=== PATIENT | male | born 1955 | race African-American/Black ===

== ENCOUNTER 2017-10-09 12:29 | Emergency (ER) | payer OTHER, MEDICAID ==
[2017-10-09 12:33] VITALS: BP 187/100; BMI 23.7
[2017-10-09] MEDS ORDERED: TORADOL 60 MG VIAL IM ONE (13:56)
--- NOTE | 2017-10-09 13:56 | DR.GENAD ---
HPI - PCP Primary Care Physician: none - Complaint/Symptoms Chief Complaint Doctors Comments: Patient presents with complaint of low back pain and left upper extremity pain. He has a history of osteoarthritis Chief Complaint:: "left shoulder pain and back pain, it just stated hurting this moring - Source History Provided: Patient - Mode of Arrival Mode of Arrival: Ambulatory - Timing Onset of Chief Complaint: 10/09/17 PMH - PMH Past Medical History: Yes Past Medical History: Arthritis, Hypertension Past Surgical History: No Surgical History: Ortho Surgery - Family History History of Family Medical Conditions: Yes Family Medical History: Hypertension - Social History Does patient currently use any type of tobacco product: Yes Have you used tobacco products in the last 12 months: Yes Type of Tobacco Use: Cigarettes How many years tobacco product used: 20 Does any household member use tobacco: No Alcohol Use: None Do you use any recreational Drugs:: No Lives With: Family Lives Where: Home - infectious screening In the last 2 months have you had wt loss of >10#?: NO Have you had fever, night sweats or hemotysis?: No Have you traveled outside the country in the last 6 months?: No Isolation: Standard ROS - Review of Systems Eyes: No Symptoms Reported ENTM: No Symptoms Reported Respiratoy: No Symptoms Reported Cardiovascular: No Symptoms Reported Gastrointestinal/Abdominal: No Symptoms Reported Genitourinary: No Symptoms Reported Neurological: No Symptoms Reported Musculoskeletal: Back Pain, Arm (left) Integumentary: No Symptoms Reported Hematologic/Lymphatic: No Symptoms Reported Endocrine: No Symptoms Reported Psychiatric: No Symptoms Reported All Other Systems: Reviewed and Negative PE - Vital Signs Vitals: Temperature 98 F Pulse Rate 56 Respiratory Rate 18 Blood Pressure 187/100 O2 Sat by Pulse Oximetry 100 - General Limitations: No Limitations General Appearance: Alert, In No Apparent Distress - Head Head Exam: Normal Inspection, Atraumatic - Eyes Eye exam: Normal Appearance, PERRL, EOMI - ENT ENT Exam: Normal Exam External Ear Exam: Normal External Inspection TM/Canal Exam: Bilateral Normal Nose Exam: Normal Nose Exam Mouth Exam: Normal Inspection Throat Exam: Normal Inspection - Neck Neck Exam: Normal Inspection - Chest Chest Inspection: Normal Inspection - Respiratory Respiratory Exam: Normal Lung Sounds Bilat Respiratory Exam: Bilateral Clear to Auscultation - Cardiovascular Cardiovascular Exam: Regular Rate, Normal Rhythm - Abdominal Exam Abdominal Exam: Normal Inspection Abdominal Tenderness: negative: RUQ, RLQ, LUQ, LLQ, Epigastrium, Suprapubic, Diffuse, Mild, Moderate, Severe, Other - Extremities Extremities Exam: Normal Inspection, Full ROM - Back Back Exam: Normal Inspection - Neurologic Neurological Exam: Alert, Oriented X3, CN II-XII Intact - Psychiatric Psychiatric Exam: Normal Affect, Normal Mood - Skin Skin Exam: Warm, Dry, Intact - Diagnosis Discharge Problem: hx of left elbow tendernitis Degenerative joint disease (DJD) of lumbar spine Qualifiers: Spinal osteoarthritis complication: unspecified spinal osteoarthritis Qualified Code(s): M47.816 - Spondylosis without myelopathy or radiculopathy, lumbar region - Discharge Plan Condition: Stable - Follow ups/Referrals Follow ups/Referrals: NFD,None [Primary Care Provider] - 3 days - Instructions
[2017-10-09] MEDS ORDERED: TORADOL 60 MG VIAL ONE (14:02)
== END 2017-10-09 14:07 | disposition home or self-care (01) ==
LOC: ER 12:50
DX: M47.816 Spondylosis without myelopathy or radiculopathy, lumbar region (principal); M77.8 Other enthesopathies, not elsewhere classified
CPT/HCPCS: 96372; 99282; J1885

== ENCOUNTER 2017-11-05 14:14 | Emergency (ER) | payer MEDICAID, OTHER ==
[2017-11-05 14:33] VITALS: BP 157/94; BMI 24.3
--- NOTE | 2017-11-05 15:53 | DR.GENAD ---
HPI - PCP Primary Care Physician: NFD - Complaint/Symptoms Chief Complaint Doctors Comments: Patient presents with complaint of cough and congestion for two daysl. Chief Complaint:: pt states he got a cold from his sister. He states it started 2 days ago with cough and shortness of breath. - Source History Provided: Patient - Mode of Arrival Mode of Arrival: Ambulatory - Timing Onset of Chief Complaint: 11/03/17 PMH - PMH Past Medical History: Yes Past Medical History: Arthritis, Hypertension Past Surgical History: Yes Surgical History: Ortho Surgery - Family History History of Family Medical Conditions: Yes Family Medical History: Hypertension - Social History Does patient currently use any type of tobacco product: Yes Have you used tobacco products in the last 12 months: Yes Type of Tobacco Use: Cigarettes Does any household member use tobacco: Yes Alcohol Use: None Do you use any recreational Drugs:: No Lives With: Family Lives Where: Home - infectious screening In the last 2 months have you had wt loss of >10#?: NO Have you had fever, night sweats or hemotysis?: No Have you traveled outside the country in the last 6 months?: No Isolation: Standard ROS - Review of Systems Eyes: No Symptoms Reported ENTM: No Symptoms Reported Respiratoy: No Symptoms Reported Cardiovascular: No Symptoms Reported Gastrointestinal/Abdominal: No Symptoms Reported Genitourinary: No Symptoms Reported Neurological: No Symptoms Reported Musculoskeletal: No Symptoms Reported Integumentary: No Symptoms Reported Hematologic/Lymphatic: No Symptoms Reported Endocrine: No Symptoms Reported Psychiatric: No Symptoms Reported All Other Systems: Reviewed and Negative PE - Vital Signs Vitals: Temperature 99.5 F Pulse Rate 103 Respiratory Rate 20 Blood Pressure 157/94 O2 Sat by Pulse Oximetry 97 - General Limitations: No Limitations General Appearance: Alert, In No Apparent Distress - Head Head Exam: Normal Inspection, Atraumatic - Eyes Eye exam: Normal Appearance, PERRL, EOMI - ENT ENT Exam: Normal Exam External Ear Exam: Normal External Inspection TM/Canal Exam: Bilateral Normal Nose Exam: Normal Nose Exam Mouth Exam: Normal Inspection Throat Exam: Normal Inspection - Neck Neck Exam: Normal Inspection, Full ROM - Chest Chest Inspection: Normal Inspection - Respiratory Respiratory Exam: Normal Lung Sounds Bilat Respiratory Exam: Bilateral Clear to Auscultation - Cardiovascular Cardiovascular Exam: Regular Rate, Normal Rhythm - Abdominal Exam Abdominal Exam: Normal Inspection, Normal Bowel Sounds Abdominal Tenderness: negative: RUQ, RLQ, LUQ, LLQ, Epigastrium, Suprapubic, Diffuse, Mild, Moderate, Severe, Other - Extremities Extremities Exam: Normal Inspection - Back Back Exam: Normal Inspection, Full ROM - Neurologic Neurological Exam: Alert, Oriented X3, CN II-XII Intact - Psychiatric Psychiatric Exam: Normal Affect, Normal Mood, Depressed, Agitated - Diagnosis Discharge Problem: URI (upper respiratory infection) Qualifiers: URI type: unspecified viral URI Qualified Code(s): J06.9 - Acute upper respiratory infection, unspecified - Discharge Plan Condition: Stable - Follow ups/Referrals Follow ups/Referrals: NFD,None [Primary Care Provider] - 3 days - Instructions
== END 2017-11-05 16:07 | disposition home or self-care (01) ==
LOC: ER 14:39
DX: J06.9 Acute upper respiratory infection, unspecified (principal)
CPT/HCPCS: 99281; 99282

== ENCOUNTER 2017-11-27 15:23 | Emergency (ER) | payer OTHER, MEDICAID ==
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
[2017-11-27 15:45] VITALS: BP 164/97; BMI 26.6
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
[2017-11-27] MEDS ORDERED: TORADOL 30 MG VIAL IVP ONE (16:48)
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
[2017-11-27] MEDS ORDERED: TORADOL 30 MG VIAL ONE (16:49)
== END 2017-11-27 17:57 | disposition home or self-care (01) ==
LOC: ER 15:36
DX: Z04.1 Encounter for examination and observation following transport accident (principal); M54.2 Cervicalgia; V49.40XA Driver injured in collision with unspecified motor vehicles in traffic accident, initial encounter
CPT/HCPCS: 72125; 73030; 96365; 96374; 99282; 99283; J1885

== ENCOUNTER 2020-09-09 17:04 | Inpatient (IN) ==
[2020-09-09 17:17] VITALS: BMI 27.3
[2020-09-09] MEDS ORDERED: NS 1000 ML 1,000 ML IV ONE (17:20)
[2020-09-09] MEDS ORDERED: NS 1000 ML 1,000 ML ONE ×2 (17:46→23:51)
[2020-09-09] MEDS ORDERED: NS 1000 ML 0 ML ONE (18:03)
--- NOTE | 2020-09-09 18:18 | CT ---
HISTORYPT TO ER C/O FALL, PT TO ER C/O PAIN TO HIS LEGS AND BACK, PT HAS MADE SEVERAL TRIPS TO ER OVER THE PAST FEW MONTHS, PT HAS VOMIT TO HIS CLOTHING AND BEARDSTUDYCT brain without IV contrastCOMPARISONCT 08/05/2020TECHNIQUEMultiple axial images of the brain were obtained without IV contrast. Dose reduction techniques including Automated Exposure Control (AEC) and adjustment of mA and kV were utilized.FINDINGSVisualized portions of the paranasal sinuses and mastoid air cells are clear. No calvarial fracture is seen. No acute intracranial hemorrhage or mass effect is seen. Prominent diffuse volume loss is seen in the brain with compensatory enlargement of the ventricular system.Confluent hypodensities are seen in the supratentorial white matter that are probably due to chronic small vessel ischemic changes. Consideration should be given to other causes of encephalopathy, also. 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 These are similar to prior study. Idiopathic calcifications are seen in the falx. No evidence of acute CVA.IMPRESSIONAppearance of the brain is unchanged. Findings are probably due to chronic small vessel ischemic changes, but other causes of encephalopathy causing the confluent periventricular white matter changes are not excluded.Electronically signed by: Robert Awan (Sep 09, 2020 18:17:16)
--- NOTE | 2020-09-09 18:25 | RAD ---
HISTORYPT TO ER C/O FALL, PT TO ER C/O PAIN TO HIS LEGS AND BACK, PT HAS MADE SEVERAL TRIPS TO ER OVER THE PAST FEW MONTHS, PT HAS VOMIT TO HIS CLOTHING AND BEARDSTUDYCHEST x-ray, 1 VIEWCOMPARISONX-ray 08/05/2020FINDINGSThe trachea is midline. The cardiac silhouette is unremarkable .Lungs appear clear. No pneumothorax or pleural effusion is seen.No acute bony abnormality is seen.IMPRESSIONNo acute cardiopulmonary abnormality is seen.Electronically signed by: Robert Awan (Sep 09, 2020 18:24:22)
--- NOTE | 2020-09-09 18:27 | RAD ---
HISTORYPT TO ER C/O FALL, PT TO ER C/O PAIN TO HIS LEGS AND BACK, PT HAS MADE SEVERAL TRIPS TO ER OVER THE PAST FEW MONTHS, PT HAS VOMIT TO HIS CLOTHING AND BEARDSTUDYX-ray pelvis and bilateral hips, AP view pelvis and frogleg lateral view hipsCOMPARISONCT 08/06/2020FINDINGSBenign bone island is seen in the left iliac wing. No widening of the symphysis pubis or SI joints. Mild arthritic changes are seen in the lower lumbar spine. No arthritic changes are seen in hips. No fracture or dislocation is seen.IMPRESSIONNo fracture is seen.Electronically signed by: Robert Awan (Sep 09, 2020 18:26:12)
[2020-09-09 18:47] LABS: CALCIUM 10.5 mg/dL (8.5-10.1); CARBON DIOXIDE 26.2 mmol/L (21-32); CREATININE 1.66 mg/dL (0.70-1.30)
--- NOTE | 2020-09-09 18:47 | DR.EXTPAIN ---
HPI Time seen Time Seen by Provider: 09/09/20 17:20 PCP Primary Care Physician: JASPREET HPI Comment HPI Comment: 65 yo aam w/ pmh htn, gout presents s/p multiple falls. Found down on floor, approx 10 hr down time. Denies jenkins, focal numbness/ weakness, hip pain, abd/ back/ chest pain. No loc. Complaint/Symptoms Chief Complaint:: PT TO ER C/O FALL , PT TO ER C/O PAIN TO HIS LEGS AND BACK ,, PT HAS MADE SEVERAL TRIPS TO ER OVER THE PAST FEW MONTHS , PT HAS VOMIT TO HIS CLOTHING AND KO , PT LOOKS VERY UN KEPT ..BR COVID-19 Coronavirus risk:travel/contact w/high risk person: No Has patient experienced Coronavirus symptoms: No Source History Provided: Patient Mode of arrival Mode of Arrival: Stretcher Timing Onset of Chief Complaint: 09/09/20 PMH PMH Past Medical History: Yes Past Medical History: Hypertension Past Surgical History: Yes Surgical History: Ortho Surgery Family History History of Family Medical Conditions: Yes Family Medical History: Diabetes Mellitus, Cancer and Hypertension Social History Does patient currently use any type of tobacco product: No Have you used tobacco products in the last 12 months: No Type of Tobacco Use: None Does any household member use tobacco: No Alcohol Use: None Do you use any recreational Drugs:: No Lives With: Family Lives Where: Home Travel Risk Coronavirus risk:travel/contact w/high risk person: No Has patient experienced Coronavirus symptoms: No Infectious screening In the last 2 months have you had wt loss of >10#?: NO Have you had fever, night sweats or hemotysis?: No Have you traveled outside the country in the last 6 months?: No Isolation: Standard ROS Review of Systems Unable to Obtain Due To: Altered mental status PE Vital Signs Vitals: Temperature 36.9 C Pulse Rate 127 Respiratory Rate 20 Blood Pressure [Right Arm] 144/92 Blood Pressure 178/117 O2 Sat by Pulse Oximetry 99 General Limitations: Altered Mental Status General Appearance: Alert (poor historian, a/o x 1. ) and In No Apparent Distress Head Head Exam: Normal Inspection Eyes Eye exam: Normal Appearance ENT ENT Exam: Normal Exam Neck Neck Exam: Normal Inspection Chest Chest Inspection: Normal Inspection Respiratory Respiratory Exam: Normal Lung Sounds Bilat Cardiovascular Cardiovascular Exam: Regular Rate and Normal Rhythm Abdominal Exam Abdominal Exam: Normal Inspection, Normal Bowel Sounds and Soft Extremities Extremities Exam: Normal Inspection Upper Extremities Arm Exam: Normal Inspection Elbow Exam: Normal Inspection Forearm Exam: Normal Inspection Hand Exam: Normal Inspection Neuromotor Exam: Normal Exam Lower Extremities Hip/Pelvis Exam: Normal Inspection Upper Leg Exam: Normal Inspection Knee Exam: Normal Inspection Lower Leg Exam: Normal Inspection Back Back Exam: Normal Inspection Neurological Neurological Exam: Alert and CN II-XII Intact; negative Oriented X3 (a/o x 1) Psychiatric Psychiatric Exam: Normal Affect and Normal Mood Skin Skin Exam: Warm, Dry, Intact and Normal Color MDM Differential Diagnosis Differential Diagnosis: Abrasion, Contusion, Fracture, Hematoma and Open Fracture COURSE Treatment Treatment: 65 yo m presents s/p multiple falls/ failure to thrive at home. NEuro exam non focal. CT head/ cxr unremarkable. CRe elevated, hx of ckd in past. CK elevated c/w rhabdomyolysis secondary to fall/ down time.d/w hospitalist whom a grees to admit. IVF's given. Likely needs snf placement. ROR Labs Reviewed Laboratory Results Reviewed?: Yes Result Diagrams: 09/09/20 18:50 09/09/20 18:50 Laboratory: WBC 16.3 X10^3/uL (3.6-10.0) H 09/09/20 18:50 RBC 5.08 X10^6/uL (4.7-6.0) 09/09/20 18:50 Hgb 13.5 g/dL (13.5-18.0) 09/09/20 18:50 Hct 42.0 % (42.0-54.0) 09/09/20 18:50 MCV 82.7 fL (80.0-100.0) 09/09/20 18:50 MCH 26.6 pg (27.0-34.0) L 09/09/20 18:50 MCHC 32.1 g/dL (33.0-35.0) L 09/09/20 18:50 RDW 17.6 % (11.6-16.5) H 09/09/20 18:50 Plt Count 208 X10^3/uL (150.0-450.0) 09/09/20 18:50 MPV 10.0 fL (7.4-11.0) 09/09/20 18:50 Neut % (Auto) 81.9 % (42.0-75.0) H 09/09/20 18:50 Lymph % (Auto) 9.8 % (21.0-51.0) L 09/09/20 18:50 [place] % (Auto) 7.6 % (0.0-13.0) 09/09/20 18:50 Eos % (Auto) 0.4 % (0.9-2.9) L 09/09/20 18:50 Baso % (Auto) 0.3 % (0.2-1.0) 09/09/20 18:50 Neut # (Auto) 13.4 x10^3/uL (2.2-4.8) H 09/09/20 18:50 Lymph # (Auto) 1.6 X10^3/uL (1.3-2.9) 09/09/20 18:50 [place] # (Auto) 1.2 x10^3/uL (0.3-0.8) H 09/09/20 18:50 Eos # (Auto) 0.1 x10^3/uL (0.0-0.2) 09/09/20 18:50 Baso # (Auto) 0.0 X10^3/uL (0.0-0.1) 09/09/20 18:50 Absolute Nucleated RBC 0.0 /100WBC 09/09/20 18:50 Sodium 139 mmol/L (136-145) 09/09/20 18:50 Corrected Sodium 140 mmol/L (136-145) 09/09/20 18:50 Potassium 4.2 mmol/L (3.5-5.1) 09/09/20 18:50 Chloride 104 mmol/L (98-107) 09/09/20 18:50 Carbon Dioxide 26.2 mmol/L (21-32) 09/09/20 18:50 BUN 36 mg/dL (7-18) H 09/09/20 18:50 Creatinine 1.66 mg/dL (0.70-1.30) H 09/09/20 18:50 Est GFR (MDRD) Af Amer 53 (>60) L 09/09/20 18:50 Est GFR (MDRD) Non-Af 44 (>60) L 09/09/20 18:50 Glucose 123 mg/dL (65-99) H 09/09/20 18:50 Calcium 10.5 mg/dL (8.5-10.1) H 09/09/20 18:50 Creatine Kinase > 1000 Units/L (39-308) H 09/09/20 18:50 XRAY XRAY Interpreted by: Radiologist X-ray Results: ct head: chronic ischemic changes, no acute changes cxr 1 view: no acute processes. EKG Rate: 115 Rhythm: ST Block: None ST: Nonsp Opioid Opioid Risk Tool Age (Gildardo box if 16-45): No History of Preadolescent Sexual Abuse: No Total: 0 Total Score Risk Category: Low Risk Copyright: Henry MILES predicting aberrant behaviors Diagnosis Discharge Problem: RENUKA (acute kidney injury) Fall Qualifiers: Encounter type: initial encounter Qualified Code(s): W19.XXXA - Unspecified fall, initial encounter Rhabdomyolysis Qualifiers: Rhabdomyolysis type: traumatic Encounter type: initial encounter Qualified Code(s): T79.6XXA - Traumatic ischemia of muscle, initial encounter Instructions Forms: Patient Portal Social Distancing
[2020-09-09 19:08] LABS: BASOPHILS % (AUTO) 0.3 % (0.2-1.0); EOSINOPHILS # (AUTO) 0.1 x10^3/uL (0.0-0.2); EOSINOPHILS % (AUTO) 0.4 % (0.9-2.9); HEMOGLOBIN 13.5 g/dL (13.5-18.0); LYMPHOCYTES # (AUTO) 1.6 X10^3/uL (1.3-2.9); LYMPHOCYTES % (AUTO) 9.8 % (21.0-51.0); MEAN CORPUSCULAR HEMOGLOBIN 26.6 pg (27.0-34.0); MEAN CORPUSCULAR HGB CONC 32.1 g/dL (33.0-35.0); MEAN CORPUSCULAR VOLUME 82.7 fL (80.0-100.0); MONOCYTES # (AUTO) 1.2 x10^3/uL (0.3-0.8); MONOCYTES % (AUTO) 7.6 % (0.0-13.0); NEUTROPHILS # (AUTO) 13.4 x10^3/uL (2.2-4.8); NEUTROPHILS % (AUTO) 81.9 % (42.0-75.0); PLATELET COUNT 208 X10^3/uL (150.0-450.0); RED BLOOD COUNT 5.08 X10^6/uL (4.7-6.0); RED CELL DISTRIBUTION WIDTH 17.6 % (11.6-16.5); WHITE BLOOD COUNT 16.3 X10^3/uL (3.6-10.0)
[2020-09-09] MEDS: NS 1000 ML 1,000 ML IV SCH ×2 (20:56→23:50)
[2020-09-10 00:40] LABS: BILIRUBIN,URINE NEGATIVE (NEGATIVE); BLOOD/HEMOGLOBIN,URINE 5+ (NEGATIVE); GLUCOSE, URINE NEGATIVE (NEGATIVE); KETONES,URINE 1+ (NEGATIVE); LEUKOCYTE ESTERASE ,URINE NEGATIVE (NEGATIVE); NITRITES,URINE NEGATIVE (NEGATIVE); PROTEIN,URINE 3+ (NEGATIVE); UROBILINOGEN,URINE NORMAL (NORMAL)
[2020-09-10 00:49] LABS: APPEARANCE,URINE CLEAR (CLEAR); BACTERIA,URINE NEGATIVE /HPF (NEGATIVE); COLOR,URINE YELLOW (YELLOW); HYALINE CASTS, URINE MANY /LPF (NEGATIVE); SQUAMOUS EPITHELIAL CELL,UR RARE /HPF (NEGATIVE)
[2020-09-10 00:50] LABS: MUCUS,URINE FEW /HPF (NEGATIVE)
[2020-09-10] MEDS: NS 1000 ML 1,000 ML IV SCH ×4 (03:43→20:25)
[2020-09-10] MEDS ORDERED: NS 1000 ML 1,000 ML ONE ×2 (05:56→12:59)
[2020-09-10 06:45] LABS: BASOPHILS # (AUTO) 0.1 X10^3/uL (0.0-0.1); BASOPHILS % (AUTO) 0.4 % (0.2-1.0); EOSINOPHILS # (AUTO) 0.1 x10^3/uL (0.0-0.2); EOSINOPHILS % (AUTO) 0.9 % (0.9-2.9); HEMATOCRIT 38.8 % (42.0-54.0); HEMOGLOBIN 12.2 g/dL (13.5-18.0); LYMPHOCYTES # (AUTO) 1.9 X10^3/uL (1.3-2.9); LYMPHOCYTES % (AUTO) 14.2 % (21.0-51.0); MEAN CORPUSCULAR HEMOGLOBIN 26.3 pg (27.0-34.0); MEAN CORPUSCULAR HGB CONC 31.6 g/dL (33.0-35.0); MEAN CORPUSCULAR VOLUME 83.2 fL (80.0-100.0); MEAN PLATELET VOLUME 10.4 fL (7.4-11.0); MONOCYTES # (AUTO) 1.3 x10^3/uL (0.3-0.8); MONOCYTES % (AUTO) 9.5 % (0.0-13.0); NEUTROPHILS # (AUTO) 10.2 x10^3/uL (2.2-4.8); PLATELET COUNT 203 X10^3/uL (150.0-450.0); RED BLOOD COUNT 4.66 X10^6/uL (4.7-6.0); RED CELL DISTRIBUTION WIDTH 17.4 % (11.6-16.5); WHITE BLOOD COUNT 13.6 X10^3/uL (3.6-10.0)
[2020-09-10 06:55] LABS: ALANINE AMINOTRANSFERASE 43 Units/L (12-78); ALKALINE PHOSPHATASE 103 Units/L (46-116); ASPARTATE AMINO TRANSFERASE 140 Units/L (15-37); BLOOD UREA NITROGEN 27 mg/dL (7-18); CALCIUM 9.4 mg/dL (8.5-10.1); CARBON DIOXIDE 25.2 mmol/L (21-32); CHLORIDE 107 mmol/L (98-107); COR CA(FOR HYPOALB) 10.2 mg/dL (8.5-10.1); CREATININE 1.44 mg/dL (0.70-1.30); SODIUM 143 mmol/L (136-145); TOTAL PROTEIN 7.2 g/dL (6.4-8.2); eGFR NON BLACK RACES 52 (>60)
[2020-09-10 06:57] LABS: CREATINE KINASE 4438 Units/L (39-308)
[2020-09-10] MEDS ORDERED: POTASSIUM CHL 40 MEQ/NS 0.45% 500 ML IV PRN (08:06)
[2020-09-10] MEDS ORDERED: POTASSIUM CHLORIDE LIQ 20 MEQ UDC PO PRN (08:06)
[2020-09-10] MEDS ORDERED: MICRO K EXTEN CAP 10 MEQ PO PRN (08:06)
[2020-09-10] MEDS ORDERED: POTASSIUM CHL 60 MEQ/NS 0.45% 500 ML IV PRN (08:06)
[2020-09-10] MEDS ORDERED: KLOR-CON PO PRN (08:06)
[2020-09-10] MEDS ORDERED: K-RIDER 10 MEQ/NS 100 ML 10 MEQ/100 ML BAG IV PRN (08:06)
[2020-09-10] MEDS ORDERED: NORVASC TAB 5 MG ONE (08:53)
[2020-09-10] MEDS ORDERED: K-DUR TAB 20 MEQ PO ONE (08:53)
[2020-09-10] MEDS ORDERED: CATAPRES TAB 0.2 MG ONE (08:53)
[2020-09-10] MEDS: CATAPRES TAB 0.2 MG PO SCH ×2 (08:55→20:27)
[2020-09-10] MEDS: NORVASC TAB 5 MG PO SCH (08:56)
[2020-09-10] MEDS: K-DUR TAB 20 MEQ PO PRN (08:56)
--- NOTE | 2020-09-10 09:50 | DR.H&P ---
H&P History & Physical for Day of: H&P Date: 09/10/20 Chief Complaint Chief Complaint: weakness, fall Allergies Allergies Allergy/AdvReac Type Severity Reaction Status Date / Time No Known Drug Allergies Allergy Verified 08/19/20 21:02 History of Present Illness History of Present Illness: Mr. Byers is a 65y/o male with a PMH of recurrent falls and HTN presented after having a fall yesterday and being down for over 10 hrs. Patient was found on the floor by his son and brought to the ER. Patient was found to be unkept at the time. He states he lives with his son. He uses a cane to walk. He is a poor historian. He does not see any provider. He has a hx of HTN. Denies fever or chills. Denies cough. ER work up - Labs: CK over 3000 WBC 13.6 Hgb 12.2 K: 3.3 Cr 1.44 (down from 1.66) Mg 2.0 - UA negative for UTI, did show RBCs - COVID (-) - CT-head : negative for any acute process , XR hip: negative for fracture CXR: no acute process Patient was started on IVF. Plan: continue hydration with NS, replace K as per protocol. Monitor AM labs and replace electrolytes as needed. PT/OT consulted. Monitor creatinine kinase. Resume home BP medications. In the ED, son had mentioned that patient likely needs placement as he is not able to take care of himself at home. Past Medical History Past Medical History: Hypertension Additional Medical History: Recurrent falls Past Surgical History Surgical History: Ortho Surgery and Other Family History Family Medical History: Diabetes Mellitus, Cancer and Hypertension Social History Does patient currently use any type of tobacco product: No Have you used tobacco products in the last 12 months: No Type of Tobacco Use: None Does any household member use tobacco: No Alcohol Use: None Drug Use: None Prescription drug monitoring program results: PDMP reviewed and no concerns identified Medications Home Medications: No Known Drug Allergies Allergy (Verified 08/19/20 21:02) CONTINUE taking the following medications meloxicam 7.5 mg PO DAILY 09/09/20 [History] Labs Result Diagrams: 09/10/20 05:28 09/10/20 05:28 Labs: Laboratory WBC 13.6 X10^3/uL (3.6-10.0) H 09/10/20 05:28 RBC 4.66 X10^6/uL (4.7-6.0) L 09/10/20 05:28 Hgb 12.2 g/dL (13.5-18.0) L 09/10/20 05:28 Hct 38.8 % (42.0-54.0) L 09/10/20 05:28 MCV 83.2 fL (80.0-100.0) 09/10/20 05:28 MCH 26.3 pg (27.0-34.0) L 09/10/20 05:28 MCHC 31.6 g/dL (33.0-35.0) L 09/10/20 05:28 RDW 17.4 % (11.6-16.5) H 09/10/20 05:28 Plt Count 203 X10^3/uL (150.0-450.0) 09/10/20 05:28 MPV 10.4 fL (7.4-11.0) 09/10/20 05:28 Neut % (Auto) 75.0 % (42.0-75.0) 09/10/20 05:28 Lymph % (Auto) 14.2 % (21.0-51.0) L 09/10/20 05:28 [place] % (Auto) 9.5 % (0.0-13.0) 09/10/20 05:28 Eos % (Auto) 0.9 % (0.9-2.9) 09/10/20 05:28 Baso % (Auto) 0.4 % (0.2-1.0) 09/10/20 05:28 Neut # (Auto) 10.2 x10^3/uL (2.2-4.8) H 09/10/20 05:28 Lymph # (Auto) 1.9 X10^3/uL (1.3-2.9) 09/10/20 05:28 [place] # (Auto) 1.3 x10^3/uL (0.3-0.8) H 09/10/20 05:28 Eos # (Auto) 0.1 x10^3/uL (0.0-0.2) 09/10/20 05:28 Baso # (Auto) 0.1 X10^3/uL (0.0-0.1) 09/10/20 05:28 Absolute Nucleated RBC 0.0 /100WBC 09/10/20 05:28 Sodium 143 mmol/L (136-145) 09/10/20 05:28 Corrected Sodium TNP 09/10/20 05:28 Potassium 3.3 mmol/L (3.5-5.1) L 09/10/20 05:28 Chloride 107 mmol/L (98-107) 09/10/20 05:28 Carbon Dioxide 25.2 mmol/L (21-32) 09/10/20 05:28 BUN 27 mg/dL (7-18) H 09/10/20 05:28 Creatinine 1.44 mg/dL (0.70-1.30) H 09/10/20 05:28 Est GFR (MDRD) Af Amer > 60 (>60) 09/10/20 05:28 Est GFR (MDRD) Non-Af 52 (>60) L 09/10/20 05:28 Glucose 106 mg/dL (65-99) H 09/10/20 05:28 Calcium 9.4 mg/dL (8.5-10.1) 09/10/20 05:28 Corrected Calcium 10.2 mg/dL (8.5-10.1) H 09/10/20 05:28 Magnesium 2.0 mg/dL (1.7-2.9) 09/10/20 05:28 Total Bilirubin 0.50 mg/dL (0.2-1.0) 09/10/20 05:28 AST 140 Units/L (15-37) H 09/10/20 05:28 ALT 43 Units/L (12-78) 09/10/20 05:28 Alkaline Phosphatase 103 Units/L (46-116) 09/10/20 05:28 Creatine Kinase 4438 Units/L (39-308) H 09/10/20 05:28 Total Protein 7.2 g/dL (6.4-8.2) 09/10/20 05:28 Albumin 3.0 g/dL (3.4-5.0) L 09/10/20 05:28 Globulin 4.2 g/dL (2.5-4.5) 09/10/20 05:28 Albumin/Globulin Ratio 0.7 Ratio (1.1-2.1) L 09/10/20 05:28 Specimen Type Catherized urine 09/10/20 00:07 Urine Color Yellow (YELLOW) 09/10/20 00:07 Urine Appearance Clear (CLEAR) 09/10/20 00:07 Urine pH 5.0 (5.0 - 8.0) 09/10/20 00:07 Ur Specific [place] 1.025 (1.000-1.030) 09/10/20 00:07 Urine Protein 3+ (NEGATIVE) 09/10/20 00:07 Urine Glucose (UA) Negative (NEGATIVE) 09/10/20 00:07 Urine Ketones 1+ (NEGATIVE) 09/10/20 00:07 Urine Occult Blood 5+ (NEGATIVE) 09/10/20 00:07 Urine Nitrite Negative (NEGATIVE) 09/10/20 00:07 Urine Bilirubin Negative (NEGATIVE) 09/10/20 00:07 Urine Urobilinogen Normal (NORMAL) 09/10/20 00:07 Ur Leukocyte Esterase Negative (NEGATIVE) 09/10/20 00:07 Urine RBC 5-10 /HPF (0-3) A 09/10/20 00:07 Urine WBC 0-2 /HPF (0-5) 09/10/20 00:07 Ur Squamous Epith Cells Rare /HPF (NEGATIVE) 09/10/20 00:07 Urine Bacteria Negative /HPF (NEGATIVE) 09/10/20 00:07 Hyaline Casts Many /LPF (NEGATIVE) 09/10/20 00:07 Urine Mucus Few /HPF (NEGATIVE) 09/10/20 00:07 Ur Culture Indicated? No/not indicated 09/10/20 00:07 SARS CoV-2 RNA Rapid [place] Negative (NEGATIVE) 09/09/20 19:24 Review of Systems Constitutional: Weakness Eyes: No Symptoms Reported ENT: No Symptoms Reported Respiratory: No Symptoms Reported Cardiovascular: No Symptoms Reported Gastrointestinal: No Symptoms Reported Genitourinary: No Symptoms Reported Musculoskeletal: Back Pain and Leg Pain Skin: No Symptoms Reported Neurological: No Symptoms Reported Physical Exam Vital Signs: Temperature 97.5 F Pulse Rate [Bilateral] 84 Pulse Rate 127 Respiratory Rate 22 Blood Pressure [Right Arm] 182/105 Blood Pressure 178/117 O2 Sat by Pulse Oximetry 99 Oriented: Normal Eyes: Normal Ear: Normal Throat: Dry Respiratory: Diminished Throughout Cardiovascular: Normal Auscultation: Bowel Sounds: Normal Palpation: Normal Tenderness: Normal Skin: Decreased Turgur Musculoskeletal: Leg, Back:Thoracic, Back:Paraspinous and Tender Psychiatric: Normal Mood Description: Calm Affect: Normal Speech Pattern: Clear and Appropriate Assessment/Plan (1) Rhabdomyolysis: Qualifiers: Rhabdomyolysis type: traumatic Encounter type: initial encounter Qualified Code(s): T79.6XXA - Traumatic ischemia of muscle, initial encounter Status: Acute (2) Recurrent falls: Status: Acute (3) Dehydration: Status: Acute (4) Degenerative joint disease (DJD) of lumbar spine: Qualifiers: Spinal osteoarthritis complication: with radiculopathy Qualified Code(s): M47.26 - Other spondylosis with radiculopathy, lumbar region Status: Acute (5) Hypertension: Qualifiers: Hypertension type: essential hypertension Qualified Code(s): I10 - Essential (primary) hypertension Status: Acute (6) Arthritis: Status: Acute (7) Hypokalemia: Status: Acute (8) Generalized weakness: Status: Acute Review H&P Reviewed: Yes Patient was examined?: Yes
[2020-09-10] MEDS ORDERED: LOVENOX INJ 40 MG SYR SC ONE (13:35)
[2020-09-10] MEDS: LOVENOX INJ 40 MG SYR SC SCH (13:38)
[2020-09-11] MEDS ORDERED: TYLENOL 325 MG TAB PO PRN (04:50)
[2020-09-11] MEDS: NS 1000 ML 1,000 ML IV SCH ×3 (05:41→20:00)
[2020-09-11] MEDS: ULTRAM PO PRN ×3 (05:50→20:35)
[2020-09-11 06:54] LABS: BASOPHILS % (AUTO) 0.3 % (0.2-1.0); EOSINOPHILS # (AUTO) 0.4 x10^3/uL (0.0-0.2); EOSINOPHILS % (AUTO) 3.7 % (0.9-2.9); HEMATOCRIT 30.2 % (42.0-54.0); LYMPHOCYTES # (AUTO) 2.2 X10^3/uL (1.3-2.9); MEAN CORPUSCULAR HGB CONC 32.9 g/dL (33.0-35.0); MEAN PLATELET VOLUME 10.4 fL (7.4-11.0); MONOCYTES # (AUTO) 0.9 x10^3/uL (0.3-0.8); MONOCYTES % (AUTO) 8.3 % (0.0-13.0); NEUTROPHILS # (AUTO) 7.1 x10^3/uL (2.2-4.8); NEUTROPHILS % (AUTO) 66.7 % (42.0-75.0); PLATELET COUNT 169 X10^3/uL (150.0-450.0); RED BLOOD COUNT 3.69 X10^6/uL (4.7-6.0); RED CELL DISTRIBUTION WIDTH 17.3 % (11.6-16.5); WHITE BLOOD COUNT 10.6 X10^3/uL (3.6-10.0)
[2020-09-11 07:26] LABS: BLOOD UREA NITROGEN 19 mg/dL (7-18); CALCIUM 8.2 mg/dL (8.5-10.1); CARBON DIOXIDE 22.5 mmol/L (21-32); CHLORIDE 109 mmol/L (98-107); COR NA(FOR HYPERGLY) 143 mmol/L (136-145); CREATININE 1.29 mg/dL (0.70-1.30); MAGNESIUM 1.7 mg/dL (1.7-2.9); SODIUM 142 mmol/L (136-145); eGFR NON BLACK RACES 59 (>60)
[2020-09-11 07:30] LABS: CREATINE KINASE 1981 Units/L (39-308)
[2020-09-11] MEDS: LOVENOX INJ 40 MG SYR SC SCH (08:31)
[2020-09-11] MEDS: K-DUR TAB 20 MEQ PO PRN ×2 (08:32→16:37)
[2020-09-11] MEDS: NORVASC TAB 5 MG PO SCH (08:32)
[2020-09-11] MEDS: CATAPRES TAB 0.2 MG PO SCH ×2 (08:33→20:34)
--- NOTE | 2020-09-11 10:35 | PCM.PROG ---
Progress Note - Progress Note for Day of Date of Exam: 09/11/20 - Subjective Subjective: IS A 65 YEAR OLD PATIENT OF . HE WAS ADMITTED ON 09/09/20 FOR TREATMENT OF RHABDOMYOLYSIS, DEHYDRATION, GENERALIZED WEAKNESS, HYPOKALEMIA, AND RECURRENT FALLS. HE HAS A HISTORY OF HTN, DJD, AND ARTHRITIS. TODAY, HE IS LYING IN BED WITH EYES CLOSED ON MORNING ROUNDS. HE OPENS EYES TO VERBAL STIMULI. HE CONTINUES WITH COMPLAINTS OF WEAKNESS AND LOWER EXTREMITY TENDERNESS THIS MORNING. ON EXAMINATION, HEART IS REGULAR IN RATE AND RHYTHM. BILATERAL LUNGS ARE NOTED WITH DIMINISHED LUNG SOUNDS THROUGHOUT. ABDOMENT IS ROUND, SOFT, AND NON-TENDER WITH NORMAL BOWEL SOUNDS NOTED IN ALL QUADRANTS. LOWER EXTREMITIES NOTED TO BE TENDER TO TOUCH. HIS VITALS THIS MORNING ARE: 98 .6-71-18-100%-131/83. LABS WERE OBTAINED. ABNORMAL LAB VALUES INCLUDE THE FOLLOWING: WBC 10.6, RBC 3.69, HGB 10.0, HCT 30.2, POTASSIUM 3.3, CHLORIDE 109, BUN 19, GLUCOSE 138, CALCIUM 8.2, CREATINE KINASE 1981. HE IS CURRENTLY RECEIVING NORMAL SALINE AT 150 ML/HR, THE POTASSIUM AND MAGNESIUM PROTOCOLS, LOVENOX 40MG SC DAILY, ULTRAM 50MG PO Q4H PRN, AND HIS HOME MEDICATIONS OF NORVASC AND CATAPRES WERE RESUMED. WE WILL CONTINUE WITH CURRENT PLAN OF CARE TODAY. OTHERWISE, WE WILL FOLLOW UP WITH AM LABS AND CONTINUE TO MONITOR. - Past Medical Family Social History Past Med/Fam/Surg Hx: No changes since H&P Allergies: Allergies No Known Drug Allergies Allergy (Verified 08/19/20 21:02) - Review of Systems ROS: No change since H&P - Vital Signs and I&O's Vital Signs: Temperature 98.6 F Pulse Rate [Bilateral] 71 Pulse Rate 127 Respiratory Rate 16 Blood Pressure [Right Arm] 131/83 Blood Pressure 178/117 O2 Sat by Pulse Oximetry 100 Intake and Output: Intake & Output 09/08/20 09/09/20 09/10/20 09/11/20 11:59 11:59 11:59 11:59 Intake Total 1678 / 1678 1330 / 1330 Output Total 620 / 620 1200 / 1200 Balance 1058 / 1058 130 / 130 - Physical Exam Oriented: Normal Eyes: Normal Ear: Normal Nose: Normal Throat: Dry Respiratory: Generalized, Diminished Cardiovascular: Normal : Normal Auscultation: Bowel Sounds: Normal Palpation: Normal Tenderness: Normal Skin: Decreased Turgur Musculoskeletal: Leg, Back:Thoracic, Back:Paraspinous, Tender Psychiatric: Normal Mood Description: Calm Affect: Normal Speech Pattern: Clear, Appropriate - Laboratory and Diagnostics Result Diagrams: 09/11/20 06:14 09/11/20 06:14 Labs: Laboratory WBC 10.6 X10^3/uL (3.6-10.0) H 09/11/20 06:14 RBC 3.69 X10^6/uL (4.7-6.0) L 09/11/20 06:14 Hgb 10.0 g/dL (13.5-18.0) L D 09/11/20 06:14 Hct 30.2 % (42.0-54.0) L 09/11/20 06:14 MCV 82.0 fL (80.0-100.0) 09/11/20 06:14 MCH 27.0 pg (27.0-34.0) 09/11/20 06:14 MCHC 32.9 g/dL (33.0-35.0) L 09/11/20 06:14 RDW 17.3 % (11.6-16.5) H 09/11/20 06:14 Plt Count 169 X10^3/uL (150.0-450.0) 09/11/20 06:14 MPV 10.4 fL (7.4-11.0) 09/11/20 06:14 Neut % (Auto) 66.7 % (42.0-75.0) 09/11/20 06:14 Lymph % (Auto) 21.0 % (21.0-51.0) 09/11/20 06:14 [place] % (Auto) 8.3 % (0.0-13.0) 09/11/20 06:14 Eos % (Auto) 3.7 % (0.9-2.9) H 09/11/20 06:14 Baso % (Auto) 0.3 % (0.2-1.0) 09/11/20 06:14 Neut # (Auto) 7.1 x10^3/uL (2.2-4.8) H 09/11/20 06:14 Lymph # (Auto) 2.2 X10^3/uL (1.3-2.9) 09/11/20 06:14 [place] # (Auto) 0.9 x10^3/uL (0.3-0.8) H 09/11/20 06:14 Eos # (Auto) 0.4 x10^3/uL (0.0-0.2) H 09/11/20 06:14 Baso # (Auto) 0.0 X10^3/uL (0.0-0.1) 09/11/20 06:14 Absolute Nucleated RBC 0.0 /100WBC 09/11/20 06:14 Sodium 142 mmol/L (136-145) 09/11/20 06:14 Corrected Sodium 143 mmol/L (136-145) 09/11/20 06:14 Potassium 3.3 mmol/L (3.5-5.1) L 09/11/20 06:14 Chloride 109 mmol/L (98-107) H 09/11/20 06:14 Carbon Dioxide 22.5 mmol/L (21-32) 09/11/20 06:14 BUN 19 mg/dL (7-18) H 09/11/20 06:14 Creatinine 1.29 mg/dL (0.70-1.30) 09/11/20 06:14 Est GFR (MDRD) Af Amer > 60 (>60) 09/11/20 06:14 Est GFR (MDRD) Non-Af 59 (>60) 09/11/20 06:14 Glucose 138 mg/dL (65-99) H 09/11/20 06:14 POC Glucose (mg/dL) 111 mg/dL (65-99) H 09/10/20 11:40 Calcium 8.2 mg/dL (8.5-10.1) L 09/11/20 06:14 Corrected Calcium 10.2 mg/dL (8.5-10.1) H 09/10/20 05:28 Magnesium 1.7 mg/dL (1.7-2.9) 09/11/20 06:14 Total Bilirubin 0.50 mg/dL (0.2-1.0) 09/10/20 05:28 AST 140 Units/L (15-37) H 09/10/20 05:28 ALT 43 Units/L (12-78) 09/10/20 05:28 Alkaline Phosphatase 103 Units/L (46-116) 09/10/20 05:28 Creatine Kinase 1981 Units/L (39-308) H 09/11/20 06:14 Total Protein 7.2 g/dL (6.4-8.2) 09/10/20 05:28 Albumin 3.0 g/dL (3.4-5.0) L 09/10/20 05:28 Globulin 4.2 g/dL (2.5-4.5) 09/10/20 05:28 Albumin/Globulin Ratio 0.7 Ratio (1.1-2.1) L 09/10/20 05:28 Specimen Type Catherized urine 09/10/20 00:07 Urine Color Yellow (YELLOW) 09/10/20 00:07 Urine Appearance Clear (CLEAR) 09/10/20 00:07 Urine pH 5.0 (5.0 - 8.0) 09/10/20 00:07 Ur Specific [place] 1.025 (1.000-1.030) 09/10/20 00:07 Urine Protein 3+ (NEGATIVE) 09/10/20 00:07 Urine Glucose (UA) Negative (NEGATIVE) 09/10/20 00:07 Urine Ketones 1+ (NEGATIVE) 09/10/20 00:07 Urine Occult Blood 5+ (NEGATIVE) 09/10/20 00:07 Urine Nitrite Negative (NEGATIVE) 09/10/20 00:07 Urine Bilirubin Negative (NEGATIVE) 09/10/20 00:07 Urine Urobilinogen Normal (NORMAL) 09/10/20 00:07 Ur Leukocyte Esterase Negative (NEGATIVE) 09/10/20 00:07 Urine RBC 5-10 /HPF (0-3) A 09/10/20 00:07 Urine WBC 0-2 /HPF (0-5) 09/10/20 00:07 Ur Squamous Epith Cells Rare /HPF (NEGATIVE) 09/10/20 00:07 Urine Bacteria Negative /HPF (NEGATIVE) 09/10/20 00:07 Hyaline Casts Many /LPF (NEGATIVE) 09/10/20 00:07 Urine Mucus Few /HPF (NEGATIVE) 09/10/20 00:07 Ur Culture Indicated? No/not indicated 09/10/20 00:07 SARS CoV-2 RNA Rapid [place] Negative (NEGATIVE) 09/09/20 19:24 - Plan (1) Rhabdomyolysis Status: Acute Qualifiers: Rhabdomyolysis type: traumatic Encounter type: initial encounter Qualified Code(s): T79.6XXA - Traumatic ischemia of muscle, initial encounter (2) Dehydration Status: Acute (3) Generalized weakness Status: Acute (4) Hypokalemia Status: Acute (5) Recurrent falls Status: Acute (6) Arthritis Status: Chronic (7) Degenerative joint disease (DJD) of lumbar spine Status: Chronic Qualifiers: Spinal osteoarthritis complication: unspecified spinal osteoarthritis Qualified Code(s): M47.816 - Spondylosis without myelopathy or radiculopathy, lumbar region (8) Hypertension Status: Chronic Qualifiers: Hypertension type: essential hypertension
[2020-09-11] MEDS: MAGNESIUM SULFATE 1 GRAM/100 mL PREMIX 1 GM/100 ML BAG IV PRN ×2 (22:03→23:05)
[2020-09-12 06:01] LABS: BASOPHILS % (AUTO) 0.3 % (0.2-1.0); EOSINOPHILS # (AUTO) 0.4 x10^3/uL (0.0-0.2); EOSINOPHILS % (AUTO) 5.2 % (0.9-2.9); HEMATOCRIT 30.9 % (42.0-54.0); LYMPHOCYTES # (AUTO) 2.6 X10^3/uL (1.3-2.9); LYMPHOCYTES % (AUTO) 30.3 % (21.0-51.0); MEAN CORPUSCULAR HEMOGLOBIN 26.7 pg (27.0-34.0); MEAN CORPUSCULAR HGB CONC 32.4 g/dL (33.0-35.0); MEAN CORPUSCULAR VOLUME 82.5 fL (80.0-100.0); MEAN PLATELET VOLUME 10.3 fL (7.4-11.0); MONOCYTES # (AUTO) 0.6 x10^3/uL (0.3-0.8); MONOCYTES % (AUTO) 7.5 % (0.0-13.0); NEUTROPHILS # (AUTO) 4.9 x10^3/uL (2.2-4.8); NEUTROPHILS % (AUTO) 56.7 % (42.0-75.0); PLATELET COUNT 177 X10^3/uL (150.0-450.0); RED BLOOD COUNT 3.75 X10^6/uL (4.7-6.0); RED CELL DISTRIBUTION WIDTH 17.2 % (11.6-16.5); WHITE BLOOD COUNT 8.7 X10^3/uL (3.6-10.0)
[2020-09-12 06:11] LABS: BLOOD UREA NITROGEN 15 mg/dL (7-18); CALCIUM 8.2 mg/dL (8.5-10.1); CARBON DIOXIDE 23.9 mmol/L (21-32); CHLORIDE 111 mmol/L (98-107); CREATINE KINASE 977 Units/L (39-308); SODIUM 142 mmol/L (136-145); eGFR NON BLACK RACES > 60 (>60)
[2020-09-12] MEDS: NS 1000 ML 1,000 ML IV SCH ×3 (08:08→20:15)
[2020-09-12] MEDS: LOVENOX INJ 40 MG SYR SC SCH (08:46)
[2020-09-12] MEDS: CATAPRES TAB 0.2 MG PO SCH ×2 (08:46→20:15)
[2020-09-12] MEDS: NORVASC TAB 5 MG PO SCH (08:46)
--- NOTE | 2020-09-12 13:27 | PCM.PROG ---
Progress Note - Progress Note for Day of Date of Exam: 09/12/20 - Subjective Subjective: IS A 65 YEAR OLD PATIENT OF . HE WAS ADMITTED ON 09/09/20 FOR TREATMENT OF RHABDOMYOLYSIS, DEHYDRATION, GENERALIZED WEAKNESS, HYPOKALEMIA, AND RECURRENT FALLS. HE HAS A HISTORY OF HTN, DJD, AND ARTHRITIS. TODAY, HE IS SITTING UP IN BED EATING BREAKFAST. HE OPENS EYES TO VERBAL STIMULI. HE CONTINUES WITH COMPLAINTS OF WEAKNESS AND LOWER EXTREMITY TENDERNESS THIS MORNING. ON EXAMINATION, HEART IS REGULAR IN RATE AND RHYTHM. BILATERAL LUNGS ARE NOTED WITH DIMINISHED LUNG SOUNDS THROUGHOUT. ABDOMENT IS ROUND, SOFT, AND NON-TENDER WITH NORMAL BOWEL SOUNDS NOTED IN ALL QUADRANTS. LOWER EXTREMITIES NOTED TO BE TENDER TO TOUCH. HIS VITALS THIS MORNING ARE: 98.6-74-18-98%-172/98. LABS WERE OBTAINED. ABNORMAL LAB VALUES INCLUDE THE FOLLOWING: RBC 3.75, HGB 10.0, HCT 30.9, CHLORIDE 111, GLUCOSE 108, CALCIUM 8.2, CREATINE KINASE 977. HE IS CURRENTLY RECEIVING NORMAL SALINE AT 150 ML/HR, THE POTASSIUM AND MAGNESIUM PROTOCOLS, LOVENOX 40MG SC DAILY, ULTRAM 50MG PO Q4H PRN , AND HIS HOME MEDICATIONS OF NORVASC AND CATAPRES WERE RESUMED. WE WILL CONTINUE WITH CURRENT PLAN OF CARE TODAY. OTHERWISE, WE WILL FOLLOW UP WITH AM LABS AND CONTINUE TO MONITOR. TIME SPENT ON CLINICAL ASSESSMENT, REVIEWING LABS AND IMAGING, DECISION MAKING, AND DOCUMENTATION GREATER THAN 75 MINUTES. - Past Medical Family Social History Past Med/Fam/Surg Hx: No changes since H&P Allergies: Allergies No Known Drug Allergies Allergy (Verified 08/19/20 21:02) - Review of Systems ROS: No change since H&P - Vital Signs and I&O's Vital Signs: Temperature 98.5 F Pulse Rate [Bilateral] 62 Pulse Rate 127 Respiratory Rate 18 Blood Pressure [Right Arm] 163/91 Blood Pressure 178/117 O2 Sat by Pulse Oximetry 99 Intake and Output: Intake & Output 09/10/20 09/11/20 09/12/20 09/13/20 11:59 11:59 11:59 11:59 Intake Total 1678 / 1678 1330 / 1330 3469 / 3469 Output Total 620 / 620 1200 / 1200 700 / 700 Balance 1058 / 1058 130 / 130 2769 / 2769 - Physical Exam Oriented: Normal Eyes: Normal Ear: Normal Nose: Normal Throat: Dry Respiratory: Generalized, Diminished Cardiovascular: Normal : Normal Auscultation: Bowel Sounds: Normal Tenderness: Normal Skin: Decreased Turgur Musculoskeletal: Leg, Back:Thoracic, Back:Paraspinous, Tender Psychiatric: Normal Mood Description: Calm Affect: Normal Speech Pattern: Clear, Appropriate - Laboratory and Diagnostics Result Diagrams: 09/12/20 04:35 09/12/20 04:35 Labs: Laboratory WBC 8.7 X10^3/uL (3.6-10.0) 09/12/20 04:35 RBC 3.75 X10^6/uL (4.7-6.0) L 09/12/20 04:35 Hgb 10.0 g/dL (13.5-18.0) L 09/12/20 04:35 Hct 30.9 % (42.0-54.0) L 09/12/20 04:35 MCV 82.5 fL (80.0-100.0) 09/12/20 04:35 MCH 26.7 pg (27.0-34.0) L 09/12/20 04:35 MCHC 32.4 g/dL (33.0-35.0) L 09/12/20 04:35 RDW 17.2 % (11.6-16.5) H 09/12/20 04:35 Plt Count 177 X10^3/uL (150.0-450.0) 09/12/20 04:35 MPV 10.3 fL (7.4-11.0) 09/12/20 04:35 Neut % (Auto) 56.7 % (42.0-75.0) 09/12/20 04:35 Lymph % (Auto) 30.3 % (21.0-51.0) 09/12/20 04:35 [place] % (Auto) 7.5 % (0.0-13.0) 09/12/20 04:35 Eos % (Auto) 5.2 % (0.9-2.9) H 09/12/20 04:35 Baso % (Auto) 0.3 % (0.2-1.0) 09/12/20 04:35 Neut # (Auto) 4.9 x10^3/uL (2.2-4.8) H 09/12/20 04:35 Lymph # (Auto) 2.6 X10^3/uL (1.3-2.9) 09/12/20 04:35 [place] # (Auto) 0.6 x10^3/uL (0.3-0.8) 09/12/20 04:35 Eos # (Auto) 0.4 x10^3/uL (0.0-0.2) H 09/12/20 04:35 Baso # (Auto) 0.0 X10^3/uL (0.0-0.1) 09/12/20 04:35 Absolute Nucleated RBC 0.0 /100WBC 09/12/20 04:35 Sodium 142 mmol/L (136-145) 09/12/20 04:35 Corrected Sodium TNP 09/12/20 04:35 Potassium 3.8 mmol/L (3.5-5.1) 09/12/20 04:35 Chloride 111 mmol/L (98-107) H 09/12/20 04:35 Carbon Dioxide 23.9 mmol/L (21-32) 09/12/20 04:35 BUN 15 mg/dL (7-18) 09/12/20 04:35 Creatinine 1.20 mg/dL (0.70-1.30) 09/12/20 04:35 Est GFR (MDRD) Af Amer > 60 (>60) 09/12/20 04:35 Est GFR (MDRD) Non-Af > 60 (>60) 09/12/20 04:35 Glucose 108 mg/dL (65-99) H 09/12/20 04:35 POC Glucose (mg/dL) 111 mg/dL (65-99) H 09/10/20 11:40 Calcium 8.2 mg/dL (8.5-10.1) L 09/12/20 04:35 Corrected Calcium 10.2 mg/dL (8.5-10.1) H 09/10/20 05:28 Magnesium 2.1 mg/dL (1.7-2.9) 09/12/20 04:35 Total Bilirubin 0.50 mg/dL (0.2-1.0) 09/10/20 05:28 AST 140 Units/L (15-37) H 09/10/20 05:28 ALT 43 Units/L (12-78) 09/10/20 05:28 Alkaline Phosphatase 103 Units/L (46-116) 09/10/20 05:28 Creatine Kinase 977 Units/L (39-308) H 09/12/20 04:35 Total Protein 7.2 g/dL (6.4-8.2) 09/10/20 05:28 Albumin 3.0 g/dL (3.4-5.0) L 09/10/20 05:28 Globulin 4.2 g/dL (2.5-4.5) 09/10/20 05:28 Albumin/Globulin Ratio 0.7 Ratio (1.1-2.1) L 09/10/20 05:28 Specimen Type Catherized urine 09/10/20 00:07 Urine Color Yellow (YELLOW) 09/10/20 00:07 Urine Appearance Clear (CLEAR) 09/10/20 00:07 Urine pH 5.0 (5.0 - 8.0) 09/10/20 00:07 Ur Specific [place] 1.025 (1.000-1.030) 09/10/20 00:07 Urine Protein 3+ (NEGATIVE) 09/10/20 00:07 Urine Glucose (UA) Negative (NEGATIVE) 09/10/20 00:07 Urine Ketones 1+ (NEGATIVE) 09/10/20 00:07 Urine Occult Blood 5+ (NEGATIVE) 09/10/20 00:07 Urine Nitrite Negative (NEGATIVE) 09/10/20 00:07 Urine Bilirubin Negative (NEGATIVE) 09/10/20 00:07 Urine Urobilinogen Normal (NORMAL) 09/10/20 00:07 Ur Leukocyte Esterase Negative (NEGATIVE) 09/10/20 00:07 Urine RBC 5-10 /HPF (0-3) A 09/10/20 00:07 Urine WBC 0-2 /HPF (0-5) 09/10/20 00:07 Ur Squamous Epith Cells Rare /HPF (NEGATIVE) 09/10/20 00:07 Urine Bacteria Negative /HPF (NEGATIVE) 09/10/20 00:07 Hyaline Casts Many /LPF (NEGATIVE) 09/10/20 00:07 Urine Mucus Few /HPF (NEGATIVE) 09/10/20 00:07 Ur Culture Indicated? No/not indicated 09/10/20 00:07 SARS CoV-2 RNA Rapid [place] Negative (NEGATIVE) 09/09/20 19:24 - Plan (1) Rhabdomyolysis Status: Acute Qualifiers: Rhabdomyolysis type: traumatic Encounter type: initial encounter Qualified Code(s): T79.6XXA - Traumatic ischemia of muscle, initial encounter (2) Dehydration Status: Acute (3) Generalized weakness Status: Acute (4) Hypokalemia Status: Acute (5) Recurrent falls Status: Acute (6) Arthritis Status: Chronic (7) Degenerative joint disease (DJD) of lumbar spine Status: Chronic Qualifiers: Spinal osteoarthritis complication: unspecified spinal osteoarthritis Qualified Code(s): M47.816 - Spondylosis without myelopathy or radiculopathy, lumbar region (8) Hypertension Status: Chronic Qualifiers: Hypertension type: essential hypertension
[2020-09-12] MEDS: ULTRAM PO PRN (22:17)
[2020-09-12] MEDS ORDERED: RESTORIL CAP 15 MG PO PRN (23:58)
[2020-09-13] MEDS: NS 1000 ML 1,000 ML IV SCH ×4 (02:30→20:05)
[2020-09-13] MEDS ORDERED: APRESOLINE INJ 20 MG VIAL IVP ONE (04:31)
[2020-09-13 06:25] LABS: BASOPHILS % (AUTO) 0.4 % (0.2-1.0); EOSINOPHILS # (AUTO) 0.4 x10^3/uL (0.0-0.2); EOSINOPHILS % (AUTO) 4.6 % (0.9-2.9); HEMOGLOBIN 10.3 g/dL (13.5-18.0); LYMPHOCYTES # (AUTO) 2.7 X10^3/uL (1.3-2.9); LYMPHOCYTES % (AUTO) 30.2 % (21.0-51.0); MEAN CORPUSCULAR HEMOGLOBIN 26.4 pg (27.0-34.0); MEAN CORPUSCULAR HGB CONC 32.3 g/dL (33.0-35.0); MEAN CORPUSCULAR VOLUME 81.7 fL (80.0-100.0); MEAN PLATELET VOLUME 10.2 fL (7.4-11.0); MONOCYTES # (AUTO) 0.7 x10^3/uL (0.3-0.8); MONOCYTES % (AUTO) 7.9 % (0.0-13.0); NEUTROPHILS # (AUTO) 5.2 x10^3/uL (2.2-4.8); NEUTROPHILS % (AUTO) 56.9 % (42.0-75.0); PLATELET COUNT 196 X10^3/uL (150.0-450.0); RED BLOOD COUNT 3.91 X10^6/uL (4.7-6.0); RED CELL DISTRIBUTION WIDTH 17.1 % (11.6-16.5); WHITE BLOOD COUNT 9.1 X10^3/uL (3.6-10.0)
[2020-09-13 06:37] LABS: BLOOD UREA NITROGEN 9 mg/dL (7-18); CALCIUM 8.4 mg/dL (8.5-10.1); CARBON DIOXIDE 26.9 mmol/L (21-32); CHLORIDE 106 mmol/L (98-107); CREATININE 1.16 mg/dL (0.70-1.30); SODIUM 141 mmol/L (136-145); eGFR NON BLACK RACES > 60 (>60)
[2020-09-13] MEDS ORDERED: LOPRESSOR TAB 50 MG PO SCH (09:00)
[2020-09-13] MEDS: NORVASC TAB 5 MG PO SCH (10:00)
[2020-09-13] MEDS: CATAPRES TAB 0.2 MG PO SCH ×2 (10:00→20:05)
[2020-09-13] MEDS: LOVENOX INJ 40 MG SYR SC SCH (10:00)
--- NOTE | 2020-09-13 12:53 | PCM.PROG ---
Progress Note Progress Note for Day of Date of Exam: 09/13/20 Subjective Subjective: Patient seen at bedside, no overnight events. Patient's BP was elevated this AM, received IV hydralazine. Patient states he feels better. His strength has improved. He states he did not work with PT/OT. He has been eating well. Denies N/V/D or abdominal pain. Labs: WBC 9.1 Hgb 10.3 K: 3.4 BUN/Cr: 9/1.16 Total CK yesterday 977 Plan: will decrease IVF to 100cc/hr. PT/OT consult. Will increase norvasc to 10 mg and resume patient's home metoprolol tartrate 25 mg daily. Remove wang. CM to discuss discharge planning with patient's family. Monitor AM labs. Past Medical Family Social History Past Med/Fam/Surg Hx: No changes since H&P Allergies: Allergies No Known Drug Allergies Allergy (Verified 08/19/20 21:02) Review of Systems ROS: No change since H&P Vital Signs and I&O's Vital Signs: Temperature 98.5 F Pulse Rate [Bilateral] 91 Pulse Rate 127 Respiratory Rate 20 Blood Pressure [Right Arm] 174/99 Blood Pressure 178/117 O2 Sat by Pulse Oximetry 96 Intake and Output: Intake & Output 09/10/20 09/11/20 09/12/20 09/13/20 23:59 23:59 23:59 23:59 Intake Total 1974 / 1974 2942 / 2942 2834 / 2834 1850 / 1850 Output Total 1400 / 1400 900 / 900 2100 / 2100 5000 / 5000 Balance 575 / 575 2042 / 2042 734 / 734 -3150 / -3150 Physical Exam Oriented: Normal Eyes: Normal Ear: Normal Nose: Normal Throat: Normal Respiratory: Generalized and Diminished Cardiovascular: Normal Auscultation: Bowel Sounds: Normal Tenderness: Normal Skin: Decreased Turgur Musculoskeletal: Leg, Back:Thoracic and Back:Paraspinous Psychiatric: Normal Mood Description: Calm Affect: Normal Speech Pattern: Clear and Appropriate Laboratory and Diagnostics Result Diagrams: 09/13/20 04:48 09/13/20 04:48 Labs: Laboratory WBC 9.1 X10^3/uL (3.6-10.0) 09/13/20 04:48 RBC 3.91 X10^6/uL (4.7-6.0) L 09/13/20 04:48 Hgb 10.3 g/dL (13.5-18.0) L 09/13/20 04:48 Hct 32.0 % (42.0-54.0) L 09/13/20 04:48 MCV 81.7 fL (80.0-100.0) 09/13/20 04:48 MCH 26.4 pg (27.0-34.0) L 09/13/20 04:48 MCHC 32.3 g/dL (33.0-35.0) L 09/13/20 04:48 RDW 17.1 % (11.6-16.5) H 09/13/20 04:48 Plt Count 196 X10^3/uL (150.0-450.0) 09/13/20 04:48 MPV 10.2 fL (7.4-11.0) 09/13/20 04:48 Neut % (Auto) 56.9 % (42.0-75.0) 09/13/20 04:48 Lymph % (Auto) 30.2 % (21.0-51.0) 09/13/20 04:48 Terry % (Auto) 7.9 % (0.0-13.0) 09/13/20 04:48 Eos % (Auto) 4.6 % (0.9-2.9) H 09/13/20 04:48 Baso % (Auto) 0.4 % (0.2-1.0) 09/13/20 04:48 Neut # (Auto) 5.2 x10^3/uL (2.2-4.8) H 09/13/20 04:48 Lymph # (Auto) 2.7 X10^3/uL (1.3-2.9) 09/13/20 04:48 Terry # (Auto) 0.7 x10^3/uL (0.3-0.8) 09/13/20 04:48 Eos # (Auto) 0.4 x10^3/uL (0.0-0.2) H 09/13/20 04:48 Baso # (Auto) 0.0 X10^3/uL (0.0-0.1) 09/13/20 04:48 Absolute Nucleated RBC 0.0 /100WBC 09/13/20 04:48 Sodium 141 mmol/L (136-145) 09/13/20 04:48 Corrected Sodium TNP 09/13/20 04:48 Potassium 3.4 mmol/L (3.5-5.1) L 09/13/20 04:48 Chloride 106 mmol/L (98-107) 09/13/20 04:48 Carbon Dioxide 26.9 mmol/L (21-32) 09/13/20 04:48 BUN 9 mg/dL (7-18) 09/13/20 04:48 Creatinine 1.16 mg/dL (0.70-1.30) 09/13/20 04:48 Est GFR (MDRD) Af Amer > 60 (>60) 09/13/20 04:48 Est GFR (MDRD) Non-Af > 60 (>60) 09/13/20 04:48 Glucose 95 mg/dL (65-99) 09/13/20 04:48 POC Glucose (mg/dL) 111 mg/dL (65-99) H 09/10/20 11:40 Calcium 8.4 mg/dL (8.5-10.1) L 09/13/20 04:48 Corrected Calcium 10.2 mg/dL (8.5-10.1) H 09/10/20 05:28 Magnesium 1.7 mg/dL (1.7-2.9) 09/13/20 04:48 Total Bilirubin 0.50 mg/dL (0.2-1.0) 09/10/20 05:28 AST 140 Units/L (15-37) H 09/10/20 05:28 ALT 43 Units/L (12-78) 09/10/20 05:28 Alkaline Phosphatase 103 Units/L (46-116) 09/10/20 05:28 Creatine Kinase 977 Units/L (39-308) H 09/12/20 04:35 Total Protein 7.2 g/dL (6.4-8.2) 09/10/20 05:28 Albumin 3.0 g/dL (3.4-5.0) L 09/10/20 05:28 Globulin 4.2 g/dL (2.5-4.5) 09/10/20 05:28 Albumin/Globulin Ratio 0.7 Ratio (1.1-2.1) L 09/10/20 05:28 Specimen Type Catherized urine 09/10/20 00:07 Urine Color Yellow (YELLOW) 09/10/20 00:07 Urine Appearance Clear (CLEAR) 09/10/20 00:07 Urine pH 5.0 (5.0 - 8.0) 09/10/20 00:07 Ur Specific [place] 1.025 (1.000-1.030) 09/10/20 00:07 Urine Protein 3+ (NEGATIVE) 09/10/20 00:07 Urine Glucose (UA) Negative (NEGATIVE) 09/10/20 00:07 Urine Ketones 1+ (NEGATIVE) 09/10/20 00:07 Urine Occult Blood 5+ (NEGATIVE) 09/10/20 00:07 Urine Nitrite Negative (NEGATIVE) 09/10/20 00:07 Urine Bilirubin Negative (NEGATIVE) 09/10/20 00:07 Urine Urobilinogen Normal (NORMAL) 09/10/20 00:07 Ur Leukocyte Esterase Negative (NEGATIVE) 09/10/20 00:07 Urine RBC 5-10 /HPF (0-3) A 09/10/20 00:07 Urine WBC 0-2 /HPF (0-5) 09/10/20 00:07 Ur Squamous Epith Cells Rare /HPF (NEGATIVE) 09/10/20 00:07 Urine Bacteria Negative /HPF (NEGATIVE) 09/10/20 00:07 Hyaline Casts Many /LPF (NEGATIVE) 09/10/20 00:07 Urine Mucus Few /HPF (NEGATIVE) 09/10/20 00:07 Ur Culture Indicated? No/not indicated 09/10/20 00:07 SARS CoV-2 RNA Rapid CLEMENTINA Negative (NEGATIVE) 09/09/20 19:24 Plan (1) Rhabdomyolysis: Status: Acute Qualifiers: Encounter type: initial encounter Rhabdomyolysis type: traumatic Qualified Code(s): T79.6XXA - Traumatic ischemia of muscle, initial encounter (2) Dehydration: Status: Acute (3) Generalized weakness: Status: Acute (4) Hypokalemia: Status: Acute (5) Recurrent falls: Status: Acute (6) Arthritis: Status: Chronic (7) Degenerative joint disease (DJD) of lumbar spine: Status: Chronic Qualifiers: Spinal osteoarthritis complication: unspecified spinal osteoarthritis Qualified Code(s): M47.816 - Spondylosis without myelopathy or radiculopathy, lumbar region (8) Hypertension: Status: Chronic Qualifiers: Hypertension type: essential hypertension
[2020-09-13] MEDS: K-DUR TAB 20 MEQ PO PRN (14:04)
[2020-09-13] MEDS: MAGNESIUM SULFATE 1 GRAM/100 mL PREMIX 1 GM/100 ML BAG IV PRN ×2 (20:23→21:59)
[2020-09-14] MEDS: NS 1000 ML 1,000 ML IV SCH ×4 (03:42→19:24)
[2020-09-14 05:41] LABS: BASOPHILS % (AUTO) 0.3 % (0.2-1.0); EOSINOPHILS # (AUTO) 0.4 x10^3/uL (0.0-0.2); EOSINOPHILS % (AUTO) 4.4 % (0.9-2.9); HEMATOCRIT 35.4 % (42.0-54.0); HEMOGLOBIN 11.3 g/dL (13.5-18.0); LYMPHOCYTES # (AUTO) 2.7 X10^3/uL (1.3-2.9); LYMPHOCYTES % (AUTO) 26.3 % (21.0-51.0); MEAN CORPUSCULAR HEMOGLOBIN 26.2 pg (27.0-34.0); MEAN CORPUSCULAR HGB CONC 31.9 g/dL (33.0-35.0); MEAN CORPUSCULAR VOLUME 82.2 fL (80.0-100.0); MEAN PLATELET VOLUME 9.7 fL (7.4-11.0); MONOCYTES # (AUTO) 0.8 x10^3/uL (0.3-0.8); MONOCYTES % (AUTO) 8.1 % (0.0-13.0); NEUTROPHILS # (AUTO) 6.1 x10^3/uL (2.2-4.8); NEUTROPHILS % (AUTO) 60.9 % (42.0-75.0); PLATELET COUNT 239 X10^3/uL (150.0-450.0); RED CELL DISTRIBUTION WIDTH 17.1 % (11.6-16.5); WHITE BLOOD COUNT 10.1 X10^3/uL (3.6-10.0)
[2020-09-14 05:57] LABS: ALANINE AMINOTRANSFERASE 48 Units/L (12-78); ALBUMIN 2.4 g/dL (3.4-5.0); ALKALINE PHOSPHATASE 97 Units/L (46-116); ASPARTATE AMINO TRANSFERASE 37 Units/L (15-37); BLOOD UREA NITROGEN 11 mg/dL (7-18); CALCIUM 8.8 mg/dL (8.5-10.1); CARBON DIOXIDE 25.7 mmol/L (21-32); CHLORIDE 104 mmol/L (98-107); COR CA(FOR HYPOALB) 10.1 mg/dL (8.5-10.1); CREATININE 1.18 mg/dL (0.70-1.30); MAGNESIUM 2.2 mg/dL (1.7-2.9); SODIUM 139 mmol/L (136-145); TOTAL PROTEIN 6.6 g/dL (6.4-8.2); eGFR NON BLACK RACES > 60 (>60)
[2020-09-14] MEDS: NEURONTIN CAP 300 MG PO SCH ×4 (09:13→20:40)
[2020-09-14] MEDS: NAMENDA TAB 10 MG PO SCH (09:13)
[2020-09-14] MEDS: CATAPRES TAB 0.2 MG PO SCH ×2 (09:13→20:39)
[2020-09-14] MEDS: LOPRESSOR TAB 25 MG PO SCH ×2 (09:14→20:40)
[2020-09-14] MEDS: FOLIC ACID TAB 1 MG PO SCH (09:14)
[2020-09-14] MEDS: NORVASC TAB 5 MG PO SCH (09:14)
[2020-09-14] MEDS: HEMOCYTE-PLUS PO SCH (09:15)
[2020-09-14] MEDS: LOVENOX INJ 40 MG SYR SC SCH (09:15)
--- NOTE | 2020-09-14 16:22 | PCM.PROG ---
Progress Note Progress Note for Day of Date of Exam: 09/14/20 Subjective Subjective: Patient seen at bedside, no overnight events. He worked with PT/OT yesterday and requires 2 person assist for most activities. PT recommended SNF. CM working on placement. Patient's BP has been better controlled. His wang was removed yesterday. Denies N/V/D. He states he feels better. Labs: WBC 10.1 Hgb 11.3 K: 3.5 BUN/Cr: Plan: continue current treatment, gentle hydration. Continue BP medications. CM working on placement to SNF. Continue PT/OT as tolerated. Monitor AM labs. Continue home medications. Past Medical Family Social History Past Med/Fam/Surg Hx: No changes since H&P Allergies: Allergies No Known Drug Allergies Allergy (Verified 08/19/20 21:02) Review of Systems ROS: No change since H&P Vital Signs and I&O's Vital Signs: Temperature 99.1 F Pulse Rate [Bilateral] 64 Pulse Rate 127 Respiratory Rate 20 Blood Pressure [Right Arm] 145/89 Blood Pressure 178/117 O2 Sat by Pulse Oximetry 100 Intake and Output: Intake & Output 09/11/20 09/12/20 09/13/20 09/14/20 23:59 23:59 23:59 23:59 Intake Total 2942 / 2942 2834 / 2834 3248 / 3248 240 / 240 Output Total 900 / 900 2100 / 2100 5000 / 5000 Balance 204 / 2042 734 / 734 -1752 / -1752 240 / 240 Physical Exam Oriented: Normal Eyes: Normal Ear: Normal Nose: Normal Throat: Normal Respiratory: Generalized and Diminished Cardiovascular: Normal Auscultation: Bowel Sounds: Normal Tenderness: Normal Skin: Decreased Turgur Musculoskeletal: Leg, Back:Thoracic and Back:Paraspinous Psychiatric: Normal Mood Description: Calm Affect: Normal Speech Pattern: Clear and Appropriate Laboratory and Diagnostics Result Diagrams: 09/14/20 04:18 09/14/20 04:18 Labs: Laboratory WBC 10.1 X10^3/uL (3.6-10.0) H 09/14/20 04:18 RBC 4.30 X10^6/uL (4.7-6.0) L 09/14/20 04:18 Hgb 11.3 g/dL (13.5-18.0) L 09/14/20 04:18 Hct 35.4 % (42.0-54.0) L 09/14/20 04:18 MCV 82.2 fL (80.0-100.0) 09/14/20 04:18 MCH 26.2 pg (27.0-34.0) L 09/14/20 04:18 MCHC 31.9 g/dL (33.0-35.0) L 09/14/20 04:18 RDW 17.1 % (11.6-16.5) H 09/14/20 04:18 Plt Count 239 X10^3/uL (150.0-450.0) 09/14/20 04:18 MPV 9.7 fL (7.4-11.0) 09/14/20 04:18 Neut % (Auto) 60.9 % (42.0-75.0) 09/14/20 04:18 Lymph % (Auto) 26.3 % (21.0-51.0) 09/14/20 04:18 [place] % (Auto) 8.1 % (0.0-13.0) 09/14/20 04:18 Eos % (Auto) 4.4 % (0.9-2.9) H 09/14/20 04:18 Baso % (Auto) 0.3 % (0.2-1.0) 09/14/20 04:18 Neut # (Auto) 6.1 x10^3/uL (2.2-4.8) H 09/14/20 04:18 Lymph # (Auto) 2.7 X10^3/uL (1.3-2.9) 09/14/20 04:18 Holmes # (Auto) 0.8 x10^3/uL (0.3-0.8) 09/14/20 04:18 Eos # (Auto) 0.4 x10^3/uL (0.0-0.2) H 09/14/20 04:18 Baso # (Auto) 0.0 X10^3/uL (0.0-0.1) 09/14/20 04:18 Absolute Nucleated RBC 0.0 /100WBC 09/14/20 04:18 Sodium 139 mmol/L (136-145) 09/14/20 04:18 Corrected Sodium TNP 09/14/20 04:18 Potassium 3.5 mmol/L (3.5-5.1) 09/14/20 04:18 Chloride 104 mmol/L (98-107) 09/14/20 04:18 Carbon Dioxide 25.7 mmol/L (21-32) 09/14/20 04:18 BUN 11 mg/dL (7-18) 09/14/20 04:18 Creatinine 1.18 mg/dL (0.70-1.30) 09/14/20 04:18 Est GFR (MDRD) Af Amer > 60 (>60) 09/14/20 04:18 Est GFR (MDRD) Non-Af > 60 (>60) 09/14/20 04:18 Glucose 100 mg/dL (65-99) H 09/14/20 04:18 POC Glucose (mg/dL) 111 mg/dL (65-99) H 09/10/20 11:40 Calcium 8.8 mg/dL (8.5-10.1) 09/14/20 04:18 Corrected Calcium 10.1 mg/dL (8.5-10.1) 09/14/20 04:18 Magnesium 2.2 mg/dL (1.7-2.9) 09/14/20 04:18 Total Bilirubin 0.30 mg/dL (0.2-1.0) 09/14/20 04:18 AST 37 Units/L (15-37) 09/14/20 04:18 ALT 48 Units/L (12-78) 09/14/20 04:18 Alkaline Phosphatase 97 Units/L (46-116) 09/14/20 04:18 Creatine Kinase 977 Units/L (39-308) H 09/12/20 04:35 Total Protein 6.6 g/dL (6.4-8.2) 09/14/20 04:18 Albumin 2.4 g/dL (3.4-5.0) L 09/14/20 04:18 Globulin 4.2 g/dL (2.5-4.5) 09/14/20 04:18 Albumin/Globulin Ratio 0.6 Ratio (1.1-2.1) L 09/14/20 04:18 Specimen Type Catherized urine 09/10/20 00:07 Urine Color Yellow (YELLOW) 09/10/20 00:07 Urine Appearance Clear (CLEAR) 09/10/20 00:07 Urine pH 5.0 (5.0 - 8.0) 09/10/20 00:07 Ur Specific [place] 1.025 (1.000-1.030) 09/10/20 00:07 Urine Protein 3+ (NEGATIVE) 09/10/20 00:07 Urine Glucose (UA) Negative (NEGATIVE) 09/10/20 00:07 Urine Ketones 1+ (NEGATIVE) 09/10/20 00:07 Urine Occult Blood 5+ (NEGATIVE) 09/10/20 00:07 Urine Nitrite Negative (NEGATIVE) 09/10/20 00:07 Urine Bilirubin Negative (NEGATIVE) 09/10/20 00:07 Urine Urobilinogen Normal (NORMAL) 09/10/20 00:07 Ur Leukocyte Esterase Negative (NEGATIVE) 09/10/20 00:07 Urine RBC 5-10 /HPF (0-3) A 09/10/20 00:07 Urine WBC 0-2 /HPF (0-5) 09/10/20 00:07 Ur Squamous Epith Cells Rare /HPF (NEGATIVE) 09/10/20 00:07 Urine Bacteria Negative /HPF (NEGATIVE) 09/10/20 00:07 Hyaline Casts Many /LPF (NEGATIVE) 09/10/20 00:07 Urine Mucus Few /HPF (NEGATIVE) 09/10/20 00:07 Ur Culture Indicated? No/not indicated 09/10/20 00:07 SARS CoV-2 RNA Rapid CLEMENTINA Negative (NEGATIVE) 09/09/20 19:24 Plan (1) Rhabdomyolysis: Status: Acute Qualifiers: Encounter type: initial encounter Rhabdomyolysis type: traumatic Qualified Code(s): T79.6XXA - Traumatic ischemia of muscle, initial encounter (2) Dehydration: Status: Acute (3) Generalized weakness: Status: Acute (4) Hypokalemia: Status: Acute (5) Recurrent falls: Status: Acute (6) Arthritis: Status: Chronic (7) Degenerative joint disease (DJD) of lumbar spine: Status: Chronic Qualifiers: Spinal osteoarthritis complication: unspecified spinal osteoarthritis Qualified Code(s): M47.816 - Spondylosis without myelopathy or radiculopathy, lumbar region (8) Hypertension: Status: Chronic Qualifiers: Hypertension type: essential hypertension
[2020-09-14] MEDS ORDERED: ARICEPT TAB 5 MG PO SCH (21:00)
[2020-09-14] MEDS ORDERED: CYMBALTA PO SCH (21:00)
[2020-09-15] MEDS: NS 1000 ML 1,000 ML IV SCH ×2 (05:15→05:16)
[2020-09-15 06:19] LABS: BASOPHILS % (AUTO) 0.5 % (0.2-1.0); EOSINOPHILS # (AUTO) 0.4 x10^3/uL (0.0-0.2); EOSINOPHILS % (AUTO) 3.8 % (0.9-2.9); HEMOGLOBIN 10.7 g/dL (13.5-18.0); LYMPHOCYTES # (AUTO) 2.5 X10^3/uL (1.3-2.9); LYMPHOCYTES % (AUTO) 22.7 % (21.0-51.0); MEAN CORPUSCULAR HEMOGLOBIN 26.5 pg (27.0-34.0); MEAN CORPUSCULAR HGB CONC 32.5 g/dL (33.0-35.0); MEAN CORPUSCULAR VOLUME 81.5 fL (80.0-100.0); MEAN PLATELET VOLUME 9.3 fL (7.4-11.0); MONOCYTES % (AUTO) 9.2 % (0.0-13.0); NEUTROPHILS # (AUTO) 6.9 x10^3/uL (2.2-4.8); NEUTROPHILS % (AUTO) 63.8 % (42.0-75.0); PLATELET COUNT 262 X10^3/uL (150.0-450.0); RED BLOOD COUNT 4.05 X10^6/uL (4.7-6.0); RED CELL DISTRIBUTION WIDTH 17.1 % (11.6-16.5); WHITE BLOOD COUNT 10.8 X10^3/uL (3.6-10.0)
[2020-09-15 06:47] LABS: ALANINE AMINOTRANSFERASE 50 Units/L (12-78); ALBUMIN 2.4 g/dL (3.4-5.0); ALKALINE PHOSPHATASE 93 Units/L (46-116); ASPARTATE AMINO TRANSFERASE 39 Units/L (15-37); BLOOD UREA NITROGEN 15 mg/dL (7-18); CARBON DIOXIDE 26.3 mmol/L (21-32); CHLORIDE 104 mmol/L (98-107); COR CA(FOR HYPOALB) 10.3 mg/dL (8.5-10.1); CREATININE 1.24 mg/dL (0.70-1.30); SODIUM 138 mmol/L (136-145); TOTAL PROTEIN 6.5 g/dL (6.4-8.2); eGFR NON BLACK RACES > 60 (>60)
[2020-09-15] MEDS: CATAPRES TAB 0.2 MG PO SCH (08:53)
[2020-09-15] MEDS: NAMENDA TAB 10 MG PO SCH (08:54)
[2020-09-15] MEDS: LOVENOX INJ 40 MG SYR SC SCH (08:54)
[2020-09-15] MEDS: LOPRESSOR TAB 25 MG PO SCH (08:54)
[2020-09-15] MEDS: FOLIC ACID TAB 1 MG PO SCH (08:54)
[2020-09-15] MEDS: HEMOCYTE-PLUS PO SCH (08:54)
[2020-09-15] MEDS: NEURONTIN CAP 300 MG PO SCH (08:54)
[2020-09-15] MEDS: NORVASC TAB 5 MG PO SCH (08:55)
[2020-09-15 09:27] VITALS: BP 142/87
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
== END 2020-09-15 10:55 | DRG 558 ==
LOC: ER 17:04 → OBS 19:02 → MED/SURG 09-10 13:52
PROVIDERS: ADMIT Internal Medicine; ATTEND Internal Medicine

== ENCOUNTER 2021-07-19 12:19 | Observation (INO) ==
--- NOTE | 2021-07-19 12:32 | DR.AMS ---
HPI Time Seen Time Seen by Provider: 07/19/21 12:30 PCP Primary Care Physician: Kareem HPI Comment HPI Comment: PATIENT WITH A HISTORY OF CHRONIC RENAL FAILURE, ANEMIA, DEPRESSION, FREQUENT FALLS, WHILE SITTING IN WHEELCHAIR AT NURSING BECAME UNRESPONSIVE. STAFF DENIES FALL OR INJURY. Complaint Chief Complaint:: [facility] staff states patient was in his wheelchair going to the dining room and became unresponsive. Pt did not fall from chair. Pt reponds by looking to the right when the nurse speaks. He did not look to left when spoken to on that side. COVID-19 Coronavirus risk:travel/contact w/high risk person: No Has patient experienced Coronavirus symptoms: No Mode of Arrival Mode of Arrival: Stretcher Timing Onset of Chief Complaint: 07/19/21 Duration Duration: Constant Quality Quality: Decreased Alertness Severity Severity: Moderate PMH PMH Past Medical History: Yes Past Medical History: Anemia, Arthritis, Dementia, GERD and Hypertension Past Surgical History: Yes Surgical History: Ortho Surgery and Other Family History History of Family Medical Conditions: Yes Family Medical History: Diabetes Mellitus, Cancer and Hypertension Social History Do you use any recreational Drugs:: No Travel Risk Coronavirus risk:travel/contact w/high risk person: No Has patient experienced Coronavirus symptoms: No Infectious screening In the last 2 months have you had wt loss of >10#?: NO Have you had fever, night sweats or hemotysis?: No Have you traveled outside the country in the last 6 months?: No Isolation: Standard ROS Review of Systems Constitutional: See HPI and Weakness Unable to Obtain Due To: Altered mental status (UNABLE TO EVALUATE PATIENT DUE TO MENTAL STATUS) and Dementia PE Vitals Vital Signs: Pulse Resp BP BP Pulse Ox 07/19/21 14:30 58 L 12 99/68 98 07/19/21 14:00 62 12 109/75 99 07/19/21 13:30 61 11 L 111/78 100 07/19/21 13:00 61 14 125/77 99 07/19/21 12:30 63 13 114/81 99 07/19/21 12:21 61 14 142/85 98 09/16/20 21:53 155/84 General Limitations: Physical Limitation General Appearance: Other (OPENS EYES TO VERBAL COMMAND) Head Head Exam: Normal Inspection and Atraumatic Eyes Eye exam: Normal Appearance and PERRL ENT ENT Exam: Normal Exam and Normal Oropharynx External Ear Exam: Normal External Inspection Nose Exam: Normal Nose Exam Mouth Exam: Normal Inspection Neck Neck Exam: Normal Inspection Chest Chest Inspection: Normal Inspection and Symmetric Chest Wall Rise Respiratory Respiratory Exam: Bilateral: Clear to Auscultation Cardiovascular Cardiovascular Exam: Regular Rate and Normal Rhythm Abdominal Exam Abdominal Exam: Normal Inspection and Normal Bowel Sounds Extremities Extremities Exam: Normal Inspection and Full ROM Back Back Exam: Normal Inspection and Full ROM Neurological Neurological Exam: Other (LETHARGIC) Skin Skin Exam: Warm and Dry MDM Differential Diagnosis Metabolic: Hypoglycemia Structural: CVA COURSE Treatment Treatment: IV NORMAL SALINE 100ML/HR, AFTER 2 SETS OF BLOOD CULTURES ROCEPHIN FOR UTI. INITIALLY LETHARGIC WITH EYE OPENING TO VERBAL COMMAND 1300 PATIENT IS NOW CONVERSATIONAL Consultation Call Returned: 13:37 Consultation Comments: FINDINGS DISCUSSED WITH DR JUSTICE FOR OBSERVATION ROR Labs Reviewed Laboratory Results Reviewed?: Yes Result Diagrams: 07/19/21 12:20 07/19/21 12:20 Laboratory: WBC 12.2 X10^3/uL (3.6-10.0) H 07/19/21 12:20 RBC 4.64 X10^6/uL (4.7-6.0) L 07/19/21 12:20 Hgb 12.8 g/dL (13.5-18.0) L 07/19/21 12:20 Hct 39.6 % (42.0-54.0) L 07/19/21 12:20 MCV 85.3 fL (80.0-100.0) 07/19/21 12:20 MCH 27.5 pg (27.0-34.0) 07/19/21 12:20 MCHC 32.2 g/dL (33.0-35.0) L 07/19/21 12:20 RDW 16.1 % (11.6-16.5) 07/19/21 12:20 Plt Count 283 X10^3/uL (150.0-450.0) 07/19/21 12:20 MPV 9.3 fL (7.4-11.0) 07/19/21 12:20 Neut % (Auto) 56.0 % (42.0-75.0) 07/19/21 12:20 Lymph % (Auto) 34.7 % (21.0-51.0) 07/19/21 12:20 [place] % (Auto) 6.3 % (0.0-13.0) 07/19/21 12:20 Eos % (Auto) 2.6 % (0.9-2.9) 07/19/21 12:20 Baso % (Auto) 0.4 % (0.2-1.0) 07/19/21 12:20 Neut # (Auto) 6.9 x10^3/uL (2.2-4.8) H 07/19/21 12:20 Lymph # (Auto) 4.2 X10^3/uL (1.3-2.9) H 07/19/21 12:20 [place] # (Auto) 0.8 x10^3/uL (0.3-0.8) 07/19/21 12:20 Eos # (Auto) 0.3 x10^3/uL (0.0-0.2) H 07/19/21 12:20 Baso # (Auto) 0.0 X10^3/uL (0.0-0.1) 07/19/21 12:20 Absolute Nucleated RBC 0.1 /100WBC 07/19/21 12:20 PT 13.7 SECONDS (11.8-14.3) 07/19/21 12:20 INR Target Range - 07/19/21 12:20 INR 1.10 (0.8-1.3) 07/19/21 12:20 Sample Site Rr 07/19/21 12:29 ABG pH 7.380 (7.35-7.45) 07/19/21 12:29 ABG pCO2 43.0 mmHg (35.0-45.0) 07/19/21 12:29 ABG pO2 106.0 mmHg (80.0-100.0) H 07/19/21 12:29 ABG HCO3 25.4 mmol/L (22-26) 07/19/21 12:29 ABG O2 Saturation 98.0 % (90-100) 07/19/21 12:29 ABG Base Excess 0.1 mmol/L (-2.0-2.0) 07/19/21 12:29 Pablo Test Pos 07/19/21 12:29 A-a Gradient 40.0 mmHg 07/19/21 12:29 FiO2 28 07/19/21 12:29 Blood Gas Comments Katherine well cb 07/19/21 12:29 Sodium 135 mmol/L (136-145) L 07/19/21 12:20 Corrected Sodium 136 mmol/L (136-145) 07/19/21 12:20 Potassium 3.9 mmol/L (3.5-5.1) 07/19/21 12:20 Chloride 102 mmol/L (98-107) 07/19/21 12:20 Carbon Dioxide 24.6 mmol/L (21-32) 07/19/21 12:20 BUN 20 mg/dL (7-18) H 07/19/21 12:20 Creatinine 2.00 mg/dL (0.70-1.30) H 07/19/21 12:20 Est GFR (MDRD) Af Amer 43 (>60) L 07/19/21 12:20 Est GFR (MDRD) Non-Af 36 (>60) L 07/19/21 12:20 Glucose 158 mg/dL (65-99) H 07/19/21 12:20 Calcium 9.2 mg/dL (8.5-10.1) 07/19/21 12:20 Corrected Calcium 9.8 mg/dL (8.5-10.1) 07/19/21 12:20 Magnesium 2.0 mg/dL (1.7-2.9) 07/19/21 12:20 Total Bilirubin 0.30 mg/dL (0.2-1.0) 07/19/21 12:20 AST 24 Units/L (15-37) 07/19/21 12:20 ALT 32 Units/L (12-78) 07/19/21 12:20 Alkaline Phosphatase 143 Units/L (46-116) H 07/19/21 12:20 Troponin I < 0.02 ng/mL (0-1.5) 07/19/21 12:20 Total Protein 8.0 g/dL (6.4-8.2) 07/19/21 12:20 Albumin 3.3 g/dL (3.4-5.0) L 07/19/21 12:20 Globulin 4.7 g/dL (2.5-4.5) H 07/19/21 12:20 Albumin/Globulin Ratio 0.7 Ratio (1.1-2.1) L 07/19/21 12:20 Specimen Type Catherized urine 07/19/21 12:46 Urine Color Yellow (YELLOW) 07/19/21 12:46 Urine Appearance Clear (CLEAR) 07/19/21 12:46 Urine pH 7.0 (5.0 - 8.0) 07/19/21 12:46 Ur Specific [place] 1.020 (1.000-1.030) 07/19/21 12:46 Urine Protein Negative (NEGATIVE) 07/19/21 12:46 Urine Glucose (UA) Negative (NEGATIVE) 07/19/21 12:46 Urine Ketones Negative (NEGATIVE) 07/19/21 12:46 Urine Occult Blood Negative (NEGATIVE) 07/19/21 12:46 Urine Nitrite Positive (NEGATIVE) 07/19/21 12:46 Urine Bilirubin Negative (NEGATIVE) 07/19/21 12:46 Urine Urobilinogen Normal (NORMAL) 07/19/21 12:46 Ur Leukocyte Esterase 1+ (NEGATIVE) 07/19/21 12:46 Urine RBC None seen /HPF (0-3) 07/19/21 12:46 Urine WBC 5-10 /HPF (0-5) A 07/19/21 12:46 Ur Squamous Epith Cells Rare /HPF (NEGATIVE) 07/19/21 12:46 Urine Bacteria 4+ /HPF (NEGATIVE) 07/19/21 12:46 Ur Culture Indicated? Yes/culture set up 07/19/21 12:46 SARS CoV-2 RNA Rapid [place] Negative (NEGATIVE) 07/19/21 13:45 XRAY XRAY Interpreted by: Radiologist (HEAD CT SCAN WITHOUT CONTRAST- NO ACUTE INTRACRANIAL ABNORMALITY) X-ray Results: PORT CHEST XRAY- NO ACUTE PROCESS EKG Rate: 61 [place]: Normal ST: Nonsp (ANTEROSEPTAL LATERAL T- WAVE INVERSION) Opioid Opioid Risk Tool Age (Gildardo box if 16-45): No History of Preadolescent Sexual Abuse: No Total: 0 Total Score Risk Category: Low Risk Copyright: Henry MILES predicting aberrant behaviors Diagnosis Discharge Problem: Acute alteration in mental status, Urinary tract infection
[2021-07-19 12:45] LABS: BASOPHILS % (AUTO) 0.4 % (0.2-1.0); EOSINOPHILS # (AUTO) 0.3 x10^3/uL (0.0-0.2); EOSINOPHILS % (AUTO) 2.6 % (0.9-2.9); HEMATOCRIT 39.6 % (42.0-54.0); HEMOGLOBIN 12.8 g/dL (13.5-18.0); LYMPHOCYTES # (AUTO) 4.2 X10^3/uL (1.3-2.9); LYMPHOCYTES % (AUTO) 34.7 % (21.0-51.0); MEAN CORPUSCULAR HEMOGLOBIN 27.5 pg (27.0-34.0); MEAN CORPUSCULAR HGB CONC 32.2 g/dL (33.0-35.0); MEAN CORPUSCULAR VOLUME 85.3 fL (80.0-100.0); MEAN PLATELET VOLUME 9.3 fL (7.4-11.0); MONOCYTES # (AUTO) 0.8 x10^3/uL (0.3-0.8); MONOCYTES % (AUTO) 6.3 % (0.0-13.0); NEUTROPHILS # (AUTO) 6.9 x10^3/uL (2.2-4.8); PLATELET COUNT 283 X10^3/uL (150.0-450.0); RED BLOOD COUNT 4.64 X10^6/uL (4.7-6.0); RED CELL DISTRIBUTION WIDTH 16.1 % (11.6-16.5); WHITE BLOOD COUNT 12.2 X10^3/uL (3.6-10.0)
[2021-07-19 12:46] LABS: ABG ALLEN TEST POS; ABG BASE EXCESS 0.1 mmol/L (-2.0-2.0); ABG HCO3 25.4 mmol/L (22-26)
[2021-07-19 12:53] LABS: BILIRUBIN,URINE NEGATIVE (NEGATIVE); BLOOD/HEMOGLOBIN,URINE NEGATIVE (NEGATIVE); GLUCOSE, URINE NEGATIVE (NEGATIVE); KETONES,URINE NEGATIVE (NEGATIVE); LEUKOCYTE ESTERASE ,URINE 1+ (NEGATIVE); NITRITES,URINE POSITIVE (NEGATIVE); PROTEIN,URINE NEGATIVE (NEGATIVE); UROBILINOGEN,URINE NORMAL (NORMAL)
[2021-07-19 12:57] LABS: APPEARANCE,URINE CLEAR (CLEAR); BACTERIA,URINE 4+ /HPF (NEGATIVE); COLOR,URINE YELLOW (YELLOW); RBC,URINE NONE SEEN /HPF (0-3); SQUAMOUS EPITHELIAL CELL,UR RARE /HPF (NEGATIVE)
[2021-07-19] MEDS ORDERED: ROCEPHIN 1 GRAM IV PREMIX 1 G/50 ML IV.SOLN. IV ONE ×2 (13:02→13:09)
[2021-07-19 13:16] LABS: ALANINE AMINOTRANSFERASE 32 Units/L (12-78); ALBUMIN 3.3 g/dL (3.4-5.0); ALKALINE PHOSPHATASE 143 Units/L (46-116); ASPARTATE AMINO TRANSFERASE 24 Units/L (15-37); BLOOD UREA NITROGEN 20 mg/dL (7-18); CALCIUM 9.2 mg/dL (8.5-10.1); CARBON DIOXIDE 24.6 mmol/L (21-32); CHLORIDE 102 mmol/L (98-107); COR CA(FOR HYPOALB) 9.8 mg/dL (8.5-10.1); COR NA(FOR HYPERGLY) 136 mmol/L (136-145); SODIUM 135 mmol/L (136-145); eGFR NON BLACK RACES 36 (>60)
--- NOTE | 2021-07-19 13:16 | RAD ---
CHEST, 1 VIEWHISTORY: UnresponsiveStudy: Single view of the chest.Comparison:September 16, 2020Findings:The cardiomediastinal silhouette is normal.Stable patchy atelectasis of the left lung base. No dense consolidations. Osseous structures demonstrate no acute abnormality.IMPRESSION:1. No acute cardiopulmonary process.Electronically signed by: SARINA SOSA (Jul 19, 2021 13:15:07)
--- NOTE | 2021-07-19 13:24 | CT ---
HISTORYNursing home staff states patient was in his wheelchair going to the dining room and became unresponsive. Pt did not fall from chair. Pt reponds by looking to the right when the nurse speaks.STUDYBRAIN W/O CONCOMPARISONNone.TECHNIQUEMultiple axial images of the head were performed from the skullbase to the vertex using standard departmental protocol. Sagittal and coronal reformatted images were performed. Dose reduction techniques including Automated Exposure Control (AEC) and adjustment of mA and kV were utilized.FINDINGSPatient is tilted within the scanner. The lateral ventricles and basilar cisterns are patent.No parenchymal mass or hematoma. Roa-white differentiation appears acutely preserved. Severe low attenuation change in the subcortical and deep supratentorial white matter. Small chronic lacunar infarcts at the genu of the right internal capsule and in the left thalamus.No extra-axial collection.The globes are intact.No air fluid levels in the paranasal sinuses. No paranasal sinus wall thickening or sclerosis. Mild mucosal thickening in the ethmoid air cells. Mastoid air cells are clear.The calvarium is intact.IMPRESSIONNo acute intracranial abnormality. Severe chronic small vessel disease. Chronic lacunar infarcts appears similar. Consider MRI for further evaluation as clinically warranted.Electronically signed by: Kevin Salas (Jul 19, 2021 13:22:48)
[2021-07-19] MEDS ORDERED: TYLENOL 325 MG TAB PO PRN (14:43)
[2021-07-19] MEDS ORDERED: ROCEPHIN VIAL 1 GRAM 1 G, ROCEPHIN VIAL 500 MG 500 MG in NS 50 ML IV 50 ML IV SCH (14:43)
[2021-07-19] MEDS ORDERED: VITAMIN B-12 INJ IM SCH (15:00)
[2021-07-19] MEDS ORDERED: ROCEPHIN IV SCH (15:30)
[2021-07-19] MEDS ORDERED: NS IV SCH (15:30)
[2021-07-19] MEDS: NS 1,000 ML IV 1,000 ML IV SCH (17:38)
[2021-07-19] MEDS: CATAPRES TAB 0.2 MG PO SCH (21:20)
[2021-07-19] MEDS: CYMBALTA PO SCH (21:20)
[2021-07-19] MEDS: LOPRESSOR TAB 25 MG PO SCH (21:20)
[2021-07-19] MEDS: ARICEPT TAB 5 MG PO SCH (21:20)
[2021-07-20 05:30] LABS: BASOPHILS % (AUTO) 0.2 % (0.2-1.0); EOSINOPHILS # (AUTO) 0.3 x10^3/uL (0.0-0.2); EOSINOPHILS % (AUTO) 3.2 % (0.9-2.9); HEMOGLOBIN 11.4 g/dL (13.5-18.0); LYMPHOCYTES # (AUTO) 3.3 X10^3/uL (1.3-2.9); LYMPHOCYTES % (AUTO) 30.1 % (21.0-51.0); MEAN CORPUSCULAR HEMOGLOBIN 27.5 pg (27.0-34.0); MEAN CORPUSCULAR HGB CONC 32.6 g/dL (33.0-35.0); MEAN CORPUSCULAR VOLUME 84.2 fL (80.0-100.0); MEAN PLATELET VOLUME 9.7 fL (7.4-11.0); MONOCYTES % (AUTO) 8.7 % (0.0-13.0); NEUTROPHILS # (AUTO) 6.3 x10^3/uL (2.2-4.8); NEUTROPHILS % (AUTO) 57.8 % (42.0-75.0); PLATELET COUNT 231 X10^3/uL (150.0-450.0); RED BLOOD COUNT 4.16 X10^6/uL (4.7-6.0); RED CELL DISTRIBUTION WIDTH 16.7 % (11.6-16.5); WHITE BLOOD COUNT 10.9 X10^3/uL (3.6-10.0)
[2021-07-20 05:38] LABS: ALANINE AMINOTRANSFERASE 29 Units/L (12-78); ALKALINE PHOSPHATASE 125 Units/L (46-116); ASPARTATE AMINO TRANSFERASE 21 Units/L (15-37); BLOOD UREA NITROGEN 23 mg/dL (7-18); CALCIUM 9.1 mg/dL (8.5-10.1); CARBON DIOXIDE 26.2 mmol/L (21-32); CHLORIDE 105 mmol/L (98-107); COR CA(FOR HYPOALB) 9.9 mg/dL (8.5-10.1); CREATININE 1.62 mg/dL (0.70-1.30); SODIUM 140 mmol/L (136-145); TOTAL PROTEIN 7.3 g/dL (6.4-8.2); eGFR NON BLACK RACES 45 (>60)
[2021-07-20] MEDS: LOPRESSOR TAB 25 MG PO SCH ×2 (09:55→20:39)
[2021-07-20] MEDS: FERROUS GLUCONATE PO SCH (09:56)
[2021-07-20] MEDS: FOLIC ACID TAB 1 MG PO SCH (09:56)
[2021-07-20] MEDS: CATAPRES TAB 0.2 MG PO SCH ×2 (09:56→20:39)
--- NOTE | 2021-07-20 10:26 | MRI ---
HISTORYAMSSTUDYBRAIN W/O [id number] CT brain.TECHNIQUEMultiplanar multi-sequence MRI of the brain was obtained utilizing standard departmental protocol. Sagittal and axial T1 weighted images were obtained. Axial T2 and flair weighted images were performed as well. Axial diffusion weighted and ADC trace mapping was performed.FINDINGSSevere motion artifact limits evaluation.Diffusion imaging: [Questionable focal restricted diffusion in the right centrum semiovale with a bright focus measuring 4 mm on the DWI sequence. Motion artifact limits evaluation for correlation on the ADC map.]Susceptibility weighted imaging: [Nondiagnostic.]Brain volume: [Limited.]Ventricles and basal cisterns: [No definite hydrocephalus.]Extra-axial spaces: [No extra-axial collection.]Cerebral parynchema: [No discernible mass, hematoma, or mass effect.] There appears to be at least moderate chronic small vessel disease.Pituitary and other sagittal midline structures: [Nondiagnostic.]Visualized orbits: [No discernible pathology.]Paranasal sinuses and mastoid air cells: [No discernible pathology.]Bones: [Nondiagnostic.]Other: [None.]IMPRESSION[Questionable 3 mm focus of restricted diffusion in the right centrum semiovale. This could represent acute infarct or could represent T2 shine through. Consider repeat exam if patient is able to hold still.]Electronically signed by: Kevin Salas (Jul 20, 2021 10:25:04)
--- NOTE | 2021-07-20 10:44 | DR.H&P ---
H&P History & Physical for Day of: H&P Date: 07/20/21 Chief Complaint Chief Complaint: AMS, weakness Allergies Allergies Allergy/AdvReac Type Severity Reaction Status Date / Time No Known Drug Allergies Allergy Verified 08/19/20 21:02 History of Present Illness History of Present Illness: Mr Byers is a 65y/o male who is a [place] of [place] was brought to the ER due to AMS and being unresponsive. Patient was getting ready for lunch and was noted to be unresponsive while sitting on the chair. He did not fall. He was not communicating so was sent to the ER. In the ER, CT-head did not show anything acute process. Patient was more awake and able to follow commands and communicate. UA showed signs of UTI and his Creatinine was elevated. Patient was admitted for AMS, UTI and dehydration. His COVID test was negative. He was started on IV fluids and IV Rocephin. This morning he is awake and alert, able to answer questions and follow simple commands. He is tolerating PO intake. He does have a hx of dementia and chronic lacunar infarcts. Labs/Imaging reviewed Plan: MRI-brain ordered, continue hydration with NS. Continue Rocephin, change to 1g daily. Follow urine Cx. Monitor renal function. Continue neurochecks. Resume home medications. Monitor AM labs and imaging. Past Medical History Past Medical History: Anemia, Arthritis, CVA, Dementia, GERD and Hypertension Additional Medical History: Recurrent falls Past Surgical History Surgical History: Ortho Surgery Family History Family Medical History: Cancer, [place] and Hypertension Social History Alcohol Use: None Prescription drug monitoring program results: PDMP was not reviewed Medications Home Medications: No Known Drug Allergies Allergy (Verified 08/19/20 21:02) CONTINUE taking the following medications B [id number] [Ferrocite Plus] 1 tab PO DAILY 07/19/21 [History] amlodipine [Norvasc] 10 mg PO DAILY 07/19/21 [History] aripiprazole [Abilify] 2 mg PO QHS 07/19/21 [History] docusate sodium [Colace] 100 mg PO DAILY 07/19/21 [History] doxepin 20 mg PO QHS 07/19/21 [History] metoprolol tartrate 25 mg PO BID 07/19/21 [History] pantoprazole [Protonix] 40 mg PO BID 07/19/21 [History] Labs Result Diagrams: 07/20/21 04:54 07/20/21 04:54 Labs: 07/19/21 12:46 Urine,Catheterized Urine Culture - Preliminary Laboratory WBC 10.9 X10^3/uL (3.6-10.0) H 07/20/21 04:54 RBC 4.16 X10^6/uL (4.7-6.0) L 07/20/21 04:54 Hgb 11.4 g/dL (13.5-18.0) L 07/20/21 04:54 Hct 35.0 % (42.0-54.0) L 07/20/21 04:54 MCV 84.2 fL (80.0-100.0) 07/20/21 04:54 MCH 27.5 pg (27.0-34.0) 07/20/21 04:54 MCHC 32.6 g/dL (33.0-35.0) L 07/20/21 04:54 RDW 16.7 % (11.6-16.5) H 07/20/21 04:54 Plt Count 231 X10^3/uL (150.0-450.0) 07/20/21 04:54 MPV 9.7 fL (7.4-11.0) 07/20/21 04:54 Neut % (Auto) 57.8 % (42.0-75.0) 07/20/21 04:54 Lymph % (Auto) 30.1 % (21.0-51.0) 07/20/21 04:54 [place] % (Auto) 8.7 % (0.0-13.0) 07/20/21 04:54 Eos % (Auto) 3.2 % (0.9-2.9) H 07/20/21 04:54 Baso % (Auto) 0.2 % (0.2-1.0) 07/20/21 04:54 Neut # (Auto) 6.3 x10^3/uL (2.2-4.8) H 07/20/21 04:54 Lymph # (Auto) 3.3 X10^3/uL (1.3-2.9) H 07/20/21 04:54 [place] # (Auto) 1.0 x10^3/uL (0.3-0.8) H 07/20/21 04:54 Eos # (Auto) 0.3 x10^3/uL (0.0-0.2) H 07/20/21 04:54 Baso # (Auto) 0.0 X10^3/uL (0.0-0.1) 07/20/21 04:54 Absolute Nucleated RBC 0.2 /100WBC 07/20/21 04:54 PT 13.7 SECONDS (11.8-14.3) 07/19/21 12:20 INR Target Range - 07/19/21 12:20 INR 1.10 (0.8-1.3) 07/19/21 12:20 Sample Site Rr 07/19/21 12:29 ABG pH 7.380 (7.35-7.45) 07/19/21 12:29 ABG pCO2 43.0 mmHg (35.0-45.0) 07/19/21 12:29 ABG pO2 106.0 mmHg (80.0-100.0) H 07/19/21 12:29 ABG HCO3 25.4 mmol/L (22-26) 07/19/21 12:29 ABG O2 Saturation 98.0 % (90-100) 07/19/21 12:29 ABG Base Excess 0.1 mmol/L (-2.0-2.0) 07/19/21 12:29 Pablo Test Pos 07/19/21 12:29 A-a Gradient 40.0 mmHg 07/19/21 12:29 FiO2 28 07/19/21 12:29 Blood Gas Comments Katherine well cb 07/19/21 12:29 Sodium 140 mmol/L (136-145) 07/20/21 04:54 Corrected Sodium TNP 07/20/21 04:54 Potassium 3.6 mmol/L (3.5-5.1) 07/20/21 04:54 Chloride 105 mmol/L (98-107) 07/20/21 04:54 Carbon Dioxide 26.2 mmol/L (21-32) 07/20/21 04:54 BUN 23 mg/dL (7-18) H 07/20/21 04:54 Creatinine 1.62 mg/dL (0.70-1.30) H 07/20/21 04:54 Est GFR (MDRD) Af Amer 55 (>60) L 07/20/21 04:54 Est GFR (MDRD) Non-Af 45 (>60) L 07/20/21 04:54 Glucose 102 mg/dL (65-99) H 07/20/21 04:54 Calcium 9.1 mg/dL (8.5-10.1) 07/20/21 04:54 Corrected Calcium 9.9 mg/dL (8.5-10.1) 07/20/21 04:54 Magnesium 2.0 mg/dL (1.7-2.9) 07/19/21 12:20 Total Bilirubin 0.30 mg/dL (0.2-1.0) 07/20/21 04:54 AST 21 Units/L (15-37) 07/20/21 04:54 ALT 29 Units/L (12-78) 07/20/21 04:54 Alkaline Phosphatase 125 Units/L (46-116) H 07/20/21 04:54 Troponin I < 0.02 ng/mL (0-1.5) 07/19/21 12:20 Total Protein 7.3 g/dL (6.4-8.2) 07/20/21 04:54 Albumin 3.0 g/dL (3.4-5.0) L 07/20/21 04:54 Globulin 4.3 g/dL (2.5-4.5) 07/20/21 04:54 Albumin/Globulin Ratio 0.7 Ratio (1.1-2.1) L 07/20/21 04:54 Specimen Type Catherized urine 07/19/21 12:46 Urine Color Yellow (YELLOW) 07/19/21 12:46 Urine Appearance Clear (CLEAR) 07/19/21 12:46 Urine pH 7.0 (5.0 - 8.0) 07/19/21 12:46 Ur Specific [place] 1.020 (1.000-1.030) 07/19/21 12:46 Urine Protein Negative (NEGATIVE) 07/19/21 12:46 Urine Glucose (UA) Negative (NEGATIVE) 07/19/21 12:46 Urine Ketones Negative (NEGATIVE) 07/19/21 12:46 Urine Occult Blood Negative (NEGATIVE) 07/19/21 12:46 Urine Nitrite Positive (NEGATIVE) 07/19/21 12:46 Urine Bilirubin Negative (NEGATIVE) 07/19/21 12:46 Urine Urobilinogen Normal (NORMAL) 07/19/21 12:46 Ur Leukocyte Esterase 1+ (NEGATIVE) 07/19/21 12:46 Urine RBC None seen /HPF (0-3) 07/19/21 12:46 Urine WBC 5-10 /HPF (0-5) A 07/19/21 12:46 Ur Squamous Epith Cells Rare /HPF (NEGATIVE) 07/19/21 12:46 Urine Bacteria 4+ /HPF (NEGATIVE) 07/19/21 12:46 Ur Culture Indicated? Yes/culture set up 07/19/21 12:46 SARS CoV-2 RNA Rapid CLEMENT[place] Negative (NEGATIVE) 07/19/21 13:45 Review of Systems Constitutional: Weakness Eyes: No Symptoms Reported ENT: No Symptoms Reported Respiratory: No Symptoms Reported Cardiovascular: No Symptoms Reported Gastrointestinal: No Symptoms Reported Genitourinary: No Symptoms Reported Musculoskeletal: No Symptoms Reported Skin: No Symptoms Reported Neurological: Weakness and Confusion Physical Exam Vital Signs: Temperature 97.9 F Pulse Rate [Right Brachial] 69 Pulse Rate 69 Respiratory Rate 14 Blood Pressure [Right Arm] 128/81 Blood Pressure 142/75 O2 Sat by Pulse Oximetry 100 Oriented: Person and Place Eyes: Normal Ear: Normal Nose: Normal Respiratory: Diminished Throughout Cardiovascular: Normal Auscultation: Bowel Sounds: Normal Palpation: Normal Tenderness: Normal Skin: Decreased [place]urg[place] Musculoskeletal: Normal, Arm (no obvious motor deficit noted, strength and sensation intact ) and Leg (no obvious motor deficit noted, strength and sensation intact ) Psychiatric: Normal Mood Description: Calm Affect: Normal Speech Pattern: Appropriate and Delayed (patient has delayed/slurred speech as his baseline. ) Assessment/Plan (1) Acute alteration in mental status: Status: Acute (2) Urinary tract infection: Qualifiers: Hematuria presence: without hematuria Urinary tract infection type: acute cystitis Qualified Code(s): N30.00 - Acute cystitis without hematuria Status: Acute (3) Acute dehydration: Status: Acute (4) TIA (transient ischemic attack): Status: Acute (5) RENUKA (acute kidney injury): Status: Acute Review H&P Reviewed: Yes Patient was examined?: Yes
[2021-07-20] MEDS: ROCEPHIN 1 GRAM IV PREMIX 1 G/50 ML IV.SOLN. IV SCH (11:22)
[2021-07-20] MEDS: LOVENOX INJ 40 MG SYR SC SCH (11:22)
[2021-07-20] MEDS: NS 1,000 ML IV 1,000 ML IV SCH ×2 (18:00→20:51)
[2021-07-20] MEDS: CYMBALTA PO SCH (20:39)
[2021-07-20] MEDS: ARICEPT TAB 5 MG PO SCH (20:39)
[2021-07-21 06:26] LABS: BASOPHILS % (AUTO) 0.4 % (0.2-1.0); EOSINOPHILS # (AUTO) 0.4 x10^3/uL (0.0-0.2); EOSINOPHILS % (AUTO) 3.6 % (0.9-2.9); HEMOGLOBIN 11.9 g/dL (13.5-18.0); LYMPHOCYTES # (AUTO) 3.5 X10^3/uL (1.3-2.9); LYMPHOCYTES % (AUTO) 29.5 % (21.0-51.0); MEAN CORPUSCULAR HEMOGLOBIN 27.2 pg (27.0-34.0); MEAN CORPUSCULAR HGB CONC 32.2 g/dL (33.0-35.0); MEAN CORPUSCULAR VOLUME 84.5 fL (80.0-100.0); MEAN PLATELET VOLUME 9.7 fL (7.4-11.0); MONOCYTES % (AUTO) 8.7 % (0.0-13.0); NEUTROPHILS # (AUTO) 6.8 x10^3/uL (2.2-4.8); NEUTROPHILS % (AUTO) 57.8 % (42.0-75.0); PLATELET COUNT 211 X10^3/uL (150.0-450.0); RED BLOOD COUNT 4.38 X10^6/uL (4.7-6.0); RED CELL DISTRIBUTION WIDTH 16.2 % (11.6-16.5); WHITE BLOOD COUNT 11.7 X10^3/uL (3.6-10.0)
[2021-07-21 06:36] LABS: ALANINE AMINOTRANSFERASE 31 Units/L (12-78); ALBUMIN 3.3 g/dL (3.4-5.0); ALKALINE PHOSPHATASE 134 Units/L (46-116); ASPARTATE AMINO TRANSFERASE 32 Units/L (15-37); BLOOD UREA NITROGEN 16 mg/dL (7-18); CALCIUM 9.2 mg/dL (8.5-10.1); CARBON DIOXIDE 25.2 mmol/L (21-32); CHLORIDE 106 mmol/L (98-107); COR CA(FOR HYPOALB) 9.8 mg/dL (8.5-10.1); CREATININE 1.37 mg/dL (0.70-1.30); SODIUM 138 mmol/L (136-145); TOTAL PROTEIN 7.8 g/dL (6.4-8.2); eGFR NON BLACK RACES 55 (>60)
[2021-07-21] MEDS: FOLIC ACID TAB 1 MG PO SCH (08:56)
[2021-07-21] MEDS: FERROUS GLUCONATE PO SCH (08:56)
[2021-07-21] MEDS: CATAPRES TAB 0.2 MG PO SCH (08:56)
[2021-07-21] MEDS: LOPRESSOR TAB 25 MG PO SCH (08:57)
[2021-07-21] MEDS: ROCEPHIN 1 GRAM IV PREMIX 1 G/50 ML IV.SOLN. IV SCH (08:57)
[2021-07-21] MEDS: LOVENOX INJ 40 MG SYR SC SCH (08:57)
[2021-07-21] MEDS: NS 1,000 ML IV 1,000 ML IV SCH (11:07)
[2021-07-21 13:38] VITALS: BP 127/75
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
== END 2021-07-21 16:05 | disposition home or self-care (01) ==
LOC: ER 12:19 → ICU 12:19 → MED/SURG 07-20 16:53
PROVIDERS: ADMIT Internal Medicine; ATTEND Internal Medicine
DX: Z20.822 Contact with and (suspected) exposure to COVID-19; K21.9 Gastro-esophageal reflux disease without esophagitis; N17.8 Other acute kidney failure; I10 Essential (primary) hypertension; G45.8 Other transient cerebral ischemic attacks and related syndromes; E86.0 Dehydration; E11.65 Type 2 diabetes mellitus with hyperglycemia; N30.00 Acute cystitis without hematuria; B95.7 Other staphylococcus as the cause of diseases classified elsewhere; E87.1 Hypo-osmolality and hyponatremia; R41.82 Altered mental status, unspecified

== ENCOUNTER 2024-09-20 12:20 | Inpatient (IN) ==
[2024-09-20] MEDS: NS 1,000 ML IV 1,000 ML IV SCH ×2 (15:34→23:45)
[2024-09-20] MEDS: MAXIPIME VIAL 1 GRAM 1 G in NS 50 ML IV 50 ML IV SCH (16:18)
[2024-09-20 16:34] LABS: BASOPHILS # (AUTO) 0.1 X10^3/uL (0.0-0.1); BASOPHILS % (AUTO) 0.5 % (0.2-1.0); EOSINOPHILS % (AUTO) 0.1 % (0.9-2.9); HEMATOCRIT 37.1 % (42.0-54.0); LYMPHOCYTES # (AUTO) 1.4 X10^3/uL (1.3-2.9); LYMPHOCYTES % (AUTO) 7.9 % (21.0-51.0); MEAN CORPUSCULAR HEMOGLOBIN 26.6 pg (27.0-34.0); MEAN CORPUSCULAR HGB CONC 32.3 g/dL (33.0-35.0); MEAN CORPUSCULAR VOLUME 82.4 fL (80.0-100.0); MONOCYTES # (AUTO) 1.1 x10^3/uL (0.3-0.8); NEUTROPHILS # (AUTO) 15.2 x10^3/uL (2.2-4.8); NEUTROPHILS % (AUTO) 85.5 % (42.0-75.0); PLATELET COUNT 241 X10^3/uL (150.0-450.0); RED CELL DISTRIBUTION WIDTH 17.4 % (11.6-16.5); WHITE BLOOD COUNT 17.8 X10^3/uL (3.6-10.0)
[2024-09-20 16:46] LABS: ALBUMIN 2.3 g/dL (3.4-5.0); CALCIUM 9.9 mg/dL (8.5-10.1); CARBON DIOXIDE 25.5 mmol/L (21-32); COR CA(FOR HYPOALB) 11.3 mg/dL (8.5-10.1); CREATININE 1.86 mg/dL (0.70-1.30); MAGNESIUM 2.5 mg/dL (2.0-2.9); POTASSIUM 3.6 mmol/L (3.5-5.1); TOTAL PROTEIN 8.9 g/dL (6.4-8.2)
[2024-09-20] MEDS ORDERED: PHARMACY CONSULT - VANCOMYCIN XX SCH (18:00)
[2024-09-20] MEDS: TYLENOL SUPP 650 MG PR PRN (20:30)
[2024-09-20] MEDS: NEURONTIN CAP 300 MG PO SCH (21:42)
[2024-09-20] MEDS: NORVASC TAB 10 MG PO SCH (21:43)
[2024-09-20] MEDS: LOPRESSOR TAB 25 MG PO SCH (21:43)
--- NOTE | 2024-09-20 21:48 | CT ---
EXAM:ABDOMEN/PELVIS W/O CONHISTORY:Abdominal pain and distentionCOMPARISON:CTA aorta with runoff from September 19, 2024TECHNIQUE:Non-contrasted axial CT images of the abdomen and pelvis were obtained and reformatted into coronal and sagittal planes for further evaluation.Radiation dose: 699.53 mGy-cm total DLPFINDINGS:Airspace disease in the right lower lobe which has progressed since the prior exam.Stomach appears normal.Solid visceral organs of the upper abdomen are unremarkable.Vicarious excretion of contrast gallbladder from the prior day exam. 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 Worsening airspace disease in the right lower lobe could represent atelectasis, infiltrate or sequela of aspiration.2. Vicarious excretion of contrast gallbladder from the prior day exam. No evidence of acute cholecystitis.3. Mild persistent contrast density persists within the kidneys; consistent with the sequela of renal insufficiency.THIS IS AN ELECTRONICALLY VERIFIED FINAL REPORT09/20/2024 9:45 PM - Electronically signed by Gibson Salazar MD
[2024-09-20] MEDS: PROTONIX TAB 40 MG PO SCH (21:51)
--- NOTE | 2024-09-20 21:52 | CT ---
EXAM: CT CHEST WITHOUT CONTRAST HISTORY: Resp. Distress; COMPARISON: None. TECHNIQUE: Axial CT images were obtained through the chest without contrast. Coronal reformatted images were inc luded. All CT scans at this facility use dose modulation, iterative reconstruction, and/or weight based dosi ng when appropriate to reduce radiation dose to as low as reasonably achievable. FINDINGS: Thoracic aorta: Aneurysmal ascending segment thoracic aorta with AP dimension 4.1 cm. HEART, VESSELS, AND MEDIASTINUM: Scattered coronary artery calcification. LYMPH NODES: No pathologically enlarged nodes. LUNGS AND PLEURA: Large focal dense airspace consolidation/pneumonia in the posterior right lower lob e containing multiple air bronchograms with surrounding ground-glass opacities. Findings may represe nt aspiration phenomenon. AIRWAYS: Within normal limits. UPPER ABDOMEN: Within normal limits. BONES: Within normal limits. IMPRESSION: 1. Large focal dense airspace consolidation/pneumonia in the posterior right lower lobe containing mu ltiple air bronchograms with surrounding ground-glass opacities. Findings may represent aspiration p henomenon. 2. Mild thoracic aortic aneurysm. Scattered coronary artery calcification. THIS IS AN ELECTRONICALLY VERIFIED FINAL REPORT 09/20/2024 9:49 PM - Electronically signed by Flaca Guzman MD
[2024-09-20] MEDS: VANCOMYCIN IV *PREMIX 1.25 G/250 ML BAG 1.25 G/250 ML PIGGYBACK IV ONE (22:37)
[2024-09-20] MEDS: VANCOMYCIN HCL VIAL 1.25 G 1.25 G in D5W 250 ML IV 250 ML IV SCH (23:05)
[2024-09-20] MEDS: DEMEROL INJ IVP PRN (23:45)
[2024-09-20] MEDS: ZOSYN VIAL 3.375 GRAMS 3.375 G in NS 100 ML IV 100 ML IV SCH (23:45)
[2024-09-20] MEDS: NS 250 ML IV 25 ML IV PRN (23:45)
[2024-09-21 06:57] LABS: BASOPHILS # (AUTO) 0.2 X10^3/uL (0.0-0.1); EOSINOPHILS # (AUTO) 0.2 x10^3/uL (0.0-0.2); EOSINOPHILS % (AUTO) 0.9 % (0.9-2.9); HEMATOCRIT 32.3 % (42.0-54.0); HEMOGLOBIN 10.3 g/dL (13.5-18.0); LYMPHOCYTES # (AUTO) 1.6 X10^3/uL (1.3-2.9); LYMPHOCYTES % (AUTO) 8.7 % (21.0-51.0); MEAN CORPUSCULAR HEMOGLOBIN 26.4 pg (27.0-34.0); MEAN CORPUSCULAR VOLUME 82.4 fL (80.0-100.0); MEAN PLATELET VOLUME 11.3 fL (7.4-11.0); MONOCYTES % (AUTO) 5.1 % (0.0-13.0); NEUTROPHILS # (AUTO) 15.8 x10^3/uL (2.2-4.8); NEUTROPHILS % (AUTO) 84.3 % (42.0-75.0); PLATELET COUNT 230 X10^3/uL (150.0-450.0); RED BLOOD COUNT 3.93 X10^6/uL (4.7-6.0); RED CELL DISTRIBUTION WIDTH 17.4 % (11.6-16.5); WHITE BLOOD COUNT 18.8 X10^3/uL (3.6-10.0)
[2024-09-21 07:05] LABS: CALCIUM 9.5 mg/dL (8.5-10.1); CARBON DIOXIDE 26.1 mmol/L (21-32); COR CA(FOR HYPOALB) 11.1 mg/dL (8.5-10.1); CREATININE 1.76 mg/dL (0.70-1.30); POTASSIUM 3.2 mmol/L (3.5-5.1); TOTAL PROTEIN 7.8 g/dL (6.4-8.2)
[2024-09-21 07:34] LABS: BAND NEUTROPHILS % 2 % (0-10)
[2024-09-21 07:37] LABS: ANISOCYTOSIS SLIGHT; HYPOCHROMASIA SLIGHT; PLATELET MORPHOLOGY COMMENT NORMAL (NORMAL)
[2024-09-21 07:38] LABS: TARGET CELLS PRESENT
[2024-09-21] MEDS ORDERED: CONSULT PHARMACY - POTASSIUM & MAGNESIUM XX SCH (08:00)
[2024-09-21] MEDS: NS + KCL 20 MEQ/L 1,000 ML IV SCH (09:15)
[2024-09-21] MEDS: ZOFRAN INJ 4 MG VIAL IVP PRN (09:15)
[2024-09-21] MEDS: BACTROBAN TOPICAL OINT TOP SCH (09:15)
[2024-09-21] MEDS: VANCOMYCIN IV *PREMIX 1 G/200 ML BAG 1 G/200 ML PIGGYBACK IV SCH (09:15)
[2024-09-21] MEDS ORDERED: NovoLIN R (or HumuLIN R) SUBCUT PRN (09:39)
[2024-09-21] MEDS: NAMENDA TAB 10 MG PO SCH (10:44)
[2024-09-21] MEDS: K-DUR TAB 20 MEQ PO SCH (10:49)
[2024-09-21] MEDS ORDERED: D5W 1,000 ML IV 1,000 ML IV SCH (12:00)
--- NOTE | 2024-09-21 12:45 | DR.H&P ---
H&P History & Physical for Day of: H&P Date: 09/20/24 Chief Complaint Chief Complaint: failed outpatient treatment for UTI, positive blood Cx History of Present Illness History of Present Illness: Mr Byers is a 69y/o male with a PMH of HTN, GERD, Dementia, PVD, CKD and anemia who is a resident of [facility]. He was being treated o utpatient for UTI with Rocephin IM. He was noted to have worsening renal function so was sent to the ER on 09/19/24 for fluids. All the other work up was normal so he was sent back to the skilled nursing. Patient was noted to have positive blood cultures yesterday so he was directly admitted for further management. He has also been having diarrhea and decreased oral intake. Patient is mostly non-verbal but does answer direct questions. Labs/imaging reviewed: -Blood Cx 09/19/24 gram + cocci -Urine Cx: proteus Plan: admit to med-surg, order routine labs CMP, CBC, BNP. Start gentle hydration. Start empiric antibiotics. Resume home medications. Replace electrolytes as per protocol. Add lovenox. Follow pending cultures. Monitor AM labs/imaging. Time spent for clinical assessment, reviewing labs/imaging, physical exam, decision making and documentation greater than 45 mins. Past Medical History Past Medical History: Anemia, Arthritis, CVA, Dementia, GERD and Hypertension Additional Medical History: Recurrent falls Past Surgical History Surgical History: Ortho Surgery Family History Family Medical History: Cancer, NE and Hypertension Medications Home Medications: Home Medications Medication Instructions Recorded Confirmed Type meloxicam 7.5 mg tablet 7.5 mg PO DAILY 09/09/20 05/27/24 History cyanocobalamin (vitamin B-12) 1,000 mcg IM MONTHLY 09/13/20 09/19/24 History 1,000 mcg/mL injection solution folic acid 1 mg tablet 1 mg PO DAILY 09/13/20 09/19/24 History gabapentin 300 mg capsule 300 mg PO QID 09/13/20 09/19/24 History memantine 10 mg tablet 10 mg PO DAILY 09/13/20 09/19/24 History amlodipine 10 mg tablet (Norvasc) 10 mg PO DAILY 07/19/21 09/19/24 History docusate sodium 100 mg capsule 100 mg PO DAILY 07/19/21 09/19/24 History (Colace) metoprolol tartrate 25 mg tablet 25 mg PO BID 07/19/21 09/19/24 History pantoprazole 40 mg tablet,delayed 40 mg PO BID 07/19/21 09/19/24 History release (Protonix) calcium 150 mg tablet 150 mg PO DAILY 01/01/24 09/19/24 History ergocalciferol (vitamin D2) 1,250 1,250 mcg PO WEEKLY 01/01/24 09/19/24 History mcg (50,000 unit) capsule (Drisdol) ondansetron HCl 4 mg tablet 4 mg PO Q6H PRN 01/01/24 09/19/24 History furosemide 40 mg tablet (Lasix) 40 mg PO DAILY 04/07/24 09/19/24 History mineral oil-hydrophil petrolat 1 applic topical DAILY 04/07/24 09/19/24 History topical ointment polyethylene glycol 3350 17 17 g PO DAILY 09/19/24 09/19/24 History gram/dose oral powder Allergies Allergies Allergy/AdvReac Type Severity Reaction Status Date / Time No Known Drug Allergies Allergy Unknown Verified 09/19/24 13:56 Labs 09/21/24 05:12 09/21/24 05:12 Review of Systems Constitutional: Weakness and Malaise Eyes: No Symptoms Reported ENT: No Symptoms Reported Respiratory: No Symptoms Reported Cardiovascular: No Symptoms Reported Gastrointestinal: Diarrhea Genitourinary: No Symptoms Reported Musculoskeletal: No Symptoms Reported Skin: No Symptoms Reported Neurological: No Symptoms Reported Oriented: Unable to test Eyes: Normal Throat: Normal Respiratory: Diminished Throughout Cardiovascular: Normal and Edema Auscultation: Bowel Sounds: Normal Palpation: Normal Tenderness: Normal Skin: Normal Musculoskeletal: Normal Psychiatric: Normal Mood Description: Calm Affect: Normal Speech Pattern: Delayed Assessment/Plan (1) UTI (urinary tract infection): Status: Acute (2) Bacteremia: Status: Acute (3) Acute on chronic renal failure: Status: Acute (4) Dehydration: Status: Acute (5) Hypertension: Qualifiers: Hypertension type: essential hypertension Status: Chronic Review H&P Reviewed: Yes Patient was examined?: Yes
--- NOTE | 2024-09-21 12:51 | PCM.PROG ---
Progress Note Progress Note for Day of Date of Exam: 09/21/24 Subjective Subjective: Patient seen at bedside, overnight he did have a temp of 102.1. Chest CT showed aspiration pneumonia, CTAP did not show any acute changes in the abdomen. He is currently on 3L NC. He remains on IV antibiotics. Labs/imaging reviewed: -WBC 18.8 Hgb 10.3 K 3.2 Na 148 Cr 1.76 -Blood Cx 09/19/24 gram + cocci -Sputum pending -CT-chest and CTAP reviewed Plan: NPO status, speech consult. Continue IV antibiotics, follow final cultures. Change to D5 with KCl. Stool studies ordered. Continue pain control. Replace electrolytes as needed. Lovenox daily. Wean O2 as tolerated. Tylenol prn . Monitor AM labs/imaging. Past Medical Family Social History Allergies: Allergies No Known Drug Allergies Allergy (Unknown, Verified 09/19/24 13:56) Onset Date: 12/19/2017 Vital Signs and I&O's Intake and Output: Intake & Output 09/18/24 09/19/24 09/20/24 09/22/24 23:59 23:59 23:59 00:59 Intake Total 625 / 625 500 / 500 Balance 625 / 625 500 / 500 Physical Exam Oriented: Unable to test Eyes: Normal Throat: Normal Respiratory: Generalized, Diminished and Rhonchi Cardiovascular: Normal and Edema Auscultation: Bowel Sounds: Normal Palpation: Normal Tenderness: Normal Skin: Normal Musculoskeletal: Normal Psychiatric: Normal Mood Description: Calm Affect: Normal Speech Pattern: Delayed Laboratory and Diagnostics 09/21/24 05:12 09/21/24 05:12 Labs: 09/20/24 23:37 Sputum - Endotracheal Wash - Final Laboratory WBC 18.8 X10^3/uL (3.6-10.0) H 09/21/24 05:12 RBC 3.93 X10^6/uL (4.7-6.0) L 09/21/24 05:12 Hgb 10.3 g/dL (13.5-18.0) L 09/21/24 05:12 Hct 32.3 % (42.0-54.0) L 09/21/24 05:12 MCV 82.4 fL (80.0-100.0) 09/21/24 05:12 MCH 26.4 pg (27.0-34.0) L 09/21/24 05:12 MCHC 32.0 g/dL (33.0-35.0) L 09/21/24 05:12 RDW 17.4 % (11.6-16.5) H 09/21/24 05:12 Plt Count 230 X10^3/uL (150.0-450.0) 09/21/24 05:12 Plt Count Comment Adequate (ADEQUATE) 09/21/24 05:12 MPV 11.3 fL (7.4-11.0) H 09/21/24 05:12 Neut % (Auto) 84.3 % (42.0-75.0) H 09/21/24 05:12 Lymph % (Auto) 8.7 % (21.0-51.0) L 09/21/24 05:12 [place] % (Auto) 5.1 % (0.0-13.0) 09/21/24 05:12 Eos % (Auto) 0.9 % (0.9-2.9) 09/21/24 05:12 Baso % (Auto) 1.0 % (0.2-1.0) 09/21/24 05:12 Neut # (Auto) 15.8 x10^3/uL (2.2-4.8) H 09/21/24 05:12 Lymph # (Auto) 1.6 X10^3/uL (1.3-2.9) 09/21/24 05:12 [place] # (Auto) 1.0 x10^3/uL (0.3-0.8) H 09/21/24 05:12 Eos # (Auto) 0.2 x10^3/uL (0.0-0.2) 09/21/24 05:12 Baso # (Auto) 0.2 X10^3/uL (0.0-0.1) H 09/21/24 05:12 Absolute Nucleated RBC 0.1 /100WBC 09/21/24 05:12 Total Counted 100 09/21/24 05:12 Neutrophils % (Manual) 84 % (39-76) H 09/21/24 05:12 Band Neutrophils % 2 % (0-10) 09/21/24 05:12 Lymphocytes % (Manual) 8 % (13-43) L 09/21/24 05:12 Monocytes % (Manual) 5 % (4-9) 09/21/24 05:12 Eosinophils % (Manual) 1 % (0-6) 09/21/24 05:12 Plt Morphology Comment Normal (NORMAL) 09/21/24 05:12 RBC Morphology Abnormal (NORMAL) 09/21/24 05:12 Hypochromasia Slight A 09/21/24 05:12 Anisocytosis Slight A 09/21/24 05:12 Target Cells Present 09/21/24 05:12 Sodium 148 mmol/L (136-145) H 09/21/24 05:12 Corrected Sodium 150 mmol/L (136-145) H 09/21/24 05:12 Potassium 3.2 mmol/L (3.5-5.1) L 09/21/24 05:12 Chloride 111 mmol/L (98-107) H 09/21/24 05:12 Carbon Dioxide 26.1 mmol/L (21-32) 09/21/24 05:12 BUN 35 mg/dL (7-18) H 09/21/24 05:12 Creatinine 1.76 mg/dL (0.70-1.30) H 09/21/24 05:12 Est GFR (MDRD) Af Amer 49 (>60) L 09/21/24 05:12 Est GFR (MDRD) Non-Af 41 (>60) L 09/21/24 05:12 Glucose 166 mg/dL (65-99) H 09/21/24 05:12 POC Glucose (mg/dL) 138 mg/dL (65-99) H 09/21/24 12:28 Lactic Acid 1.4 mmol/L (0.4-2.0) 09/20/24 21:17 Calcium 9.5 mg/dL (8.5-10.1) 09/21/24 05:12 Corrected Calcium 11.1 mg/dL (8.5-10.1) H 09/21/24 05:12 Magnesium 2.6 mg/dL (2.0-2.9) 09/21/24 05:12 Total Bilirubin 0.50 mg/dL (0.2-1.0) 09/21/24 05:12 AST 33 Units/L (15-37) 09/21/24 05:12 ALT 30 Units/L (12-78) 09/21/24 05:12 Alkaline Phosphatase 103 Units/L (46-116) 09/21/24 05:12 B-Natriuretic Peptide 35.0 pg/mL (0-79) 09/20/24 16:25 Total Protein 7.8 g/dL (6.4-8.2) 09/21/24 05:12 Albumin 2.0 g/dL (3.4-5.0) L 09/21/24 05:12 Globulin 5.8 g/dL (2.5-4.5) H 09/21/24 05:12 Albumin/Globulin Ratio 0.3 Ratio (1.1-2.1) L 09/21/24 05:12 Plan (1) Aspiration pneumonia: Status: Acute Qualifiers: Aspiration pneumonia type: unspecified Laterality: unspecified laterality Lung location: lower lobe of lung Qualified Code(s): J69.0 - Pneumonitis due to inhalation of food and vomit (2) UTI (urinary tract infection): Status: Acute Qualifiers: Urinary tract infection type: acute cystitis Hematuria presence: without hematuria Qualified Code(s): N30.00 - Acute cystitis without hematuria (3) Bacteremia: Status: Acute (4) Hypernatremia: Status: Acute (5) Acute on chronic renal failure: Status: Acute Qualifiers: Acute renal failure type: unspecified Chronic kidney disease stage: u nspecified stage Qualified Code(s): N17.9 - Acute kidney failure, unspecified; N18.9 - Chronic kidney disease, unspecified (6) Dehydration: Status: Acute (7) Hypertension: Status: Chronic Qualifiers: Hypertension type: primary hypertension Qualified Code(s): I10 - Essential (primary) hypertension
[2024-09-21] MEDS ORDERED: LOPRESSOR INJ 5 MG AMP IVP SCH (13:00)
[2024-09-21] MEDS: LOVENOX INJ 40 MG SYR SC SCH (13:08)
[2024-09-21] MEDS: PROTONIX INJ 40 MG VIAL IVP SCH (13:08)
[2024-09-21] MEDS: LOPRESSOR INJ 5 MG AMP IVP SCH (13:15)
[2024-09-21] MEDS ORDERED: D5W 1,000 ML IV 1,000 ML IV ONE (14:03)
[2024-09-21] MEDS: DUONEB 0.5 MG/3 MG (3 mL) NEB SCH (14:12)
[2024-09-21] MEDS: PULMICORT NEB TX 0.5 MG NEB SCH (14:28)
[2024-09-21] MEDS: D5W + KCL 20 MEQ/L 1,000 ML IV SCH (14:43)
[2024-09-21 17:54] VITALS: BMI 29.7
[2024-09-21] MEDS: SNACK - Diabetic Appropriate PO SCH (21:30)
[2024-09-21] MEDS: D5W 1,000 ML IV 1,000 ML IV SCH (21:54)
[2024-09-22 05:54] LABS: BASOPHILS # (AUTO) 0.1 X10^3/uL (0.0-0.1); BASOPHILS % (AUTO) 0.5 % (0.2-1.0); EOSINOPHILS # (AUTO) 0.5 x10^3/uL (0.0-0.2); HEMATOCRIT 30.9 % (42.0-54.0); HEMOGLOBIN 9.7 g/dL (13.5-18.0); LYMPHOCYTES # (AUTO) 2.5 X10^3/uL (1.3-2.9); LYMPHOCYTES % (AUTO) 14.6 % (21.0-51.0); MEAN CORPUSCULAR HEMOGLOBIN 25.9 pg (27.0-34.0); MEAN CORPUSCULAR HGB CONC 31.4 g/dL (33.0-35.0); MEAN CORPUSCULAR VOLUME 82.5 fL (80.0-100.0); MEAN PLATELET VOLUME 10.7 fL (7.4-11.0); MONOCYTES # (AUTO) 1.1 x10^3/uL (0.3-0.8); MONOCYTES % (AUTO) 6.5 % (0.0-13.0); NEUTROPHILS # (AUTO) 12.7 x10^3/uL (2.2-4.8); NEUTROPHILS % (AUTO) 75.4 % (42.0-75.0); PLATELET COUNT 265 X10^3/uL (150.0-450.0); RED BLOOD COUNT 3.74 X10^6/uL (4.7-6.0); RED CELL DISTRIBUTION WIDTH 17.5 % (11.6-16.5); WHITE BLOOD COUNT 16.9 X10^3/uL (3.6-10.0)
[2024-09-22 06:28] LABS: CALCIUM 9.5 mg/dL (8.5-10.1); CARBON DIOXIDE 24.1 mmol/L (21-32); COR CA(FOR HYPOALB) 11.1 mg/dL (8.5-10.1); CREATININE 1.51 mg/dL (0.70-1.30); MAGNESIUM 2.4 mg/dL (2.0-2.9); POTASSIUM 3.3 mmol/L (3.5-5.1); TOTAL PROTEIN 7.4 g/dL (6.4-8.2)
[2024-09-22 10:21] LABS: CREATININE 1.42 mg/dL (0.70-1.30); VANCOMYCIN,TROUGH 15.8 ug/mL (15-20)
--- NOTE | 2024-09-22 10:29 | PCM.PROG ---
Progress Note Progress Note for Day of Date of Exam: 09/22/24 Subjective Subjective: Patient seen at bedside, no acute events overnight. He has been afebrile. He has not had any more diarrhea. Chest CT showed aspiration pneumonia, CTAP did not show any acute changes in the abdomen. He is currently on 3L NC. He remains on IV antibiotics. Labs/imaging reviewed: -WBC 16.9 Hgb 9.7 K 3.3 Na 149 Cr 1.51 -Blood Cx 09/19/24 gram + cocci -Sputum pending -CT-chest and CTAP reviewed Plan: NPO status, speech consult pending. Continue IV antibiotics, follow final cultures. Continue hydration. Stool studies ordered but patient has not had diarrhea. Continue pain control. Replace electrolytes as needed. Lovenox daily. Wean O2 as tolerated. Tylenol prn. Monitor AM labs/imaging. Time spent for clinical assessment, reviewing labs/imaging, physical exam, decision making and documentation greater than 45 mins. Past Medical Family Social History Allergies: Allergies No Known Drug Allergies Allergy (Unknown, Verified 09/19/24 13:56) Onset Date: 12/19/2017 Vital Signs and I&O's Vital Signs: Vital Signs Temperature 97.5 F Pulse Rate [Right Radial] 107 Respiratory Rate 18 Blood Pressure [Left Arm] 111/62 O2 Sat by Pulse Oximetry 93 O2 Sat by Pulse Oximetry 96 Intake and Output: Intake & Output 09/19/24 09/20/24 09/21/24 09/22/24 22:59 22:59 23:59 23:59 Intake Total 440 / 440 Balance 440 / 440 Physical Exam Oriented: Unable to test Eyes: Normal Throat: Normal Respiratory: Generalized, Diminished and Rhonchi Cardiovascular: Normal and Edema Auscultation: Bowel Sounds: Normal Palpation: Normal Tenderness: Normal Skin: Normal Musculoskeletal: Normal Psychiatric: Normal Mood Description: Calm Affect: Normal Speech Pattern: Clear and Delayed Laboratory and Diagnostics 09/22/24 05:37 09/22/24 09:50 Labs: 09/20/24 23:37 Sputum - Endotracheal Wash - Final Laboratory WBC 16.9 X10^3/uL (3.6-10.0) H 09/22/24 05:37 RBC 3.74 X10^6/uL (4.7-6.0) L 09/22/24 05:37 Hgb 9.7 g/dL (13.5-18.0) L 09/22/24 05:37 Hct 30.9 % (42.0-54.0) L 09/22/24 05:37 MCV 82.5 fL (80.0-100.0) 09/22/24 05:37 MCH 25.9 pg (27.0-34.0) L 09/22/24 05:37 MCHC 31.4 g/dL (33.0-35.0) L 09/22/24 05:37 RDW 17.5 % (11.6-16.5) H 09/22/24 05:37 Plt Count 265 X10^3/uL (150.0-450.0) 09/22/24 05:37 Plt Count Comment Adequate (ADEQUATE) 09/21/24 05:12 MPV 10.7 fL (7.4-11.0) 09/22/24 05:37 Neut % (Auto) 75.4 % (42.0-75.0) H 09/22/24 05:37 Lymph % (Auto) 14.6 % (21.0-51.0) L 09/22/24 05:37 [place] % (Auto) 6.5 % (0.0-13.0) 09/22/24 05:37 Eos % (Auto) 3.0 % (0.9-2.9) H 09/22/24 05:37 Baso % (Auto) 0.5 % (0.2-1.0) 09/22/24 05:37 Neut # (Auto) 12.7 x10^3/uL (2.2-4.8) H 09/22/24 05:37 Lymph # (Auto) 2.5 X10^3/uL (1.3-2.9) 09/22/24 05:37 [place] # (Auto) 1.1 x10^3/uL (0.3-0.8) H 09/22/24 05:37 Eos # (Auto) 0.5 x10^3/uL (0.0-0.2) H 09/22/24 05:37 Baso # (Auto) 0.1 X10^3/uL (0.0-0.1) 09/22/24 05:37 Absolute Nucleated RBC 0.0 /100WBC 09/22/24 05:37 Total Counted 100 09/21/24 05:12 Neutrophils % (Manual) 84 % (39-76) H 09/21/24 05:12 Band Neutrophils % 2 % (0-10) 09/21/24 05:12 Lymphocytes % (Manual) 8 % (13-43) L 09/21/24 05:12 Monocytes % (Manual) 5 % (4-9) 09/21/24 05:12 Eosinophils % (Manual) 1 % (0-6) 09/21/24 05:12 Plt Morphology Comment Normal (NORMAL) 09/21/24 05:12 RBC Morphology Abnormal (NORMAL) 09/21/24 05:12 Hypochromasia Slight A 09/21/24 05:12 Anisocytosis Slight A 09/21/24 05:12 Target Cells Present 09/21/24 05:12 Sodium 149 mmol/L (136-145) H 09/22/24 05:37 Corrected Sodium 151 mmol/L (136-145) H 09/22/24 05:37 Potassium 3.3 mmol/L (3.5-5.1) L 09/22/24 05:37 Chloride 114 mmol/L (98-107) H 09/22/24 05:37 Carbon Dioxide 24.1 mmol/L (21-32) 09/22/24 05:37 BUN 25 mg/dL (7-18) H 09/22/24 05:37 Creatinine 1.42 mg/dL (0.70-1.30) H 09/22/24 09:50 Est GFR (MDRD) Af Amer 59 (>60) 09/22/24 05:37 Est GFR (MDRD) Non-Af 49 (>60) L 09/22/24 05:37 Glucose 163 mg/dL (65-99) H 09/22/24 05:37 POC Glucose (mg/dL) 157 mg/dL (65-99) H 09/22/24 05:28 Lactic Acid 1.4 mmol/L (0.4-2.0) 09/20/24 21:17 Calcium 9.5 mg/dL (8.5-10.1) 09/22/24 05:37 Corrected Calcium 11.1 mg/dL (8.5-10.1) H 09/22/24 05:37 Magnesium 2.4 mg/dL (2.0-2.9) 09/22/24 05:37 Total Bilirubin 0.40 mg/dL (0.2-1.0) 09/22/24 05:37 AST 31 Units/L (15-37) 09/22/24 05:37 ALT 27 Units/L (12-78) 09/22/24 05:37 Alkaline Phosphatase 94 Units/L (46-116) 09/22/24 05:37 B-Natriuretic Peptide 35.0 pg/mL (0-79) 09/20/24 16:25 Total Protein 7.4 g/dL (6.4-8.2) 09/22/24 05:37 Albumin 2.0 g/dL (3.4-5.0) L 09/22/24 05:37 Globulin 5.4 g/dL (2.5-4.5) H 09/22/24 05:37 Albumin/Globulin Ratio 0.4 Ratio (1.1-2.1) L 09/22/24 05:37 Vancomycin Trough 15.8 ug/mL (15-20) 09/22/24 09:50 Plan (1) Aspiration pneumonia: Status: Acute Qualifiers: Aspiration pneumonia type: unspecified Laterality: unspecified laterality Lung location: lower lobe of lung Qualified Code(s): J69.0 - Pneumonitis due to inhalation of food and vomit (2) UTI (urinary tract infection): Status: Acute Qualifiers: Hematuria presence: without hematuria Urinary tract infection type: acute cystitis Qualified Code(s): N30.00 - Acute cystitis without hematuria (3) Bacteremia: Status: Acute (4) Hypernatremia: Status: Acute (5) Acute on chronic renal failure: Status: Acute Qualifiers: Acute renal failure type: unspecified Chronic kidney disease stage: unspecified stage Qualified Code(s): N17.9 - Acute kidney failure, unspecified; N18.9 - Chronic kidney disease, unspecified (6) Dehydration: Status: Acute (7) Hypertension: Status: Chronic Qualifiers: Hypertension type: primary hypertension Qualified Code(s): I10 - Essential (primary) hypertension
[2024-09-22] MEDS ORDERED: VASOTEC INJ 2.5 MG VIAL IVP PRN (10:30)
[2024-09-22] MEDS: D5W + KCL 20 MEQ/L 1,000 ML IV SCH (10:58)
[2024-09-22] MEDS: PHARMACY COMMENT IV ONE (11:02)
[2024-09-22] MEDS: DIFLUCAN 100 MG IV (MIX by PHARMACY)* 100 MG/50 ML BAG IV SCH (16:42)
[2024-09-23] MEDS ORDERED: PHARMACY COMMENT IV SCH (01:30)
[2024-09-23 05:40] LABS: BASOPHILS # (AUTO) 0.1 X10^3/uL (0.0-0.1); BASOPHILS % (AUTO) 0.7 % (0.2-1.0); EOSINOPHILS # (AUTO) 0.5 x10^3/uL (0.0-0.2); EOSINOPHILS % (AUTO) 3.5 % (0.9-2.9); HEMATOCRIT 30.2 % (42.0-54.0); HEMOGLOBIN 9.6 g/dL (13.5-18.0); LYMPHOCYTES % (AUTO) 15.1 % (21.0-51.0); MEAN CORPUSCULAR HEMOGLOBIN 26.2 pg (27.0-34.0); MEAN CORPUSCULAR HGB CONC 31.7 g/dL (33.0-35.0); MEAN CORPUSCULAR VOLUME 82.4 fL (80.0-100.0); MEAN PLATELET VOLUME 10.5 fL (7.4-11.0); MONOCYTES # (AUTO) 0.9 x10^3/uL (0.3-0.8); MONOCYTES % (AUTO) 6.7 % (0.0-13.0); NEUTROPHILS # (AUTO) 9.8 x10^3/uL (2.2-4.8); PLATELET COUNT 277 X10^3/uL (150.0-450.0); RED BLOOD COUNT 3.66 X10^6/uL (4.7-6.0); RED CELL DISTRIBUTION WIDTH 17.4 % (11.6-16.5); WHITE BLOOD COUNT 13.2 X10^3/uL (3.6-10.0)
[2024-09-23 06:07] LABS: ALANINE AMINOTRANSFERASE 22 Units/L (12-78); ALBUMIN 1.9 g/dL (3.4-5.0); ALKALINE PHOSPHATASE 86 Units/L (46-116); ASPARTATE AMINO TRANSFERASE 23 Units/L (15-37); BLOOD UREA NITROGEN 15 mg/dL (7-18); CALCIUM 9.5 mg/dL (8.5-10.1); CARBON DIOXIDE 24.2 mmol/L (21-32); CHLORIDE 114 mmol/L (98-107); COR CA(FOR HYPOALB) 11.2 mg/dL (8.5-10.1); COR NA(FOR HYPERGLY) 149 mmol/L (136-145); CREATININE 1.23 mg/dL (0.70-1.30); GLUCOSE 154 mg/dL (65-99); SODIUM 148 mmol/L (136-145); TOTAL PROTEIN 7.3 g/dL (6.4-8.2); eGFR NON BLACK RACES > 60 (>60)
--- NOTE | 2024-09-23 09:55 | PCM.PROG ---
Progress Note Progress Note for Day of Date of Exam: 09/23/24 Subjective Subjective: Patient seen at bedside, no acute events overnight. He is currently admitted for aspiration pneumonia, [place], UTI and bacteremia. Initial blood Cx are growing staph epi. Repeat blood Cx are negative. Sputum is growing yeast. He is on IV antibiotics, speech consult pending. Labs/imaging reviewed: -WBC 13.2 Hgb 9.6 K 3.0 Na 148 Cr 1.23 -Blood Cx 09/19/24 staph epi -Sputum: yeast -CT-chest and CTAP reviewed Plan: NPO status, speech consult pending. Continue IV antibiotics, follow final cultures. Order echo. Continue hydration. Continue pain control. Replace electrolytes as needed. Lovenox daily. Wean O2 as tolerated. Continue nebs, pulmicort and IS. CXR pending. Tylenol prn. Monitor AM labs/imaging. Time spent for clinical assessment, reviewing labs/imaging, physical exam, decision making and documentation greater than 45 mins. Past Medical Family Social History Allergies: Allergies No Known Drug Allergies Allergy (Unknown, Verified 09/19/24 13:56) Onset Date: 12/19/2017 Vital Signs and I&O's Vital Signs: Vital Signs Temperature 98.9 F Pulse Rate [Right Radial] 105 Pulse Rate 80 Respiratory Rate 19 Blood Pressure [Left Arm] 123/82 Blood Pressure 138/77 O2 Sat by Pulse Oximetry 96 O2 Sat by Pulse Oximetry 96 Intake and Output: Intake & Output 09/20/24 09/21/24 09/22/24 09/23/24 22:59 23:59 23:59 23:59 Intake Total 1205 / 1205 328 / 328 Balance 1205 / 1205 328 / 328 Physical Exam Oriented: Unable to test Eyes: Normal Throat: Normal Respiratory: Generalized, Diminished and Rhonchi Cardiovascular: Normal and Edema Auscultation: Bowel Sounds: Normal Palpation: Normal Tenderness: Normal Skin: Normal Musculoskeletal: Normal Psychiatric: Normal Mood Description: Calm Affect: Normal Speech Pattern: Delayed Laboratory and Diagnostics 09/23/24 05:26 09/23/24 05:26 Labs: 09/20/24 23:37 Sputum - Endotracheal Wash Sputum Culture - Preliminary 09/20/24 23:37 Sputum - Endotracheal Wash - Final 09/20/24 21:17 Blood Blood Culture - Preliminary 09/20/24 17:45 Blood Blood Culture - Preliminary Laboratory WBC 13.2 X10^3/uL (3.6-10.0) H 09/23/24 05:26 RBC 3.66 X10^6/uL (4.7-6.0) L 09/23/24 05:26 Hgb 9.6 g/dL (13.5-18.0) L 09/23/24 05:26 Hct 30.2 % (42.0-54.0) L 09/23/24 05:26 MCV 82.4 fL (80.0-100.0) 09/23/24 05:26 MCH 26.2 pg (27.0-34.0) L 09/23/24 05:26 MCHC 31.7 g/dL (33.0-35.0) L 09/23/24 05:26 RDW 17.4 % (11.6-16.5) H 09/23/24 05:26 Plt Count 277 X10^3/uL (150.0-450.0) 09/23/24 05:26 Plt Count Comment Adequate (ADEQUATE) 09/21/24 05:12 MPV 10.5 fL (7.4-11.0) 09/23/24 05:26 Neut % (Auto) 74.0 % (42.0-75.0) 09/23/24 05:26 Lymph % (Auto) 15.1 % (21.0-51.0) L 09/23/24 05:26 [place] % (Auto) 6.7 % (0.0-13.0) 09/23/24 05:26 Eos % (Auto) 3.5 % (0.9-2.9) H 09/23/24 05:26 Baso % (Auto) 0.7 % (0.2-1.0) 09/23/24 05:26 Neut # (Auto) 9.8 x10^3/uL (2.2-4.8) H 09/23/24 05:26 Lymph # (Auto) 2.0 X10^3/uL (1.3-2.9) 09/23/24 05:26 [place] # (Auto) 0.9 x10^3/uL (0.3-0.8) H 09/23/24 05:26 Eos # (Auto) 0.5 x10^3/uL (0.0-0.2) H 09/23/24 05:26 Baso # (Auto) 0.1 X10^3/uL (0.0-0.1) 09/23/24 05:26 Absolute Nucleated RBC 0.1 /100WBC 09/23/24 05:26 Total Counted 100 09/21/24 05:12 Neutrophils % (Manual) 84 % (39-76) H 09/21/24 05:12 Band Neutrophils % 2 % (0-10) 09/21/24 05:12 Lymphocytes % (Manual) 8 % (13-43) L 09/21/24 05:12 Monocytes % (Manual) 5 % (4-9) 09/21/24 05:12 Eosinophils % (Manual) 1 % (0-6) 09/21/24 05:12 Plt Morphology Comment Normal (NORMAL) 09/21/24 05:12 RBC Morphology Abnormal (NORMAL) 09/21/24 05:12 Hypochromasia Slight A 09/21/24 05:12 Anisocytosis Slight A 09/21/24 05:12 Target Cells Present 09/21/24 05:12 Sodium 148 mmol/L (136-145) H 09/23/24 05:26 Corrected Sodium 149 mmol/L (136-145) H 09/23/24 05:26 Potassium 3.0 mmol/L (3.5-5.1) L 09/23/24 05:26 Chloride 114 mmol/L (98-107) H 09/23/24 05:26 Carbon Dioxide 24.2 mmol/L (21-32) 09/23/24 05:26 BUN 15 mg/dL (7-18) 09/23/24 05:26 Creatinine 1.23 mg/dL (0.70-1.30) 09/23/24 05:26 Est GFR (MDRD) Af Amer > 60 (>60) 09/23/24 05:26 Est GFR (MDRD) Non-Af > 60 (>60) 09/23/24 05:26 Glucose 154 mg/dL (65-99) H 09/23/24 05:26 POC Glucose (mg/dL) 150 mg/dL (65-99) H 09/23/24 05:31 Lactic Acid 1.4 mmol/L (0.4-2.0) 09/20/24 21:17 Calcium 9.5 mg/dL (8.5-10.1) 09/23/24 05:26 Corrected Calcium 11.2 mg/dL (8.5-10.1) H 09/23/24 05:26 Magnesium 2.4 mg/dL (2.0-2.9) 09/22/24 05:37 Ferritin 1814 ng/mL (26-388) H 09/22/24 05:37 Total Bilirubin 0.40 mg/dL (0.2-1.0) 09/23/24 05:26 AST 23 Units/L (15-37) 09/23/24 05:26 ALT 22 Units/L (12-78) 09/23/24 05:26 Alkaline Phosphatase 86 Units/L (46-116) 09/23/24 05:26 B-Natriuretic Peptide 35.0 pg/mL (0-79) 09/20/24 16:25 Total Protein 7.3 g/dL (6.4-8.2) 09/23/24 05:26 Albumin 1.9 g/dL (3.4-5.0) L 09/23/24 05:26 Globulin 5.4 g/dL (2.5-4.5) H 09/23/24 05:26 Albumin/Globulin Ratio 0.4 Ratio (1.1-2.1) L 09/23/24 05:26 Vancomycin Trough 15.8 ug/mL (15-20) 09/22/24 09:50 Resp Viral Panel (PCR) See scanned report 09/20/24 23:37 Plan (1) Aspiration pneumonia: Status: Acute Qualifiers: Aspiration pneumonia type: unspecified Laterality: unspecified laterality Lung location: lower lobe of lung Qualified Code(s): J69.0 - Pneumonitis due to inhalation of food and vomit (2) UTI (urinary tract infection): Status: Acute Qualifiers: Hematuria presence: without hematuria Urinary tract infection type: acute cystitis Qualified Code(s): N30.00 - Acute cystitis without hematuria (3) Bacteremia: Status: Acute (4) Hypernatremia: Status: Acute (5) Acute on chronic renal failure: Status: Acute Qualifiers: Acute renal failure type: unspecified Chronic kidney disease stage: unspecified stage Qualified Code(s): N17.9 - Acute kidney failure, unspecified; N18.9 - Chronic kidney disease, unspecified (6) Dehydration: Status: Acute (7) Hypertension: Status: Chronic Qualifiers: Hypertension type: primary hypertension Qualified Code(s): I10 - Essential (primary) hypertension
[2024-09-23] MEDS: POTASSIUM CHLORIDE IV SCH (10:30)
[2024-09-23] MEDS: D5W IV SCH (10:30)
--- NOTE | 2024-09-24 00:11 | EKG ---
Test Reason : Tachycardia Blood Pressure : */* mmHG Vent. Rate : 132 BPM Atrial Rate : * BPM P-R Int : * ms QRS Dur : 80 ms QT Int : 308 ms P-R-T Axes : * -2 143 degrees QTc Int : 456 ms Atrial fibrillation with rapid ventricular response Low voltage QRS Nonspecific ST and T wave abnormality Abnormal ECG When compared with ECG of 19-SEP-2024 13:51, Atrial fibrillation has replaced Sinus rhythm Criteria for Septal infarct are no longer present Confirmed by Colin Moreno MD ([id number]) on 09/24/2024 7:30:17 AM Referred By: Confirmed By: Colin Moreno MD
[2024-09-24] MEDS: DIPRIVAN VIAL 0 ML ONE (00:32)
[2024-09-24] MEDS: DECADRON INJ ONE (00:32)
[2024-09-24] MEDS: HEPARIN SODIUM INJ 5000 UNITS ONE (00:32)
[2024-09-24] MEDS: FENTANYL VIAL INJ 100 mcg ONE (00:32)
[2024-09-24] MEDS: PEPCID 20 MG VIAL ONE (00:33)
[2024-09-24] MEDS: VERSED ONE (00:33)
[2024-09-24] MEDS: ZOFRAN INJ 4 MG VIAL ONE (00:33)
[2024-09-24] MEDS: REGLAN INJ 10 MG VIAL ONE (00:33)
[2024-09-24] MEDS ORDERED: LOPRESSOR INJ 5 MG AMP ONE (00:46)
[2024-09-24] MEDS: LANOXIN INJ IVP SCH (01:00)
[2024-09-24] MEDS: LOPRESSOR INJ 5 MG AMP IVP ONE ×2 (01:07→03:54)
[2024-09-24] MEDS ORDERED: HEPARIN SODIUM INJ 5000 UNITS ONE (01:17)
[2024-09-24 01:18] LABS: INR 1.44 (0.8-1.3)
[2024-09-24] MEDS: HEPARIN SODIUM IN D5W 25,000 UNITS/500 ML BAG IV PRN (01:47)
[2024-09-24] MEDS: HEPARIN SODIUM INJ 5000 UNITS IVP ONE (01:47)
[2024-09-24] MEDS ORDERED: CARDIZEM INJ 50 MG VIAL ONE ×2 (02:22→04:35)
[2024-09-24] MEDS ORDERED: CARDIZEM INJ 125 MG VIAL ONE (02:25)
[2024-09-24] MEDS ORDERED: NS 100 ML IV 100 ML ONE (02:30)
[2024-09-24] MEDS: CARDIZEM INJ 125 MG VIAL 125 MG in NS 100 ML IV 100 ML IV PRN (02:57)
[2024-09-24] MEDS: CARDIZEM INJ 50 MG VIAL IVP ONE ×2 (02:57→04:40)
--- NOTE | 2024-09-24 05:17 | RAD ---
EXAM:CHEST, 1 VIEWHISTORY:PNA, SOB;COMPARISON:09/19/2024FINDINGS:The cardiomediastinal silhouette is stable.Chronic appearing interstitial changes in the lungs. No acute airspace disease. No pneumothorax or effusion.No acute osseous abnormality.IMPRESSION:No acute cardiopulmonary disease.THIS IS AN ELECTRONICALLY VERIFIED FINAL REPORT09/24/2024 5:14 AM - Electronically signed by James Peace MD
[2024-09-24 08:25] LABS: BASOPHILS # (AUTO) 0.1 X10^3/uL (0.0-0.1); BASOPHILS % (AUTO) 0.4 % (0.2-1.0); EOSINOPHILS # (AUTO) 0.4 x10^3/uL (0.0-0.2); EOSINOPHILS % (AUTO) 2.8 % (0.9-2.9); HEMATOCRIT 33.4 % (42.0-54.0); HEMOGLOBIN 10.5 g/dL (13.5-18.0); LYMPHOCYTES # (AUTO) 2.4 X10^3/uL (1.3-2.9); LYMPHOCYTES % (AUTO) 19.5 % (21.0-51.0); MEAN CORPUSCULAR HEMOGLOBIN 26.2 pg (27.0-34.0); MEAN CORPUSCULAR HGB CONC 31.4 g/dL (33.0-35.0); MEAN CORPUSCULAR VOLUME 83.7 fL (80.0-100.0); MEAN PLATELET VOLUME 10.7 fL (7.4-11.0); MONOCYTES # (AUTO) 0.7 x10^3/uL (0.3-0.8); MONOCYTES % (AUTO) 5.9 % (0.0-13.0); NEUTROPHILS # (AUTO) 8.9 x10^3/uL (2.2-4.8); NEUTROPHILS % (AUTO) 71.4 % (42.0-75.0); PLATELET COUNT 321 X10^3/uL (150.0-450.0); RED BLOOD COUNT 3.99 X10^6/uL (4.7-6.0); RED CELL DISTRIBUTION WIDTH 17.3 % (11.6-16.5); WHITE BLOOD COUNT 12.5 X10^3/uL (3.6-10.0)
[2024-09-24] MEDS: XOPENEX 1.25 MG/3 ML NEBULE NEB SCH (08:28)
[2024-09-24 08:35] LABS: ALANINE AMINOTRANSFERASE 26 Units/L (12-78); ALKALINE PHOSPHATASE 93 Units/L (46-116); ASPARTATE AMINO TRANSFERASE 35 Units/L (15-37); BLOOD UREA NITROGEN 15 mg/dL (7-18); CALCIUM 9.2 mg/dL (8.5-10.1); CARBON DIOXIDE 25.9 mmol/L (21-32); CHLORIDE 112 mmol/L (98-107); COR CA(FOR HYPOALB) 10.8 mg/dL (8.5-10.1); COR NA(FOR HYPERGLY) 148 mmol/L (136-145); CREATININE 1.45 mg/dL (0.70-1.30); GLUCOSE 160 mg/dL (65-99); POTASSIUM 3.1 mmol/L (3.5-5.1); SODIUM 147 mmol/L (136-145); TOTAL PROTEIN 7.4 g/dL (6.4-8.2); eGFR NON BLACK RACES 51 (>60)
--- NOTE | 2024-09-24 09:23 | EKG ---
Test Reason : elevated HR Blood Pressure : */* mmHG Vent. Rate : 80 BPM Atrial Rate : 80 BPM P-R Int : 160 ms QRS Dur : 72 ms QT Int : 372 ms P-R-T Axes : 14 -13 -39 degrees QTc Int : 429 ms Normal sinus rhythm T wave abnormality, consider anterior ischemia Abnormal ECG When compared with ECG of 23-SEP-2024 23:53, Sinus rhythm has replaced Atrial fibrillation Vent. rate has decreased BY 52 BPM Confirmed by Colin Moreno MD ([id number]) on 09/24/2024 10:36:32 AM Referred By: Confirmed By: Colin Moreno MD
[2024-09-24] MEDS: LOPRESSOR TAB 25 MG PO SCH (09:45)
[2024-09-24] MEDS: ELIQUIS PO SCH (10:20)
--- NOTE | 2024-09-24 15:05 | PCM.PROG ---
Progress Note Progress Note for Day of Date of Exam: 09/24/24 Subjective Subjective: Patient seen at bedside, overnight he had to be moved to the ICU for closer monitoring. He was noted to be in afib RVR with HR in the 10s. He received one dose of digoxin and IV metoprolol, but HR remained elevated. He was started on Diltiazem drip. He is currently on 5mg/hr. HR has been in the 80s NSR. He is also on heparin drip. He had an episode of diarrhea this morning. He has been tolerating pureed meals. He does not have a hx of atrial fibrillation. Labs/imaging reviewed: -WBC 12.5 Hgb 10.5 K 3.1 BUN/Cr 15/1.45 -Blood Cx 09/19/24 stap epi Repeat Blood Cx negative -Sputum: yeast -CXR 09/23/24: no acute changes -ECHO 09/23/24: EF 50-55% No vegetations Plan: continue ICU care and closer monitoring. Wean cardizem drip as per protocol. Stop heparin drip, start eliquis 10 mg BID. Resume home medications since patient has been evaluated by speech therapy. Restart metoprolol tartrate 25 mg BID. Repeat EKG. Continue IV antibiotics. Send stool studies. Replace electrolytes and continue hydration. Continue current diet. Continue nebs, pulmicort and IS. Wean O2 as tolerated. Monitor AM labs/imaging. Time spent for clinical assessment, reviewing labs/imaging, physical exam, decision making and documentation greater than 45 mins. Past Medical Family Social History Allergies: Allergies No Known Drug Allergies Allergy (Unknown, Verified 09/19/24 13:56) Onset Date: 12/19/2017 Vital Signs and I&O's Vital Signs: Vital Signs Temperature 98.4 F Pulse Rate 77 Pulse Rate 77 Pulse Rate 76 Pulse Rate 75 Pulse Rate 74 Pulse Rate 72 Pulse Rate 75 Pulse Rate 74 Pulse Rate 80 Pulse Rate 85 Pulse Rate 87 Pulse Rate 82 Pulse Rate 77 Pulse Rate 89 Pulse Rate 90 Pulse Rate 89 Pulse Rate 112 Pulse Rate 149 Pulse Rate 149 Pulse Rate 149 Pulse Rate 151 Pulse Rate 149 Pulse Rate 150 Pulse Rate 150 Pulse Rate 143 Pulse Rate 138 Pulse Rate 128 Pulse Rate 152 Pulse Rate 152 Pulse Rate 153 Pulse Rate 143 Pulse Rate 159 Pulse Rate 140 Pulse Rate 165 Pulse Rate 164 Pulse Rate 164 Pulse Rate 167 Pulse Rate 160 Pulse Rate 162 Respiratory Rate 17 Respiratory Rate 17 Respiratory Rate 19 Respiratory Rate 18 Respiratory Rate 17 Respiratory Rate 18 Respiratory Rate 22 Respiratory Rate 20 Respiratory Rate 20 Respiratory Rate 18 Respiratory Rate 17 Respiratory Rate 19 Respiratory Rate 22 Respiratory Rate 19 Respiratory Rate 18 Respiratory Rate 23 Respiratory Rate 20 Respiratory Rate 23 Respiratory Rate 19 Respiratory Rate 22 Respiratory Rate 24 Respiratory Rate 18 Respiratory Rate 18 Respiratory Rate 20 Respiratory Rate 21 Respiratory Rate 20 Respiratory Rate 21 Respiratory Rate 20 Respiratory Rate 20 Respiratory Rate 24 Respiratory Rate 21 Respiratory Rate 23 Respiratory Rate 22 Respiratory Rate 20 Respiratory Rate 25 Respiratory Rate 20 Blood Pressure 123/78 Blood Pressure 120/76 Blood Pressure 116/72 Blood Pressure 113/74 Blood Pressure 114/74 Blood Pressure 119/75 Blood Pressure 117/73 Blood Pressure 112/81 Blood Pressure 123/86 Blood Pressure 124/83 Blood Pressure 124/74 Blood Pressure 142/75 Blood Pressure 142/75 Blood Pressure 122/74 Blood Pressure 97/71 Blood Pressure 97/71 Blood Pressure 118/68 Blood Pressure 108/69 Blood Pressure 113/74 Blood Pressure 105/76 Blood Pressure 94/74 Blood Pressure 114/77 Blood Pressure 117/77 Blood Pressure 102/74 Blood Pressure 102/70 Blood Pressure 112/71 Blood Pressure 100/79 Blood Pressure 100/79 Blood Pressure 101/78 Blood Pressure 100/73 Blood Pressure 106/73 Blood Pressure 154/80 Blood Pressure 134/82 Blood Pressure 125/86 O2 Sat by Pulse Oximetry 99 O2 Sat by Pulse Oximetry 98 O2 Sat by Pulse Oximetry 99 O2 Sat by Pulse Oximetry 99 O2 Sat by Pulse Oximetry 99 O2 Sat by Pulse Oximetry 100 O2 Sat by Pulse Oximetry 100 O2 Sat by Pulse Oximetry 98 O2 Sat by Pulse Oximetry 95 O2 Sat by Pulse Oximetry 95 O2 Sat by Pulse Oximetry 97 O2 Sat by Pulse Oximetry 96 O2 Sat by Pulse Oximetry 98 O2 Sat by Pulse Oximetry 96 O2 Sat by Pulse Oximetry 97 O2 Sat by Pulse Oximetry 96 O2 Sat by Pulse Oximetry 94 O2 Sat by Pulse Oximetry 95 O2 Sat by Pulse Oximetry 95 O2 Sat by Pulse Oximetry 96 O2 Sat by Pulse Oximetry 95 O2 Sat by Pulse Oximetry 95 O2 Sat by Pulse Oximetry 97 O2 Sat by Pulse Oximetry 95 O2 Sat by Pulse Oximetry 96 O2 Sat by Pulse Oximetry 95 O2 Sat by Pulse Oximetry 95 O2 Sat by Pulse Oximetry 96 O2 Sat by Pulse Oximetry 96 O2 Sat by Pulse Oximetry 94 O2 Sat by Pulse Oximetry 93 O2 Sat by Pulse Oximetry 94 O2 Sat by Pulse Oximetry 97 O2 Sat by Pulse Oximetry 96 O2 Sat by Pulse Oximetry 95 O2 Sat by Pulse Oximetry 97 O2 Sat by Pulse Oximetry 95 O2 Sat by Pulse Oximetry 96 Intake and Output: Intake & Output 09/21/24 09/22/24 09/23/24 09/24/24 23:59 23:59 23:59 23:59 Intake Total 1205 / 1205 951 / 951 690.0 / 690.0 Balance 1205 / 1205 951 / 951 690.0 / 690.0 Physical Exam Oriented: Unable to test Eyes: Normal Nose: Normal Throat: Normal Respiratory: Generalized and Diminished Cardiovascular: Normal and Edema Auscultation: Bowel Sounds: Normal Palpation: Normal Tenderness: Normal Skin: Normal Musculoskeletal: Normal Psychiatric: Normal Mood Description: Calm Affect: Normal Speech Pattern: Clear and Delayed Laboratory and Diagnostics 09/24/24 07:54 09/24/24 07:54 Labs: 09/20/24 23:37 Sputum - Endotracheal Wash Sputum Culture - Preliminary Staphylococcus Haemolyticus 09/20/24 23:37 Sputum - Endotracheal Wash - Final 09/20/24 21:17 Blood Blood Culture - Preliminary 09/20/24 17:45 Blood Blood Culture - Preliminary Laboratory WBC 12.5 X10^3/uL (3.6-10.0) H 09/24/24 07:54 RBC 3.99 X10^6/uL (4.7-6.0) L 09/24/24 07:54 Hgb 10.5 g/dL (13.5-18.0) L 09/24/24 07:54 Hct 33.4 % (42.0-54.0) L 09/24/24 07:54 MCV 83.7 fL (80.0-100.0) 09/24/24 07:54 MCH 26.2 pg (27.0-34.0) L 09/24/24 07:54 MCHC 31.4 g/dL (33.0-35.0) L 09/24/24 07:54 RDW 17.3 % (11.6-16.5) H 09/24/24 07:54 Plt Count 321 X10^3/uL (150.0-450.0) 09/24/24 07:54 Plt Count Comment Adequate (ADEQUATE) 09/21/24 05:12 MPV 10.7 fL (7.4-11.0) 09/24/24 07:54 Neut % (Auto) 71.4 % (42.0-75.0) 09/24/24 07:54 Lymph % (Auto) 19.5 % (21.0-51.0) L 09/24/24 07:54 [place] % (Auto) 5.9 % (0.0-13.0) 09/24/24 07:54 Eos % (Auto) 2.8 % (0.9-2.9) 09/24/24 07:54 Baso % (Auto) 0.4 % (0.2-1.0) 09/24/24 07:54 Neut # (Auto) 8.9 x10^3/uL (2.2-4.8) H 09/24/24 07:54 Lymph # (Auto) 2.4 X10^3/uL (1.3-2.9) 09/24/24 07:54 [place] # (Auto) 0.7 x10^3/uL (0.3-0.8) 09/24/24 07:54 Eos # (Auto) 0.4 x10^3/uL (0.0-0.2) H 09/24/24 07:54 Baso # (Auto) 0.1 X10^3/uL (0.0-0.1) 09/24/24 07:54 Absolute Nucleated RBC 0.1 /100WBC 09/24/24 07:54 Total Counted 100 09/21/24 05:12 Neutrophils % (Manual) 84 % (39-76) H 09/21/24 05:12 Band Neutrophils % 2 % (0-10) 09/21/24 05:12 Lymphocytes % (Manual) 8 % (13-43) L 09/21/24 05:12 Monocytes % (Manual) 5 % (4-9) 09/21/24 05:12 Eosinophils % (Manual) 1 % (0-6) 09/21/24 05:12 Plt Morphology Comment Normal (NORMAL) 09/21/24 05:12 RBC Morphology Abnormal (NORMAL) 09/21/24 05:12 Hypochromasia Slight A 09/21/24 05:12 Anisocytosis Slight A 09/21/24 05:12 Target Cells Present 09/21/24 05:12 PT 17.1 SECONDS (11.8-14.3) 09/24/24 01:00 INR Target Range - 09/24/24 01:00 INR 1.44 (0.8-1.3) H 09/24/24 01:00 APTT 80.6 SECONDS (22.9-36.5) H 09/24/24 07:54 PTT Comment - 09/24/24 07:54 Sodium 147 mmol/L (136-145) H 09/24/24 07:54 Corrected Sodium 148 mmol/L (136-145) H 09/24/24 07:54 Potassium 3.1 mmol/L (3.5-5.1) L 09/24/24 07:54 Chloride 112 mmol/L (98-107) H 09/24/24 07:54 Carbon Dioxide 25.9 mmol/L (21-32) 09/24/24 07:54 BUN 15 mg/dL (7-18) 09/24/24 07:54 Creatinine 1.45 mg/dL (0.70-1.30) H 09/24/24 07:54 Est GFR (MDRD) Af Amer > 60 (>60) 09/24/24 07:54 Est GFR (MDRD) Non-Af 51 (>60) L 09/24/24 07:54 Glucose 160 mg/dL (65-99) H 09/24/24 07:54 POC Glucose (mg/dL) 164 mg/dL (65-99) H 09/24/24 05:40 Lactic Acid 1.4 mmol/L (0.4-2.0) 09/20/24 21:17 Calcium 9.2 mg/dL (8.5-10.1) 09/24/24 07:54 Corrected Calcium 10.8 mg/dL (8.5-10.1) H 09/24/24 07:54 Magnesium 2.0 mg/dL (2.0-2.9) 09/24/24 07:54 Ferritin 1814 ng/mL (26-388) H 09/22/24 05:37 Total Bilirubin 0.40 mg/dL (0.2-1.0) 09/24/24 07:54 AST 35 Units/L (15-37) 09/24/24 07:54 ALT 26 Units/L (12-78) 09/24/24 07:54 Alkaline Phosphatase 93 Units/L (46-116) 09/24/24 07:54 B-Natriuretic Peptide 35.0 pg/mL (0-79) 09/20/24 16:25 Total Protein 7.4 g/dL (6.4-8.2) 09/24/24 07:54 Albumin 2.0 g/dL (3.4-5.0) L 09/24/24 07:54 Globulin 5.4 g/dL (2.5-4.5) H 09/24/24 07:54 Albumin/Globulin Ratio 0.4 Ratio (1.1-2.1) L 09/24/24 07:54 Vancomycin Trough 15.8 ug/mL (15-20) 09/22/24 09:50 Digoxin > 5.00 ng/mL (0.9-2) H* 09/24/24 01:00 Resp Viral Panel (PCR) See scanned report 09/20/24 23:37 Plan (1) Atrial fibrillation with rapid ventricular response: Status: Acute (2) Aspiration pneumonia: Status: Acute Qualifiers: Aspiration pneumonia type: unspecified Laterality: unspecified laterality Lung location: lower lobe of lung Qualified Code(s): J69.0 - Pneumonitis due to inhalation of food and vomit (3) UTI (urinary tract infection): Status: Acute Qualifiers: Hematuria presence: without hematuria Urinary tract infection type: acute cystitis Qualified Code(s): N30.00 - Acute cystitis without hematuria (4) Bacteremia: Status: Acute (5) Hypernatremia: Status: Acute (6) Acute on chronic renal failure: Status: Acute Qualifiers: Acute renal failure type: unspecified Chronic kidney disease stage: unspecified stage Qualified Code(s): N17.9 - Acute kidney failure, unspecified; N18.9 - Chronic kidney disease, unspecified (7) Dehydration: Status: Acute (8) Hypertension: Status: Chronic Qualifiers: Hypertension type: primary hypertension Qualified Code(s): I10 - Essential (primary) hypertension
[2024-09-24 21:51] LABS: CREATININE 1.2 mg/dL (0.70-1.30); VANCOMYCIN,TROUGH 17.8 ug/mL (15-20)
[2024-09-25 05:39] LABS: BASOPHILS # (AUTO) 0.1 X10^3/uL (0.0-0.1); BASOPHILS % (AUTO) 0.6 % (0.2-1.0); EOSINOPHILS # (AUTO) 0.3 x10^3/uL (0.0-0.2); HEMATOCRIT 33.1 % (42.0-54.0); HEMOGLOBIN 10.5 g/dL (13.5-18.0); LYMPHOCYTES # (AUTO) 2.5 X10^3/uL (1.3-2.9); LYMPHOCYTES % (AUTO) 16.3 % (21.0-51.0); MEAN CORPUSCULAR HEMOGLOBIN 26.3 pg (27.0-34.0); MEAN CORPUSCULAR HGB CONC 31.6 g/dL (33.0-35.0); MEAN CORPUSCULAR VOLUME 83.1 fL (80.0-100.0); MEAN PLATELET VOLUME 10.3 fL (7.4-11.0); MONOCYTES # (AUTO) 1.1 x10^3/uL (0.3-0.8); MONOCYTES % (AUTO) 7.1 % (0.0-13.0); NEUTROPHILS # (AUTO) 11.4 x10^3/uL (2.2-4.8); PLATELET COUNT 346 X10^3/uL (150.0-450.0); RED BLOOD COUNT 3.98 X10^6/uL (4.7-6.0); RED CELL DISTRIBUTION WIDTH 17.6 % (11.6-16.5); WHITE BLOOD COUNT 15.3 X10^3/uL (3.6-10.0)
[2024-09-25 06:26] LABS: ALANINE AMINOTRANSFERASE 37 Units/L (12-78); ALKALINE PHOSPHATASE 93 Units/L (46-116); ASPARTATE AMINO TRANSFERASE 48 Units/L (15-37); BLOOD UREA NITROGEN 13 mg/dL (7-18); CALCIUM 9.3 mg/dL (8.5-10.1); CARBON DIOXIDE 22.2 mmol/L (21-32); CHLORIDE 111 mmol/L (98-107); COR CA(FOR HYPOALB) 10.9 mg/dL (8.5-10.1); COR NA(FOR HYPERGLY) 144 mmol/L (136-145); CREATININE 1.41 mg/dL (0.70-1.30); GLUCOSE 144 mg/dL (65-99); MAGNESIUM 1.9 mg/dL (2.0-2.9); POTASSIUM 3.5 mmol/L (3.5-5.1); SODIUM 143 mmol/L (136-145); TOTAL PROTEIN 7.5 g/dL (6.4-8.2); eGFR NON BLACK RACES 53 (>60)
[2024-09-25] MEDS ORDERED: CONSULT PHARMACY - POTASSIUM & MAGNESIUM XX SCH (07:00)
[2024-09-25] MEDS: NS 250 ML IV 250 ML IV ONE (07:18)
[2024-09-25] MEDS: POTASSIUM CHLORIDE IV SCH (07:54)
[2024-09-25] MEDS: [UNRECOGNIZED DRUG - OTHER] IV SCH (07:54)
[2024-09-25] MEDS: D5W IV SCH (07:54)
[2024-09-25] MEDS ORDERED: MAG-OX TAB PO SCH (08:00)
[2024-09-25] MEDS ORDERED: KLOR-CON PO SCH (08:00)
[2024-09-25] MEDS: TYLENOL 325 MG TAB PO PRN (09:44)
[2024-09-25 12:01] VITALS: TEMP 98.7
[2024-09-25 13:25] VITALS: BP 119/87; PULSE 111; RESP 24; O2SAT 97
== END 2024-09-25 13:51 | DRG 689 ==
LOC: MED/SURG → OBSVTOIN 12:22 → INTOOBSV 12:22 → ICU 09-24 01:23
PROVIDERS: ADMIT Internal Medicine; ATTEND Internal Medicine

== ENCOUNTER 2024-09-29 11:12 | Inpatient (IN) ==
[2024-09-29 11:44] LABS: BASOPHILS # (AUTO) 0.4 X10^3/uL (0.0-0.1); BASOPHILS % (AUTO) 1.9 % (0.2-1.0); EOSINOPHILS # (AUTO) 0.2 x10^3/uL (0.0-0.2); EOSINOPHILS % (AUTO) 1.1 % (0.9-2.9); HEMATOCRIT 28.4 % (42.0-54.0); LYMPHOCYTES # (AUTO) 3.6 X10^3/uL (1.3-2.9); LYMPHOCYTES % (AUTO) 16.2 % (21.0-51.0); MEAN CORPUSCULAR HEMOGLOBIN 25.8 pg (27.0-34.0); MEAN CORPUSCULAR HGB CONC 31.6 g/dL (33.0-35.0); MEAN CORPUSCULAR VOLUME 81.7 fL (80.0-100.0); MEAN PLATELET VOLUME 10.9 fL (7.4-11.0); MONOCYTES # (AUTO) 1.3 x10^3/uL (0.3-0.8); MONOCYTES % (AUTO) 5.8 % (0.0-13.0); NEUTROPHILS # (AUTO) 16.8 x10^3/uL (2.2-4.8); PLATELET COUNT 303 X10^3/uL (150.0-450.0); RED BLOOD COUNT 3.48 X10^6/uL (4.7-6.0); RED CELL DISTRIBUTION WIDTH 17.1 % (11.6-16.5); WHITE BLOOD COUNT 22.4 X10^3/uL (3.6-10.0)
--- NOTE | 2024-09-29 11:50 | DR.GENAD ---
HPI Time Seen Time Seen by Provider: 09/29/24 11:49 PCP Primary Care Physician: Kareem Complaint/Symptoms Chief Complaint:: Patient recently discharged from [facility] and receiving OP treatment for UTI. The Staff state he is more lethargic and seems more con gested. He had critical labs this am for Vancomycin and creatinine. They called Dr Serna and she wanted him evaluated in the ED COVID-19 Coronavirus risk:travel/contact w/high risk person: No Has patient experienced Coronavirus symptoms: Yes Coronavirus symptoms experienced: Fever Source History Provided: [facility] Mode of Arrival Mode of Arrival: Stretcher Timing Onset of Chief Complaint: 09/29/24 PMH PMH Past Medical History: Yes Past Medical History: Anemia, Arthritis, CVA, Dementia, GERD and Hypertension Past Surgical History: Yes Surgical History: Ortho Surgery Family History History of Family Medical Conditions: Yes Family Medical History: Cancer, MA and Hypertension Social History Does patient currently use any type of tobacco product: No Have you used tobacco products in the last 12 months: No Type of Tobacco Use: None Does any household member use tobacco: No Alcohol Use: None Do you use any recreational Drugs:: No Lives With: Other Lives Where: [facility] Travel Risk Coronavirus risk:travel/contact w/high risk person: No Has patient experienced Coronavirus symptoms: Yes Coronavirus symptoms experienced: Fever Infectious screening In the last 2 months have you had wt loss of >10#?: NO Have you had fever, night sweats or hemotysis?: No Have you traveled outside the country in the last 6 months?: No Isolation: Standard PE Vital Signs Vitals: Vital Signs Temperature 98.4 F Temperature 101.6 F Temperature 100.4 F Pulse Rate 106 Pulse Rate 101 Pulse Rate 120 Pulse Rate 113 Pulse Rate 109 Pulse Rate 106 Pulse Rate 110 Pulse Rate 94 Pulse Rate 92 Pulse Rate 79 Respiratory Rate 17 Respiratory Rate 19 Respiratory Rate 17 Respiratory Rate 19 Respiratory Rate 21 Respiratory Rate 19 Respiratory Rate 22 Respiratory Rate 18 Respiratory Rate 21 Respiratory Rate 25 Respiratory Rate 26 Respiratory Rate 24 Respiratory Rate 16 Blood Pressure 88/56 Blood Pressure 78/61 Blood Pressure 103/53 Blood Pressure 97/59 Blood Pressure 96/57 Blood Pressure 116/60 Blood Pressure 117/69 Blood Pressure 127/70 Blood Pressure 135/77 O2 Sat by Pulse Oximetry 95 O2 Sat by Pulse Oximetry 97 O2 Sat by Pulse Oximetry 98 O2 Sat by Pulse Oximetry 96 O2 Sat by Pulse Oximetry 97 O2 Sat by Pulse Oximetry 97 O2 Sat by Pulse Oximetry 96 O2 Sat by Pulse Oximetry 95 O2 Sat by Pulse Oximetry 97 O2 Sat by Pulse Oximetry 94 O2 Sat by Pulse Oximetry 96 O2 Sat by Pulse Oximetry 100 O2 Sat by Pulse Oximetry 98 O2 Sat by Pulse Oximetry 99 O2 Sat by Pulse Oximetry 93 ROR Labs Reviewed 09/29/24 11:31 09/29/24 11:31 Laboratory: WBC 22.4 X10^3/uL (3.6-10.0) H 09/29/24 11:31 RBC 3.48 X10^6/uL (4.7-6.0) L 09/29/24 11:31 Hgb 9.0 g/dL (13.5-18.0) L 09/29/24 11:31 Hct 28.4 % (42.0-54.0) L 09/29/24 11:31 MCV 81.7 fL (80.0-100.0) 09/29/24 11:31 MCH 25.8 pg (27.0-34.0) L 09/29/24 11:31 MCHC 31.6 g/dL (33.0-35.0) L 09/29/24 11:31 RDW 17.1 % (11.6-16.5) H 09/29/24 11:31 Plt Count 303 X10^3/uL (150.0-450.0) 09/29/24 11:31 Plt Count Comment Adequate (ADEQUATE) 09/29/24 11:31 MPV 10.9 fL (7.4-11.0) 09/29/24 11:31 Neut % (Auto) 75.0 % (42.0-75.0) 09/29/24 11:31 Lymph % (Auto) 16.2 % (21.0-51.0) L 09/29/24 11:31 [place] % (Auto) 5.8 % (0.0-13.0) 09/29/24 11:31 Eos % (Auto) 1.1 % (0.9-2.9) 09/29/24 11:31 Baso % (Auto) 1.9 % (0.2-1.0) H 09/29/24 11:31 Neut # (Auto) 16.8 x10^3/uL (2.2-4.8) H 09/29/24 11:31 Lymph # (Auto) 3.6 X10^3/uL (1.3-2.9) H 09/29/24 11:31 [place] # (Auto) 1.3 x10^3/uL (0.3-0.8) H 09/29/24 11:31 Eos # (Auto) 0.2 x10^3/uL (0.0-0.2) 09/29/24 11:31 Baso # (Auto) 0.4 X10^3/uL (0.0-0.1) H 09/29/24 11:31 Absolute Nucleated RBC 0.0 /100WBC 09/29/24 11:31 Total Counted 100 09/29/24 11:31 Neutrophils % (Manual) 79 % (39-76) H 09/29/24 11:31 Lymphocytes % (Manual) 18 % (13-43) 09/29/24 11:31 Monocytes % (Manual) 3 % (4-9) L 09/29/24 11:31 Toxic Granulation 1+ noted 09/29/24 11:31 Plt Morphology Comment Normal (NORMAL) 09/29/24 11:31 RBC Morphology Normal (NORMAL) 09/29/24 11:31 Sodium 143 mmol/L (136-145) 09/29/24 11:31 Corrected Sodium 144 mmol/L (136-145) 09/29/24 11:31 Potassium 3.1 mmol/L (3.5-5.1) L 09/29/24 11:31 Chloride 107 mmol/L (98-107) 09/29/24 11:31 Carbon Dioxide 22.0 mmol/L (21-32) 09/29/24 11:31 BUN 33 mg/dL (7-18) H 09/29/24 11:31 Creatinine 4.24 mg/dL (0.70-1.30) H 09/29/24 11:31 Est GFR (MDRD) Af Amer 18 (>60) L 09/29/24 11:31 Est GFR (MDRD) Non-Af 15 (>60) L 09/29/24 11:31 Glucose 124 mg/dL (65-99) H 09/29/24 11:31 Lactic Acid 1.2 mmol/L (0.4-2.0) 09/29/24 12:46 Calcium 9.1 mg/dL (8.5-10.1) 09/29/24 11:31 Corrected Calcium 10.9 mg/dL (8.5-10.1) H 09/29/24 11:31 Total Bilirubin 0.40 mg/dL (0.2-1.0) 09/29/24 11:31 AST 78 Units/L (15-37) H 09/29/24 11:31 ALT 40 Units/L (12-78) 09/29/24 11:31 Alkaline Phosphatase 76 Units/L (46-116) 09/29/24 11:31 Creatine Kinase 2184 Units/L (39-308) H 09/29/24 11:31 Troponin I High Sens 22.9 ng/L (4.0-60.0) 09/29/24 11:31 B-Natriuretic Peptide 85.3 pg/mL (0-79) H 09/29/24 11:31 Total Protein 7.4 g/dL (6.4-8.2) 09/29/24 11:31 Albumin 1.7 g/dL (3.4-5.0) L 09/29/24 11:31 Globulin 5.7 g/dL (2.5-4.5) H 09/29/24 11:31 Albumin/Globulin Ratio 0.3 Ratio (1.1-2.1) L 09/29/24 11:31 Opioid Opioid Risk Tool Age (G[place]ardo box if 16-45): No History of Preadolescent Sexual Abuse: No Total: 0 Total Score Risk Category: Low Risk Copyright: Henry MILES predicting aberrant behaviors Discharge Plan Diagnosis Discharge Problem: Acute dehydration, Acute renal insufficiency AMS (altered mental status) Qualifiers: Altered mental status type: transient alteration of awareness Qualified Code(s): R40.4 - Transient alteration of awareness Rhabdomyolysis Qualifiers: Rhabdomyolysis type: non-traumatic Qualified Code(s): M62.82 - Rhabdomyolysis UTI (urinary tract infection) Qualifiers: Urinary tract infection type: site unspecified Hematuria presence: with hematuria Qualified Code(s): N39.0 - Urinary tract infection, site not specified Discharge Plan Patient Disposition: 01 HOME, SELF-CARE Condition: Stable Prescriptions: No Action clonidine HCl 0.2 mg tablet 0.2 mg PO BID Qty: 60 0RF folic acid 1 mg Tablet 1 mg PO DAILY cyanocobalamin (vitamin B-12) 1,000 mcg/mL Solution 1,000 mcg IM MONTHLY Rx Instructions: on the of the memantine 10 mg Tablet 10 mg PO DAILY gabapentin 300 mg Capsule 300 mg PO QID amlodipine [Norvasc] 10 mg Tablet 10 mg PO DAILY pantoprazole [Protonix] 40 mg Tablet,Delayed Release (Dr/Ec) 40 mg PO BID docusate sodium [Colace] 100 mg Capsule 100 mg PO DAILY metoprolol tartrate 25 mg Tablet 25 mg PO BID ondansetron HCl 4 mg Tablet 4 mg PO Q6H PRN ergocalciferol (vitamin D2) [Drisdol] 1,250 mcg (50,000 unit) Capsule 1,250 mcg PO WEEKLY Rx Instructions: on Sunday calcium 150 mg Tablet 150 mg PO DAILY furosemide [Lasix] 40 mg Tablet 40 mg PO DAILY mineral oil-hydrophil petrolat Ointment 1 applic TOPICAL DAILY Rx Instructions: 1 application to feet and lower legs daily dicyclomine 10 mg capsule 10 mg PO BID PRN (Reason: abdominal pain) Qty: 10 0RF polyethylene glycol 3350 17 gram/dose powder 17 g PO DAILY mupirocin 2 % ointment 1 applic topical DAILY Rx Instructions: Apply to Ulcer on the rt. foot topically every day shift. vancomycin in 0.9 % sodium chl 1 gram/250 mL Solution 1 g IV Q12H Qty: 10 0RF cefdinir 300 mg Capsule 300 mg PO BID Qty: 20 0RF Eliquis 5 mg Tablet 10 mg PO BID 5 Days Qty: 20 0RF Health Concerns: Post Hospitalization: new medications and changes needed to prevent readmission or further decline. Pt educated and given instructions on all concerns. Plan of Treatment: Continue with present treatment and follow up plan. Pt is to keep follow up appointment as instructed and take medications as ordered. Orders to Discharge Patient Discharge Orders: Transfer (Routine); Ordered 09/29/24 Ordered By: ROBERTH FLOWERS Follow ups/Referrals Follow ups/Referrals: ANN MONCADA [Primary Care Provider] - 3 days Instructions Stand Alone Forms: Find Help Web Site, Post Hospital Follow Up Care
[2024-09-29 11:52] LABS: ALBUMIN 1.7 g/dL (3.4-5.0); CALCIUM 9.1 mg/dL (8.5-10.1); COR CA(FOR HYPOALB) 10.9 mg/dL (8.5-10.1); CREATININE 4.24 mg/dL (0.70-1.30); POTASSIUM 3.1 mmol/L (3.5-5.1); TOTAL PROTEIN 7.4 g/dL (6.4-8.2)
[2024-09-29 11:58] LABS: PLATELET MORPHOLOGY COMMENT NORMAL (NORMAL)
--- NOTE | 2024-09-29 12:19 | EKG ---
Test Reason : HYPERTENSION Blood Pressure : */* mmHG Vent. Rate : 142 BPM Atrial Rate : * BPM P-R Int : * ms QRS Dur : 68 ms QT Int : 244 ms P-R-T Axes : * 53 39 degrees QTc Int : 375 ms Atrial fibrillation with rapid ventricular response Septal infarct , age undetermined Abnormal ECG When compared with ECG of 24-SEP-2024 09:01, Atrial fibrillation has replaced Sinus rhythm Vent. rate has increased BY 62 BPM Septal infarct is now present Nonspecific T wave abnormality has replaced inverted T waves in Anterior leads Confirmed by Colin Moreno MD ([id number]) on 09/29/2024 4:52:23 PM Referred By: Confirmed By: Colin Moreno MD
[2024-09-29] MEDS ORDERED: OFIRMEV IV 1000 MG VIAL 1,000 MG/100 ML VIAL IV ONE (12:39)
[2024-09-29] MEDS: OFIRMEV IV 1000 MG VIAL 1,000 MG/100 ML VIAL IV ONE ×2 (12:44→23:33)
--- NOTE | 2024-09-29 13:08 | RAD ---
EXAM:CHEST, 1 VIEWHISTORY:SOB;COMPARISON:Prior study or studies were utilized for comparison during interpretation with the most relevant dated 09/23/2024TECHNIQUE:CHEST, 1 VIEWFINDINGS:Chest:Lines and tubes: NoneMediastinum: Cardiac and mediastinal shadow is within normal limits for size and contour.Pulmonary vessels: Pulmonary vasculature is prominent.Lung sullivan: No suspicious airspace opacity.Pleura: No effusion. No pneumothorax.Bones and soft tissues: No acute osseous or soft tissue abnormality.IMPRESSION:1. No acute cardiopulmonary abnormalityTHIS IS AN ELECTRONICALLY VERIFIED FINAL REPORT09/29/2024 1:05 PM - Electronically signed by Stevenson Latham MD
[2024-09-29] MEDS ORDERED: NS 1,000 ML IV 1,000 ML ONE (14:36)
[2024-09-29 15:44] LABS: ABG ALLEN TEST POS; ABG HCO3 18.2 mmol/L (22-26)
--- NOTE | 2024-09-29 16:56 | CT ---
EXAM: HEAD CT WITHOUT INTRAVENOUS CONTRASTHISTORY: Altered mental status. Lethargy.TECHNIQUE: Spiral axial CT images are obtained through the brain without the administration of intravenous contrast. Sagittal and coronal images are reformatted.COMPARISON: Head CT dated July 19, 2021.FINDINGS:There are patchy parenchymal lucencies seen throughout the white matter tracts of the centrum semiovale, consistent with chronic sequela of atherosclerotic microvascular ischemic disease. Please note that small or subtle acute infarction can be obscured in this radiologic setting. Consider followup MRI with diffusion weighted imaging if clinically warranted. There is no gross acute territorial infarction seen. Severe atherosclerosis of the intracranial ICAs and vertebral arteries is seen. Consider follow-up MRA as clinically warranted.There is severe diffuse cerebral cortical atrophy, in keeping with the patient's advanced age. There is no intra-axial or extra-axial hemorrhage seen. No intra-axial or extra-axial mass lesions are noted. There is no hydrocephalus. There is no midline shift or other mass effect seen. The calvarium is intact. The partially imaged paranasal sinuses, middle ear cavities and mastoid air cells are clear.IMPRESSION:1. Extensive chronic microvascular ischemic disease throughout the centrum semiovale (rule out Binswanger's dementia); no discernible acute infarction seen; note, small or subtle acute infarctions can be obscured in this radiologic setting. Consider followup MRI with DWI/ADC imaging as clinically warranted.2. Severe atherosclerosis of the intracranial ICAs and vertebral arteries is seen. Consider follow-up MRA as clinically warranted.3. Severe diffuse cerebral cortical atrophy.4. Overall, no significant interval change seen.THIS IS AN ELECTRONICALLY VERIFIED FINAL REPORT09/29/2024 4:53 PM - Electronically signed by Taiwo Galvez MD
[2024-09-29] MEDS ORDERED: PHARMACY CONSULT LTC MEDICATIONS XX SCH (17:00)
[2024-09-29] MEDS: ZYVOX 600MG IV 600 MG/300 ML BAG IV SCH (17:19)
[2024-09-29] MEDS: HEPARIN SODIUM INJ 5000 UNITS SC SCH (17:19)
[2024-09-29] MEDS: NS + KCL 20 MEQ/L 1,000 ML IV SCH (17:19)
[2024-09-29] MEDS: PROTONIX INJ 40 MG VIAL IVP SCH (17:19)
[2024-09-29 19:17] LABS: BILIRUBIN,URINE NEGATIVE (NEGATIVE); BLOOD/HEMOGLOBIN,URINE 4+ (NEGATIVE); GLUCOSE, URINE NEGATIVE (NEGATIVE); KETONES,URINE NEGATIVE (NEGATIVE); LEUKOCYTE ESTERASE ,URINE NEGATIVE (NEGATIVE); NITRITES,URINE NEGATIVE (NEGATIVE); PROTEIN,URINE 2+ (NEGATIVE); UROBILINOGEN,URINE NORMAL (NORMAL)
[2024-09-29 19:42] LABS: APPEARANCE,URINE CLOUDY (CLEAR); COLOR,URINE YELLOW (YELLOW)
[2024-09-29 19:43] LABS: BACTERIA,URINE TRACE /HPF (NEGATIVE); RBC,URINE 0-2 /HPF (0-3); SQUAMOUS EPITHELIAL CELL,UR RARE /HPF (NEGATIVE)
[2024-09-29 19:44] LABS: GRANULAR CASTS,URINE MANY /LPF (NEGATIVE)
[2024-09-30] MEDS: ZYVOX 600MG IV 600 MG/300 ML BAG IV SCH (05:28)
[2024-09-30 06:58] LABS: BASOPHILS % (AUTO) 0.2 % (0.2-1.0); EOSINOPHILS # (AUTO) 0.1 x10^3/uL (0.0-0.2); EOSINOPHILS % (AUTO) 0.7 % (0.9-2.9); HEMATOCRIT 26.4 % (42.0-54.0); HEMOGLOBIN 8.4 g/dL (13.5-18.0); LYMPHOCYTES # (AUTO) 2.1 X10^3/uL (1.3-2.9); MEAN CORPUSCULAR HEMOGLOBIN 25.7 pg (27.0-34.0); MEAN CORPUSCULAR HGB CONC 31.9 g/dL (33.0-35.0); MEAN CORPUSCULAR VOLUME 80.8 fL (80.0-100.0); MEAN PLATELET VOLUME 10.8 fL (7.4-11.0); MONOCYTES # (AUTO) 1.2 x10^3/uL (0.3-0.8); MONOCYTES % (AUTO) 5.9 % (0.0-13.0); NEUTROPHILS # (AUTO) 17.4 x10^3/uL (2.2-4.8); NEUTROPHILS % (AUTO) 83.2 % (42.0-75.0); PLATELET COUNT 266 X10^3/uL (150.0-450.0); RED BLOOD COUNT 3.27 X10^6/uL (4.7-6.0); RED CELL DISTRIBUTION WIDTH 17.4 % (11.6-16.5); WHITE BLOOD COUNT 20.9 X10^3/uL (3.6-10.0)
[2024-09-30 07:35] LABS: ALBUMIN 1.5 g/dL (3.4-5.0); CALCIUM 8.8 mg/dL (8.5-10.1); CARBON DIOXIDE 20.1 mmol/L (21-32); COR CA(FOR HYPOALB) 10.8 mg/dL (8.5-10.1); CREATININE 4.39 mg/dL (0.70-1.30); MAGNESIUM 2.7 mg/dL (2.0-2.9); POTASSIUM 3.2 mmol/L (3.5-5.1); TOTAL PROTEIN 6.8 g/dL (6.4-8.2)
[2024-09-30] MEDS ORDERED: CONSULT PHARMACY - POTASSIUM & MAGNESIUM XX SCH (08:00)
--- NOTE | 2024-09-30 09:37 | DR.H&P ---
H&P History & Physical for Day of: H&P Date: 09/30/24 Chief Complaint Chief Complaint: AMS, lethargy, poor oral intake History of Present Illness History of Present Illness: Mr Byers is a 69y/o male with a PMH of Atrial fibrillation, HTN, anemia, CKD, GERD who is a resident of [facility] presented with AMS and lethargy. He was recently discharged from the hospital after being treated for UTI and bacteremia. He is currently on IV vancomycin. He had routine labs done this morning which showed elevated creatinine and Vanco trou gh. Patient has had poor oral intake for the past few days. He was sent to the ER for evaluation. ER workup showed low potassium, elevated creatinine/BUN and total CK. His white count was elevated to 22. Chest x-ray did not show any acute changes. He was started on IV fluids and admitted for further evaluation. He was initially placed on Ventimask due to sats dropping in the low 80s. Labs/imaging reviewed: -WBC 20.9 hemoglobin 8.4 potassium 3.2 BUN/creatinine 39/4.39 -Total CK2 196 troponin negative lactic acid negative -Chest x-ray: No acute changes -CT brain: Chronic ischemic disease and atherosclerosis. No acute changes. Plan: Continue ICU care for closer monitoring. Continue telemetry. Continue Zyvox. Follow-up repeat cultures. Resume home medications as tolerated. Patient is currently on pured/liquid diet as per speech recommendations. Wean O2 as tolerated, continue nebs as needed. Continue hydration. Monitor urine output. Monitor renal function. Replace electrolytes as per protocol. Time spent for clinical assessment, reviewing labs/imaging, physical exam, decision making and documentation greater than 45 mins. Past Medical History Past Medical History: Anemia, Arthritis, CVA, Dementia, GERD and Hypertension Additional Medical History: Recurrent falls Past Surgical History Surgical History: Ortho Surgery Family History Family Medical History: Cancer, CT and Hypertension Social History Does patient currently use any type of tobacco product: No Have you used tobacco products in the last 12 months: No Type of Tobacco Use: None Does any household member use tobacco: No Alcohol Use: None Drug Use: None Medications Home Medications: Home Medications Medication Instructions Recorded Confirmed Type cyanocobalamin (vitamin B-12) 1,000 mcg IM MONTHLY 09/13/20 09/29/24 History 1,000 mcg/mL injection solution folic acid 1 mg tablet 1 mg PO DAILY 09/13/20 09/29/24 History gabapentin 300 mg capsule 300 mg PO QID 09/13/20 09/29/24 History memantine 10 mg tablet 10 mg PO DAILY 09/13/20 09/29/24 History amlodipine 10 mg tablet (Norvasc) 10 mg PO DAILY 07/19/21 09/29/24 History docusate sodium 100 mg capsule 100 mg PO DAILY 07/19/21 09/29/24 History (Colace) metoprolol tartrate 25 mg tablet 25 mg PO BID 07/19/21 09/29/24 History pantoprazole 40 mg tablet,delayed 40 mg PO BID 07/19/21 09/29/24 History release (Protonix) calcium 150 mg tablet 150 mg PO DAILY 01/01/24 09/29/24 History ergocalciferol (vitamin D2) 1,250 1,250 mcg PO WEEKLY 01/01/24 09/29/24 History mcg (50,000 unit) capsule (Drisdol) ondansetron HCl 4 mg tablet 4 mg PO Q6H PRN 01/01/24 09/29/24 History furosemide 40 mg tablet (Lasix) 40 mg PO DAILY 04/07/24 09/29/24 History mineral oil-hydrophil petrolat 1 applic topical DAILY 04/07/24 09/29/24 History topical ointment polyethylene glycol 3350 17 17 g PO DAILY 09/19/24 09/29/24 History gram/dose oral powder mupirocin 2 % topical ointment 1 applic topical DAILY 09/21/24 09/29/24 History Allergies Allergies Allergy/AdvReac Type Severity Reaction Status Date / Time No Known Drug Allergies Allergy Unknown Verified 09/19/24 13:56 Labs 09/30/24 06:50 09/30/24 06:50 Labs: Laboratory WBC 20.9 X10^3/uL (3.6-10.0) H 09/30/24 06:50 RBC 3.27 X10^6/uL (4.7-6.0) L 09/30/24 06:50 Hgb 8.4 g/dL (13.5-18.0) L 09/30/24 06:50 Hct 26.4 % (42.0-54.0) L 09/30/24 06:50 MCV 80.8 fL (80.0-100.0) 09/30/24 06:50 MCH 25.7 pg (27.0-34.0) L 09/30/24 06:50 MCHC 31.9 g/dL (33.0-35.0) L 09/30/24 06:50 RDW 17.4 % (11.6-16.5) H 09/30/24 06:50 Plt Count 266 X10^3/uL (150.0-450.0) 09/30/24 06:50 Plt Count Comment Adequate (ADEQUATE) 09/29/24 11:31 MPV 10.8 fL (7.4-11.0) 09/30/24 06:50 Neut % (Auto) 83.2 % (42.0-75.0) H 09/30/24 06:50 Lymph % (Auto) 10.0 % (21.0-51.0) L 09/30/24 06:50 Isabella % (Auto) 5.9 % (0.0-13.0) 09/30/24 06:50 Eos % (Auto) 0.7 % (0.9-2.9) L 09/30/24 06:50 Baso % (Auto) 0.2 % (0.2-1.0) 09/30/24 06:50 Neut # (Auto) 17.4 x10^3/uL (2.2-4.8) H 09/30/24 06:50 Lymph # (Auto) 2.1 X10^3/uL (1.3-2.9) 09/30/24 06:50 Isabella # (Auto) 1.2 x10^3/uL (0.3-0.8) H 09/30/24 06:50 Eos # (Auto) 0.1 x10^3/uL (0.0-0.2) 09/30/24 06:50 Baso # (Auto) 0.0 X10^3/uL (0.0-0.1) 09/30/24 06:50 Absolute Nucleated RBC 0.0 /100WBC 09/30/24 06:50 Total Counted 100 09/29/24 11:31 Neutrophils % (Manual) 79 % (39-76) H 09/29/24 11:31 Lymphocytes % (Manual) 18 % (13-43) 09/29/24 11:31 Monocytes % (Manual) 3 % (4-9) L 09/29/24 11:31 Toxic Granulation 1+ noted 09/29/24 11:31 Plt Morphology Comment Normal (NORMAL) 09/29/24 11:31 RBC Morphology Normal (NORMAL) 09/29/24 11:31 Sample Site Lrad 09/29/24 15:29 ABG pH 7.420 (7.35-7.45) 09/29/24 15: ABG pCO2 28.0 mmHg (35.0-45.0) L 09/29/24 15: ABG pO2 92.0 mmHg (80.0-100.0) 09/29/24 15: ABG HCO3 18.2 mmol/L (22-26) L 09/29/24 15: ABG O2 Saturation 97.0 % (90-100) 09/29/24 15: ABG Base Excess -5.0 mmol/L (-2.0-2.0) L 09/29/24 15:29 Pablo Test Pos 09/29/24 15:29 A-a Gradient 230.0 mmHg 09/29/24 15:29 FiO2 50.0 09/29/24 15:29 Blood Gas Comments Katherine well ms 09/29/24 15:29 Sodium 142 mmol/L (136-145) 09/30/24 06:50 Corrected Sodium 144 mmol/L (136-145) 09/30/24 06:50 Potassium 3.2 mmol/L (3.5-5.1) L 09/30/24 06:50 Chloride 110 mmol/L (98-107) H 09/30/24 06:50 Carbon Dioxide 20.1 mmol/L (21-32) L 09/30/24 06:50 BUN 39 mg/dL (7-18) H 09/30/24 06:50 Creatinine 4.39 mg/dL (0.70-1.30) H 09/30/24 06:50 Est GFR (MDRD) Af Amer 17 (>60) L 09/30/24 06:50 Est GFR (MDRD) Non-Af 14 (>60) L 09/30/24 06:50 Glucose 164 mg/dL (65-99) H 09/30/24 06:50 Lactic Acid 1.2 mmol/L (0.4-2.0) 09/29/24 12:46 Calcium 8.8 mg/dL (8.5-10.1) 09/30/24 06:50 Corrected Calcium 10.8 mg/dL (8.5-10.1) H 09/30/24 06:50 Magnesium 2.7 mg/dL (2.0-2.9) 09/30/24 06:50 Total Bilirubin 0.40 mg/dL (0.2-1.0) 09/30/24 06:50 AST 65 Units/L (15-37) H 09/30/24 06:50 ALT 36 Units/L (12-78) 09/30/24 06:50 Alkaline Phosphatase 76 Units/L (46-116) 09/30/24 06:50 Creatine Kinase 2196 Units/L (39-308) H 09/30/24 06:50 Troponin I High Sens 22.9 ng/L (4.0-60.0) 09/29/24 11:31 B-Natriuretic Peptide 85.3 pg/mL (0-79) H 09/29/24 11:31 Total Protein 6.8 g/dL (6.4-8.2) 09/30/24 06:50 Albumin 1.5 g/dL (3.4-5.0) L 09/30/24 06:50 Globulin 5.3 g/dL (2.5-4.5) H 09/30/24 06:50 Albumin/Globulin Ratio 0.3 Ratio (1.1-2.1) L 09/30/24 06:50 Specimen Type Catherized urine 09/29/24 18:48 Urine Color Yellow (YELLOW) 09/29/24 18:48 Urine Appearance Cloudy (CLEAR) 09/29/24 18:48 Urine pH 6.0 (5.0 - 8.0) 09/29/24 18:48 Ur Specific [place] 1.025 (1.000-1.030) 09/29/24 18:48 Urine Protein 2+ (NEGATIVE) 09/29/24 18:48 Urine Glucose (UA) Negative (NEGATIVE) 09/29/24 18:48 Urine Ketones Negative (NEGATIVE) 09/29/24 18:48 Urine Blood 4+ (NEGATIVE) 09/29/24 18:48 Urine Nitrite Negative (NEGATIVE) 09/29/24 18:48 Urine Bilirubin Negative (NEGATIVE) 09/29/24 18:48 Urine Urobilinogen Normal (NORMAL) 09/29/24 18:48 Ur Leukocyte Esterase Negative (NEGATIVE) 09/29/24 18:48 Urine RBC 0-2 /HPF (0-3) 09/29/24 18:48 Urine WBC 0-2 /HPF (0-5) 09/29/24 18:48 Ur Squamous Epith Cells Rare /HPF (NEGATIVE) 09/29/24 18:48 Amorphous Sediment 4+ /HPF (NEGATIVE) 09/29/24 18:48 Urine Bacteria Trace /HPF (NEGATIVE) 09/29/24 18:48 Granular Casts Many /LPF (NEGATIVE) 09/29/24 18:48 Ur Culture Indicated? No/not indicated 09/29/24 18:48 Review of Systems Constitutional: Fever, Weakness and Malaise Eyes: No Symptoms Reported ENT: No Symptoms Reported Respiratory: Shortness of Breath Cardiovascular: No Symptoms Reported Gastrointestinal: No Symptoms Reported Genitourinary: No Symptoms Reported Musculoskeletal: No Symptoms Reported Skin: No Symptoms Reported Neurological: Confusion Physical Exam Vital Signs: Vital Signs Temperature 99.0 F Temperature 99.3 F Pulse Rate [Left Radial] 97 Pulse Rate 103 Pulse Rate 96 Pulse Rate 96 Pulse Rate 96 Pulse Rate 97 Pulse Rate 101 Pulse Rate 100 Pulse Rate 98 Respiratory Rate 14 Respiratory Rate 16 Respiratory Rate 15 Respiratory Rate 22 Respiratory Rate 15 Respiratory Rate 16 Respiratory Rate 15 Respiratory Rate 15 Respiratory Rate 16 Blood Pressure [Left Arm] 102/60 Blood Pressure 125/70 Blood Pressure 109/56 Blood Pressure 117/66 Blood Pressure 102/60 Blood Pressure 87/61 Blood Pressure 81/54 Blood Pressure 88/58 Blood Pressure 81/57 O2 Sat by Pulse Oximetry 100 O2 Sat by Pulse Oximetry 100 O2 Sat by Pulse Oximetry 100 O2 Sat by Pulse Oximetry 100 O2 Sat by Pulse Oximetry 100 O2 Sat by Pulse Oximetry 100 O2 Sat by Pulse Oximetry 100 O2 Sat by Pulse Oximetry 100 O2 Sat by Pulse Oximetry 100 Oriented: Unable to test Eyes: Normal Nose: Normal Throat: Normal Respiratory: Diminished Throughout Cardiovascular: Normal and Tachycardia Auscultation: Bowel Sounds: Normal Palpation: Normal Tenderness: Normal Skin: Decreased Turgur Musculoskeletal: Normal Psychiatric: Normal Mood Description: Calm Affect: Normal Speech Pattern: Inappropriate and Delayed Assessment/Plan (1) AMS (altered mental status): Qualifiers: Altered mental status type: transient alteration of awareness Qualified Code(s): R40.4 - Transient alteration of awareness Status: Acute (2) Acute dehydration: Status: Acute (3) Rhabdomyolysis: Qualifiers: Rhabdomyolysis type: non-traumatic Qualified Code(s): M62.82 - Rhabdomyolysis Status: Acute (4) UTI (urinary tract infection): Qualifiers: Hematuria presence: with hematuria Urinary tract infection type: site unspecified Qualified Code(s): N39.0 - Urinary tract infection, site not specified; R31.9 - Hematuria, unspecified Status: Acute (5) Hypokalemia: Status: Acute (6) Acute on chronic renal failure: Qualifiers: Acute renal failure type: unspecified Chronic kidney disease stage: unspecified stage Qualified Code(s): N17.9 - Acute kidney failure, unspecified; N18.9 - Chronic kidney disease, unspecified Status: Acute (7) Bacteremia: Status: Chronic Review H&P Reviewed: Yes Patient was examined?: Yes
[2024-09-30] MEDS: COLACE CAP 100 MG PO SCH (09:50)
[2024-09-30] MEDS: LOPRESSOR TAB 25 MG PO SCH (09:56)
[2024-09-30] MEDS: ALBUMIN HUMAN 25%- 100 ML 100 ML IV SCH (12:00)
--- NOTE | 2024-09-30 15:29 | MRI ---
EXAM:BRAIN W/O CONHISTORY:f/U CT-brain, AMS;COMPARISON:CT yesterdayTECHNIQUE:Multiplanar multi-sequence MRI of the brain was obtained utilizing standard departmental protocol. Sagittal and axial T1 weighted images were obtained. Axial T2 and flair weighted images were performed as well. Axial diffusion weighted and ADC trace mapping was performed.FINDINGS:Motion artifact reduces accuracy of the exam. The midline structures appear unremarkable. The evaluation of the brain parenchyma demonstrates no abnormal signal characteristics to suggest intraparenchymal mass or hemorrhage. No extra-axial fluid collections are observed. The ventricular system appears symmetric and nondilated. The CP angle is normal in its appearance without brainstem mass or evidence for acoustic neuroma. The flow voids on both T1 and T2 weighted imaging appear unremarkable. Evaluation of the diffusion weighted imaging does not demonstrate abnormal signal characteristics to suggest acute ischemic change. There is a tiny focus of increased DWI signal with no dropout on the right cerebral hemisphere compatible with T2 shine through artifact. Extensive small-vessel ischemic changes and old lacunar infarcts are noted in the basal ganglia and left cerebral hemisphere. Advanced cortical atrophy is also noted for the patient's age. The extracranial structures are unremarkable.IMPRESSION:Chronic changes as above with no evidence for any acute/subacute stroke.THIS IS AN ELECTRONICALLY VERIFIED FINAL REPORT09/30/2024 3:26 PM - Electronically signed by Nitish Posadas MD
[2024-09-30 16:50] LABS: HEMATOCRIT 29.3 % (42.0-54.0); HEMOGLOBIN 9.2 g/dL (13.5-18.0)
[2024-09-30] MEDS: DEMEROL INJ IVP PRN (18:15)
[2024-09-30] MEDS ORDERED: OFIRMEV IV 1000 MG VIAL 1,000 MG/100 ML VIAL IV ONE (19:12)
[2024-09-30] MEDS: OFIRMEV IV 1000 MG VIAL 1,000 MG/100 ML VIAL IV ONE (19:25)
[2024-10-01 05:53] LABS: BASOPHILS # (AUTO) 0.1 X10^3/uL (0.0-0.1); BASOPHILS % (AUTO) 0.3 % (0.2-1.0); EOSINOPHILS # (AUTO) 0.1 x10^3/uL (0.0-0.2); EOSINOPHILS % (AUTO) 0.4 % (0.9-2.9); HEMATOCRIT 29.4 % (42.0-54.0); HEMOGLOBIN 9.2 g/dL (13.5-18.0); LYMPHOCYTES # (AUTO) 2.7 X10^3/uL (1.3-2.9); LYMPHOCYTES % (AUTO) 11.6 % (21.0-51.0); MEAN CORPUSCULAR HEMOGLOBIN 25.8 pg (27.0-34.0); MEAN CORPUSCULAR HGB CONC 31.2 g/dL (33.0-35.0); MEAN CORPUSCULAR VOLUME 82.7 fL (80.0-100.0); MEAN PLATELET VOLUME 11.1 fL (7.4-11.0); MONOCYTES # (AUTO) 1.5 x10^3/uL (0.3-0.8); MONOCYTES % (AUTO) 6.3 % (0.0-13.0); NEUTROPHILS # (AUTO) 19.3 x10^3/uL (2.2-4.8); NEUTROPHILS % (AUTO) 81.4 % (42.0-75.0); PLATELET COUNT 277 X10^3/uL (150.0-450.0); RED BLOOD COUNT 3.56 X10^6/uL (4.7-6.0); RED CELL DISTRIBUTION WIDTH 17.2 % (11.6-16.5); WHITE BLOOD COUNT 23.7 X10^3/uL (3.6-10.0)
[2024-10-01 06:12] LABS: ALBUMIN 1.8 g/dL (3.4-5.0); CALCIUM 8.9 mg/dL (8.5-10.1); CARBON DIOXIDE 20.4 mmol/L (21-32); COR CA(FOR HYPOALB) 10.7 mg/dL (8.5-10.1); CREATININE 4.43 mg/dL (0.70-1.30); MAGNESIUM 2.4 mg/dL (2.0-2.9); POTASSIUM 3.6 mmol/L (3.5-5.1); TOTAL PROTEIN 7.2 g/dL (6.4-8.2)
[2024-10-01 06:38] LABS: BAND NEUTROPHILS % 1 % (0-10)
[2024-10-01 06:39] LABS: ANISOCYTOSIS SLIGHT; HYPOCHROMASIA SLIGHT; PLATELET MORPHOLOGY COMMENT NORMAL (NORMAL)
[2024-10-01] MEDS ORDERED: CONSULT PHARMACY - POTASSIUM & MAGNESIUM XX SCH (09:00)
[2024-10-01] MEDS ORDERED: COLACE CAP 100 MG PO PRN (09:22)
--- NOTE | 2024-10-01 09:42 | PCM.PROG ---
Progress Note Progress Note for Day of Date of Exam: 10/01/24 Subjective Subjective: Patient seen at bedside, no acute events overnight. He is feeling better, appears more awake and alert. Granddaughter present in the room. Patient did have a fever of 102.5 yesterday evening. MRI-brain did not show any acute changes. His renal function is relatively the same has yesterday, WBC is elevated. CK is trending down. His UOP has been adequate. He did have several BMs yesterday after getting the colace. Labs/imaging reviewed: -WBC 23.7 Hgb 9.2 K 3.6 BUN/Cr 40/4.43 CK 1140 -Sputum: Harper species, staph haemolyticus. -Blood Cx pending Plan: Continue ICU care for closer monitoring. Switch to 1/2NS with KCL. Replace electrolytes as per protocol. Continue Zyvox, will add anti-fungal to cover harper in the sputum. Wean O2 as tolerated, continue nebs prn. Repeat CXR. Continue home medications as tolerated. Resume lasix 20 mg daily. Tylenol and pain control prn. Continue albumin. Discussed treatment plan with family member at bedside. Monitor AM labs/imaging. Time spent for clinical assessment, reviewing labs/imaging, physical exam, decision making and documentation greater than 45 mins. Past Medical Family Social History Allergies: Allergies No Known Drug Allergies Allergy (Unknown, Verified 09/19/24 13:56) Onset Date: 12/19/2017 Vital Signs and I&O's Vital Signs: Vital Signs Temperature 99.8 F Temperature 100.0 F Temperature 99.7 F Pulse Rate [Left Radial] 110 Pulse Rate [Left Radial] 109 Pulse Rate [Left Radial] 102 Respiratory Rate 22 Respiratory Rate 21 Respiratory Rate 22 Blood Pressure [Left Arm] 106/57 Blood Pressure [Left Arm] 111/63 Blood Pressure [Left Arm] 97/65 O2 Sat by Pulse Oximetry 100 O2 Sat by Pulse Oximetry 100 O2 Sat by Pulse Oximetry 100 Intake and Output: Intake & Output 09/28/24 09/29/24 09/30/24 10/01/24 23:59 23:59 23:59 23:59 Intake Total 639 / 639 4638 / 4638 1078 / 1078 Output Total 1100 / 1100 1350 / 1350 225 / 225 Balance -461 / -461 3288 / 3288 853 / 853 Physical Exam Oriented: Unable to test Eyes: Normal Nose: Normal Throat: Normal Respiratory: Generalized and Rhonchi Cardiovascular: Normal, Tachycardia and Edema Auscultation: Bowel Sounds: Normal Palpation: Normal Tenderness: Normal Skin: Decreased Turgur Musculoskeletal: Normal Psychiatric: Normal Mood Description: Calm Affect: Normal Speech Pattern: Unclear Laboratory and Diagnostics 10/01/24 05:34 10/01/24 05:34 Labs: Laboratory WBC 23.7 X10^3/uL (3.6-10.0) H 10/01/24 05:34 RBC 3.56 X10^6/uL (4.7-6.0) L 10/01/24 05:34 Hgb 9.2 g/dL (13.5-18.0) L 10/01/24 05:34 Hct 29.4 % (42.0-54.0) L 10/01/24 05:34 MCV 82.7 fL (80.0-100.0) 10/01/24 05:34 MCH 25.8 pg (27.0-34.0) L 10/01/24 05:34 MCHC 31.2 g/dL (33.0-35.0) L 10/01/24 05:34 RDW 17.2 % (11.6-16.5) H 10/01/24 05:34 Plt Count 277 X10^3/uL (150.0-450.0) 10/01/24 05:34 Plt Count Comment Adequate (ADEQUATE) 10/01/24 05:34 MPV 11.1 fL (7.4-11.0) H 10/01/24 05:34 Neut % (Auto) 81.4 % (42.0-75.0) H 10/01/24 05:34 Lymph % (Auto) 11.6 % (21.0-51.0) L 10/01/24 05:34 [place] % (Auto) 6.3 % (0.0-13.0) 10/01/24 05:34 Eos % (Auto) 0.4 % (0.9-2.9) L 10/01/24 05:34 Baso % (Auto) 0.3 % (0.2-1.0) 10/01/24 05:34 Neut # (Auto) 19.3 x10^3/uL (2.2-4.8) H 10/01/24 05:34 Lymph # (Auto) 2.7 X10^3/uL (1.3-2.9) 10/01/24 05:34 [place] # (Auto) 1.5 x10^3/uL (0.3-0.8) H 10/01/24 05:34 Eos # (Auto) 0.1 x10^3/uL (0.0-0.2) 10/01/24 05:34 Baso # (Auto) 0.1 X10^3/uL (0.0-0.1) 10/01/24 05:34 Absolute Nucleated RBC 0.0 /100WBC 10/01/24 05:34 Total Counted 100 10/01/24 05:34 Neutrophils % (Manual) 83 % (39-76) H 10/01/24 05:34 Band Neutrophils % 1 % (0-10) 10/01/24 05:34 Lymphocytes % (Manual) 11 % (13-43) L 10/01/24 05:34 Monocytes % (Manual) 4 % (4-9) 10/01/24 05:34 Eosinophils % (Manual) 1 % (0-6) 10/01/24 05:34 Toxic Granulation 1+ noted 09/29/24 11:31 Plt Morphology Comment Normal (NORMAL) 10/01/24 05:34 RBC Morphology Abnormal (NORMAL) 10/01/24 05:34 Hypochromasia Slight A 10/01/24 05:34 Anisocytosis Slight A 10/01/24 05:34 Sample Site Lrad 09/29/24 15:29 ABG pH 7.420 (7.35-7.45) 09/29/24 15:29 ABG pCO2 28.0 mmHg (35.0-45.0) L 09/29/24 15:29 ABG pO2 92.0 mmHg (80.0-100.0) 09/29/24 15:29 ABG HCO3 18.2 mmol/L (22-26) L 09/29/24 15:29 ABG O2 Saturation 97.0 % (90-100) 09/29/24 15:29 ABG Base Excess -5.0 mmol/L (-2.0-2.0) L 09/29/24 15:29 Pablo Test Pos 09/29/24 15:29 A-a Gradient 230.0 mmHg 09/29/24 15:29 FiO2 50.0 09/29/24 15:29 Blood Gas Comments Katherine well ms 09/29/24 15:29 Sodium 146 mmol/L (136-145) H 10/01/24 05:34 Corrected Sodium 147 mmol/L (136-145) H 10/01/24 05:34 Potassium 3.6 mmol/L (3.5-5.1) 10/01/24 05:34 Chloride 111 mmol/L (98-107) H 10/01/24 05:34 Carbon Dioxide 20.4 mmol/L (21-32) L 10/01/24 05:34 BUN 40 mg/dL (7-18) H 10/01/24 05:34 Creatinine 4.43 mg/dL (0.70-1.30) H 10/01/24 05:34 Est GFR (MDRD) Af Amer 17 (>60) L 10/01/24 05:34 Est GFR (MDRD) Non-Af 14 (>60) L 10/01/24 05:34 Glucose 156 mg/dL (65-99) H 10/01/24 05:34 Lactic Acid 1.2 mmol/L (0.4-2.0) 09/29/24 12:46 Calcium 8.9 mg/dL (8.5-10.1) 10/01/24 05:34 Corrected Calcium 10.7 mg/dL (8.5-10.1) H 10/01/24 05:34 Magnesium 2.4 mg/dL (2.0-2.9) 10/01/24 05:34 Total Bilirubin 0.50 mg/dL (0.2-1.0) 10/01/24 05:34 AST 54 Units/L (15-37) H 10/01/24 05:34 ALT 36 Units/L (12-78) 10/01/24 05:34 Alkaline Phosphatase 94 Units/L (46-116) 10/01/24 05:34 Creatine Kinase 1140 Units/L (39-308) H 10/01/24 05:34 Troponin I High Sens 22.9 ng/L (4.0-60.0) 09/29/24 11:31 B-Natriuretic Peptide 149 pg/mL (0-79) H 09/30/24 06:50 Total Protein 7.2 g/dL (6.4-8.2) 10/01/24 05:34 Albumin 1.8 g/dL (3.4-5.0) L 10/01/24 05:34 Globulin 5.4 g/dL (2.5-4.5) H 10/01/24 05:34 Albumin/Globulin Ratio 0.3 Ratio (1.1-2.1) L 10/01/24 05:34 Specimen Type Catherized urine 09/29/24 18:48 Urine Color Yellow (YELLOW) 09/29/24 18:48 Urine Appearance Cloudy (CLEAR) 09/29/24 18:48 Urine pH 6.0 (5.0 - 8.0) 09/29/24 18:48 Ur Specific [place] 1.025 (1.000-1.030) 09/29/24 18:48 Urine Protein 2+ (NEGATIVE) 09/29/24 18:48 Urine Glucose (UA) Negative (NEGATIVE) 09/29/24 18:48 Urine Ketones Negative (NEGATIVE) 09/29/24 18:48 Urine Blood 4+ (NEGATIVE) 09/29/24 18:48 Urine Nitrite Negative (NEGATIVE) 09/29/24 18:48 Urine Bilirubin Negative (NEGATIVE) 09/29/24 18:48 Urine Urobilinogen Normal (NORMAL) 09/29/24 18:48 Ur Leukocyte Esterase Negative (NEGATIVE) 09/29/24 18:48 Urine RBC 0-2 /HPF (0-3) 09/29/24 18:48 Urine WBC 0-2 /HPF (0-5) 09/29/24 18:48 Ur Squamous Epith Cells Rare /HPF (NEGATIVE) 09/29/24 18:48 Amorphous Sediment 4+ /HPF (NEGATIVE) 09/29/24 18:48 Urine Bacteria Trace /HPF (NEGATIVE) 09/29/24 18:48 Granular Casts Many /LPF (NEGATIVE) 09/29/24 18:48 Ur Culture Indicated? No/not indicated 09/29/24 18:48 Resp Viral Panel (PCR) See scanned report 09/29/24 20:30 Plan (1) AMS (altered mental status): Status: Acute Qualifiers: Altered mental status type: transient alteration of awareness Qualified Code(s): R40.4 - Transient alteration of awareness (2) Pneumonia: Status: Acute (3) Acute dehydration: Status: Acute (4) Rhabdomyolysis: Status: Acute Qualifiers: Rhabdomyolysis type: non-traumatic Qualified Code(s): M62.82 - Rhabdomyolysis (5) UTI (urinary tract infection): Status: Acute Qualifiers: Hematuria presence: with hematuria Urinary tract infection type: site unspecified Qualified Code(s): N39.0 - Urinary tract infection, site not specified; R31.9 - Hematuria, unspecified (6) Hypokalemia: Status: Acute (7) Acute on chronic renal failure: Status: Acute Qualifiers: Acute renal failure type: unspecified Chronic kidney disease stage: unspecified stage Qualified Code(s): N17.9 - Acute kidney failure, unspecified; N18.9 - Chronic kidney disease, unspecified (8) Bacteremia: Status: Chronic
[2024-10-01] MEDS: NS 1/2 + KCL 20 MEQ/L 1,000 ML IV SCH (10:53)
[2024-10-01] MEDS: DIFLUCAN 100 MG IV (MIX by PHARMACY)* 100 MG/50 ML BAG IV SCH (10:54)
[2024-10-01] MEDS: LASIX PO SCH (10:54)
[2024-10-01] MEDS: PULMICORT NEB TX 0.5 MG NEB SCH (13:31)
[2024-10-01] MEDS: DUONEB 0.5 MG/3 MG (3 mL) NEB SCH (13:31)
--- NOTE | 2024-10-01 14:27 | RAD ---
EXAM:CHEST, 1 VIEWHISTORY:F/U PNA DEHYDRATION ;COMPARISON:No relevant prior studies were available for comparison at the time of interpretation.TECHNIQUE:CHEST, 1 VIEWFINDINGS:Chest:Lines and tubes: Cardiac leads overlie the chest.Mediastinum: Cardiomegaly.Pulmonary vessels: There is pulmonary vascular congestion.Lung sullivan: Patchy opacities are seenPleura: No effusion. No pneumothorax.Bones and soft tissues: No acute osseous or soft tissue abnormality.IMPRESSION:1. Findings suggest heart failureTHIS IS AN ELECTRONICALLY VERIFIED FINAL REPORT10/01/2024 2:18 PM - Electronically signed by Stevenson Latham MD
[2024-10-01] MEDS: OFIRMEV IV 1000 MG VIAL 500 MG/50 ML VIAL IV PRN (19:31)
[2024-10-02 04:56] LABS: BASOPHILS # (AUTO) 0.2 X10^3/uL (0.0-0.1); BASOPHILS % (AUTO) 0.8 % (0.2-1.0); EOSINOPHILS # (AUTO) 0.3 x10^3/uL (0.0-0.2); EOSINOPHILS % (AUTO) 1.3 % (0.9-2.9); HEMATOCRIT 26.4 % (42.0-54.0); HEMOGLOBIN 8.3 g/dL (13.5-18.0); LYMPHOCYTES # (AUTO) 3.6 X10^3/uL (1.3-2.9); LYMPHOCYTES % (AUTO) 17.6 % (21.0-51.0); MEAN CORPUSCULAR HEMOGLOBIN 25.5 pg (27.0-34.0); MEAN CORPUSCULAR HGB CONC 31.5 g/dL (33.0-35.0); MEAN CORPUSCULAR VOLUME 80.9 fL (80.0-100.0); MEAN PLATELET VOLUME 11.4 fL (7.4-11.0); MONOCYTES # (AUTO) 0.9 x10^3/uL (0.3-0.8); MONOCYTES % (AUTO) 4.5 % (0.0-13.0); NEUTROPHILS # (AUTO) 15.5 x10^3/uL (2.2-4.8); NEUTROPHILS % (AUTO) 75.8 % (42.0-75.0); PLATELET COUNT 272 X10^3/uL (150.0-450.0); RED BLOOD COUNT 3.26 X10^6/uL (4.7-6.0); RED CELL DISTRIBUTION WIDTH 17.6 % (11.6-16.5); WHITE BLOOD COUNT 20.5 X10^3/uL (3.6-10.0)
[2024-10-02 05:14] LABS: CARBON DIOXIDE 20.7 mmol/L (21-32); COR CA(FOR HYPOALB) 10.6 mg/dL (8.5-10.1); CREATININE 3.95 mg/dL (0.70-1.30); POTASSIUM 3.2 mmol/L (3.5-5.1)
[2024-10-02] MEDS ORDERED: CONSULT PHARMACY - POTASSIUM & MAGNESIUM XX SCH (06:00)
[2024-10-02] MEDS: LASIX IVP SCH (09:17)
[2024-10-02] MEDS: K-DUR TAB 20 MEQ PO SCH (09:18)
[2024-10-03 05:10] LABS: BASOPHILS # (AUTO) 0.1 X10^3/uL (0.0-0.1); BASOPHILS % (AUTO) 0.3 % (0.2-1.0); EOSINOPHILS # (AUTO) 0.4 x10^3/uL (0.0-0.2); EOSINOPHILS % (AUTO) 2.7 % (0.9-2.9); HEMATOCRIT 26.2 % (42.0-54.0); HEMOGLOBIN 8.2 g/dL (13.5-18.0); LYMPHOCYTES # (AUTO) 2.8 X10^3/uL (1.3-2.9); LYMPHOCYTES % (AUTO) 17.6 % (21.0-51.0); MEAN CORPUSCULAR HEMOGLOBIN 25.5 pg (27.0-34.0); MEAN CORPUSCULAR HGB CONC 31.3 g/dL (33.0-35.0); MEAN CORPUSCULAR VOLUME 81.4 fL (80.0-100.0); MEAN PLATELET VOLUME 11.2 fL (7.4-11.0); MONOCYTES # (AUTO) 0.7 x10^3/uL (0.3-0.8); MONOCYTES % (AUTO) 4.1 % (0.0-13.0); NEUTROPHILS # (AUTO) 11.9 x10^3/uL (2.2-4.8); NEUTROPHILS % (AUTO) 75.3 % (42.0-75.0); PLATELET COUNT 268 X10^3/uL (150.0-450.0); RED BLOOD COUNT 3.21 X10^6/uL (4.7-6.0); RED CELL DISTRIBUTION WIDTH 17.2 % (11.6-16.5); WHITE BLOOD COUNT 15.8 X10^3/uL (3.6-10.0)
[2024-10-03 05:14] LABS: ALBUMIN 2.1 g/dL (3.4-5.0); CALCIUM 8.8 mg/dL (8.5-10.1); CARBON DIOXIDE 22.3 mmol/L (21-32); COR CA(FOR HYPOALB) 10.3 mg/dL (8.5-10.1); CREATININE 3.8 mg/dL (0.70-1.30); POTASSIUM 3.1 mmol/L (3.5-5.1); TOTAL PROTEIN 6.8 g/dL (6.4-8.2)
[2024-10-03] MEDS ORDERED: CONSULT PHARMACY - POTASSIUM & MAGNESIUM XX SCH (07:00)
[2024-10-03] MEDS: LOPRESSOR TAB 25 MG PO NR (10:39)
[2024-10-03] MEDS: LASIX PO SCH (10:39)
[2024-10-03] MEDS: KLOR-CON PO SCH (10:39)
--- NOTE | 2024-10-03 18:57 | PCM.PROG ---
Progress Note Progress Note for Day of Date of Exam: 10/02/24 Subjective Subjective: Patient seen at bedside, no acute events overnight. He is feeling better today. Renal function is improving slowly. Labs/imaging reviewed: -WBC 20, hemoglobin 8.3, platelets 272, sodium 145, potassium 3.2, creatinine 3.95, glucose 145 -Sputum: Harper species, staph haemolyticus. -Blood Cx neg Plan: Continue ICU care for closer monitoring. Continue with 1/2NS with KCL. Replace electrolytes as per protocol. Continue Zyvox and Diflucan. Wean O2 as tolerated, continue nebs prn. Continue home medications as tolerated. Switch to IV lasix 20 mg daily. Tylenol and pain control prn. Continue albumin. Monitor AM labs/imaging. Time spent for clinical assessment, reviewing labs/imaging, physical exam, decision making and documentation greater than 45 mins. Past Medical Family Social History Allergies: Allergies No Known Drug Allergies Allergy (Unknown, Verified 09/19/24 13:56) Onset Date: 12/19/2017 Vital Signs and I&O's Vital Signs: Vital Signs Temperature 98.4 F Temperature 99.1 F Pulse Rate 98 Pulse Rate 97 Pulse Rate 97 Pulse Rate 101 Pulse Rate 98 Pulse Rate 103 Pulse Rate 100 Pulse Rate 100 Pulse Rate 100 Pulse Rate 103 Pulse Rate 114 Pulse Rate 100 Pulse Rate 99 Pulse Rate 101 Pulse Rate 100 Pulse Rate 104 Pulse Rate 104 Pulse Rate 101 Pulse Rate 104 Pulse Rate 102 Pulse Rate 100 Pulse Rate 100 Pulse Rate 100 Pulse Rate 115 Pulse Rate 100 Pulse Rate 104 Pulse Rate 99 Pulse Rate 100 Pulse Rate 102 Respiratory Rate 19 Respiratory Rate 18 Respiratory Rate 18 Respiratory Rate 20 Respiratory Rate 18 Respiratory Rate 23 Respiratory Rate 21 Respiratory Rate 26 Respiratory Rate 18 Respiratory Rate 23 Respiratory Rate 22 Respiratory Rate 18 Respiratory Rate 19 Respiratory Rate 23 Respiratory Rate 22 Respiratory Rate 17 Respiratory Rate 18 Respiratory Rate 18 Respiratory Rate 17 Respiratory Rate 17 Respiratory Rate 17 Respiratory Rate 18 Respiratory Rate 25 Respiratory Rate 17 Respiratory Rate 18 Respiratory Rate 17 Respiratory Rate 17 Respiratory Rate 19 Respiratory Rate 21 Respiratory Rate 22 Respiratory Rate 26 Blood Pressure 134/87 Blood Pressure 125/87 Blood Pressure 125/81 Blood Pressure 135/77 Blood Pressure 135/77 Blood Pressure 139/80 Blood Pressure 133/84 Blood Pressure 133/84 Blood Pressure 133/84 Blood Pressure 136/79 O2 Sat by Pulse Oximetry 100 O2 Sat by Pulse Oximetry 100 O2 Sat by Pulse Oximetry 100 O2 Sat by Pulse Oximetry 100 O2 Sat by Pulse Oximetry 100 O2 Sat by Pulse Oximetry 97 O2 Sat by Pulse Oximetry 100 O2 Sat by Pulse Oximetry 100 O2 Sat by Pulse Oximetry 100 O2 Sat by Pulse Oximetry 97 O2 Sat by Pulse Oximetry 99 O2 Sat by Pulse Oximetry 97 O2 Sat by Pulse Oximetry 100 O2 Sat by Pulse Oximetry 100 O2 Sat by Pulse Oximetry 100 O2 Sat by Pulse Oximetry 100 O2 Sat by Pulse Oximetry 100 O2 Sat by Pulse Oximetry 100 O2 Sat by Pulse Oximetry 99 O2 Sat by Pulse Oximetry 100 O2 Sat by Pulse Oximetry 100 O2 Sat by Pulse Oximetry 100 O2 Sat by Pulse Oximetry 100 O2 Sat by Pulse Oximetry 100 O2 Sat by Pulse Oximetry 100 O2 Sat by Pulse Oximetry 100 O2 Sat by Pulse Oximetry 100 O2 Sat by Pulse Oximetry 100 O2 Sat by Pulse Oximetry 99 Intake and Output: Intake & Output 09/30/24 10/01/24 10/02/24 10/03/24 23:59 23:59 23:59 23:59 Intake Total 4638 / 4638 2976 / 2976 2022 522 / 522 Output Total 1350 / 1350 1225 / 1225 2200 / 2200 1400 / 1400 Balance 3288 / 3288 1751 / 1751 -177 / -177 -878 / -878 Physical Exam Oriented: Unable to test Eyes: Normal Nose: Normal Throat: Normal Respiratory: Generalized and Rhonchi Cardiovascular: Normal, Tachycardia and Edema Auscultation: Bowel Sounds: Normal Tenderness: Normal Skin: Decreased [place]urgur Musculoskeletal: Normal Psychiatric: Normal Mood Description: Calm Affect: Normal Speech Pattern: Unclear Laboratory and Diagnostics 10/03/24 04:25 10/03/24 04:25 Labs: 09/30/24 19:48 Blood Blood Culture - Preliminary 09/30/24 19:28 Blood Blood Culture - Preliminary 09/29/24 13:05 Blood Blood Culture - Preliminary 09/29/24 12:46 Blood Blood Culture - Preliminary Laboratory WBC 15.8 X10^3/uL (3.6-10.0) H 10/03/24 04:25 RBC 3.21 X10^6/uL (4.7-6.0) L 10/03/24 04:25 Hgb 8.2 g/dL (13.5-18.0) L 10/03/24 04:25 Hct 26.2 % (42.0-54.0) L 10/03/24 04:25 MCV 81.4 fL (80.0-100.0) 10/03/24 04:25 MCH 25.5 pg (27.0-34.0) L 10/03/24 04:25 MCHC 31.3 g/dL (33.0-35.0) L 10/03/24 04:25 RDW 17.2 % (11.6-16.5) H 10/03/24 04:25 Plt Count 268 X10^3/uL (150.0-450.0) 10/03/24 04:25 Plt Count Comment Adequate (ADEQUATE) 10/01/24 05:34 MPV 11.2 fL (7.4-11.0) H 10/03/24 04:25 Neut % (Auto) 75.3 % (42.0-75.0) H 10/03/24 04:25 Lymph % (Auto) 17.6 % (21.0-51.0) L 10/03/24 04:25 [place] % (Auto) 4.1 % (0.0-13.0) 10/03/24 04:25 Eos % (Auto) 2.7 % (0.9-2.9) 10/03/24 04:25 Baso % (Auto) 0.3 % (0.2-1.0) 10/03/24 04:25 Neut # (Auto) 11.9 x10^3/uL (2.2-4.8) H 10/03/24 04:25 Lymph # (Auto) 2.8 X10^3/uL (1.3-2.9) 10/03/24 04:25 [place] # (Auto) 0.7 x10^3/uL (0.3-0.8) 10/03/24 04:25 Eos # (Auto) 0.4 x10^3/uL (0.0-0.2) H 10/03/24 04:25 Baso # (Auto) 0.1 X10^3/uL (0.0-0.1) 10/03/24 04:25 Absolute Nucleated RBC 0.1 /100WBC 10/03/24 04:25 Total Counted 100 10/01/24 05:34 Neutrophils % (Manual) 83 % (39-76) H 10/01/24 05:34 Band Neutrophils % 1 % (0-10) 10/01/24 05:34 Lymphocytes % (Manual) 11 % (13-43) L 10/01/24 05:34 Monocytes % (Manual) 4 % (4-9) 10/01/24 05:34 Eosinophils % (Manual) 1 % (0-6) 10/01/24 05:34 Toxic Granulation 1+ noted 09/29/24 11:31 Plt Morphology Comment Normal (NORMAL) 10/01/24 05:34 RBC Morphology Abnormal (NORMAL) 10/01/24 05:34 Hypochromasia Slight A 10/01/24 05:34 Anisocytosis Slight A 10/01/24 05:34 Sample Site Lrad 09/29/24 15:29 ABG pH 7.420 (7.35-7.45) 09/29/24 15:29 ABG pCO2 28.0 mmHg (35.0-45.0) L 09/29/24 15:29 ABG pO2 92.0 mmHg (80.0-100.0) 09/29/24 15:29 ABG HCO3 18.2 mmol/L (22-26) L 09/29/24 15:29 ABG O2 Saturation 97.0 % (90-100) 09/29/24 15:29 ABG Base Excess -5.0 mmol/L (-2.0-2.0) L 09/29/24 15:29 Pablo Test Pos 09/29/24 15:29 A-a Gradient 230.0 mmHg 09/29/24 15:29 FiO2 50.0 09/29/24 15:29 Blood Gas Comments Katherine well ms 09/29/24 15:29 Sodium 144 mmol/L (136-145) 10/03/24 04:25 Corrected Sodium 145 mmol/L (136-145) 10/03/24 04:25 Potassium 3.1 mmol/L (3.5-5.1) L 10/03/24 04:25 Chloride 109 mmol/L (98-107) H 10/03/24 04:25 Carbon Dioxide 22.3 mmol/L (21-32) 10/03/24 04:25 BUN 39 mg/dL (7-18) H 10/03/24 04:25 Creatinine 3.80 mg/dL (0.70-1.30) H 10/03/24 04:25 Est GFR (MDRD) Af Amer 20 (>60) L 10/03/24 04:25 Est GFR (MDRD) Non-Af 17 (>60) L 10/03/24 04:25 Glucose 126 mg/dL (65-99) H 10/03/24 04:25 Lactic Acid 1.2 mmol/L (0.4-2.0) 09/29/24 12:46 Calcium 8.8 mg/dL (8.5-10.1) 10/03/24 04:25 Corrected Calcium 10.3 mg/dL (8.5-10.1) H 10/03/24 04:25 Magnesium 2.1 mg/dL (2.0-2.9) 10/03/24 04:25 Total Bilirubin 0.40 mg/dL (0.2-1.0) 10/03/24 04:25 AST 43 Units/L (15-37) H 10/03/24 04:25 ALT 28 Units/L (12-78) 10/03/24 04:25 Alkaline Phosphatase 105 Units/L (46-116) 10/03/24 04:25 Creatine Kinase 1140 Units/L (39-308) H 10/01/24 05:34 Troponin I High Sens 22.9 ng/L (4.0-60.0) 09/29/24 11:31 B-Natriuretic Peptide 149 pg/mL (0-79) H 09/30/24 06:50 Total Protein 6.8 g/dL (6.4-8.2) 10/03/24 04:25 Albumin 2.1 g/dL (3.4-5.0) L 10/03/24 04:25 Globulin 4.7 g/dL (2.5-4.5) H 10/03/24 04:25 Albumin/Globulin Ratio 0.4 Ratio (1.1-2.1) L 10/03/24 04:25 Specimen Type Catherized urine 09/29/24 18:48 Urine Color Yellow (YELLOW) 09/29/24 18:48 Urine Appearance Cloudy (CLEAR) 09/29/24 18:48 Urine pH 6.0 (5.0 - 8.0) 09/29/24 18:48 Ur Specific [place] 1.025 (1.000-1.030) 09/29/24 18:48 Urine Protein 2+ (NEGATIVE) 09/29/24 18:48 Urine Glucose (UA) Negative (NEGATIVE) 09/29/24 18:48 Urine Ketones Negative (NEGATIVE) 09/29/24 18:48 Urine Blood 4+ (NEGATIVE) 09/29/24 18:48 Urine Nitrite Negative (NEGATIVE) 09/29/24 18:48 Urine Bilirubin Negative (NEGATIVE) 09/29/24 18:48 Urine Urobilinogen Normal (NORMAL) 09/29/24 18:48 Ur Leukocyte Esterase Negative (NEGATIVE) 09/29/24 18:48 Urine RBC 0-2 /HPF (0-3) 09/29/24 18:48 Urine WBC 0-2 /HPF (0-5) 09/29/24 18:48 Ur Squamous Epith Cells Rare /HPF (NEGATIVE) 09/29/24 18:48 Amorphous Sediment 4+ /HPF (NEGATIVE) 09/29/24 18:48 Urine Bacteria Trace /HPF (NEGATIVE) 09/29/24 18:48 Granular Casts Many /LPF (NEGATIVE) 09/29/24 18:48 Ur Culture Indicated? No/not indicated 09/29/24 18:48 Resp Viral Panel (PCR) See scanned report 09/29/24 20:30 Plan (1) AMS (altered mental status): Status: Acute Qualifiers: Altered mental status type: transient alteration of awareness Qualified Code(s): R40.4 - Transient alteration of awareness (2) Pneumonia: Status: Acute (3) Acute dehydration: Status: Acute (4) Rhabdomyolysis: Status: Acute Qualifiers: Rhabdomyolysis type: non-traumatic Qualified Code(s): M62.82 - Rhabdomyolysis (5) UTI (urinary tract infection): Status: Acute Qualifiers: Hematuria presence: with hematuria Urinary tract infection type: site unspecified Qualified Code(s): N39.0 - Urinary tract infection, site not specified; R31.9 - Hematuria, unspecified (6) Hypokalemia: Status: Acute (7) Acute on chronic renal failure: Status: Acute Qualifiers: Acute renal failure type: unspecified Chronic kidney disease stage: unspecified stage Qualified Code(s): N17.9 - Acute kidney failure, unspecified; N18.9 - Chronic kidney disease, unspecified (8) Bacteremia: Status: Chronic
--- NOTE | 2024-10-03 19:01 | PCM.PROG ---
Progress Note Progress Note for Day of Date of Exam: 10/03/24 Subjective Subjective: Patient seen at bedside, no acute events overnight. His renal function continues to improve. His HR has been elevated in the low 100s. Labs/imaging reviewed: -WBC 15.8, hemoglobin 8.2, platelets 268, sodium 144, potassium 3.1, creatinine 3.80, glucose 126 -Sputum: Harper species, staph haemolyticus. -Blood Cx neg Plan: Continue ICU care for closer monitoring. Increase metoprolol tartrate to 50 mg BID. Continue with 1/2NS with KCL. Replace electrolytes as per protocol. Continue Zyvox and Diflucan. Wean O2 as tolerated, continue nebs prn. Continue home medications as tolerated. Continue IV lasix 20 mg daily. Tylenol and pain control prn. Continue albumin. Monitor AM labs/imaging. Time spent for clinical assessment, reviewing labs/imaging, physical exam, decision making and documentation greater than 45 mins. Past Medical Family Social History Allergies: Allergies No Known Drug Allergies Allergy (Unknown, Verified 09/19/24 13:56) Onset Date: 12/19/2017 Vital Signs and I&O's Vital Signs: Vital Signs Temperature 98.0 F Temperature 98.4 F Pulse Rate 100 Pulse Rate 102 Pulse Rate 97 Pulse Rate 97 Pulse Rate 99 Pulse Rate 98 Pulse Rate 98 Pulse Rate 97 Pulse Rate 98 Pulse Rate 99 Pulse Rate 100 Pulse Rate 99 Pulse Rate 100 Pulse Rate 97 Pulse Rate 101 Pulse Rate 97 Pulse Rate 100 Pulse Rate 97 Pulse Rate 98 Pulse Rate 97 Pulse Rate 97 Pulse Rate 101 Pulse Rate 98 Pulse Rate 103 Pulse Rate 100 Pulse Rate 100 Pulse Rate 100 Pulse Rate 103 Respiratory Rate 20 Respiratory Rate 41 Respiratory Rate 27 Respiratory Rate 27 Respiratory Rate 34 Respiratory Rate 36 Respiratory Rate 21 Respiratory Rate 32 Respiratory Rate 39 Respiratory Rate 21 Respiratory Rate 41 Respiratory Rate 25 Respiratory Rate 40 Respiratory Rate 21 Respiratory Rate 32 Respiratory Rate 26 Respiratory Rate 27 Respiratory Rate 21 Respiratory Rate 24 Respiratory Rate 28 Respiratory Rate 20 Respiratory Rate 19 Respiratory Rate 18 Respiratory Rate 18 Respiratory Rate 20 Respiratory Rate 18 Respiratory Rate 23 Respiratory Rate 21 Respiratory Rate 26 Respiratory Rate 18 Respiratory Rate 23 Respiratory Rate 22 Blood Pressure 135/82 Blood Pressure 132/79 Blood Pressure 132/80 Blood Pressure 139/86 Blood Pressure 134/87 Blood Pressure 125/87 Blood Pressure 125/81 O2 Sat by Pulse Oximetry 100 O2 Sat by Pulse Oximetry 100 O2 Sat by Pulse Oximetry 100 O2 Sat by Pulse Oximetry 100 O2 Sat by Pulse Oximetry 100 O2 Sat by Pulse Oximetry 100 O2 Sat by Pulse Oximetry 100 O2 Sat by Pulse Oximetry 100 O2 Sat by Pulse Oximetry 100 O2 Sat by Pulse Oximetry 99 O2 Sat by Pulse Oximetry 100 O2 Sat by Pulse Oximetry 100 O2 Sat by Pulse Oximetry 100 O2 Sat by Pulse Oximetry 100 O2 Sat by Pulse Oximetry 100 O2 Sat by Pulse Oximetry 100 O2 Sat by Pulse Oximetry 100 O2 Sat by Pulse Oximetry 100 O2 Sat by Pulse Oximetry 100 O2 Sat by Pulse Oximetry 100 O2 Sat by Pulse Oximetry 100 O2 Sat by Pulse Oximetry 100 O2 Sat by Pulse Oximetry 100 O2 Sat by Pulse Oximetry 97 O2 Sat by Pulse Oximetry 100 O2 Sat by Pulse Oximetry 100 O2 Sat by Pulse Oximetry 100 O2 Sat by Pulse Oximetry 97 Intake and Output: Intake & Output 09/30/24 10/01/24 10/02/24 10/03/24 23:59 23:59 23:59 23:59 Intake Total 4638 / 4638 2976 / 2976 2022 269 / 269 Output Total 1350 / 1350 1225 / 1225 2200 / 2200 2300 / 2300 Balance 3288 / 3288 1751 / 1751 -177 / -177 392 / 392 Physical Exam Oriented: Unable to test Eyes: Normal Nose: Normal Throat: Normal Respiratory: Generalized and Rhonchi Cardiovascular: Normal, Tachycardia and Edema Auscultation: Bowel Sounds: Normal Tenderness: Normal Skin: Decreased [place]urgur Musculoskeletal: Normal Psychiatric: Normal Mood Description: Calm Affect: Normal Speech Pattern: Unclear Laboratory and Diagnostics 10/03/24 04:25 10/03/24 04:25 Labs: 09/30/24 19:48 Blood Blood Culture - Preliminary 09/30/24 19:28 Blood Blood Culture - Preliminary 09/29/24 13:05 Blood Blood Culture - Preliminary 09/29/24 12:46 Blood Blood Culture - Preliminary Laboratory WBC 15.8 X10^3/uL (3.6-10.0) H 10/03/24 04:25 RBC 3.21 X10^6/uL (4.7-6.0) L 10/03/24 04:25 Hgb 8.2 g/dL (13.5-18.0) L 10/03/24 04:25 Hct 26.2 % (42.0-54.0) L 10/03/24 04:25 MCV 81.4 fL (80.0-100.0) 10/03/24 04:25 MCH 25.5 pg (27.0-34.0) L 10/03/24 04:25 MCHC 31.3 g/dL (33.0-35.0) L 10/03/24 04:25 RDW 17.2 % (11.6-16.5) H 10/03/24 04:25 Plt Count 268 X10^3/uL (150.0-450.0) 10/03/24 04:25 Plt Count Comment Adequate (ADEQUATE) 10/01/24 05:34 MPV 11.2 fL (7.4-11.0) H 10/03/24 04:25 Neut % (Auto) 75.3 % (42.0-75.0) H 10/03/24 04:25 Lymph % (Auto) 17.6 % (21.0-51.0) L 10/03/24 04:25 [place] % (Auto) 4.1 % (0.0-13.0) 10/03/24 04:25 Eos % (Auto) 2.7 % (0.9-2.9) 10/03/24 04:25 Baso % (Auto) 0.3 % (0.2-1.0) 10/03/24 04:25 Neut # (Auto) 11.9 x10^3/uL (2.2-4.8) H 10/03/24 04:25 Lymph # (Auto) 2.8 X10^3/uL (1.3-2.9) 10/03/24 04:25 [place] # (Auto) 0.7 x10^3/uL (0.3-0.8) 10/03/24 04:25 Eos # (Auto) 0.4 x10^3/uL (0.0-0.2) H 10/03/24 04:25 Baso # (Auto) 0.1 X10^3/uL (0.0-0.1) 10/03/24 04:25 Absolute Nucleated RBC 0.1 /100WBC 10/03/24 04:25 Total Counted 100 10/01/24 05:34 Neutrophils % (Manual) 83 % (39-76) H 10/01/24 05:34 Band Neutrophils % 1 % (0-10) 10/01/24 05:34 Lymphocytes % (Manual) 11 % (13-43) L 10/01/24 05:34 Monocytes % (Manual) 4 % (4-9) 10/01/24 05:34 Eosinophils % (Manual) 1 % (0-6) 10/01/24 05:34 Toxic Granulation 1+ noted 09/29/24 11:31 Plt Morphology Comment Normal (NORMAL) 10/01/24 05:34 RBC Morphology Abnormal (NORMAL) 10/01/24 05:34 Hypochromasia Slight A 10/01/24 05:34 Anisocytosis Slight A 10/01/24 05:34 Sample Site Lrad 09/29/24 15:29 ABG pH 7.420 (7.35-7.45) 09/29/24 15:29 ABG pCO2 28.0 mmHg (35.0-45.0) L 09/29/24 15:29 ABG pO2 92.0 mmHg (80.0-100.0) 09/29/24 15:29 ABG HCO3 18.2 mmol/L (22-26) L 09/29/24 15:29 ABG O2 Saturation 97.0 % (90-100) 09/29/24 15:29 ABG Base Excess -5.0 mmol/L (-2.0-2.0) L 09/29/24 15:29 Pablo Test Pos 09/29/24 15:29 A-a Gradient 230.0 mmHg 09/29/24 15:29 FiO2 50.0 09/29/24 15:29 Blood Gas Comments Katherine well ms 09/29/24 15:29 Sodium 144 mmol/L (136-145) 10/03/24 04:25 Corrected Sodium 145 mmol/L (136-145) 10/03/24 04:25 Potassium 3.1 mmol/L (3.5-5.1) L 10/03/24 04:25 Chloride 109 mmol/L (98-107) H 10/03/24 04:25 Carbon Dioxide 22.3 mmol/L (21-32) 10/03/24 04:25 BUN 39 mg/dL (7-18) H 10/03/24 04:25 Creatinine 3.80 mg/dL (0.70-1.30) H 10/03/24 04:25 Est GFR (MDRD) Af Amer 20 (>60) L 10/03/24 04:25 Est GFR (MDRD) Non-Af 17 (>60) L 10/03/24 04:25 Glucose 126 mg/dL (65-99) H 10/03/24 04:25 Lactic Acid 1.2 mmol/L (0.4-2.0) 09/29/24 12:46 Calcium 8.8 mg/dL (8.5-10.1) 10/03/24 04:25 Corrected Calcium 10.3 mg/dL (8.5-10.1) H 10/03/24 04:25 Magnesium 2.1 mg/dL (2.0-2.9) 10/03/24 04:25 Total Bilirubin 0.40 mg/dL (0.2-1.0) 10/03/24 04:25 AST 43 Units/L (15-37) H 10/03/24 04:25 ALT 28 Units/L (12-78) 10/03/24 04:25 Alkaline Phosphatase 105 Units/L (46-116) 10/03/24 04:25 Creatine Kinase 1140 Units/L (39-308) H 10/01/24 05:34 Troponin I High Sens 22.9 ng/L (4.0-60.0) 09/29/24 11:31 B-Natriuretic Peptide 149 pg/mL (0-79) H 09/30/24 06:50 Total Protein 6.8 g/dL (6.4-8.2) 10/03/24 04:25 Albumin 2.1 g/dL (3.4-5.0) L 10/03/24 04:25 Globulin 4.7 g/dL (2.5-4.5) H 10/03/24 04:25 Albumin/Globulin Ratio 0.4 Ratio (1.1-2.1) L 10/03/24 04:25 Specimen Type Catherized urine 09/29/24 18:48 Urine Color Yellow (YELLOW) 09/29/24 18:48 Urine Appearance Cloudy (CLEAR) 09/29/24 18:48 Urine pH 6.0 (5.0 - 8.0) 09/29/24 18:48 Ur Specific [place] 1.025 (1.000-1.030) 09/29/24 18:48 Urine Protein 2+ (NEGATIVE) 09/29/24 18:48 Urine Glucose (UA) Negative (NEGATIVE) 09/29/24 18:48 Urine Ketones Negative (NEGATIVE) 09/29/24 18:48 Urine Blood 4+ (NEGATIVE) 09/29/24 18:48 Urine Nitrite Negative (NEGATIVE) 09/29/24 18:48 Urine Bilirubin Negative (NEGATIVE) 09/29/24 18:48 Urine Urobilinogen Normal (NORMAL) 09/29/24 18:48 Ur Leukocyte Esterase Negative (NEGATIVE) 09/29/24 18:48 Urine RBC 0-2 /HPF (0-3) 09/29/24 18:48 Urine WBC 0-2 /HPF (0-5) 09/29/24 18:48 Ur Squamous Epith Cells Rare /HPF (NEGATIVE) 09/29/24 18:48 Amorphous Sediment 4+ /HPF (NEGATIVE) 09/29/24 18:48 Urine Bacteria Trace /HPF (NEGATIVE) 09/29/24 18:48 Granular Casts Many /LPF (NEGATIVE) 09/29/24 18:48 Ur Culture Indicated? No/not indicated 09/29/24 18:48 Resp Viral Panel (PCR) See scanned report 09/29/24 20:30 Plan (1) AMS (altered mental status): Status: Acute Qualifiers: Altered mental status type: transient alteration of awareness Qualified Code(s): R40.4 - Transient alteration of awareness (2) Pneumonia: Status: Acute (3) Acute dehydration: Status: Acute (4) Rhabdomyolysis: Status: Acute Qualifiers: Rhabdomyolysis type: non-traumatic Qualified Code(s): M62.82 - Rhabdomyolysis (5) UTI (urinary tract infection): Status: Acute Qualifiers: Hematuria presence: with hematuria Urinary tract infection type: site unspecified Qualified Code(s): N39.0 - Urinary tract infection, site not specified; R31.9 - Hematuria, unspecified (6) Hypokalemia: Status: Acute (7) Acute on chronic renal failure: Status: Acute Qualifiers: Acute renal failure type: unspecified Chronic kidney disease stage: unspecified stage Qualified Code(s): N17.9 - Acute kidney failure, unspecified; N18.9 - Chronic kidney disease, unspecified (8) Bacteremia: Status: Chronic
[2024-10-03] MEDS: LOPRESSOR TAB 50 MG PO SCH (21:46)
[2024-10-04 05:05] LABS: BASOPHILS % (AUTO) 0.3 % (0.2-1.0); EOSINOPHILS # (AUTO) 0.3 x10^3/uL (0.0-0.2); EOSINOPHILS % (AUTO) 2.4 % (0.9-2.9); HEMATOCRIT 25.3 % (42.0-54.0); HEMOGLOBIN 8.2 g/dL (13.5-18.0); LYMPHOCYTES # (AUTO) 1.9 X10^3/uL (1.3-2.9); LYMPHOCYTES % (AUTO) 14.6 % (21.0-51.0); MEAN CORPUSCULAR HEMOGLOBIN 26.1 pg (27.0-34.0); MEAN CORPUSCULAR HGB CONC 32.6 g/dL (33.0-35.0); MEAN PLATELET VOLUME 10.7 fL (7.4-11.0); MONOCYTES # (AUTO) 0.5 x10^3/uL (0.3-0.8); NEUTROPHILS # (AUTO) 10.5 x10^3/uL (2.2-4.8); NEUTROPHILS % (AUTO) 78.7 % (42.0-75.0); PLATELET COUNT 275 X10^3/uL (150.0-450.0); RED BLOOD COUNT 3.16 X10^6/uL (4.7-6.0); RED CELL DISTRIBUTION WIDTH 17.2 % (11.6-16.5); WHITE BLOOD COUNT 13.3 X10^3/uL (3.6-10.0)
[2024-10-04 05:10] LABS: ALBUMIN 2.2 g/dL (3.4-5.0); CALCIUM 8.8 mg/dL (8.5-10.1); CARBON DIOXIDE 20.9 mmol/L (21-32); COR CA(FOR HYPOALB) 10.2 mg/dL (8.5-10.1); CREATININE 3.39 mg/dL (0.70-1.30); MAGNESIUM 1.9 mg/dL (2.0-2.9); POTASSIUM 3.2 mmol/L (3.5-5.1)
[2024-10-04] MEDS ORDERED: CONSULT PHARMACY - POTASSIUM & MAGNESIUM XX SCH (09:00)
[2024-10-04] MEDS: LOPRESSOR TAB 50 MG PO ONE (10:36)
[2024-10-04] MEDS: K-DUR TAB 20 MEQ PO SCH (10:36)
[2024-10-04] MEDS: KLOR-CON PO SCH (10:36)
[2024-10-05 06:01] LABS: BASOPHILS % (AUTO) 0.3 % (0.2-1.0); EOSINOPHILS # (AUTO) 0.4 x10^3/uL (0.0-0.2); EOSINOPHILS % (AUTO) 3.8 % (0.9-2.9); HEMATOCRIT 25.7 % (42.0-54.0); HEMOGLOBIN 8.3 g/dL (13.5-18.0); LYMPHOCYTES # (AUTO) 2.1 X10^3/uL (1.3-2.9); LYMPHOCYTES % (AUTO) 19.8 % (21.0-51.0); MEAN CORPUSCULAR HEMOGLOBIN 26.1 pg (27.0-34.0); MEAN CORPUSCULAR HGB CONC 32.2 g/dL (33.0-35.0); MEAN CORPUSCULAR VOLUME 81.1 fL (80.0-100.0); MONOCYTES # (AUTO) 0.6 x10^3/uL (0.3-0.8); MONOCYTES % (AUTO) 5.2 % (0.0-13.0); NEUTROPHILS # (AUTO) 7.5 x10^3/uL (2.2-4.8); NEUTROPHILS % (AUTO) 70.9 % (42.0-75.0); PLATELET COUNT 250 X10^3/uL (150.0-450.0); RED BLOOD COUNT 3.17 X10^6/uL (4.7-6.0); WHITE BLOOD COUNT 10.6 X10^3/uL (3.6-10.0)
[2024-10-05 06:13] LABS: ALBUMIN 2.4 g/dL (3.4-5.0); CALCIUM 8.8 mg/dL (8.5-10.1); CARBON DIOXIDE 20.6 mmol/L (21-32); COR CA(FOR HYPOALB) 10.1 mg/dL (8.5-10.1); CREATININE 2.98 mg/dL (0.70-1.30); MAGNESIUM 1.6 mg/dL (2.0-2.9); POTASSIUM 3.7 mmol/L (3.5-5.1); TOTAL PROTEIN 6.9 g/dL (6.4-8.2)
[2024-10-05] MEDS ORDERED: CONSULT PHARMACY - POTASSIUM & MAGNESIUM XX SCH (08:00)
[2024-10-05] MEDS: ZOFRAN INJ 4 MG VIAL IVP PRN (08:49)
--- NOTE | 2024-10-05 10:13 | EKG ---
Test Reason : POSSIBLE AFIB Blood Pressure : */* mmHG Vent. Rate : 105 BPM Atrial Rate : 105 BPM P-R Int : 132 ms QRS Dur : 68 ms QT Int : 350 ms P-R-T Axes : 45 9 79 degrees QTc Int : 462 ms Sinus tachycardia Low voltage QRS Nonspecific T wave abnormality Abnormal ECG When compared with ECG of 29-SEP-2024 12:15, Sinus rhythm has replaced Atrial fibrillation Criteria for Septal infarct are no longer present Nonspecific T wave abnormality, improved in Inferior leads Confirmed by Colin Moreno MD ([id number]) on 10/05/2024 5:20:33 PM Referred By: Confirmed By: Colin Moreno MD
[2024-10-05] MEDS: MAG-OX TAB PO SCH (10:37)
[2024-10-05] MEDS: ELIQUIS PO SCH (10:37)
[2024-10-05] MEDS: NS 1,000 ML IV 1,000 ML IV ONE (10:38)
[2024-10-05] MEDS: K-DUR TAB 20 MEQ PO SCH (10:38)
[2024-10-05] MEDS: TOPROL XL PO SCH (10:38)
[2024-10-05] MEDS: TOPROL XL PO ONE (10:39)
--- NOTE | 2024-10-05 19:12 | RAD ---
EXAM: CHEST HISTORY: SOB ; COMPARISON: October 01, 2024. TECHNIQUE: Frontal view of the chest was submitted for interpretation. FINDINGS: The cardiomediastinal silhouette is within normal limits. Lungs show left pleural effusion with left basilar atelectasis. IMPRESSION: Left pleural effusion with left basilar atelectasis THIS IS AN ELECTRONICALLY VERIFIED FINAL REPORT 10/05/2024 7:10 PM - Electronically signed by Saqib Groves MD
[2024-10-06 05:30] LABS: BASOPHILS # (AUTO) 0.1 X10^3/uL (0.0-0.1); BASOPHILS % (AUTO) 0.7 % (0.2-1.0); EOSINOPHILS # (AUTO) 0.5 x10^3/uL (0.0-0.2); EOSINOPHILS % (AUTO) 4.2 % (0.9-2.9); HEMATOCRIT 22.6 % (42.0-54.0); HEMOGLOBIN 7.2 g/dL (13.5-18.0); LYMPHOCYTES # (AUTO) 2.2 X10^3/uL (1.3-2.9); LYMPHOCYTES % (AUTO) 18.2 % (21.0-51.0); MEAN CORPUSCULAR HEMOGLOBIN 25.9 pg (27.0-34.0); MEAN CORPUSCULAR HGB CONC 32.1 g/dL (33.0-35.0); MEAN CORPUSCULAR VOLUME 80.6 fL (80.0-100.0); MEAN PLATELET VOLUME 9.9 fL (7.4-11.0); MONOCYTES # (AUTO) 0.6 x10^3/uL (0.3-0.8); MONOCYTES % (AUTO) 5.3 % (0.0-13.0); NEUTROPHILS # (AUTO) 8.5 x10^3/uL (2.2-4.8); NEUTROPHILS % (AUTO) 71.6 % (42.0-75.0); PLATELET COUNT 250 X10^3/uL (150.0-450.0); RED CELL DISTRIBUTION WIDTH 17.2 % (11.6-16.5); WHITE BLOOD COUNT 11.9 X10^3/uL (3.6-10.0)
[2024-10-06 05:41] LABS: POTASSIUM 4.2 mmol/L (3.5-5.1)
[2024-10-06 05:56] LABS: ALBUMIN 2.5 g/dL (3.4-5.0); CALCIUM 8.7 mg/dL (8.5-10.1); CARBON DIOXIDE 21.3 mmol/L (21-32); COR CA(FOR HYPOALB) 9.9 mg/dL (8.5-10.1); CREATININE 2.96 mg/dL (0.70-1.30); MAGNESIUM 1.6 mg/dL (2.0-2.9); TOTAL PROTEIN 6.8 g/dL (6.4-8.2)
[2024-10-06] MEDS ORDERED: TOPROL XL PO ONE (06:58)
[2024-10-06] MEDS ORDERED: CONSULT PHARMACY - POTASSIUM & MAGNESIUM XX SCH (07:00)
--- NOTE | 2024-10-06 07:35 | RAD ---
EXAMINATION:CHEST, 1 VIEWHISTORY:SHORTNESS OF BREATH ; HTN, DEMENTIA, CVA, GERD SX: ORTHO .COMPARISON STUDY:Chest x-ray 10/05/2024TECHNIQUE:Single portable AP view chestFINDINGS:Lungs are expanded. Patchy interstitial alveolar infiltrates mid and lower lung sullivan. [id number] cardiac silhouette enlargement. Slight pulmonary vascular congestion. Bones are intact.IMPRESSION:Bilateral pulmonary infiltrates. Cardiac silhouette enlargement.THIS IS AN ELECTRONICALLY VERIFIED FINAL REPORT10/06/2024 7:30 AM - Electronically signed by Tomeka Toscano MD
[2024-10-06] MEDS ORDERED: K-DUR TAB 20 MEQ PO SCH ×2 (09:00→10:00)
[2024-10-06] MEDS: POTASSIUM CHLORIDE LIQ PO SCH (09:25)
--- NOTE | 2024-10-06 09:57 | PCM.PROG ---
Progress Note Progress Note for Day of Date of Exam: 10/06/24 Subjective Subjective: Patient seen at bedside, no acute events overnight. His Hgb is 7.2 this morning. CXR showed pulmonary infiltrates and congestion. He has been getting IVF due to RENUKA on CKD. His renal function is slowly improving. Labs/imaging reviewed: -WBC 11.9, hemoglobin 7.2, platelets 250, sodium 140, potassium 4.2, creatinine 2.96, glucose 114 -Sputum: Harper species, staph haemolyticus. -Blood Cx neg Plan: DC fluids, give one dose IV lasix. Check BNP. Monitor BP and HR, continue metoprolol succinate 100 mg daily. Repeat H&H this afternoon. Wean O2 as tolerated. Replace Mag. Continue wound care as per nursing. PT/OT as tolerated. Continue IV antibiotics. Continue nebs prn. Monitor AM labs/imaging. Past Medical Family Social History Allergies: Allergies No Known Drug Allergies Allergy (Unknown, Verified 09/19/24 13:56) Onset Date: 12/19/2017 Vital Signs and I&O's Vital Signs: Vital Signs Temperature 97.6 F Temperature 97.3 F Pulse Rate 88 Pulse Rate 78 Pulse Rate 87 Respiratory Rate 22 Respiratory Rate 18 Blood Pressure 122/79 Blood Pressure 133/77 O2 Sat by Pulse Oximetry 95 O2 Sat by Pulse Oximetry 95 O2 Sat by Pulse Oximetry 99 O2 Sat by Pulse Oximetry 96 Intake and Output: Intake & Output 10/03/24 10/04/24 10/05/24 10/06/24 23:59 23:59 23:59 23:59 Intake Total 3313 / 3313 3048 / 3048 3465 / 3465 360 / 360 Output Total 2300 / 2300 300 / 300 1150 / 1150 Balance 1013 / 1013 2748 / 2748 3465 / 3465 -790 / -790 Physical Exam Oriented: Unable to test Eyes: Normal Nose: Normal Throat: Normal Respiratory: Generalized, Rales and Rhonchi Cardiovascular: Normal and Edema Auscultation: Bowel Sounds: Normal Palpation: Normal Tenderness: Normal Skin: Decreased Turgur Musculoskeletal: Normal Psychiatric: Normal Mood Description: Calm Affect: Normal Speech Pattern: Unclear and Aphasic Laboratory and Diagnostics 10/06/24 05:15 10/06/24 05:15 Labs: 09/29/24 13:05 Blood Blood Culture - Final 09/29/24 12:46 Blood Blood Culture - Final 10/04/24 23:32 Stool - Final 09/30/24 19:48 Blood Blood Culture - Preliminary 09/30/24 19:28 Blood Blood Culture - Preliminary Laboratory WBC 11.9 X10^3/uL (3.6-10.0) H 10/06/24 05:15 RBC 2.80 X10^6/uL (4.7-6.0) L 10/06/24 05:15 Hgb 7.2 g/dL (13.5-18.0) L 10/06/24 05:15 Hct 22.6 % (42.0-54.0) L 10/06/24 05:15 MCV 80.6 fL (80.0-100.0) 10/06/24 05:15 MCH 25.9 pg (27.0-34.0) L 10/06/24 05:15 MCHC 32.1 g/dL (33.0-35.0) L 10/06/24 05:15 RDW 17.2 % (11.6-16.5) H 10/06/24 05:15 Plt Count 250 X10^3/uL (150.0-450.0) 10/06/24 05:15 Plt Count Comment Adequate (ADEQUATE) 10/01/24 05:34 MPV 9.9 fL (7.4-11.0) 10/06/24 05:15 Neut % (Auto) 71.6 % (42.0-75.0) 10/06/24 05:15 Lymph % (Auto) 18.2 % (21.0-51.0) L 10/06/24 05:15 [place] % (Auto) 5.3 % (0.0-13.0) 10/06/24 05:15 Eos % (Auto) 4.2 % (0.9-2.9) H 10/06/24 05:15 Baso % (Auto) 0.7 % (0.2-1.0) 10/06/24 05:15 Neut # (Auto) 8.5 x10^3/uL (2.2-4.8) H 10/06/24 05:15 Lymph # (Auto) 2.2 X10^3/uL (1.3-2.9) 10/06/24 05:15 [place] # (Auto) 0.6 x10^3/uL (0.3-0.8) 10/06/24 05:15 Eos # (Auto) 0.5 x10^3/uL (0.0-0.2) H 10/06/24 05:15 Baso # (Auto) 0.1 X10^3/uL (0.0-0.1) 10/06/24 05:15 Absolute Nucleated RBC 0.0 /100WBC 10/06/24 05:15 Total Counted 100 10/01/24 05:34 Neutrophils % (Manual) 83 % (39-76) H 10/01/24 05:34 Band Neutrophils % 1 % (0-10) 10/01/24 05:34 Lymphocytes % (Manual) 11 % (13-43) L 10/01/24 05:34 Monocytes % (Manual) 4 % (4-9) 10/01/24 05:34 Eosinophils % (Manual) 1 % (0-6) 10/01/24 05:34 Toxic Granulation 1+ noted 09/29/24 11:31 Plt Morphology Comment Normal (NORMAL) 10/01/24 05:34 RBC Morphology Abnormal (NORMAL) 10/01/24 05:34 Hypochromasia Slight A 10/01/24 05:34 Anisocytosis Slight A 10/01/24 05:34 Sample Site Lrad 09/29/24 15:29 ABG pH 7.420 (7.35-7.45) 09/29/24 15:29 ABG pCO2 28.0 mmHg (35.0-45.0) L 09/29/24 15:29 ABG pO2 92.0 mmHg (80.0-100.0) 09/29/24 15:29 ABG HCO3 18.2 mmol/L (22-26) L 09/29/24 15:29 ABG O2 Saturation 97.0 % (90-100) 09/29/24 15:29 ABG Base Excess -5.0 mmol/L (-2.0-2.0) L 09/29/24 15:29 Pablo Test Pos 09/29/24 15:29 A-a Gradient 230.0 mmHg 09/29/24 15:29 FiO2 50.0 09/29/24 15:29 Blood Gas Comments Katherine well ms 09/29/24 15:29 Sodium 140 mmol/L (136-145) 10/06/24 05:15 Corrected Sodium 140 mmol/L (136-145) 10/06/24 05:15 Potassium 4.2 mmol/L (3.5-5.1) 10/06/24 05:15 Chloride 106 mmol/L (98-107) 10/06/24 05:15 Carbon Dioxide 21.3 mmol/L (21-32) 10/06/24 05:15 BUN 30 mg/dL (7-18) H 10/06/24 05:15 Creatinine 2.96 mg/dL (0.70-1.30) H 10/06/24 05:15 Est GFR (MDRD) Af Amer 27 (>60) L 10/06/24 05:15 Est GFR (MDRD) Non-Af 22 (>60) L 10/06/24 05:15 Glucose 114 mg/dL (65-99) H 10/06/24 05:15 Lactic Acid 1.2 mmol/L (0.4-2.0) 09/29/24 12:46 Calcium 8.7 mg/dL (8.5-10.1) 10/06/24 05:15 Corrected Calcium 9.9 mg/dL (8.5-10.1) 10/06/24 05:15 Magnesium 1.6 mg/dL (2.0-2.9) L 10/06/24 05:15 Total Bilirubin 0.40 mg/dL (0.2-1.0) 10/06/24 05:15 AST 68 Units/L (15-37) H 10/06/24 05:15 ALT 54 Units/L (12-78) 10/06/24 05:15 Alkaline Phosphatase 107 Units/L (46-116) 10/06/24 05:15 Creatine Kinase 1140 Units/L (39-308) H 10/01/24 05:34 Troponin I High Sens 22.9 ng/L (4.0-60.0) 09/29/24 11:31 B-Natriuretic Peptide 465 pg/mL (0-79) H 10/06/24 05:15 Total Protein 6.8 g/dL (6.4-8.2) 10/06/24 05:15 Albumin 2.5 g/dL (3.4-5.0) L 10/06/24 05:15 Globulin 4.3 g/dL (2.5-4.5) 10/06/24 05:15 Albumin/Globulin Ratio 0.6 Ratio (1.1-2.1) L 10/06/24 05:15 Specimen Type Catherized urine 09/29/24 18:48 Urine Color Yellow (YELLOW) 09/29/24 18:48 Urine Appearance Cloudy (CLEAR) 09/29/24 18:48 Urine pH 6.0 (5.0 - 8.0) 09/29/24 18:48 Ur Specific [place] 1.025 (1.000-1.030) 09/29/24 18:48 Urine Protein 2+ (NEGATIVE) 09/29/24 18:48 Urine Glucose (UA) Negative (NEGATIVE) 09/29/24 18:48 Urine Ketones Negative (NEGATIVE) 09/29/24 18:48 Urine Blood 4+ (NEGATIVE) 09/29/24 18:48 Urine Nitrite Negative (NEGATIVE) 09/29/24 18:48 Urine Bilirubin Negative (NEGATIVE) 09/29/24 18:48 Urine Urobilinogen Normal (NORMAL) 09/29/24 18:48 Ur Leukocyte Esterase Negative (NEGATIVE) 09/29/24 18:48 Urine RBC 0-2 /HPF (0-3) 09/29/24 18:48 Urine WBC 0-2 /HPF (0-5) 09/29/24 18:48 Ur Squamous Epith Cells Rare /HPF (NEGATIVE) 09/29/24 18:48 Amorphous Sediment 4+ /HPF (NEGATIVE) 09/29/24 18:48 Urine Bacteria Trace /HPF (NEGATIVE) 09/29/24 18:48 Granular Casts Many /LPF (NEGATIVE) 09/29/24 18:48 Ur Culture Indicated? No/not indicated 09/29/24 18:48 Stl C. diff Tox B Gene Negative (NEGATIVE) 10/04/24 23:12 Stl C. diff [id number] Presumptive negative (NEGATIVE) 10/04/24 23:12 Resp Viral Panel (PCR) See scanned report 09/29/24 20:30 Plan (1) CHF exacerbation: Status: Acute Qualifiers: Heart failure type: unspecified Qualified Code(s): I50.9 - Heart failure, unspecified (2) Pneumonia: Status: Acute Qualifiers: Laterality: bilateral Lung location: unspecified part of lung Pneumonia type: due to unspecified organism Qualified Code(s): J18.9 - Pneu monia, unspecified organism (3) Acute dehydration: Status: Acute (4) Rhabdomyolysis: Status: Acute Qualifiers: Rhabdomyolysis type: non-traumatic Qualified Code(s): M62.82 - Rhabdomyolysis (5) UTI (urinary tract infection): Status: Acute Qualifiers: Hematuria presence: with hematuria Urinary tract infection type: site unspecified Qualified Code(s): N39.0 - Urinary tract infection, site not specified; R31.9 - Hematuria, unspecified (6) Hypokalemia: Status: Acute (7) Acute on chronic renal failure: Status: Acute Qualifiers: Acute renal failure type: unspecified Chronic kidney disease stage: unspecified stage Qualified Code(s): N17.9 - Acute kidney failure, unspecified; N18.9 - Chronic kidney disease, unspecified (8) Atrial fibrillation: Status: Chronic Qualifiers: Atrial fibrillation type: unspecified Qualified Code(s): I48.91 - Unspecified atrial fibrillation
[2024-10-06] MEDS ORDERED: MAG-OX TAB PO SCH (10:00)
[2024-10-06] MEDS: MAGNESIUM SULFATE 1 GRAM/100 mL PREMIX 1 G/100 ML BAG IV SCH (10:14)
[2024-10-06] MEDS: LASIX IVP NR (10:14)
[2024-10-06 14:27] LABS: HEMATOCRIT 24.1 % (42.0-54.0); HEMOGLOBIN 7.8 g/dL (13.5-18.0)
[2024-10-07 06:08] LABS: BASOPHILS # (AUTO) 0.1 X10^3/uL (0.0-0.1); BASOPHILS % (AUTO) 0.6 % (0.2-1.0); EOSINOPHILS # (AUTO) 0.5 x10^3/uL (0.0-0.2); EOSINOPHILS % (AUTO) 4.2 % (0.9-2.9); HEMOGLOBIN 7.8 g/dL (13.5-18.0); LYMPHOCYTES # (AUTO) 2.4 X10^3/uL (1.3-2.9); LYMPHOCYTES % (AUTO) 21.8 % (21.0-51.0); MEAN CORPUSCULAR HEMOGLOBIN 25.9 pg (27.0-34.0); MEAN CORPUSCULAR HGB CONC 32.3 g/dL (33.0-35.0); MEAN CORPUSCULAR VOLUME 80.1 fL (80.0-100.0); MEAN PLATELET VOLUME 9.6 fL (7.4-11.0); MONOCYTES # (AUTO) 0.6 x10^3/uL (0.3-0.8); MONOCYTES % (AUTO) 5.2 % (0.0-13.0); NEUTROPHILS # (AUTO) 7.6 x10^3/uL (2.2-4.8); NEUTROPHILS % (AUTO) 68.2 % (42.0-75.0); PLATELET COUNT 266 X10^3/uL (150.0-450.0); RED BLOOD COUNT 2.99 X10^6/uL (4.7-6.0); WHITE BLOOD COUNT 11.1 X10^3/uL (3.6-10.0)
[2024-10-07 06:37] LABS: ALBUMIN 2.8 g/dL (3.4-5.0); CALCIUM 9.1 mg/dL (8.5-10.1); CARBON DIOXIDE 25.6 mmol/L (21-32); COR CA(FOR HYPOALB) 10.1 mg/dL (8.5-10.1); CREATININE 2.87 mg/dL (0.70-1.30); TOTAL PROTEIN 7.2 g/dL (6.4-8.2)
[2024-10-07] MEDS: TOPROL XL PO ONE (09:43)
--- NOTE | 2024-10-07 10:46 | PCM.PROG ---
Progress Note Progress Note for Day of Date of Exam: 10/07/24 Subjective Subjective: Patient seen at bedside, no acute events overnight. His Hgb is 7.8 this morning. His renal function is improving slowly. He did get IV lasix yesterday. Labs/imaging reviewed: -WBC 11.1, hemoglobin 7.8, platelets 266, sodium 140, potassium 4.0, creatinine 2.87, glucose 126 -Sputum: Harper species, staph haemolyticus. -Blood Cx neg Plan: Transfuse 2 units PRBCs, monitor H&H. Continue IV lasix 20mg, monitor I&Os, UOP. Repeat CXR. Monitor BP and HR, continue metoprolol succinate 100 mg daily. Wean O2 as tolerated. Replace Mag. Continue wound care as per nursing. PT/OT as tolerated. Continue IV antibiotics. Continue nebs prn. Monitor AM labs/imaging. Past Medical Family Social History Allergies: Allergies No Known Drug Allergies Allergy (Unknown, Verified 09/19/24 13:56) Onset Date: 12/19/2017 Vital Signs and I&O's Vital Signs: Vital Signs Temperature 98.3 F Temperature 98.3 F Pulse Rate 88 Pulse Rate 79 Pulse Rate 79 Respiratory Rate 19 Respiratory Rate 19 Blood Pressure 126/77 Blood Pressure 138/76 O2 Sat by Pulse Oximetry 95 O2 Sat by Pulse Oximetry 94 O2 Sat by Pulse Oximetry 96 O2 Sat by Pulse Oximetry 96 Intake and Output: Intake & Output 10/04/24 10/05/24 10/06/24 10/07/24 23:59 23:59 23:59 23:59 Intake Total 3048 / 3048 3465 / 3465 2697 / 2697 50 / 50 Output Total 300 / 300 2800 / 2800 Balance 2748 / 2748 3465 / 3465 -103 / -103 50 / 50 Physical Exam Oriented: Unable to test Eyes: Normal Nose: Normal Throat: Normal Respiratory: Generalized, Rales and Rhonchi Cardiovascular: Normal and Edema Auscultation: Bowel Sounds: Normal Palpation: Normal Tenderness: Normal Skin: Decreased Turgur Musculoskeletal: Normal Psychiatric: Normal Mood Description: Calm Affect: Normal Speech Pattern: Unclear Laboratory and Diagnostics 10/07/24 05:41 10/07/24 05:41 Labs: 10/04/24 23:32 Stool Stool Culture - Final 10/04/24 23:32 Stool - Final 09/30/24 19:48 Blood Blood Culture - Final 09/30/24 19:28 Blood Blood Culture - Final 09/29/24 13:05 Blood Blood Culture - Final 09/29/24 12:46 Blood Blood Culture - Final Laboratory WBC 11.1 X10^3/uL (3.6-10.0) H 10/07/24 05:41 RBC 2.99 X10^6/uL (4.7-6.0) L 10/07/24 05:41 Hgb 7.8 g/dL (13.5-18.0) L 10/07/24 05:41 Hct 24.0 % (42.0-54.0) L 10/07/24 05:41 MCV 80.1 fL (80.0-100.0) 10/07/24 05:41 MCH 25.9 pg (27.0-34.0) L 10/07/24 05:41 MCHC 32.3 g/dL (33.0-35.0) L 10/07/24 05:41 RDW 17.0 % (11.6-16.5) H 10/07/24 05:41 Plt Count 266 X10^3/uL (150.0-450.0) 10/07/24 05:41 Plt Count Comment Adequate (ADEQUATE) 10/01/24 05:34 MPV 9.6 fL (7.4-11.0) 10/07/24 05:41 Neut % (Auto) 68.2 % (42.0-75.0) 10/07/24 05:41 Lymph % (Auto) 21.8 % (21.0-51.0) 10/07/24 05:41 [place] % (Auto) 5.2 % (0.0-13.0) 10/07/24 05:41 Eos % (Auto) 4.2 % (0.9-2.9) H 10/07/24 05:41 Baso % (Auto) 0.6 % (0.2-1.0) 10/07/24 05:41 Neut # (Auto) 7.6 x10^3/uL (2.2-4.8) H 10/07/24 05:41 Lymph # (Auto) 2.4 X10^3/uL (1.3-2.9) 10/07/24 05:41 [place] # (Auto) 0.6 x10^3/uL (0.3-0.8) 10/07/24 05:41 Eos # (Auto) 0.5 x10^3/uL (0.0-0.2) H 10/07/24 05:41 Baso # (Auto) 0.1 X10^3/uL (0.0-0.1) 10/07/24 05:41 Absolute Nucleated RBC 0.1 /100WBC 10/07/24 05:41 Total Counted 100 10/01/24 05:34 Neutrophils % (Manual) 83 % (39-76) H 10/01/24 05:34 Band Neutrophils % 1 % (0-10) 10/01/24 05:34 Lymphocytes % (Manual) 11 % (13-43) L 10/01/24 05:34 Monocytes % (Manual) 4 % (4-9) 10/01/24 05:34 Eosinophils % (Manual) 1 % (0-6) 10/01/24 05:34 Toxic Granulation 1+ noted 09/29/24 11:31 Plt Morphology Comment Normal (NORMAL) 10/01/24 05:34 RBC Morphology Abnormal (NORMAL) 10/01/24 05:34 Hypochromasia Slight A 10/01/24 05:34 Anisocytosis Slight A 10/01/24 05:34 Sample Site Lrad 09/29/24 15:29 ABG pH 7.420 (7.35-7.45) 09/29/24 15:29 ABG pCO2 28.0 mmHg (35.0-45.0) L 09/29/24 15:29 ABG pO2 92.0 mmHg (80.0-100.0) 09/29/24 15:29 ABG HCO3 18.2 mmol/L (22-26) L 09/29/24 15:29 ABG O2 Saturation 97.0 % (90-100) 09/29/24 15:29 ABG Base Excess -5.0 mmol/L (-2.0-2.0) L 09/29/24 15:29 Pablo Test Pos 09/29/24 15:29 A-a Gradient 230.0 mmHg 09/29/24 15:29 FiO2 50.0 09/29/24 15:29 Blood Gas Comments Katherine well ms 09/29/24 15:29 Sodium 140 mmol/L (136-145) 10/07/24 05:41 Corrected Sodium 141 mmol/L (136-145) 10/07/24 05:41 Potassium 4.0 mmol/L (3.5-5.1) 10/07/24 05:41 Chloride 103 mmol/L (98-107) 10/07/24 05:41 Carbon Dioxide 25.6 mmol/L (21-32) 10/07/24 05:41 BUN 30 mg/dL (7-18) H 10/07/24 05:41 Creatinine 2.87 mg/dL (0.70-1.30) H 10/07/24 05:41 Est GFR (MDRD) Af Amer 28 (>60) L 10/07/24 05:41 Est GFR (MDRD) Non-Af 23 (>60) L 10/07/24 05:41 Glucose 126 mg/dL (65-99) H 10/07/24 05:41 Lactic Acid 1.2 mmol/L (0.4-2.0) 09/29/24 12:46 Calcium 9.1 mg/dL (8.5-10.1) 10/07/24 05:41 Corrected Calcium 10.1 mg/dL (8.5-10.1) 10/07/24 05:41 Magnesium 2.0 mg/dL (2.0-2.9) 10/07/24 05:41 Total Bilirubin 0.40 mg/dL (0.2-1.0) 10/07/24 05:41 AST 66 Units/L (15-37) H 10/07/24 05:41 ALT 54 Units/L (12-78) 10/07/24 05:41 Alkaline Phosphatase 104 Units/L (46-116) 10/07/24 05:41 Creatine Kinase 1140 Units/L (39-308) H 10/01/24 05:34 Troponin I High Sens 22.9 ng/L (4.0-60.0) 09/29/24 11:31 B-Natriuretic Peptide 465 pg/mL (0-79) H 10/06/24 05:15 Total Protein 7.2 g/dL (6.4-8.2) 10/07/24 05:41 Albumin 2.8 g/dL (3.4-5.0) L 10/07/24 05:41 Globulin 4.4 g/dL (2.5-4.5) 10/07/24 05:41 Albumin/Globulin Ratio 0.6 Ratio (1.1-2.1) L 10/07/24 05:41 Specimen Type Catherized urine 09/29/24 18:48 Urine Color Yellow (YELLOW) 09/29/24 18:48 Urine Appearance Cloudy (CLEAR) 09/29/24 18:48 Urine pH 6.0 (5.0 - 8.0) 09/29/24 18:[address] [place] [address] 1.025 (1.000-1.030) 09/29/24 18:48 Urine Protein 2+ (NEGATIVE) 09/29/24 18:48 Urine Glucose (UA) Negative (NEGATIVE) 09/29/24 18:48 Urine Ketones Negative (NEGATIVE) 09/29/24 18:48 Urine Blood 4+ (NEGATIVE) 09/29/24 18:48 Urine Nitrite Negative (NEGATIVE) 09/29/24 18:48 Urine Bilirubin Negative (NEGATIVE) 09/29/24 18:48 Urine Urobilinogen Normal (NORMAL) 09/29/24 18:48 Ur Leukocyte Esterase Negative (NEGATIVE) 09/29/24 18:48 Urine RBC 0-2 /HPF (0-3) 09/29/24 18:48 Urine WBC 0-2 /HPF (0-5) 09/29/24 18:48 Ur Squamous Epith Cells Rare /HPF (NEGATIVE) 09/29/24 18:48 Amorphous Sediment 4+ /HPF (NEGATIVE) 09/29/24 18:48 Urine Bacteria Trace /HPF (NEGATIVE) 09/29/24 18:48 Granular Casts Many /LPF (NEGATIVE) 09/29/24 18:48 Ur Culture Indicated? No/not indicated 09/29/24 18:48 Stl C. diff Tox B Gene Negative (NEGATIVE) 10/04/24 23:12 Stl C. diff [id number] Presumptive negative (NEGATIVE) 10/04/24 23:12 Resp Viral Panel (PCR) See scanned report 09/29/24 20:30 Plan (1) Anemia: Status: Acute Qualifiers: Anemia type: unspecified type Qualified Code(s): D64.9 - Anemia, unspecified (2) CHF exacerbation: Status: Acute Qualifiers: Heart failure type: unspecified Qualified Code(s): I50.9 - Heart failure, unspecified (3) Pneumonia: Status: Acute Qualifiers: Pneumonia type: due to unspecified organism Laterality: bilateral Lung location: unspecified part of lung Qualified Code(s): J18.9 - Pneumonia, unspecified organism (4) Acute dehydration: Status: Acute (5) UTI (urinary tract infection): Status: Acute Qualifiers: Hematuria presence: with hematuria Urinary tract infection type: site unspecified Qualified Code(s): N39.0 - Urinary tract infection, site not specified; R31.9 - Hematuria, unspecified (6) Hypokalemia: Status: Acute (7) Acute on chronic renal failure: Status: Acute Qualifiers: Acute renal failure type: unspecified Chronic kidney disease stage: unspecified stage Qualified Code(s): N17.9 - Acute kidney failure, unspecified; N18.9 - Chronic kidney disease, unspecified (8) Atrial fibrillation: Status: Chronic Qualifiers: Atrial fibrillation type: unspecified Qualified Code(s): I48.91 - Unspecified atrial fibrillation
[2024-10-07] MEDS: LASIX IVP SCH (11:41)
--- NOTE | 2024-10-07 14:38 | RAD ---
EXAM:CHEST, 1 VIEWHISTORY:F/ U PNA;COMPARISON:Prior study or studies were utilized for comparison during interpretation with the most relevant dated 10/06/2024TECHNIQUE:CHEST, 1 VIEWFINDINGS:Chest:Lines and tubes: Cardiac leads overlie the chest.Mediastinum: Cardiac and mediastinal shadow is within normal limits for size and contour.Pulmonary vessels: No pulmonary vascular congestion.Lung sullivan: Patchy opacities are seen without significant change from yesterdayPleura: There is blunting of the left costophrenic angle. No pneumothorax.Bones and soft tissues: No acute osseous or soft tissue abnormality.IMPRESSION:1. No change to airspace opacities from yesterday2. Trace left pleural effusionTHIS IS AN ELECTRONICALLY VERIFIED FINAL REPORT10/07/2024 2:34 PM - Electronically signed by Stevenson Latham MD
[2024-10-07] MEDS ORDERED: NS 1,000 ML IV 1,000 ML ONE (14:39)
[2024-10-07] MEDS: NS 500 ML IV 500 ML IV ONE (21:45)
[2024-10-08 01:57] LABS: HEMATOCRIT 28.9 % (42.0-54.0); HEMOGLOBIN 9.8 g/dL (13.5-18.0)
[2024-10-08 06:30] LABS: BASOPHILS # (AUTO) 0.1 X10^3/uL (0.0-0.1); BASOPHILS % (AUTO) 0.9 % (0.2-1.0); EOSINOPHILS # (AUTO) 0.3 x10^3/uL (0.0-0.2); EOSINOPHILS % (AUTO) 3.5 % (0.9-2.9); HEMOGLOBIN 10.3 g/dL (13.5-18.0); LYMPHOCYTES # (AUTO) 2.2 X10^3/uL (1.3-2.9); LYMPHOCYTES % (AUTO) 23.1 % (21.0-51.0); MEAN CORPUSCULAR HEMOGLOBIN 27.2 pg (27.0-34.0); MEAN CORPUSCULAR HGB CONC 33.2 g/dL (33.0-35.0); MEAN PLATELET VOLUME 9.3 fL (7.4-11.0); MONOCYTES # (AUTO) 0.6 x10^3/uL (0.3-0.8); MONOCYTES % (AUTO) 5.8 % (0.0-13.0); NEUTROPHILS # (AUTO) 6.5 x10^3/uL (2.2-4.8); NEUTROPHILS % (AUTO) 66.7 % (42.0-75.0); PLATELET COUNT 261 X10^3/uL (150.0-450.0); RED BLOOD COUNT 3.78 X10^6/uL (4.7-6.0); RED CELL DISTRIBUTION WIDTH 17.5 % (11.6-16.5); WHITE BLOOD COUNT 9.7 X10^3/uL (3.6-10.0)
[2024-10-08 06:42] LABS: ALANINE AMINOTRANSFERASE 56 Units/L (12-78); ALBUMIN 3.1 g/dL (3.4-5.0); ALKALINE PHOSPHATASE 102 Units/L (46-116); ASPARTATE AMINO TRANSFERASE 58 Units/L (15-37); BLOOD UREA NITROGEN 28 mg/dL (7-18); CALCIUM 9.6 mg/dL (8.5-10.1); CARBON DIOXIDE 26.6 mmol/L (21-32); CHLORIDE 101 mmol/L (98-107); COR CA(FOR HYPOALB) 10.3 mg/dL (8.5-10.1); GLUCOSE 109 mg/dL (65-99); POTASSIUM 3.7 mmol/L (3.5-5.1); SODIUM 138 mmol/L (136-145); TOTAL PROTEIN 7.7 g/dL (6.4-8.2); eGFR NON BLACK RACES 25 (>60)
--- NOTE | 2024-10-08 07:51 | RAD ---
EXAMINATION:CHEST, 1 VIEWHISTORY:PNEUMONIA ; HTN, DEMENTIA, ANEMIA, CVA, GERD SX: ORTHO .COMPARISON STUDY:Chest x-ray 10/07/2024TECHNIQUE:Single portable AP view chestFINDINGS:Lungs are expanded. Opacity obscures the left hemidiaphragm and CP angle. Moderate cardiac silhouette enlargement. Normal pulmonary vascular pattern. Bones are intact.IMPRESSION:Moderate cardiac silhouette enlargement. Opacity obscuring the left pulmonary base/hemidiaphragm and CP angle.THIS IS AN ELECTRONICALLY VERIFIED FINAL REPORT10/08/2024 7:47 AM - Electronically signed by Tomeka Toscano MD
[2024-10-08] MEDS: TOPROL XL PO ONE (09:24)
--- NOTE | 2024-10-08 10:58 | PCM.PROG ---
Progress Note Progress Note for Day of Date of Exam: 10/08/24 Subjective Subjective: Patient seen at bedside, no acute events overnight. He received 2 units PRBCs yesterday, hgb today 10.3. His renal function is improving. Labs/imaging reviewed: -WBC 9.7, hemoglobin 10.3, platelets 261, sodium 138, potassium 3.7 creatinine 2.70, glucose 109 -Sputum: Harper species, staph haemolyticus. -Blood Cx neg -CXR: left opacity Plan: Continue IV lasix 20mg, monitor I&Os, UOP. Monitor BP and HR, continue metoprolol succinate 100 mg daily. Wean O2 as tolerated. Continue nebs. Replace Mag. Continue wound care as per nursing. PT/OT as tolerated. Continue IV antibiotics. Will stop Zyvox tomorrow. Continue nebs prn. Monitor AM labs/imaging. Possible discharge to [facility] in a couple days. Past Medical Family Social History Allergies: Allergies No Known Drug Allergies Allergy (Unknown, Verified 09/19/24 13:56) Onset Date: 12/19/2017 Vital Signs and I&O's Vital Signs: Vital Signs Temperature 98.6 F Pulse Rate 95 Pulse Rate 97 Respiratory Rate 18 Respiratory Rate 18 Blood Pressure 126/96 O2 Sat by Pulse Oximetry 96 O2 Sat by Pulse Oximetry 96 Intake and Output: Intake & Output 10/05/24 10/06/24 10/07/24 10/08/24 23:59 23:59 23:59 23:59 Intake Total 3465 / 3465 2697 / 2697 825 / 825 370 / 370 Output Total 2800 / 2800 Balance 3465 / 3465 -103 / -103 825 / 825 370 / 370 Physical Exam Oriented: Unable to test Eyes: Normal Nose: Normal Throat: Normal Respiratory: Generalized and Rhonchi Cardiovascular: Normal and Edema (improved ) Auscultation: Bowel Sounds: Normal Palpation: Normal Tenderness: Normal Skin: Decreased Turgur Musculoskeletal: Normal Psychiatric: Normal Mood Description: Calm Affect: Normal Speech Pattern: Unclear Laboratory and Diagnostics 10/08/24 05:36 10/08/24 05:36 Labs: 10/04/24 23:32 Stool Stool Culture - Final 10/04/24 23:32 Stool - Final 09/30/24 19:48 Blood Blood Culture - Final 09/30/24 19:28 Blood Blood Culture - Final 09/29/24 13:05 Blood Blood Culture - Final 09/29/24 12:46 Blood Blood Culture - Final Laboratory WBC 9.7 X10^3/uL (3.6-10.0) 10/08/24 05:36 RBC 3.78 X10^6/uL (4.7-6.0) L 10/08/24 05:36 Hgb 10.3 g/dL (13.5-18.0) L 10/08/24 05:36 Hct 31.0 % (42.0-54.0) L 10/08/24 05:36 MCV 82.0 fL (80.0-100.0) 10/08/24 05:36 MCH 27.2 pg (27.0-34.0) 10/08/24 05:36 MCHC 33.2 g/dL (33.0-35.0) 10/08/24 05:36 RDW 17.5 % (11.6-16.5) H 10/08/24 05:36 Plt Count 261 X10^3/uL (150.0-450.0) 10/08/24 05:36 Plt Count Comment Adequate (ADEQUATE) 10/01/24 05:34 MPV 9.3 fL (7.4-11.0) 10/08/24 05:36 Neut % (Auto) 66.7 % (42.0-75.0) 10/08/24 05:36 Lymph % (Auto) 23.1 % (21.0-51.0) 10/08/24 05:36 [place] % (Auto) 5.8 % (0.0-13.0) 10/08/24 05:36 Eos % (Auto) 3.5 % (0.9-2.9) H 10/08/24 05:36 Baso % (Auto) 0.9 % (0.2-1.0) 10/08/24 05:36 Neut # (Auto) 6.5 x10^3/uL (2.2-4.8) H 10/08/24 05:36 Lymph # (Auto) 2.2 X10^3/uL (1.3-2.9) 10/08/24 05:36 [place] # (Auto) 0.6 x10^3/uL (0.3-0.8) 10/08/24 05:36 Eos # (Auto) 0.3 x10^3/uL (0.0-0.2) H 10/08/24 05:36 Baso # (Auto) 0.1 X10^3/uL (0.0-0.1) 10/08/24 05:36 Absolute Nucleated RBC 0.1 /100WBC 10/08/24 05:36 Total Counted 100 10/01/24 05:34 Neutrophils % (Manual) 83 % (39-76) H 10/01/24 05:34 Band Neutrophils % 1 % (0-10) 10/01/24 05:34 Lymphocytes % (Manual) 11 % (13-43) L 10/01/24 05:34 Monocytes % (Manual) 4 % (4-9) 10/01/24 05:34 Eosinophils % (Manual) 1 % (0-6) 10/01/24 05:34 Toxic Granulation 1+ noted 09/29/24 11:31 Plt Morphology Comment Normal (NORMAL) 10/01/24 05:34 RBC Morphology Abnormal (NORMAL) 10/01/24 05:34 Hypochromasia Slight A 10/01/24 05:34 Anisocytosis Slight A 10/01/24 05:34 Sample Site Lrad 09/29/24 15:29 ABG pH 7.420 (7.35-7.45) 09/29/24 15:29 ABG pCO2 28.0 mmHg (35.0-45.0) L 09/29/24 15:29 ABG pO2 92.0 mmHg (80.0-100.0) 09/29/24 15:29 ABG HCO3 18.2 mmol/L (22-26) L 09/29/24 15:29 ABG O2 Saturation 97.0 % (90-100) 09/29/24 15:29 ABG Base Excess -5.0 mmol/L (-2.0-2.0) L 09/29/24 15:29 Pablo Test Pos 09/29/24 15:29 A-a Gradient 230.0 mmHg 09/29/24 15:29 FiO2 50.0 09/29/24 15:29 Blood Gas Comments Katherine well ms 09/29/24 15:29 Sodium 138 mmol/L (136-145) 10/08/24 05:36 Corrected Sodium TNP 10/08/24 05:36 Potassium 3.7 mmol/L (3.5-5.1) 10/08/24 05:36 Chloride 101 mmol/L (98-107) 10/08/24 05:36 Carbon Dioxide 26.6 mmol/L (21-32) 10/08/24 05:36 BUN 28 mg/dL (7-18) H 10/08/24 05:36 Creatinine 2.70 mg/dL (0.70-1.30) H 10/08/24 05:36 Est GFR (MDRD) Af Amer 30 (>60) L 10/08/24 05:36 Est GFR (MDRD) Non-Af 25 (>60) L 10/08/24 05:36 Glucose 109 mg/dL (65-99) H 10/08/24 05:36 Lactic Acid 1.2 mmol/L (0.4-2.0) 09/29/24 12:46 Calcium 9.6 mg/dL (8.5-10.1) 10/08/24 05:36 Corrected Calcium 10.3 mg/dL (8.5-10.1) H 10/08/24 05:36 Magnesium 2.0 mg/dL (2.0-2.9) 10/07/24 05:41 Total Bilirubin 0.80 mg/dL (0.2-1.0) 10/08/24 05:36 AST 58 Units/L (15-37) H 10/08/24 05:36 ALT 56 Units/L (12-78) 10/08/24 05:36 Alkaline Phosphatase 102 Units/L (46-116) 10/08/24 05:36 Creatine Kinase 1140 Units/L (39-308) H 10/01/24 05:34 Troponin I High Sens 22.9 ng/L (4.0-60.0) 09/29/24 11:31 B-Natriuretic Peptide 465 pg/mL (0-79) H 10/06/24 05:15 Total Protein 7.7 g/dL (6.4-8.2) 10/08/24 05:36 Albumin 3.1 g/dL (3.4-5.0) L 10/08/24 05:36 Globulin 4.6 g/dL (2.5-4.5) H 10/08/24 05:36 Albumin/Globulin Ratio 0.7 Ratio (1.1-2.1) L 10/08/24 05:36 Specimen Type Catherized urine 09/29/24 18:48 Urine Color Yellow (YELLOW) 09/29/24 18:48 Urine Appearance Cloudy (CLEAR) 09/29/24 18:48 Urine pH 6.0 (5.0 - 8.0) 09/29/24 18:48 Ur Specific [place] 1.025 (1.000-1.030) 09/29/24 18:48 Urine Protein 2+ (NEGATIVE) 09/29/24 18:48 Urine Glucose (UA) Negative (NEGATIVE) 09/29/24 18:48 Urine Ketones Negative (NEGATIVE) 09/29/24 18:48 Urine Blood 4+ (NEGATIVE) 09/29/24 18:48 Urine Nitrite Negative (NEGATIVE) 09/29/24 18:48 Urine Bilirubin Negative (NEGATIVE) 09/29/24 18:48 Urine Urobilinogen Normal (NORMAL) 09/29/24 18:48 Ur Leukocyte Esterase Negative (NEGATIVE) 09/29/24 18:48 Urine RBC 0-2 /HPF (0-3) 09/29/24 18:48 Urine WBC 0-2 /HPF (0-5) 09/29/24 18:48 Ur Squamous Epith Cells Rare /HPF (NEGATIVE) 09/29/24 18:48 Amorphous Sediment 4+ /HPF (NEGATIVE) 09/29/24 18:48 Urine Bacteria Trace /HPF (NEGATIVE) 09/29/24 18:48 Granular Casts Many /LPF (NEGATIVE) 09/29/24 18:48 Ur Culture Indicated? No/not indicated 09/29/24 18:48 Stl C. diff Tox B Gene Negative (NEGATIVE) 10/04/24 23:12 Stl C. diff [id number] Presumptive negative (NEGATIVE) 10/04/24 23:12 Resp Viral Panel (PCR) See scanned report 09/29/24 20:30 Blood Type O POSITIVE 10/07/24 10:53 Antibody Screen Negative 10/07/24 10:53 Crossmatch See Detail 10/07/24 10:53 Plan (1) Anemia: Status: Acute Qualifiers: Anemia type: unspecified type Qualified Code(s): D64.9 - Anemia, unspecified (2) CHF exacerbation: Status: Acute Qualifiers: Heart failure type: unspecified Qualified Code(s): I50.9 - Heart failure, unspecified (3) Pneumonia: Status: Acute Qualifiers: Laterality: bilateral Lung location: unspecified part of lung Pneumonia type: due to unspecified organism Qualified Code(s): J18.9 - Pneumonia, unspecified organism (4) Acute dehydration: Status: Acute (5) UTI (urinary tract infection): Status: Acute Qualifiers: Hematuria presence: with hematuria Urinary tract infection type: site unspecified Qualified Code(s): N39.0 - Urinary tract infection, site not specified; R31.9 - Hematuria, unspecified (6) Hypokalemia: Status: Acute (7) Acute on chronic renal failure: Status: Acute Qualifiers: Acute renal failure type: unspecified Chronic kidney disease stage: unspecified stage Qualified Code(s): N17.9 - Acute kidney failure, unspecified; N18.9 - Chronic kidney disease, unspecified (8) Atrial fibrillation: Status: Chronic Qualifiers: Atrial fibrillation type: unspecified Qualified Code(s): I48.91 - Unspecified atrial fibrillation
[2024-10-09 05:56] LABS: HEMOGLOBIN 10.8 g/dL (13.5-18.0)
[2024-10-09 06:02] LABS: BASOPHILS % (AUTO) 0.5 % (0.2-1.0); EOSINOPHILS # (AUTO) 0.3 x10^3/uL (0.0-0.2); EOSINOPHILS % (AUTO) 3.3 % (0.9-2.9); HEMATOCRIT 32.5 % (42.0-54.0); LYMPHOCYTES # (AUTO) 1.8 X10^3/uL (1.3-2.9); LYMPHOCYTES % (AUTO) 20.7 % (21.0-51.0); MEAN CORPUSCULAR HEMOGLOBIN 27.3 pg (27.0-34.0); MEAN CORPUSCULAR HGB CONC 33.3 g/dL (33.0-35.0); MEAN CORPUSCULAR VOLUME 81.8 fL (80.0-100.0); MEAN PLATELET VOLUME 9.1 fL (7.4-11.0); MONOCYTES # (AUTO) 0.6 x10^3/uL (0.3-0.8); MONOCYTES % (AUTO) 6.7 % (0.0-13.0); NEUTROPHILS % (AUTO) 68.8 % (42.0-75.0); PLATELET COUNT 252 X10^3/uL (150.0-450.0); RED BLOOD COUNT 3.97 X10^6/uL (4.7-6.0); RED CELL DISTRIBUTION WIDTH 16.9 % (11.6-16.5); WHITE BLOOD COUNT 8.7 X10^3/uL (3.6-10.0)
[2024-10-09 06:12] LABS: ALANINE AMINOTRANSFERASE 48 Units/L (12-78); ALBUMIN 3.4 g/dL (3.4-5.0); ALKALINE PHOSPHATASE 101 Units/L (46-116); ASPARTATE AMINO TRANSFERASE 40 Units/L (15-37); BLOOD UREA NITROGEN 26 mg/dL (7-18); CALCIUM 9.7 mg/dL (8.5-10.1); CARBON DIOXIDE 26.5 mmol/L (21-32); CHLORIDE 100 mmol/L (98-107); COR NA(FOR HYPERGLY) 138 mmol/L (136-145); CREATININE 2.47 mg/dL (0.70-1.30); GLUCOSE 114 mg/dL (65-99); POTASSIUM 3.5 mmol/L (3.5-5.1); SODIUM 138 mmol/L (136-145); TOTAL PROTEIN 8.2 g/dL (6.4-8.2); eGFR NON BLACK RACES 28 (>60)
[2024-10-09] MEDS ORDERED: TOPROL XL PO ONE (09:12)
--- NOTE | 2024-10-09 10:33 | PCM.PROG ---
Progress Note Progress Note for Day of Date of Exam: 10/09/24 Subjective Subjective: Patient is resting in bed this morning. No acute events overnight. His renal function continues to improve. His hemoglobin has remained stable. Labs/imaging reviewed: -WBC 8.7, hemoglobin 10.8, platelets 252, sodium 138, potassium 3.5, creatinine 2.47, glucose 114. -Sputum: Harper species, staph haemolyticus. -Blood Cx neg Plan: Continue IV lasix 20mg, monitor I&Os, UOP. Monitor BP and HR, continue metoprolol succinate 100 mg daily. Wean O2 as tolerated. Continue nebs. Replace Mag. Continue wound care as per nursing. PT/OT as tolerated. Continue IV antibiotics. Will stop Zyvox tomorrow. Continue nebs prn. Monitor AM labs/imaging. Possible discharge to [facility] tomorrow. Past Medical Family Social History Allergies: Allergies No Known Drug Allergies Allergy (Unknown, Verified 09/19/24 13:56) Onset Date: 12/19/2017 Review of Systems ROS changes noted: see HPI Vital Signs and I&O's Vital Signs: Vital Signs Temperature 99.1 F Pulse Rate 93 Pulse Rate 93 Pulse Rate 100 Respiratory Rate 20 Respiratory Rate 20 Blood Pressure 137/90 O2 Sat by Pulse Oximetry 94 O2 Sat by Pulse Oximetry 97 O2 Sat by Pulse Oximetry 98 Intake and Output: Intake & Output 10/06/24 10/07/24 10/08/24 10/09/24 23:59 23:59 23:59 23:59 Intake Total 2697 / 2697 825 / 825 1220 / 1220 210 / 210 Output Total 2800 / 2800 Balance -103 / -103 825 / 825 1220 / 1220 210 / 210 Physical Exam Oriented: Unable to test Eyes: Normal Nose: Normal Throat: Normal Respiratory: Generalized and Rhonchi Cardiovascular: Normal and Edema (improved ) Auscultation: Bowel Sounds: Normal Tenderness: Normal Skin: Decreased Turgur Musculoskeletal: Normal Psychiatric: Normal Mood Description: Calm Affect: Normal Speech Pattern: Unclear Laboratory and Diagnostics 10/09/24 05:25 10/09/24 05:25 Labs: 10/04/24 23:32 Stool Stool Culture - Final 10/04/24 23:32 Stool - Final 09/30/24 19:48 Blood Blood Culture - Final 09/30/24 19:28 Blood Blood Culture - Final 09/29/24 13:05 Blood Blood Culture - Final 09/29/24 12:46 Blood Blood Culture - Final Laboratory WBC 8.7 X10^3/uL (3.6-10.0) 10/09/24 05:25 RBC 3.97 X10^6/uL (4.7-6.0) L 10/09/24 05:25 Hgb 10.8 g/dL (13.5-18.0) L 10/09/24 05:25 Hct 32.5 % (42.0-54.0) L 10/09/24 05:25 MCV 81.8 fL (80.0-100.0) 10/09/24 05:25 MCH 27.3 pg (27.0-34.0) 10/09/24 05:25 MCHC 33.3 g/dL (33.0-35.0) 10/09/24 05:25 RDW 16.9 % (11.6-16.5) H 10/09/24 05:25 Plt Count 252 X10^3/uL (150.0-450.0) 10/09/24 05:25 Plt Count Comment Adequate (ADEQUATE) 10/01/24 05:34 MPV 9.1 fL (7.4-11.0) 10/09/24 05:25 Neut % (Auto) 68.8 % (42.0-75.0) 10/09/24 05:25 Lymph % (Auto) 20.7 % (21.0-51.0) L 10/09/24 05:25 [place] % (Auto) 6.7 % (0.0-13.0) 10/09/24 05:25 Eos % (Auto) 3.3 % (0.9-2.9) H 10/09/24 05:25 Baso % (Auto) 0.5 % (0.2-1.0) 10/09/24 05:25 Neut # (Auto) 6.0 x10^3/uL (2.2-4.8) H 10/09/24 05:25 Lymph # (Auto) 1.8 X10^3/uL (1.3-2.9) 10/09/24 05:25 [place] # (Auto) 0.6 x10^3/uL (0.3-0.8) 10/09/24 05:25 Eos # (Auto) 0.3 x10^3/uL (0.0-0.2) H 10/09/24 05:25 Baso # (Auto) 0.0 X10^3/uL (0.0-0.1) 10/09/24 05:25 Absolute Nucleated RBC 0.0 /100WBC 10/09/24 05:25 Total Counted 100 10/01/24 05:34 Neutrophils % (Manual) 83 % (39-76) H 10/01/24 05:34 Band Neutrophils % 1 % (0-10) 10/01/24 05:34 Lymphocytes % (Manual) 11 % (13-43) L 10/01/24 05:34 Monocytes % (Manual) 4 % (4-9) 10/01/24 05:34 Eosinophils % (Manual) 1 % (0-6) 10/01/24 05:34 Toxic Granulation 1+ noted 09/29/24 11:31 Plt Morphology Comment Normal (NORMAL) 10/01/24 05:34 RBC Morphology Abnormal (NORMAL) 10/01/24 05:34 Hypochromasia Slight A 10/01/24 05:34 Anisocytosis Slight A 10/01/24 05:34 Sample Site Lrad 09/29/24 15:29 ABG pH 7.420 (7.35-7.45) 09/29/24 15:29 ABG pCO2 28.0 mmHg (35.0-45.0) L 09/29/24 15:29 ABG pO2 92.0 mmHg (80.0-100.0) 09/29/24 15:29 ABG HCO3 18.2 mmol/L (22-26) L 09/29/24 15:29 ABG O2 Saturation 97.0 % (90-100) 09/29/24 15:29 ABG Base Excess -5.0 mmol/L (-2.0-2.0) L 09/29/24 15:29 Pablo Test Pos 09/29/24 15:29 A-a Gradient 230.0 mmHg 09/29/24 15:29 FiO2 50.0 09/29/24 15:29 Blood Gas Comments Katherine well ms 09/29/24 15:29 Sodium 138 mmol/L (136-145) 10/09/24 05:25 Corrected Sodium 138 mmol/L (136-145) 10/09/24 05:25 Potassium 3.5 mmol/L (3.5-5.1) 10/09/24 05:25 Chloride 100 mmol/L (98-107) 10/09/24 05:25 Carbon Dioxide 26.5 mmol/L (21-32) 10/09/24 05:25 BUN 26 mg/dL (7-18) H 10/09/24 05:25 Creatinine 2.47 mg/dL (0.70-1.30) H 10/09/24 05:25 Est GFR (MDRD) Af Amer 33 (>60) L 10/09/24 05:25 Est GFR (MDRD) Non-Af 28 (>60) L 10/09/24 05:25 Glucose 114 mg/dL (65-99) H 10/09/24 05:25 Lactic Acid 1.2 mmol/L (0.4-2.0) 09/29/24 12:46 Calcium 9.7 mg/dL (8.5-10.1) 10/09/24 05:25 Corrected Calcium TNP 10/09/24 05:25 Magnesium 2.0 mg/dL (2.0-2.9) 10/07/24 05:41 Total Bilirubin 0.60 mg/dL (0.2-1.0) 10/09/24 05:25 AST 40 Units/L (15-37) H 10/09/24 05:25 ALT 48 Units/L (12-78) 10/09/24 05:25 Alkaline Phosphatase 101 Units/L (46-116) 10/09/24 05:25 Creatine Kinase 1140 Units/L (39-308) H 10/01/24 05:34 Troponin I High Sens 22.9 ng/L (4.0-60.0) 09/29/24 11:31 B-Natriuretic Peptide 465 pg/mL (0-79) H 10/06/24 05:15 Total Protein 8.2 g/dL (6.4-8.2) 10/09/24 05:25 Albumin 3.4 g/dL (3.4-5.0) 10/09/24 05:25 Globulin 4.8 g/dL (2.5-4.5) H 10/09/24 05:25 Albumin/Globulin Ratio 0.7 Ratio (1.1-2.1) L 10/09/24 05:25 Specimen Type Catherized urine 09/29/24 18:48 Urine Color Yellow (YELLOW) 09/29/24 18:48 Urine Appearance Cloudy (CLEAR) 09/29/24 18:48 Urine pH 6.0 (5.0 - 8.0) 09/29/24 18:48 Ur Specific [place] 1.025 (1.000-1.030) 09/29/24 18:48 Urine Protein 2+ (NEGATIVE) 09/29/24 18:48 Urine Glucose (UA) Negative (NEGATIVE) 09/29/24 18:48 Urine Ketones Negative (NEGATIVE) 09/29/24 18:48 Urine Blood 4+ (NEGATIVE) 09/29/24 18:48 Urine Nitrite Negative (NEGATIVE) 09/29/24 18:48 Urine Bilirubin Negative (NEGATIVE) 09/29/24 18:48 Urine Urobilinogen Normal (NORMAL) 09/29/24 18:48 Ur Leukocyte Esterase Negative (NEGATIVE) 09/29/24 18:48 Urine RBC 0-2 /HPF (0-3) 09/29/24 18:48 Urine WBC 0-2 /HPF (0-5) 09/29/24 18:48 Ur Squamous Epith Cells Rare /HPF (NEGATIVE) 09/29/24 18:48 Amorphous Sediment 4+ /HPF (NEGATIVE) 09/29/24 18:48 Urine Bacteria Trace /HPF (NEGATIVE) 09/29/24 18:48 Granular Casts Many /LPF (NEGATIVE) 09/29/24 18:48 Ur Culture Indicated? No/not indicated 09/29/24 18:48 Stl C. diff Tox B Gene Negative (NEGATIVE) 10/04/24 23:12 Stl C. diff [id number] Presumptive negative (NEGATIVE) 10/04/24 23:12 Resp Viral Panel (PCR) See scanned report 09/29/24 20:30 Blood Type O POSITIVE 10/07/24 10:53 Antibody Screen Negative 10/07/24 10:53 Crossmatch See Detail 10/07/24 10:53 Plan (1) Anemia: Status: Acute Qualifiers: Anemia type: unspecified type Qualified Code(s): D64.9 - Anemia, unspecified (2) CHF exacerbation: Status: Acute Qualifiers: Heart failure type: unspecified Qualified Code(s): I50.9 - Heart failure, unspecified (3) Pneumonia: Status: Acute Qualifiers: Pneumonia type: due to unspecified organism Laterality: bilateral Lung location: unspecified part of lung Qualified Code(s): J18.9 - Pneumonia, unspecified organism (4) Acute dehydration: Status: Acute (5) UTI (urinary tract infection): Status: Acute Qualifiers: Hematuria presence: with hematuria Urinary tract infection type: site unspecified Qualified Code(s): N39.0 - Urinary tract infection, site not specified; R31.9 - Hematuria, unspecified (6) Hypokalemia: Status: Acute (7) Acute on chronic renal failure: Status: Acute Qualifiers: Acute renal failure type: unspecified Chronic kidney disease stage: unspecified stage Qualified Code(s): N17.9 - Acute kidney failure, unspecified; N18.9 - Chronic kidney disease, unspecified (8) Atrial fibrillation: Status: Chronic Qualifiers: Atrial fibrillation type: unspecified Qualified Code(s): I48.91 - Unspecified atrial fibrillation
[2024-10-10 06:10] LABS: BASOPHILS # (AUTO) 0.1 X10^3/uL (0.0-0.1); BASOPHILS % (AUTO) 0.6 % (0.2-1.0); EOSINOPHILS # (AUTO) 0.3 x10^3/uL (0.0-0.2); EOSINOPHILS % (AUTO) 2.9 % (0.9-2.9); HEMATOCRIT 31.5 % (42.0-54.0); HEMOGLOBIN 10.3 g/dL (13.5-18.0); LYMPHOCYTES # (AUTO) 2.2 X10^3/uL (1.3-2.9); LYMPHOCYTES % (AUTO) 23.1 % (21.0-51.0); MEAN CORPUSCULAR HEMOGLOBIN 26.9 pg (27.0-34.0); MEAN CORPUSCULAR HGB CONC 32.8 g/dL (33.0-35.0); MEAN PLATELET VOLUME 8.7 fL (7.4-11.0); MONOCYTES # (AUTO) 0.7 x10^3/uL (0.3-0.8); MONOCYTES % (AUTO) 7.3 % (0.0-13.0); NEUTROPHILS # (AUTO) 6.2 x10^3/uL (2.2-4.8); NEUTROPHILS % (AUTO) 66.1 % (42.0-75.0); PLATELET COUNT 250 X10^3/uL (150.0-450.0); RED BLOOD COUNT 3.84 X10^6/uL (4.7-6.0); RED CELL DISTRIBUTION WIDTH 17.3 % (11.6-16.5); WHITE BLOOD COUNT 9.3 X10^3/uL (3.6-10.0)
[2024-10-10 06:25] LABS: ALANINE AMINOTRANSFERASE 40 Units/L (12-78); ALBUMIN 3.6 g/dL (3.4-5.0); ALKALINE PHOSPHATASE 99 Units/L (46-116); ASPARTATE AMINO TRANSFERASE 31 Units/L (15-37); BLOOD UREA NITROGEN 28 mg/dL (7-18); CALCIUM 9.8 mg/dL (8.5-10.1); CARBON DIOXIDE 27.8 mmol/L (21-32); CHLORIDE 98 mmol/L (98-107); COR NA(FOR HYPERGLY) 139 mmol/L (136-145); CREATININE 2.53 mg/dL (0.70-1.30); GLUCOSE 134 mg/dL (65-99); MAGNESIUM 1.6 mg/dL (2.0-2.9); POTASSIUM 3.4 mmol/L (3.5-5.1); SODIUM 138 mmol/L (136-145); TOTAL PROTEIN 8.2 g/dL (6.4-8.2); eGFR NON BLACK RACES 27 (>60)
[2024-10-10] MEDS ORDERED: CONSULT PHARMACY - POTASSIUM & MAGNESIUM XX SCH (07:00)
[2024-10-10] MEDS ORDERED: TOPROL XL PO ONE (07:20)
[2024-10-10 08:06] VITALS: BP 139/78; PULSE 99; RESP 18; TEMP 97.6; O2SAT 95
[2024-10-10] MEDS: MAG-OX TAB PO SCH (08:14)
[2024-10-10] MEDS ORDERED: KLOR-CON 10 MEQ TAB PO SCH (11:00)
== END 2024-10-10 12:02 | DRG 682 ==
LOC: ER 11:12 → ICU 14:58 → MED/SURG 10-05 13:49
PROVIDERS: ADMIT Internal Medicine; ATTEND Internal Medicine

== ENCOUNTER 2024-10-12 14:10 | Inpatient (IN) ==
[2024-10-12] MEDS: ROCEPHIN VIAL 1 GRAM 1 G in NS 100 ML IV 100 ML IV ONE (14:40)
[2024-10-12] MEDS: NS 1,000 ML IV 1,000 ML IV ONE (14:50)
--- NOTE | 2024-10-12 15:44 | RAD ---
EXAM:CHESTHISTORY:dyspnea;COMPARISON: [email or web address] was submitted for interpretation.FINDINGS:The cardiomediastinal silhouette is within normal limits. Lungs show no focal consolidation, pneumothorax, or pleural fluid.IMPRESSION:No acute cardiopulmonary process.THIS IS AN ELECTRONICALLY VERIFIED FINAL REPORT10/12/2024 3:40 PM - Electronically signed by Saqib Groves MD
--- NOTE | 2024-10-12 18:14 | CT ---
EXAM:BRAIN W/O CONHISTORY:AMS;COMPARISON:September 29, 2024TECHNIQUE:Axial non-contrast images of the head were obtained with coronal and sagittal reformats provided.Radiation dose: 1030.74 mGy-cm total DLPFINDINGS:No abnormal areas of acute attenuation in the brain parenchyma.Tiny old lacunar infarct in the right basal ganglia.Arango-white differentiation remains intact.No intracranial, extra-axial, fluid collection.No hemorrhage.Periventricular chronic microvascular disease.No mass, mass effect or midline shift.Age related brain parenchymal global atrophy.No ventriculomegaly.No acute fracture.Sinuses are well aerated.Mastoid air cells are well aerated.Globes and intra-orbital contents are unremarkable.IMPRESSION:No acute intracranial abnormality identified.THIS IS AN ELECTRONICALLY VERIFIED FINAL REPORT10/12/2024 6:10 PM - Electronically signed by Gibson Salazar MD
--- NOTE | 2024-10-12 19:41 | DR.AMS ---
HPI Time Seen Time Seen by Provider: 10/12/24 14:30 PCP Primary Care Physician: Dr. Serna Complaint Cheif Complaint Doctors Comments: 69 yo M, recently hospitalized, discharged to detention 2d ago, sent to ER for worsening mental status and fever. Pt had blood work and urine drawn prior to coming to the ER showing WBC of 18k and UTI. No further history available. Chief Complaint:: long-term staff reports that since pt was discharge from a 12 day inpatient stay in the hospital on 10/10/24 he has had progressively worsening altered mental status. Staff reports that pt is only responsive to painful stimuli by opening her eyes. Staff also reports that anything they have attempted to give him orally has rolled back out of the left side of his mouth. COVID-19 Coronavirus risk:travel/contact w/high risk person: No Has patient experienced Coronavirus symptoms: No Source History Provided: Snf Mode of Arrival Mode of Arrival: Stretcher Timing Onset of Chief Complaint: 10/12/24 PMH PMH Past Medical History: Yes Past Medical History: Alzheimers, Anemia, Arthritis, CVA, Dementia, Dyslipi demia, GERD, Gout, Hypertension and Renal Disease Past Medical History Comment: polyneuropathy,afib Past Surgical History: Yes Surgical History: Ortho Surgery Family History History of Family Medical Conditions: Yes Family Medical History: Cancer, AL and Hypertension Social History Does patient currently use any type of tobacco product: No Have you used tobacco products in the last 12 months: No Type of Tobacco Use: None Does any household member use tobacco: No Alcohol Use: None Do you use any recreational Drugs:: No Lives With: Other Lives Where: Snf Travel Risk Coronavirus risk:travel/contact w/high risk person: No Has patient experienced Coronavirus symptoms: No Infectious screening In the last 2 months have you had wt loss of >10#?: NO Have you had fever, night sweats or hemotysis?: No Have you traveled outside the country in the last 6 months?: No Isolation: Standard ROS Review of Systems Unable to Obtain Due To: Altered mental status PE Vitals Vital Signs: Temp Pulse Resp BP Pulse Ox O2 Del Method 10/12/24 19:00 106 H 20 99 10/12/24 19:00 124/77 10/12/24 18:45 101 H 17 98 10/12/24 18:30 106 H 18 99 10/12/24 18:30 124/77 10/12/24 18:15 101 H 19 98 10/12/24 18:00 119/81 10/12/24 18:00 101 H 17 98 10/12/24 17:45 101 H 17 98 10/12/24 17:30 100 H 18 96 10/12/24 17:30 119/75 10/12/24 17:15 101 H 17 95 10/12/24 17:11 98.3 F 10/12/24 17:00 101 H 19 100 10/12/24 17:00 126/78 10/12/24 16:45 102 H 24 81 L 10/12/24 16:30 164/77 10/12/24 16:30 98 H 18 93 L 10/12/24 16:15 96 H 19 10/12/24 16:00 100 H 21 10/12/24 16:00 147/76 10/12/24 15:45 102 H 19 98 10/12/24 15:30 110/71 10/12/24 15:30 101 H 20 93 L 10/12/24 15:24 108/71 10/12/24 15:24 106 H 26 H 97 10/12/24 15:20 104 H 22 91 L 10/12/24 15:05 130/81 10/12/24 15:05 101 H 95 10/12/24 15:00 102 H 10/12/24 14:46 101 H 22 10/12/24 14:21 100.0 F H 107 H 24 111/72 92 L Room Air 10/10/24 08:00 139/78 General Limitations: No Limitations (Answers some questions, but not others.) General Appearance: Alert Head Head Exam: Normal Inspection Eyes Eye exam: Normal Appearance ENT ENT Exam: Normal Exam External Ear Exam: Normal External Inspection Nose Exam: Normal Nose Exam Mouth Exam: Normal Inspection Throat Exam: Normal Inspection Neck Neck Exam: Normal Inspection Chest Chest Inspection: Normal Inspection Respiratory Respiratory Exam: Normal Lung Sounds Bilat Cardiovascular Cardiovascular Exam: Regular Rate and Normal Rhythm Abdominal Exam Abdominal Exam: Normal Inspection, Normal Bowel Sounds and Soft Extremities Extremities Exam: Normal Inspection Back Back Exam: Normal Inspection Neurological Neurological Exam: Other (wakes to verbal stimuli, makes eye contact, following some commands, but not others. ) Skin Skin Exam: Warm, Dry, Intact and Normal Color ROR Labs Reviewed Laboratory Results Reviewed?: Yes Laboratory: Lactic Acid 1.5 mmol/L (0.4-2.0) 10/12/24 15:01 Opioid Opioid Risk Tool Age (Gildardo box if 16-45): No History of Preadolescent Sexual Abuse: No Total: 0 Total Score Risk Category: Low Risk Copyright: [facility] predicting aberrant behaviors Discharge Plan Diagnosis Discharge Problem: Acute UTI, Altered mental status Discharge Plan Patient Disposition: ADMITTED INPATIENT Condition: Stable Prescriptions: No Action clonidine HCl 0.2 mg tablet 0.2 mg PO BID Qty: 60 0RF folic acid 1 mg Tablet 1 mg PO DAILY cyanocobalamin (vitamin B-12) 1,000 mcg/mL Solution 1,000 mcg IM MONTHLY Rx Instructions: on the of the memantine 10 mg Tablet 10 mg PO DAILY gabapentin 300 mg Capsule 300 mg PO QID amlodipine [Norvasc] 10 mg Tablet 10 mg PO DAILY pantoprazole [Protonix] 40 mg Tablet,Delayed Release (Dr/Ec) 40 mg PO BID docusate sodium [Colace] 100 mg Capsule 100 mg PO DAILY metoprolol tartrate 25 mg Tablet 25 mg PO BID ondansetron HCl 4 mg Tablet 4 mg PO Q6H PRN ergocalciferol (vitamin D2) [Drisdol] 1,250 mcg (50,000 unit) Capsule 1,250 mcg PO WEEKLY Rx Instructions: on Sunday calcium 150 mg Tablet 150 mg PO DAILY furosemide [Lasix] 40 mg Tablet 40 mg PO DAILY mineral oil-hydrophil petrolat Ointment 1 applic TOPICAL DAILY Rx Instructions: 1 application to feet and lower legs daily dicyclomine 10 mg capsule 10 mg PO BID PRN (Reason: abdominal pain) Qty: 10 0RF polyethylene glycol 3350 17 gram/dose powder 17 g PO DAILY Eliquis 5 mg tablet 5 mg PO BID Health Concerns: Post Hospitalization: new medications and changes needed to prevent readmission or further decline. Pt educated and given instructions on all concerns. Plan of Treatment: Continue with present treatment and follow up plan. Pt is to keep follow up appointment as instructed and take medications as ordered. Orders to Discharge Patient Discharge Orders: Transfer (Routine); Ordered 10/12/24 Ordered By: René Mariee Follow ups/Referrals Follow ups/Referrals: Sally Serna MD [Primary Care Provider] - 3 days Instructions Stand Alone Forms: Find Help Web Site, Post Hospital Follow Up Care ADDITIONAL NOTES Additional Notes Additional Notes: admitted to Dr Johnston, who came to bedside to assess pt.
[2024-10-12 21:45] VITALS: BMI 29.1
[2024-10-12] MEDS: MORPHINE SULFATE INJ 2 MG INJ IVP PRN (22:26)
[2024-10-12] MEDS: NS 1,000 ML IV 1,000 ML IV SCH (22:27)
[2024-10-13] MEDS: LOPRESSOR TAB 25 MG PO SCH (01:29)
[2024-10-13] MEDS: ZOSYN VIAL 4.5 GRAMS 4.5 G in NS 100 ML IV 100 ML IV SCH ×2 (03:15→05:37)
[2024-10-13] MEDS ORDERED: NS 100 ML IV 100 ML ONE (05:30)
[2024-10-13 05:37] LABS: BASOPHILS # (AUTO) 0.1 X10^3/uL (0.0-0.1); BASOPHILS % (AUTO) 0.3 % (0.2-1.0); EOSINOPHILS # (AUTO) 0.1 x10^3/uL (0.0-0.2); EOSINOPHILS % (AUTO) 0.8 % (0.9-2.9); HEMATOCRIT 33.9 % (42.0-54.0); HEMOGLOBIN 10.9 g/dL (13.5-18.0); LYMPHOCYTES # (AUTO) 1.9 X10^3/uL (1.3-2.9); LYMPHOCYTES % (AUTO) 10.9 % (21.0-51.0); MEAN CORPUSCULAR HEMOGLOBIN 26.7 pg (27.0-34.0); MEAN CORPUSCULAR HGB CONC 32.2 g/dL (33.0-35.0); MEAN CORPUSCULAR VOLUME 83.1 fL (80.0-100.0); MONOCYTES # (AUTO) 1.8 x10^3/uL (0.3-0.8); MONOCYTES % (AUTO) 10.5 % (0.0-13.0); NEUTROPHILS # (AUTO) 13.4 x10^3/uL (2.2-4.8); NEUTROPHILS % (AUTO) 77.5 % (42.0-75.0); PLATELET COUNT 163 X10^3/uL (150.0-450.0); RED BLOOD COUNT 4.08 X10^6/uL (4.7-6.0); RED CELL DISTRIBUTION WIDTH 17.5 % (11.6-16.5); WHITE BLOOD COUNT 17.3 X10^3/uL (3.6-10.0)
[2024-10-13] MEDS: NS 250 ML IV 25 ML IV PRN (05:37)
[2024-10-13 05:48] LABS: ALBUMIN 3.2 g/dL (3.4-5.0); CALCIUM 9.8 mg/dL (8.5-10.1); CARBON DIOXIDE 24.9 mmol/L (21-32); COR CA(FOR HYPOALB) 10.4 mg/dL (8.5-10.1); CREATININE 2.42 mg/dL (0.70-1.30); MAGNESIUM 1.7 mg/dL (2.0-2.9); POTASSIUM 3.2 mmol/L (3.5-5.1); TOTAL PROTEIN 8.4 g/dL (6.4-8.2)
[2024-10-13] MEDS: ZOSYN VIAL 4.5 GRAMS IV ONE (05:56)
[2024-10-13] MEDS ORDERED: ZOSYN VIAL 4.5 GRAMS 4.5 G in NS 100 ML IV 100 ML IV SCH (06:00)
[2024-10-13] MEDS ORDERED: ZOSYN VIAL 3.375 GRAMS 3.375 G in NS 100 ML IV 100 ML IV SCH (06:00)
[2024-10-13] MEDS ORDERED: CONSULT PHARMACY - POTASSIUM & MAGNESIUM XX SCH (07:00)
[2024-10-13] MEDS ORDERED: LOPRESSOR TAB 25 MG PO SCH (09:00)
[2024-10-13] MEDS: ELIQUIS PO SCH (09:04)
[2024-10-13] MEDS: K-DUR TAB 20 MEQ PO SCH (09:05)
[2024-10-13] MEDS: NORVASC TAB 10 MG PO SCH (10:00)
[2024-10-13 10:18] LABS: BILIRUBIN,URINE NEGATIVE (NEGATIVE); BLOOD/HEMOGLOBIN,URINE 2+ (NEGATIVE); GLUCOSE, URINE NEGATIVE (NEGATIVE); KETONES,URINE NEGATIVE (NEGATIVE); LEUKOCYTE ESTERASE ,URINE NEGATIVE (NEGATIVE); NITRITES,URINE NEGATIVE (NEGATIVE); PROTEIN,URINE 2+ (NEGATIVE); UROBILINOGEN,URINE NORMAL (NORMAL)
[2024-10-13 10:24] LABS: APPEARANCE,URINE CLEAR (CLEAR); COLOR,URINE YELLOW (YELLOW)
[2024-10-13 10:31] LABS: BACTERIA,URINE NEGATIVE /HPF (NEGATIVE); SQUAMOUS EPITHELIAL CELL,UR RARE /HPF (NEGATIVE)
[2024-10-13 10:32] LABS: COARSE GRANULAR CASTS,URINE RARE /HPF (NEGATIVE)
[2024-10-13] MEDS: LASIX IVP SCH (11:25)
[2024-10-13] MEDS: NS 1,000 ML IV 1,000 ML with MAGNESIUM SULFATE 50% INJ VIAL 2 G IV SCH (11:26)
[2024-10-13] MEDS: LOPRESSOR TAB 50 MG PO SCH (12:00)
[2024-10-13] MEDS: MAGNESIUM SULFATE 50% INJ VIAL ONE (13:04)
--- NOTE | 2024-10-13 13:25 | RAD ---
EXAM:CHEST, 1 VIEWHISTORY:POSSIBLE PNEUMONIA;COMPARISON:Prior study or studies were utilized for comparison during interpretation with the most relevant dated 10/12/2024TECHNIQUE:CHEST, 1 VIEWFINDINGS:Chest:Lines and tubes: Cardiac leads overlie the chest.Mediastinum: Borderline cardiomegaly.Pulmonary vessels: No pulmonary vascular congestion.Lung sullivan: No suspicious airspace opacity.Pleura: No effusion. No pneumothorax.Bones and soft tissues: No acute osseous or soft tissue abnormality.IMPRESSION:1. No acute cardiopulmonary abnormalityTHIS IS AN ELECTRONICALLY VERIFIED FINAL REPORT10/13/2024 1:21 PM - Electronically signed by Stevenson Latham MD
[2024-10-13] MEDS ORDERED: ROCEPHIN VIAL 1 GRAM 1 G in NS 100 ML IV 100 ML IV SCH (14:00)
[2024-10-13] MEDS: ZOSYN VIAL 3.375 GRAMS 3.375 G in NS 100 ML IV 100 ML IV SCH (14:35)
[2024-10-14] MEDS: TYLENOL 325 MG TAB PO PRN (00:12)
[2024-10-14 06:15] LABS: BASOPHILS % (AUTO) 0.2 % (0.2-1.0); EOSINOPHILS # (AUTO) 0.4 x10^3/uL (0.0-0.2); EOSINOPHILS % (AUTO) 2.3 % (0.9-2.9); HEMATOCRIT 29.9 % (42.0-54.0); HEMOGLOBIN 9.5 g/dL (13.5-18.0); LYMPHOCYTES # (AUTO) 2.6 X10^3/uL (1.3-2.9); LYMPHOCYTES % (AUTO) 15.9 % (21.0-51.0); MEAN CORPUSCULAR HEMOGLOBIN 26.4 pg (27.0-34.0); MEAN CORPUSCULAR HGB CONC 31.9 g/dL (33.0-35.0); MEAN CORPUSCULAR VOLUME 82.8 fL (80.0-100.0); MEAN PLATELET VOLUME 9.6 fL (7.4-11.0); MONOCYTES # (AUTO) 1.2 x10^3/uL (0.3-0.8); MONOCYTES % (AUTO) 7.2 % (0.0-13.0); NEUTROPHILS # (AUTO) 12.3 x10^3/uL (2.2-4.8); NEUTROPHILS % (AUTO) 74.4 % (42.0-75.0); PLATELET COUNT 148 X10^3/uL (150.0-450.0); RED BLOOD COUNT 3.62 X10^6/uL (4.7-6.0); RED CELL DISTRIBUTION WIDTH 17.4 % (11.6-16.5); WHITE BLOOD COUNT 16.5 X10^3/uL (3.6-10.0)
[2024-10-14 06:42] LABS: ALBUMIN 2.8 g/dL (3.4-5.0); CALCIUM 9.6 mg/dL (8.5-10.1); CARBON DIOXIDE 24.6 mmol/L (21-32); COR CA(FOR HYPOALB) 10.6 mg/dL (8.5-10.1); CREATININE 2.27 mg/dL (0.70-1.30); MAGNESIUM 2.4 mg/dL (2.0-2.9); TOTAL PROTEIN 7.8 g/dL (6.4-8.2)
[2024-10-14 06:44] LABS: POTASSIUM 2.9 mmol/L (3.5-5.1)
[2024-10-14] MEDS ORDERED: CONSULT PHARMACY - POTASSIUM & MAGNESIUM XX SCH (07:00)
[2024-10-14] MEDS: NS + KCL 20 MEQ/L 1,000 ML with MAGNESIUM SULFATE 50% INJ VIAL 1 G IV SCH (08:23)
[2024-10-14] MEDS ORDERED: K-DUR TAB 20 MEQ PO SCH (09:00)
[2024-10-14] MEDS: DUONEB 0.5 MG/3 MG (3 mL) NEB SCH (11:49)
[2024-10-14] MEDS: PULMICORT NEB TX 0.5 MG NEB SCH (11:49)
--- NOTE | 2024-10-14 13:14 | CT ---
EXAM:CHEST W/O CONHISTORY:sob;COMPARISON:Prior study or studies were utilized for comparison during interpretation with the most relevant dated 10/13/2024TECHNIQUE:CT images were obtained. Multiplanar reconstructions were created on a separate workstation and used during interpretation. All CT scans at this facility is dose modulation, iterative reconstruction, and/or weight-based dosing as appropriate to reduce radiation to levels as low as reasonably achievable (ALARA). Postprocessing details, radiation dose, and contrast dose (if applicable) are recorded in the patient's medical record.3D maximum intensity projection images were obtained and evaluated.FINDINGS:Lower Neck: No acute soft tissue abnormality. No actionable thyroid nodule.Lymph nodes: No visualized cervical, supraclavicular, axillary, mediastinal, or hilar adenopathyUpper abdomen: No acute abnormality identified in the visualized upper abdomen.Cardiomediastinum: No acute cardiac abnormality. Trace pericardial fluid notedVascular: Normal aortic caliber. No significant branch vessel calcification. No pulmonary artery dilation.Lungs: Compressive atelectasis noted bilaterally no suspicious airspace opacity, mass, or nodule. No evidence of traumatic injury.. Trace right and small left pleural effusionsOsseous structures: No acute osseous abnormality. No destructive osseous lesion.IMPRESSION:1. Trace right and small left pleural effusions2. No suspicious airspace opacityTHIS IS AN ELECTRONICALLY VERIFIED FINAL REPORT10/14/2024 1:10 PM - Electronically signed by Stevenson Latham MD
[2024-10-15 05:11] LABS: BASOPHILS # (AUTO) 0.1 X10^3/uL (0.0-0.1); BASOPHILS % (AUTO) 0.5 % (0.2-1.0); EOSINOPHILS # (AUTO) 0.5 x10^3/uL (0.0-0.2); EOSINOPHILS % (AUTO) 3.2 % (0.9-2.9); HEMATOCRIT 26.4 % (42.0-54.0); HEMOGLOBIN 8.5 g/dL (13.5-18.0); LYMPHOCYTES # (AUTO) 2.7 X10^3/uL (1.3-2.9); LYMPHOCYTES % (AUTO) 18.8 % (21.0-51.0); MEAN CORPUSCULAR HEMOGLOBIN 26.8 pg (27.0-34.0); MEAN CORPUSCULAR HGB CONC 32.3 g/dL (33.0-35.0); MEAN CORPUSCULAR VOLUME 82.9 fL (80.0-100.0); MEAN PLATELET VOLUME 9.9 fL (7.4-11.0); MONOCYTES % (AUTO) 7.4 % (0.0-13.0); NEUTROPHILS % (AUTO) 70.1 % (42.0-75.0); PLATELET COUNT 142 X10^3/uL (150.0-450.0); RED BLOOD COUNT 3.19 X10^6/uL (4.7-6.0); RED CELL DISTRIBUTION WIDTH 18.2 % (11.6-16.5); WHITE BLOOD COUNT 14.2 X10^3/uL (3.6-10.0)
[2024-10-15 05:26] LABS: ALBUMIN 2.5 g/dL (3.4-5.0); CALCIUM 8.9 mg/dL (8.5-10.1); CARBON DIOXIDE 25.3 mmol/L (21-32); COR CA(FOR HYPOALB) 10.1 mg/dL (8.5-10.1); CREATININE 1.96 mg/dL (0.70-1.30); MAGNESIUM 2.2 mg/dL (2.0-2.9); TOTAL PROTEIN 7.3 g/dL (6.4-8.2)
[2024-10-15 05:32] LABS: POTASSIUM 2.6 mmol/L (3.5-5.1)
[2024-10-15] MEDS ORDERED: CONSULT PHARMACY - POTASSIUM & MAGNESIUM XX SCH (07:00)
[2024-10-15] MEDS ORDERED: K-DUR TAB 20 MEQ PO SCH (09:00)
[2024-10-15] MEDS: NS 1,000 ML IV 1,000 ML with POTASSIUM CHLORIDE INJ 40 MEQ VIAL 40 MEQ IV SCH (10:06)
[2024-10-15 10:18] LABS: ABG ALLEN TEST POS; ABG BASE EXCESS 1.3 mmol/L (-2.0-2.0); ABG HCO3 24.9 mmol/L (22-26)
[2024-10-15] MEDS: LEVAQUIN PREMIX IV 750 MG 750 MG/150 ML BAG IV SCH (14:32)
--- NOTE | 2024-10-15 15:39 | MRI ---
EXAM:BRAIN W/O CONHISTORY:AMS, HX CVA;COMPARISON:MR brain 09/30/2024, CT brain 10/12/2024TECHNIQUE:Multiplanar multisequence MRI of the brain was obtained without contrast using standard departmental protocol.FINDINGS:Diffusion sequences show no abnormal signal. No evidence for acute ischemia.Age-related findings include central and cortical atrophy with abnormal signal in the periventricular white matter, most likely the micro-ischemic changes of aging. This general appearance is unchanged from last month.Old lacunar infarct in the right basal ganglia. Otherwise newsome and white matter have normal differentiation.There is no mass, shift, or hemorrhage. Cerebellar tonsils are at an appropriate level.There is normal signal flow void in the central vessels. No abnormal signal on susceptibility sequences.No fluid in the sinuses or mucosal thickening to suggest sinusitis. There is no mastoid effusion.IMPRESSION:1. No acute findingsTHIS IS AN ELECTRONICALLY VERIFIED FINAL REPORT10/15/2024 3:36 PM - Electronically signed by Kj Guillaume MD
[2024-10-16 06:07] LABS: BASOPHILS # (AUTO) 0.1 X10^3/uL (0.0-0.1); BASOPHILS % (AUTO) 0.4 % (0.2-1.0); EOSINOPHILS # (AUTO) 0.5 x10^3/uL (0.0-0.2); EOSINOPHILS % (AUTO) 3.5 % (0.9-2.9); HEMATOCRIT 27.2 % (42.0-54.0); HEMOGLOBIN 8.7 g/dL (13.5-18.0); LYMPHOCYTES # (AUTO) 2.1 X10^3/uL (1.3-2.9); MEAN CORPUSCULAR HEMOGLOBIN 26.5 pg (27.0-34.0); MEAN CORPUSCULAR HGB CONC 31.9 g/dL (33.0-35.0); MEAN CORPUSCULAR VOLUME 83.2 fL (80.0-100.0); MEAN PLATELET VOLUME 10.1 fL (7.4-11.0); MONOCYTES # (AUTO) 0.8 x10^3/uL (0.3-0.8); NEUTROPHILS # (AUTO) 10.6 x10^3/uL (2.2-4.8); NEUTROPHILS % (AUTO) 75.1 % (42.0-75.0); PLATELET COUNT 152 X10^3/uL (150.0-450.0); RED BLOOD COUNT 3.27 X10^6/uL (4.7-6.0); RED CELL DISTRIBUTION WIDTH 17.6 % (11.6-16.5); WHITE BLOOD COUNT 14.1 X10^3/uL (3.6-10.0)
[2024-10-16 06:22] LABS: ALBUMIN 2.6 g/dL (3.4-5.0); CALCIUM 9.4 mg/dL (8.5-10.1); CARBON DIOXIDE 23.7 mmol/L (21-32); COR CA(FOR HYPOALB) 10.5 mg/dL (8.5-10.1); CREATININE 1.57 mg/dL (0.70-1.30); TOTAL PROTEIN 7.7 g/dL (6.4-8.2)
[2024-10-16 06:28] LABS: POTASSIUM 2.8 mmol/L (3.5-5.1)
[2024-10-16] MEDS ORDERED: CONSULT PHARMACY - POTASSIUM & MAGNESIUM XX SCH (07:00)
--- NOTE | 2024-10-16 07:50 | RAD ---
EXAM:KUBHISTORY:Abdominal painCOMPARISON:NoneFINDINGS:Abdominal gas pattern is nonspecific and nonobstructive. No abnormal masses or abnormal calcifications are identified. Regional skeleton is intact.IMPRESSION:Nonspecific nonobstructive bowel gas patternTHIS IS AN ELECTRONICALLY VERIFIED FINAL REPORT10/16/2024 7:47 AM - Electronically signed by James Peace MD
[2024-10-16] MEDS ORDERED: K-DUR TAB 20 MEQ PO SCH (09:00)
[2024-10-16] MEDS: D5W IV SCH (10:35)
[2024-10-16] MEDS: POTASSIUM CHLORIDE IV SCH (10:35)
[2024-10-16] MEDS: FORTAZ or TAZICEF VIAL INJ 1 G in NS 100 ML IV 100 ML IV SCH (13:13)
[2024-10-16] MEDS: OMNIPAQUE 350 mg/mL 100 mL BTL 100 ML ONE (15:55)
[2024-10-16] MEDS: OMNIPAQUE 350 mg/mL 50 mL BTL 50 ML ONE (15:56)
[2024-10-17 06:29] LABS: BASOPHILS # (AUTO) 0.1 X10^3/uL (0.0-0.1); EOSINOPHILS # (AUTO) 0.3 x10^3/uL (0.0-0.2); EOSINOPHILS % (AUTO) 2.4 % (0.9-2.9); HEMATOCRIT 27.8 % (42.0-54.0); HEMOGLOBIN 9.1 g/dL (13.5-18.0); LYMPHOCYTES # (AUTO) 2.2 X10^3/uL (1.3-2.9); LYMPHOCYTES % (AUTO) 15.4 % (21.0-51.0); MEAN CORPUSCULAR HEMOGLOBIN 26.9 pg (27.0-34.0); MEAN CORPUSCULAR HGB CONC 32.7 g/dL (33.0-35.0); MEAN CORPUSCULAR VOLUME 82.3 fL (80.0-100.0); MEAN PLATELET VOLUME 10.1 fL (7.4-11.0); MONOCYTES # (AUTO) 0.9 x10^3/uL (0.3-0.8); MONOCYTES % (AUTO) 6.3 % (0.0-13.0); NEUTROPHILS # (AUTO) 10.7 x10^3/uL (2.2-4.8); NEUTROPHILS % (AUTO) 74.9 % (42.0-75.0); PLATELET COUNT 160 X10^3/uL (150.0-450.0); RED BLOOD COUNT 3.38 X10^6/uL (4.7-6.0); RED CELL DISTRIBUTION WIDTH 17.7 % (11.6-16.5); WHITE BLOOD COUNT 14.3 X10^3/uL (3.6-10.0)
[2024-10-17 06:33] LABS: ALANINE AMINOTRANSFERASE 34 Units/L (12-78); ALBUMIN 2.7 g/dL (3.4-5.0); ALKALINE PHOSPHATASE 114 Units/L (46-116); ASPARTATE AMINO TRANSFERASE 30 Units/L (15-37); BLOOD UREA NITROGEN 14 mg/dL (7-18); CALCIUM 9.6 mg/dL (8.5-10.1); CHLORIDE 100 mmol/L (98-107); COR CA(FOR HYPOALB) 10.6 mg/dL (8.5-10.1); COR NA(FOR HYPERGLY) 137 mmol/L (136-145); CREATININE 1.31 mg/dL (0.70-1.30); GLUCOSE 153 mg/dL (65-99); MAGNESIUM 1.6 mg/dL (2.0-2.9); POTASSIUM 3.1 mmol/L (3.5-5.1); SODIUM 136 mmol/L (136-145); TOTAL PROTEIN 7.8 g/dL (6.4-8.2); eGFR NON BLACK RACES 57 (>60)
[2024-10-17] MEDS ORDERED: CONSULT PHARMACY - POTASSIUM & MAGNESIUM XX SCH (07:00)
--- NOTE | 2024-10-17 08:27 | CT ---
EXAM:CTA AORTA WITH RUNOFFHISTORY:PVD, non healing wound;COMPARISON:CT aortogram runoff 09/19/2024, CT abdomen and pelvis 09/20/2024TECHNIQUE:Multiple CT axial images of the abdomen pelvis and lower extremity runoff were obtained before and after using IV contrast. 3D reconstructions utilizing axial MIPS imaging was performed and reviewed. Dose reduction techniques including Automated Exposure Control (AEC) and adjustment of mA and kV were utilized.Stenoses are measured using NASCET criteria. Normal is no stenosis. Mild is less than 50% stenosis. Moderate is 50-69% stenosis. Severe is 70% to 99% stenosis. Total occlusion is no detectable patent lumen.FINDINGS:Without contrast: Atherosclerotic calcification is present in the coronary arteries, aorta, and major arterial branches.With contrast: The aorta has a normal caliber with no aneurysm, dissection, or stenosis. All 3 mesenteric vessels are patent. Single patent artery to each kidney. Common iliac and external iliac arteries are widely patent. Both internal iliac arteries are patent.Right lower extremity: There is no significant femoropopliteal artery occlusion. All 3 trifurcation branches are occluded segmentally in the proximal calf. There is variable reconstitution of the vessels. The peroneal artery is tiny but is reconstituted in the proximal calf and extends to the ankle. Anterior tibial artery is reconstituted mid calf and extends into the foot.Left lower extremity: Femoropopliteal artery is patent with mild focal disease at the adductor canal segment. Similar to the right side, all 3 trifurcation branches are occluded in the proximal calf. Peroneal artery is reconstituted at least by mid calf and extends to the ankle. Dorsalis pedis artery is reconstituted at the ankle, probably from peroneal artery collaterals.Body: Very small left pleural effusion is new since 09/20/2024. Pneumonia or atelectasis in the right lung base has improved.Liver, gallbladder, spleen, adrenal glands, and pancreas are unremarkable. Renal enhancement is uniform and symmetric with no solid mass. There is no hydronephrosis or significant perirenal edema. The bladder has normal distention. It has no wall thickening or perivesical edema.The bowel is not dilated. There is no wall thickening in the bowel or edema around the bowel.The patient has anasarca with generalized edema. This is manifested as increased density in the subcutaneous fat and the intra-abdominal fat.IMPRESSION:1. Severe sub trifurcation disease with only reconstituted vessels and collaterals supplying blood flow to the feet2. Improved right basilar pneumonia3. New small left pleural effusion4. Unchanged anasarcaTHIS IS AN ELECTRONICALLY VERIFIED FINAL REPORT10/17/2024 8:20 AM - Electronically signed by Kj Guillaume MD
[2024-10-17] MEDS ORDERED: MAG-OX TAB PO SCH (09:00)
[2024-10-17] MEDS ORDERED: K-DUR TAB 20 MEQ PO SCH (09:00)
[2024-10-17] MEDS: D5W IV SCH (10:38)
[2024-10-17] MEDS: [UNRECOGNIZED DRUG - OTHER] IV SCH (10:38)
[2024-10-17] MEDS: POTASSIUM CHLORIDE IV SCH (10:38)
[2024-10-17] MEDS: LIPITOR TAB 20 MG PO SCH (21:13)
[2024-10-18 06:53] LABS: BASOPHILS # (AUTO) 0.1 X10^3/uL (0.0-0.1); EOSINOPHILS # (AUTO) 0.3 x10^3/uL (0.0-0.2); EOSINOPHILS % (AUTO) 2.3 % (0.9-2.9); HEMATOCRIT 27.1 % (42.0-54.0); HEMOGLOBIN 8.9 g/dL (13.5-18.0); LYMPHOCYTES # (AUTO) 1.9 X10^3/uL (1.3-2.9); LYMPHOCYTES % (AUTO) 13.9 % (21.0-51.0); MEAN CORPUSCULAR HEMOGLOBIN 26.8 pg (27.0-34.0); MEAN CORPUSCULAR HGB CONC 32.8 g/dL (33.0-35.0); MEAN CORPUSCULAR VOLUME 81.8 fL (80.0-100.0); MEAN PLATELET VOLUME 10.1 fL (7.4-11.0); MONOCYTES # (AUTO) 0.9 x10^3/uL (0.3-0.8); MONOCYTES % (AUTO) 6.3 % (0.0-13.0); NEUTROPHILS # (AUTO) 10.4 x10^3/uL (2.2-4.8); NEUTROPHILS % (AUTO) 76.5 % (42.0-75.0); PLATELET COUNT 186 X10^3/uL (150.0-450.0); RED BLOOD COUNT 3.31 X10^6/uL (4.7-6.0); RED CELL DISTRIBUTION WIDTH 17.5 % (11.6-16.5); WHITE BLOOD COUNT 13.6 X10^3/uL (3.6-10.0)
[2024-10-18 07:15] LABS: ALANINE AMINOTRANSFERASE 34 Units/L (12-78); ALBUMIN 2.6 g/dL (3.4-5.0); ALKALINE PHOSPHATASE 108 Units/L (46-116); ASPARTATE AMINO TRANSFERASE 34 Units/L (15-37); BLOOD UREA NITROGEN 17 mg/dL (7-18); CALCIUM 9.2 mg/dL (8.5-10.1); CARBON DIOXIDE 23.7 mmol/L (21-32); CHLORIDE 99 mmol/L (98-107); COR CA(FOR HYPOALB) 10.3 mg/dL (8.5-10.1); COR NA(FOR HYPERGLY) 136 mmol/L (136-145); CREATININE 1.44 mg/dL (0.70-1.30); GLUCOSE 140 mg/dL (65-99); MAGNESIUM 2.1 mg/dL (2.0-2.9); POTASSIUM 3.2 mmol/L (3.5-5.1); SODIUM 135 mmol/L (136-145); TOTAL PROTEIN 7.6 g/dL (6.4-8.2); eGFR NON BLACK RACES 51 (>60)
[2024-10-19 06:30] LABS: BASOPHILS % (AUTO) 0.2 % (0.2-1.0); EOSINOPHILS # (AUTO) 0.3 x10^3/uL (0.0-0.2); EOSINOPHILS % (AUTO) 2.1 % (0.9-2.9); HEMATOCRIT 26.9 % (42.0-54.0); HEMOGLOBIN 8.8 g/dL (13.5-18.0); LYMPHOCYTES # (AUTO) 2.4 X10^3/uL (1.3-2.9); LYMPHOCYTES % (AUTO) 15.9 % (21.0-51.0); MEAN CORPUSCULAR HEMOGLOBIN 26.6 pg (27.0-34.0); MEAN CORPUSCULAR HGB CONC 32.7 g/dL (33.0-35.0); MEAN CORPUSCULAR VOLUME 81.4 fL (80.0-100.0); MEAN PLATELET VOLUME 10.4 fL (7.4-11.0); MONOCYTES # (AUTO) 1.2 x10^3/uL (0.3-0.8); MONOCYTES % (AUTO) 7.7 % (0.0-13.0); NEUTROPHILS # (AUTO) 11.4 x10^3/uL (2.2-4.8); NEUTROPHILS % (AUTO) 74.1 % (42.0-75.0); PLATELET COUNT 250 X10^3/uL (150.0-450.0); RED BLOOD COUNT 3.31 X10^6/uL (4.7-6.0); RED CELL DISTRIBUTION WIDTH 17.9 % (11.6-16.5); WHITE BLOOD COUNT 15.4 X10^3/uL (3.6-10.0)
[2024-10-19 06:45] LABS: ALANINE AMINOTRANSFERASE 36 Units/L (12-78); ALBUMIN 2.5 g/dL (3.4-5.0); ALKALINE PHOSPHATASE 105 Units/L (46-116); ASPARTATE AMINO TRANSFERASE 39 Units/L (15-37); BLOOD UREA NITROGEN 16 mg/dL (7-18); CALCIUM 9.3 mg/dL (8.5-10.1); CARBON DIOXIDE 22.3 mmol/L (21-32); CHLORIDE 100 mmol/L (98-107); COR CA(FOR HYPOALB) 10.5 mg/dL (8.5-10.1); COR NA(FOR HYPERGLY) 137 mmol/L (136-145); CREATININE 1.34 mg/dL (0.70-1.30); GLUCOSE 144 mg/dL (65-99); POTASSIUM 3.4 mmol/L (3.5-5.1); SODIUM 136 mmol/L (136-145); TOTAL PROTEIN 7.6 g/dL (6.4-8.2); eGFR NON BLACK RACES 56 (>60)
[2024-10-19] MEDS ORDERED: CONSULT PHARMACY - POTASSIUM & MAGNESIUM XX SCH (07:00)
[2024-10-19] MEDS: KLOR-CON PO SCH (08:41)
[2024-10-20 05:44] LABS: BASOPHILS # (AUTO) 0.1 X10^3/uL (0.0-0.1); BASOPHILS % (AUTO) 0.4 % (0.2-1.0); EOSINOPHILS # (AUTO) 0.4 x10^3/uL (0.0-0.2); EOSINOPHILS % (AUTO) 2.4 % (0.9-2.9); HEMATOCRIT 26.3 % (42.0-54.0); HEMOGLOBIN 8.6 g/dL (13.5-18.0); LYMPHOCYTES # (AUTO) 2.5 X10^3/uL (1.3-2.9); LYMPHOCYTES % (AUTO) 15.7 % (21.0-51.0); MEAN CORPUSCULAR HEMOGLOBIN 26.8 pg (27.0-34.0); MEAN CORPUSCULAR HGB CONC 32.6 g/dL (33.0-35.0); MONOCYTES # (AUTO) 1.1 x10^3/uL (0.3-0.8); MONOCYTES % (AUTO) 6.9 % (0.0-13.0); NEUTROPHILS # (AUTO) 11.8 x10^3/uL (2.2-4.8); NEUTROPHILS % (AUTO) 74.6 % (42.0-75.0); PLATELET COUNT 276 X10^3/uL (150.0-450.0); RED BLOOD COUNT 3.21 X10^6/uL (4.7-6.0); WHITE BLOOD COUNT 15.8 X10^3/uL (3.6-10.0)
[2024-10-20 05:55] LABS: ALANINE AMINOTRANSFERASE 34 Units/L (12-78); ALBUMIN 2.4 g/dL (3.4-5.0); ALKALINE PHOSPHATASE 98 Units/L (46-116); ASPARTATE AMINO TRANSFERASE 30 Units/L (15-37); BLOOD UREA NITROGEN 15 mg/dL (7-18); CALCIUM 9.6 mg/dL (8.5-10.1); CARBON DIOXIDE 24.7 mmol/L (21-32); CHLORIDE 110 mmol/L (98-107); COR CA(FOR HYPOALB) 10.9 mg/dL (8.5-10.1); COR NA(FOR HYPERGLY) 146 mmol/L (136-145); CREATININE 1.34 mg/dL (0.70-1.30); GLUCOSE 159 mg/dL (65-99); MAGNESIUM 2.3 mg/dL (2.0-2.9); POTASSIUM 4.4 mmol/L (3.5-5.1); SODIUM 145 mmol/L (136-145); TOTAL PROTEIN 7.4 g/dL (6.4-8.2); eGFR NON BLACK RACES 56 (>60)
--- NOTE | 2024-10-20 10:04 | RAD ---
EXAM: CHEST, 1 VIEW HISTORY: PNEUMONIA; COMPARISON: No relevant prior studies were available for comparison at the time of interpretation. TECHNIQUE: CHEST, 1 VIEW FINDINGS: Chest: Lines and tubes: Cardiac leads overlie the chest. Mediastinum: Cardiomegaly. Pulmonary vessels: No pulmonary vascular congestion. Lung sullivan: No suspicious airspace opacity. Pleura: No effusion. No pneumothorax. Bones and soft tissues: No acute osseous or soft tissue abnormality. IMPRESSION: 1. No acute cardiopulmonary abnormality THIS IS AN ELECTRONICALLY VERIFIED FINAL REPORT 10/20/2024 10:01 AM - Electronically signed by Stevenson Latham MD
--- NOTE | 2024-10-20 10:05 | PCM.PROG ---
Progress Note Progress Note for Day of Date of Exam: 10/20/24 Subjective Subjective: Patient seen at bedside, no acute events overnight. Mr Byers is currently admitted for sepsis due to UTI, sacral wound and pneumonia. He does have a hx of aspiration and was evaluated by speech. Pureed diet was recommended. He also had Brain CT and MRI done which did not show any acute yosi nges. Patient remains high risk for aspiration, discussed about PEG tube was done with family last week and they were in agreement if that's what is needed for nutrition. He is currently on IV antibiotics. He does have sacral and heel wound. He does have a hx of PVD, was seeing Dr Foster outpatient and was supposed to have a procedure but due to recent admissions for bacteremia and pneumonia, it was postponed. Labs/imaging reviewed: -WBC 15.8 Hgb 8.6 K 4.4 BUN/Cr 15/1.34 -Blood Cx negative -AIT sacral reviewed -AIT resp neg Plan: will consult Dr Foster to look at sacral wounds as well as PAD. Continue IV antibiotics. Replace electrolytes as needed. Continue current diet as recomme nded by speech. Will discuss with family regarding patient's goals and wishes. CXR pending. Continue IV lasix. PT/OT as tolerated. Continue wound care and dressing change as per nursing. Monitor AM labs/imaging. Time spent for clinical assessment, reviewing labs/imaging, physical exam, decision making and documentation greater than 45 mins. Past Medical Family Social History Allergies: Allergies No Known Drug Allergies Allergy (Unknown, Verified 09/19/24 13:56) Onset Date: 12/19/2017 Vital Signs and I&O's Vital Signs: Vital Signs Temperature 98.8 F Temperature 98.1 F Pulse Rate [Radial] 103 Pulse Rate [Radial] 96 Respiratory Rate 22 Respiratory Rate 20 Blood Pressure [Left Arm] 141/88 Blood Pressure [Left Arm] 123/57 O2 Sat by Pulse Oximetry 95 O2 Sat by Pulse Oximetry 95 O2 Sat by Pulse Oximetry 98 Intake and Output: Intake & Output 10/17/24 10/18/24 10/19/24 10/20/24 23:59 23:59 23:59 23:59 Intake Total 2828 / 2828 2788 / 2788 2888 / 2888 1219 / 1219 Output Total 2550 / 2550 2500 / 2500 2725 / 2725 1000 / 1000 Balance 278 / 278 288 / 288 163 / 163 219 / 219 Physical Exam Oriented: Unable to test Eyes: Normal Ear: Normal Throat: Normal Respiratory: Generalized, Diminished and Rhonchi Cardiovascular: Normal Auscultation: Bowel Sounds: Normal Palpation: Normal Tenderness: Normal Skin: Wound Musculoskeletal: Normal Psychiatric: Normal Mood Description: Calm Affect: Normal Speech Pattern: Aphasic Laboratory and Diagnostics 10/20/24 05:15 10/20/24 05:15 Labs: 10/14/24 00:07 Blood Blood Culture - Final 10/13/24 23:52 Blood Blood Culture - Final 10/13/24 16:45 Sacral Wound Gram Stain - Final 10/13/24 16:45 Sacral Wound Culture - Final Escherichia Coli Proteus Mirabilis Klebsiella Ornithinolytica Laboratory WBC 15.8 X10^3/uL (3.6-10.0) H 10/20/24 05:15 RBC 3.21 X10^6/uL (4.7-6.0) L 10/20/24 05:15 Hgb 8.6 g/dL (13.5-18.0) L 10/20/24 05:15 Hct 26.3 % (42.0-54.0) L 10/20/24 05:15 MCV 82.0 fL (80.0-100.0) 10/20/24 05:15 MCH 26.8 pg (27.0-34.0) L 10/20/24 05:15 MCHC 32.6 g/dL (33.0-35.0) L 10/20/24 05:15 RDW 18.0 % (11.6-16.5) H 10/20/24 05:15 Plt Count 276 X10^3/uL (150.0-450.0) 10/20/24 05:15 MPV 10.0 fL (7.4-11.0) 10/20/24 05:15 Neut % (Auto) 74.6 % (42.0-75.0) 10/20/24 05:15 Lymph % (Auto) 15.7 % (21.0-51.0) L 10/20/24 05:15 Aurora % (Auto) 6.9 % (0.0-13.0) 10/20/24 05:15 Eos % (Auto) 2.4 % (0.9-2.9) 10/20/24 05:15 Baso % (Auto) 0.4 % (0.2-1.0) 10/20/24 05:15 Neut # (Auto) 11.8 x10^3/uL (2.2-4.8) H 10/20/24 05:15 Lymph # (Auto) 2.5 X10^3/uL (1.3-2.9) 10/20/24 05:15 Aurora # (Auto) 1.1 x10^3/uL (0.3-0.8) H 10/20/24 05:15 Eos # (Auto) 0.4 x10^3/uL (0.0-0.2) H 10/20/24 05:15 Baso # (Auto) 0.1 X10^3/uL (0.0-0.1) 10/20/24 05:15 Absolute Nucleated RBC 0.0 /100WBC 10/20/24 05:15 Sample Site Rra 10/15/24 10:15 ABG pH 7.460 (7.35-7.45) H 10/15/24 10:15 ABG pCO2 35.0 mmHg (35.0-45.0) 10/15/24 10:15 ABG pO2 62.0 mmHg (80.0-100.0) L 10/15/24 10:15 ABG HCO3 24.9 mmol/L (22-26) 10/15/24 10:15 ABG O2 Saturation 93.0 % (90-100) 10/15/24 10:15 ABG Base Excess 1.3 mmol/L (-2.0-2.0) 10/15/24 10:15 Pablo Test Pos 10/15/24 10:15 A-a Gradient 44.0 mmHg 10/15/24 10:15 FiO2 21.0 10/15/24 10:15 Blood Gas Comments Pt lucas well eb 10/15/24 10:15 Sodium 145 mmol/L (136-145) 10/20/24 05:15 Corrected Sodium 146 mmol/L (136-145) H 10/20/24 05:15 Potassium 4.4 mmol/L (3.5-5.1) 10/20/24 05:15 Chloride 110 mmol/L (98-107) H 10/20/24 05:15 Carbon Dioxide 24.7 mmol/L (21-32) 10/20/24 05:15 BUN 15 mg/dL (7-18) 10/20/24 05:15 Creatinine 1.34 mg/dL (0.70-1.30) H 10/20/24 05:15 Est GFR (MDRD) Af Amer > 60 (>60) 10/20/24 05:15 Est GFR (MDRD) Non-Af 56 (>60) L 10/20/24 05:15 Glucose 159 mg/dL (65-99) H 10/20/24 05:15 Lactic Acid 1.5 mmol/L (0.4-2.0) 10/12/24 15:01 Calcium 9.6 mg/dL (8.5-10.1) 10/20/24 05:15 Corrected Calcium 10.9 mg/dL (8.5-10.1) H 10/20/24 05:15 Magnesium 2.3 mg/dL (2.0-2.9) 10/20/24 05:15 Total Bilirubin 0.30 mg/dL (0.2-1.0) 10/20/24 05:15 AST 30 Units/L (15-37) 10/20/24 05:15 ALT 34 Units/L (12-78) 10/20/24 05:15 Alkaline Phosphatase 98 Units/L (46-116) 10/20/24 05:15 Total Protein 7.4 g/dL (6.4-8.2) 10/20/24 05:15 Albumin 2.4 g/dL (3.4-5.0) L 10/20/24 05:15 Globulin 5.0 g/dL (2.5-4.5) H 10/20/24 05:15 Albumin/Globulin Ratio 0.5 Ratio (1.1-2.1) L 10/20/24 05:15 Specimen Type Clean catch urine 10/13/24 09:40 Urine Color Yellow (YELLOW) 10/13/24 09:40 Urine Appearance Clear (CLEAR) 10/13/24 09:40 Urine pH 6.0 (5.0 - 8.0) 10/13/24 09:40 Ur Specific Bob White 1.025 (1.000-1.030) 10/13/24 09:40 Urine Protein 2+ (NEGATIVE) 10/13/24 09:40 Urine Glucose (UA) Negative (NEGATIVE) 10/13/24 09:40 Urine Ketones Negative (NEGATIVE) 10/13/24 09:40 Urine Blood 2+ (NEGATIVE) 10/13/24 09:40 Urine Nitrite Negative (NEGATIVE) 10/13/24 09:40 Urine Bilirubin Negative (NEGATIVE) 10/13/24 09:40 Urine Urobilinogen Normal (NORMAL) 10/13/24 09:40 Ur Leukocyte Esterase Negative (NEGATIVE) 10/13/24 09:40 Urine RBC 3-5 /HPF (0-3) A 10/13/24 09:40 Urine WBC 0-2 /HPF (0-5) 10/13/24 09:40 Ur Squamous Epith Cells Rare /HPF (NEGATIVE) 10/13/24 09:40 Amorphous Sediment Trace /HPF (NEGATIVE) 10/13/24 09:40 Urine Bacteria Negative /HPF (NEGATIVE) 10/13/24 09:40 Coarse Granular Casts Rare /HPF (NEGATIVE) 10/13/24 09:40 Urine Mucus Few /HPF (NEGATIVE) 10/13/24 09:40 Ur Culture Indicated? No/not indicated 10/13/24 09:40 Infect Dis PCR Plus See scanned report 10/13/24 16:45 Plan (1) Acute UTI: Status: Acute (2) Altered mental status: Status: Acute Qualifiers: Altered mental status type: unspecified Qualified Code(s): R41.82 - Altered mental status, unspecified (3) Atrial fibrillation: Status: Chronic Qualifiers: Atrial fibrillation type: unspecified Qualified Code(s): I48.91 - Unspecified atrial fibrillation (4) CHF exacerbation: Status: Acute Qualifiers: Heart failure type: unspecified Qualified Code(s): I50.9 - Heart failure, unspecified (5) Pneumonia: Status: Acute Qualifiers: Pneumonia type: due to unspecified organism Laterality: bilateral Lung location: unspecified part of lung Qualified Code(s): J18.9 - Pneumonia, unspecified organism (6) Acute renal insufficiency: Status: Acute (7) Aspiration pneumonia: Status: Acute Qualifiers: Aspiration pneumonia type: unspecified Laterality: unspecified laterality Lung location: lower lobe of lung Qualified Code(s): J69.0 - Pneumonitis due to inhalation of food and vomit (8) PVD (peripheral vascular disease): Status: Chronic (9) Sacral wound: Status: Chronic Qualifiers: Encounter type: subsequent encounter Qualified Code(s): S31.000D - Unspecified open wound of lower back and pelvis without penetration into retroperitoneum, subsequent encounter (10) Anemia: Status: Chronic Qualifiers: Anemia type: unspecified type Qualified Code(s): D64.9 - Anemia, unspecified
[2024-10-20] MEDS: D5W 1,000 ML IV 1,000 ML IV SCH (10:31)
--- NOTE | 2024-10-21 00:28 | DR.CONSULT ---
CONSULT Consultation for Day of: Date: 10/20/24 Chief Complaint Chief Complaint: 69-year-old male with history of cerebrovascular accident who is not able to communicate and currently a resident of [facility] facility. Presented with failed treatment of urinary tract infection and positive blood cultures. Admitted for IV antibiotics. patient now with a dry gangrenous changes to the left heel. Patient had been seen in my office in early August for nonhealing wounds to the right medial foot and the left heel. He is known to have significant venous insufficiency and we were planning possible iliac vein stenting. He also had no palpable pulses and we will plan a CT angiogram but he has been admitted several times since that time and the study obtained as an inpatient shows severe trifurcation level disease bilaterally with some reconstitution distally. Patient is on Eliquis. Patient is a full code. Allergies Allergies Allergy/AdvReac Type Severity Reaction Status Date / Time No Known Drug Allergies Allergy Unknown Verified 09/19/24 13:56 History of Present Illness History of Present Illness: see above Past Medical History Past Medical History: Alzheimers, Anemia, Arthritis, CVA, Dementia, Dyslipidemia, GERD, Gout, Hypertension and Renal Disease Additional Medical History: Recurrent falls Past Surgical History Surgical History: Ortho Surgery Family History Family Medical History: Cancer, [place] and Hypertension Social History Does patient currently use any type of tobacco product: No Have you used tobacco products in the last 12 months: No Type of Tobacco Use: None Does any household member use tobacco: No Alcohol Use: None Drug Use: None Medications Home Medications: No Known Drug Allergies Allergy (Unknown, Verified 09/19/24 13:56) CONTINUE taking the following medications apixaban 5 mg tablet (Eliquis) 5 mg PO BID 10/12/24 [History]\ See medication list Review of Systems Constitutional: See HPI (Patient is not verbal and will not answer questions) Eyes: No Symptoms Reported ENT: No Symptoms Reported Respiratory: No Symptoms Reported Cardiovascular: See HPI Gastrointestinal: No Symptoms Reported Genitourinary: No Symptoms Reported Musculoskeletal: No Symptoms Reported Skin: No Symptoms Reported Neurological: See HPI and Change in Speech (Patient nonverbal after CVA) Physical Exam Vital Signs: Vital Signs Temperature 98.7 F Pulse Rate [Radial] 110 Pulse Rate 91 Respiratory Rate 18 Blood Pressure [Left Arm] 146/68 O2 Sat by Pulse Oximetry 97 O2 Sat by Pulse Oximetry 98 Oriented: Unable to test Eyes: Normal Ear: Normal Nose: Normal Throat: Normal Respiratory: Clear Throughout Cardiovascular: Normal and Other (Patient with no palpable distal pulses. Small ulcers less than 1 cm 2 on the right and 1 on the left medial ankle. Patient with dry gangrenous changes to the left heel) : Normal Auscultation: Bowel Sounds: Normal Palpation: Normal Tenderness: Normal Skin: Wound (Small sacral decubitus ulcer less than 2 cm, clean) and Other (See above) Musculoskeletal: Normal Psychiatric: Other (Patient is nonverbal due to CVA) Mood Description: Calm and Suspicious Affect: Anxious Speech Pattern: Unable to speak Plan (1) Acute UTI: Status: Acute Plan: Currently receiving antibiotics (2) Altered mental status: Status: Acute Qualifiers: Altered mental status type: unspecified Qualified Code(s): R41.82 - Altered mental status, unspecified Plan: Home medications (3) Atrial fibrillation: Status: Chronic Qualifiers: Atrial fibrillation type: unspecified Qualified Code(s): I48.91 - Unspecified atrial fibrillation Plan: On Eliquis (4) CHF exacerbation: Status: Acute Qualifiers: Heart failure type: unspecified Qualified Code(s): I50.9 - Heart failure, unspecified Plan: Treat medically (5) Pneumonia: Status: Acute Qualifiers: Pneumonia type: due to unspecified organism Laterality: bilateral Lung location: unspecified part of lung Qualified Code(s): J18.9 - Pneumonia, unspecified organism Plan: Being treated medically (6) Acute renal insufficiency: Status: Acute Plan: Improved after hydration. Creatinine 1.34 (7) Aspiration pneumonia: Status: Acute Qualifiers: Aspiration pneumonia type: unspecified Laterality: unspecified laterality Lung location: lower lobe of lung Qualified Code(s): J69.0 - Pneumonitis due to inhalation of food and vomit Plan: Treat medically (8) PVD (peripheral vascular disease): Status: Chronic Plan: We discussed the finding of the CT angiogram with the family. Happily he will require bilateral lower extremity intervention to salvage his legs. I am concerned that even with salvage the left heel wound may not heal completely. Will place Santyl on this wound for now (9) Sacral wound: Status: Chronic Qualifiers: Encounter type: subsequent encounter Qualified Code(s): S31.000D - Unspecified open wound of lower back and pelvis without penetration into retroperitoneum, subsequent encounter Plan: Local wound care (10) Anemia: Status: Chronic Qualifiers: Anemia type: unspecified type Qualified Code(s): D64.9 - Anemia, unspecified
[2024-10-21 06:07] LABS: BASOPHILS % (AUTO) 0.3 % (0.2-1.0); EOSINOPHILS # (AUTO) 0.3 x10^3/uL (0.0-0.2); EOSINOPHILS % (AUTO) 2.2 % (0.9-2.9); HEMATOCRIT 24.3 % (42.0-54.0); LYMPHOCYTES # (AUTO) 1.9 X10^3/uL (1.3-2.9); LYMPHOCYTES % (AUTO) 13.2 % (21.0-51.0); MEAN CORPUSCULAR HEMOGLOBIN 26.7 pg (27.0-34.0); MEAN CORPUSCULAR HGB CONC 32.9 g/dL (33.0-35.0); MEAN CORPUSCULAR VOLUME 81.3 fL (80.0-100.0); MONOCYTES # (AUTO) 0.9 x10^3/uL (0.3-0.8); MONOCYTES % (AUTO) 6.1 % (0.0-13.0); NEUTROPHILS # (AUTO) 11.1 x10^3/uL (2.2-4.8); NEUTROPHILS % (AUTO) 78.2 % (42.0-75.0); PLATELET COUNT 316 X10^3/uL (150.0-450.0); RED BLOOD COUNT 2.99 X10^6/uL (4.7-6.0); RED CELL DISTRIBUTION WIDTH 18.3 % (11.6-16.5); WHITE BLOOD COUNT 14.2 X10^3/uL (3.6-10.0)
[2024-10-21 06:20] LABS: ALANINE AMINOTRANSFERASE 37 Units/L (12-78); ALBUMIN 2.5 g/dL (3.4-5.0); ALKALINE PHOSPHATASE 101 Units/L (46-116); ASPARTATE AMINO TRANSFERASE 34 Units/L (15-37); BLOOD UREA NITROGEN 15 mg/dL (7-18); CALCIUM 9.5 mg/dL (8.5-10.1); CARBON DIOXIDE 23.5 mmol/L (21-32); CHLORIDE 102 mmol/L (98-107); COR CA(FOR HYPOALB) 10.7 mg/dL (8.5-10.1); COR NA(FOR HYPERGLY) 138 mmol/L (136-145); CREATININE 1.28 mg/dL (0.70-1.30); GLUCOSE 152 mg/dL (65-99); MAGNESIUM 1.8 mg/dL (2.0-2.9); POTASSIUM 3.5 mmol/L (3.5-5.1); SODIUM 137 mmol/L (136-145); TOTAL PROTEIN 7.2 g/dL (6.4-8.2); eGFR NON BLACK RACES 59 (>60)
[2024-10-21] MEDS ORDERED: CONSULT PHARMACY - POTASSIUM & MAGNESIUM XX SCH (07:00)
[2024-10-21] MEDS ORDERED: D5W IV SCH (08:00)
[2024-10-21] MEDS ORDERED: POTASSIUM CHLORIDE IV SCH (08:00)
[2024-10-21] MEDS ORDERED: [UNRECOGNIZED DRUG - OTHER] IV SCH (08:00)
[2024-10-21] MEDS: D5 1/2 NS + KCL 20 MEQ/L 1,000 ML with MAGNESIUM SULFATE 50% INJ VIAL 1 G IV SCH (08:27)
--- NOTE | 2024-10-21 10:23 | PCM.PROG ---
Progress Note Progress Note for Day of Date of Exam: 10/21/24 Subjective Subjective: Patient seen at bedside, no acute events overnight. Mr Byers is currently admitted for sepsis due to UTI, sacral wound and pneumonia. He does have a hx of aspiration and was evaluated by speech. Pureed diet was recommended. Dr Foster evaluated the patient's sacral and heel wounds, plans to do I&D today. He also had Brain CT and MRI done which did not show any acute changes. Patient remains high risk for aspiration, discussed about PEG tube was done with family last week and they were in agreement if that's what is needed for nutrition. He is currently on IV antibiotics. He does have sacral and heel wound. He does have a hx of PVD, was seeing Dr Foster outpatient and was supposed to have a procedure but due to recent admissions for bacteremia and pneumonia, it was postponed. Labs/imaging reviewed: -WBC 14.2 Hgb 8.0 K 3.5 BUN/Cr 15/1.28 mag 1.8 -Blood Cx negative -AIT sacral reviewed -AIT resp neg Plan: Follow surgery recommendations, I&D today. NPO status. Continue IV antibiotics. Replace electrolytes as needed. Continue IV lasix. PT/OT as tolerated. Continue wound care and dressing change as per nursing. Monitor AM labs/imaging. Time spent for clinical assessment, reviewing labs/imaging, physical exam, decision making and documentation greater than 45 mins. Past Medical Family Social History Allergies: Allergies No Known Drug Allergies Allergy (Unknown, Verified 09/19/24 13:56) Onset Date: 12/19/2017 Vital Signs and I&O's Vital Signs: Vital Signs Temperature 97.4 F Temperature 99.3 F Temperature 97.7 F Pulse Rate [Radial] 97 Pulse Rate [Radial] 103 Pulse Rate 95 Respiratory Rate 16 Respiratory Rate 20 Blood Pressure [Left Arm] 107/58 Blood Pressure [Left Arm] 129/83 O2 Sat by Pulse Oximetry 65 O2 Sat by Pulse Oximetry 100 O2 Sat by Pulse Oximetry 98 Intake and Output: Intake & Output 10/18/24 10/19/24 10/20/24 10/21/24 23:59 23:59 23:59 23:59 Intake Total 2788 / 2788 2888 / 2888 3341 / 3341 1210 / 1210 Output Total 2500 / 2500 2725 / 2725 2450 / 2450 Balance 288 / 288 163 / 163 891 / 891 1210 / 1210 Physical Exam Oriented: Unable to test Eyes: Normal Ear: Normal Nose: Normal Throat: Normal Respiratory: Generalized, Diminished and Rhonchi Cardiovascular: Normal and Other (Patient with no palpable distal pulses. Small ulcers less than 1 cm 2 on the right and 1 on the left medial ankle. 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) Mood Description: Calm Affect: Normal Speech Pattern: Aphasic Laboratory and Diagnostics 10/21/24 05:25 10/21/24 05:25 Labs: 10/14/24 00:07 Blood Blood Culture - Final 10/13/24 23:52 Blood Blood Culture - Final 10/13/24 16:45 Sacral Wound Gram Stain - Final 10/13/24 16:45 Sacral Wound Culture - Final Escherichia Coli Proteus Mirabilis Klebsiella Ornithinolytica Laboratory WBC 14.2 X10^3/uL (3.6-10.0) H 10/21/24 05:25 RBC 2.99 X10^6/uL (4.7-6.0) L 10/21/24 05:25 Hgb 8.0 g/dL (13.5-18.0) L 10/21/24 05:25 Hct 24.3 % (42.0-54.0) L 10/21/24 05:25 MCV 81.3 fL (80.0-100.0) 10/21/24 05:25 MCH 26.7 pg (27.0-34.0) L 10/21/24 05:25 MCHC 32.9 g/dL (33.0-35.0) L 10/21/24 05:25 RDW 18.3 % (11.6-16.5) H 10/21/24 05:25 Plt Count 316 X10^3/uL (150.0-450.0) 10/21/24 05:25 MPV 10.0 fL (7.4-11.0) 10/21/24 05:25 Neut % (Auto) 78.2 % (42.0-75.0) H 10/21/24 05:25 Lymph % (Auto) 13.2 % (21.0-51.0) L 10/21/24 05:25 [place] % (Auto) 6.1 % (0.0-13.0) 10/21/24 05:25 Eos % (Auto) 2.2 % (0.9-2.9) 10/21/24 05:25 Baso % (Auto) 0.3 % (0.2-1.0) 10/21/24 05:25 Neut # (Auto) 11.1 x10^3/uL (2.2-4.8) H 10/21/24 05:25 Lymph # (Auto) 1.9 X10^3/uL (1.3-2.9) 10/21/24 05:25 [place] # (Auto) 0.9 x10^3/uL (0.3-0.8) H 10/21/24 05:25 Eos # (Auto) 0.3 x10^3/uL (0.0-0.2) H 10/21/24 05:25 Baso # (Auto) 0.0 X10^3/uL (0.0-0.1) 10/21/24 05:25 Absolute Nucleated RBC 0.0 /100WBC 10/21/24 05:25 Sample Site Rra 10/15/24 10:15 ABG pH 7.460 (7.35-7.45) H 10/15/24 10:15 ABG pCO2 35.0 mmHg (35.0-45.0) 10/15/24 10:15 ABG pO2 62.0 mmHg (80.0-100.0) L 10/15/24 10:15 ABG HCO3 24.9 mmol/L (22-26) 10/15/24 10:15 ABG O2 Saturation 93.0 % (90-100) 10/15/24 10:15 ABG Base Excess 1.3 mmol/L (-2.0-2.0) 10/15/24 10:15 Pablo Test Pos 10/15/24 10:15 A-a Gradient 44.0 mmHg 10/15/24 10:15 FiO2 21.0 10/15/24 10:15 Blood Gas Comments Pt lucas well eb 10/15/24 10:15 Sodium 137 mmol/L (136-145) 10/21/24 05:25 Corrected Sodium 138 mmol/L (136-145) 10/21/24 05:25 Potassium 3.5 mmol/L (3.5-5.1) 10/21/24 05:25 Chloride 102 mmol/L (98-107) 10/21/24 05:25 Carbon Dioxide 23.5 mmol/L (21-32) 10/21/24 05:25 BUN 15 mg/dL (7-18) 10/21/24 05:25 Creatinine 1.28 mg/dL (0.70-1.30) 10/21/24 05:25 Est GFR (MDRD) Af Amer > 60 (>60) 10/21/24 05:25 Est GFR (MDRD) Non-Af 59 (>60) 10/21/24 05:25 Glucose 152 mg/dL (65-99) H 10/21/24 05:25 Lactic Acid 1.5 mmol/L (0.4-2.0) 10/12/24 15:01 Calcium 9.5 mg/dL (8.5-10.1) 10/21/24 05:25 Corrected Calcium 10.7 mg/dL (8.5-10.1) H 10/21/24 05:25 Magnesium 1.8 mg/dL (2.0-2.9) L 10/21/24 05:25 Total Bilirubin 0.20 mg/dL (0.2-1.0) 10/21/24 05:25 AST 34 Units/L (15-37) 10/21/24 05:25 ALT 37 Units/L (12-78) 10/21/24 05:25 Alkaline Phosphatase 101 Units/L (46-116) 10/21/24 05:25 Total Protein 7.2 g/dL (6.4-8.2) 10/21/24 05:25 Albumin 2.5 g/dL (3.4-5.0) L 10/21/24 05:25 Globulin 4.7 g/dL (2.5-4.5) H 10/21/24 05:25 Albumin/Globulin Ratio 0.5 Ratio (1.1-2.1) L 10/21/24 05:25 Specimen Type Clean catch urine 10/13/24 09:40 Urine Color Yellow (YELLOW) 10/13/24 09:40 Urine Appearance Clear (CLEAR) 10/13/24 09:40 Urine pH 6.0 (5.0 - 8.0) 10/13/24 09:40 Ur Specific [place] 1.025 (1.000-1.030) 10/13/24 09:40 Urine Protein 2+ (NEGATIVE) 10/13/24 09:40 Urine Glucose (UA) Negative (NEGATIVE) 10/13/24 09:40 Urine Ketones Negative (NEGATIVE) 10/13/24 09:40 Urine Blood 2+ (NEGATIVE) 10/13/24 09:40 Urine Nitrite Negative (NEGATIVE) 10/13/24 09:40 Urine Bilirubin Negative (NEGATIVE) 10/13/24 09:40 Urine Urobilinogen Normal (NORMAL) 10/13/24 09:40 Ur Leukocyte Esterase Negative (NEGATIVE) 10/13/24 09:40 Urine RBC 3-5 /HPF (0-3) A 10/13/24 09:40 Urine WBC 0-2 /HPF (0-5) 10/13/24 09:40 Ur Squamous Epith Cells Rare /HPF (NEGATIVE) 10/13/24 09:40 Amorphous Sediment Trace /HPF (NEGATIVE) 10/13/24 09:40 Urine Bacteria Negative /HPF (NEGATIVE) 10/13/24 09:40 Coarse Granular Casts Rare /HPF (NEGATIVE) 10/13/24 09:40 Urine Mucus Few /HPF (NEGATIVE) 10/13/24 09:40 Ur Culture Indicated? No/not indicated 10/13/24 09:40 Infect Dis PCR Plus See scanned report 10/13/24 16:45 Plan (1) Acute UTI: Status: Acute (2) Altered mental status: Status: Acute Qualifiers: Altered mental status type: unspecified Qualified Code(s): R41.82 - Altered mental status, unspecified (3) Atrial fibrillation: Status: Chronic Qualifiers: Atrial fibrillation type: unspecified Qualified Code(s): I48.91 - Unspecified atrial fibrillation (4) CHF exacerbation: Status: Acute Qualifiers: Heart failure type: unspecified Qualified Code(s): I50.9 - Heart failure, unspecified (5) Pneumonia: Status: Acute Qualifiers: Pneumonia type: due to unspecified organism Laterality: bilateral Lung location: unspecified part of lung Qualified Code(s): J18.9 - Pneumonia, unspecified organism (6) Acute renal insufficiency: Status: Acute (7) Aspiration pneumonia: Status: Acute Qualifiers: Aspiration pneumonia type: unspecified Laterality: unspecified laterality Lung location: lower lobe of lung Qualified Code(s): J69.0 - Pneumonitis due to inhalation of food and vomit (8) PVD (peripheral vascular disease): Status: Chronic (9) Sacral wound: Status: Chronic Qualifiers: Encounter type: subsequent encounter Qualified Code(s): S31.000D - Unspecified open wound of lower back and pelvis without penetration into retroperitoneum, subsequent encounter (10) Anemia: Status: Chronic Qualifiers: Anemia type: unspecified type Qualified Code(s): D64.9 - Anemia, unspecified (11) Nonhealing wound of heel: Status: Chronic
--- NOTE | 2024-10-21 21:34 | NOTE.SOAP ---
Soap Note Note for Day of Date of Exam: 10/21/24 Subjective Data Subjective Data: Patient unchanged. I have discussed with the family what their wishes are. They would like to have his vascular problems addressed while in the hospital. I think he is stable enough to have that done at this time Objective Data Temperature: 98.7 F Pulse Rate: 95 Respiratory Rate: 20 Blood Pressure: 116/76 O2 Sat by Pulse Oximetry: 100 Objective Data: Dark eschar to left heel. Small ulceration to the right lateral foot. Both feet cool to touch. Hemoglobin equal 8 g. Blood cell count 14,200. Basic metabolic profile within normal limits. CT angiogram has been reviewed showing severe disease at the trifurcation level vessels bilaterally Assessment Assessment: Severe ischemia both lower extremities. Although patient is not ambulatory I have discussed with the family there wishes and they would like areas on possible to save his legs. Plan Plan: Tentatively plan for arterial invention of the left leg on with arteriogram and treatment of complication level vessels. Certainly he is not ambulatory the still with some high risk for pressure wounds like he already has on the left heel. Without intervention there is no chance of it healing and high likelihood of amputation.
[2024-10-22 06:06] LABS: BASOPHILS % (AUTO) 0.2 % (0.2-1.0); EOSINOPHILS # (AUTO) 0.3 x10^3/uL (0.0-0.2); EOSINOPHILS % (AUTO) 2.2 % (0.9-2.9); HEMOGLOBIN 8.2 g/dL (13.5-18.0); LYMPHOCYTES # (AUTO) 2.5 X10^3/uL (1.3-2.9); LYMPHOCYTES % (AUTO) 17.2 % (21.0-51.0); MEAN CORPUSCULAR HEMOGLOBIN 26.7 pg (27.0-34.0); MEAN CORPUSCULAR HGB CONC 32.7 g/dL (33.0-35.0); MEAN CORPUSCULAR VOLUME 81.6 fL (80.0-100.0); MEAN PLATELET VOLUME 9.6 fL (7.4-11.0); MONOCYTES # (AUTO) 1.1 x10^3/uL (0.3-0.8); MONOCYTES % (AUTO) 7.4 % (0.0-13.0); NEUTROPHILS # (AUTO) 10.7 x10^3/uL (2.2-4.8); PLATELET COUNT 409 X10^3/uL (150.0-450.0); RED BLOOD COUNT 3.07 X10^6/uL (4.7-6.0); RED CELL DISTRIBUTION WIDTH 17.7 % (11.6-16.5); WHITE BLOOD COUNT 14.7 X10^3/uL (3.6-10.0)
[2024-10-22 06:29] LABS: ALANINE AMINOTRANSFERASE 36 Units/L (12-78); ALBUMIN 2.4 g/dL (3.4-5.0); ALKALINE PHOSPHATASE 102 Units/L (46-116); ASPARTATE AMINO TRANSFERASE 35 Units/L (15-37); BLOOD UREA NITROGEN 15 mg/dL (7-18); CALCIUM 9.4 mg/dL (8.5-10.1); CARBON DIOXIDE 23.9 mmol/L (21-32); CHLORIDE 101 mmol/L (98-107); COR CA(FOR HYPOALB) 10.7 mg/dL (8.5-10.1); COR NA(FOR HYPERGLY) 138 mmol/L (136-145); CREATININE 1.28 mg/dL (0.70-1.30); GLUCOSE 139 mg/dL (65-99); MAGNESIUM 1.8 mg/dL (2.0-2.9); POTASSIUM 3.5 mmol/L (3.5-5.1); SODIUM 137 mmol/L (136-145); TOTAL PROTEIN 7.2 g/dL (6.4-8.2); eGFR NON BLACK RACES 59 (>60)
[2024-10-22 12:34] VITALS: BP 118/67; PULSE 106; RESP 17; TEMP 97.9; O2SAT 98
== END 2024-10-22 14:15 | DRG 194 ==
LOC: MED/SURG 14:15 → ER 14:15 → MED/SURG 20:32
PROVIDERS: ADMIT Internal Medicine; ATTEND Internal Medicine
DX: Z79.01 Long term (current) use of anticoagulants; R13.11 Dysphagia, oral phase; B95.4 Other streptococcus as the cause of diseases classified elsewhere; E78.5 Hyperlipidemia, unspecified; J18.8 Other pneumonia, unspecified organism; I13.0 Hypertensive heart and chronic kidney disease with heart failure and stage 1 through stage 4 chronic kidney disease, or unspecified chronic kidney disease; Z16.11 Resistance to penicillins; L89.620 Pressure ulcer of left heel, unstageable; Z16.23 Resistance to quinolones and fluoroquinolones; E83.42 Hypomagnesemia; I48.91 Unspecified atrial fibrillation; I50.9 Heart failure, unspecified; L89.619 Pressure ulcer of right heel, unspecified stage; N18.9 Chronic kidney disease, unspecified; Z86.73 Personal history of transient ischemic attack (TIA), and cerebral infarction without residual deficits; B96.29 Other Escherichia coli [E. coli] as the cause of diseases classified elsewhere; N40.0 Benign prostatic hyperplasia without lower urinary tract symptoms; J69.0 Pneumonitis due to inhalation of food and vomit; Z16.19 Resistance to other specified beta lactam antibiotics; Z16.29 Resistance to other single specified antibiotic; L97.818 Non-pressure chronic ulcer of other part of right lower leg with other specified severity; B96.4 Proteus (mirabilis) (morganii) as the cause of diseases classified elsewhere; K21.9 Gastro-esophageal reflux disease without esophagitis; L89.159 Pressure ulcer of sacral region, unspecified stage; D64.89 Other specified anemias; B96.89 Other specified bacterial agents as the cause of diseases classified elsewhere; I73.89 Other specified peripheral vascular diseases; R41.82 Altered mental status, unspecified; I83.018 Varicose veins of right lower extremity with ulcer other part of lower leg; N39.0 Urinary tract infection, site not specified; E87.6 Hypokalemia